=== PATIENT | male | born 1930 | race Caucasian/White ===

== ENCOUNTER 2016-04-24 23:05 | Inpatient (IN) | payer MEDICARE ==
[2016-04-24] MEDS ORDERED: cloNIDine HCL 0.1 MG TAB PO STA (23:44)
[2016-04-25 00:37] LABS: Basophils % (A) 0 %; CH 30.5; CHCM 33.2; Eosinophils # (A) 0.1 k/uL (0-0.7); Eosinophils % (A) 1 %; HCT 34.6 % (39.0-53.0); HDW 2.75; HGB 11.4 gm/dL (13.0-17.5); Luc # (Auto) 0.16; Luc % (Auto) 2; Lymphocytes # (A) 1.7 k/uL (1.0-4.8); Lymphocytes % (A) 21 %; MCH 30.5 pg (25.0-35.0); MCV 92.4 fL (80.0-100.0); Mean Platelet Volume 7.5; Monocytes # (A) 0.5 k/uL (0-1.0); Monocytes % (A) 7 %; Neutrophils # (A) 5.3 k/uL (1.3-7.7); Neutrophils % (A) 69 %; RBC 3.74 m/uL (4.30-5.90); RDW 13.4 % (11.5-15.5); WBC 7.8 k/uL (3.8-10.6); WBC (Perox) 8.08
--- NOTE | 2016-04-25 00:40 | XR ---
EXAMINATION TYPE: XR chest 2V DATE OF EXAM: 04/25/2016 12:29 AM COMPARISON: NONE HISTORY: Cough and difficulty breathing TECHNIQUE: Frontal and lateral views of the chest are obtained. FINDINGS: There is coarsening of interstitial markings. Heart size is normal. There is no heart fail ure. There are no hilar masses. There are chest leads. There are sternal wires. IMPRESSION: Mild pulmonary fibrotic changes. No heart failure. No definite acute lung disease.
[2016-04-25 00:43] LABS: Calcium 7.4 mg/dL (8.4-10.2); Total Bilirubin 0.9 mg/dL (0.2-1.3); Total Protein 5.8 g/dL (6.3-8.2)
[2016-04-25 00:47] LABS: INR 1.1 (<1.1); Partial Thromboplastin Time 22.3 sec (22.0-30.0); Prothrombin Time 10.7 sec (9.0-12.0)
[2016-04-25 00:48] LABS: Potassium 4.6 mmol/L (3.5-5.1)
[2016-04-25 01:02] LABS: Appearance,Urine Clear (Clear); Bilirubin,Urine Negative (Negative); Glucose,Urine (UA) Negative (Negative); Ketones,Urine Negative (Negative); Leukocyte Esterase,Urine Negative (Negative); Nitrite,Urine Negative (Negative); PH, Urine 6.5 (5.0-8.0); Particle Count 252; Protein,Urine 1+ (Negative); Specific Gravity,Urine 1.009 (1.001-1.035); Squamous Epithelial Cell,Urine <1 /hpf (0-4); UA Billing (MACRO vs. MICRO) MICRO; Urobilinogen,Urine <2.0 mg/dL (<2.0); WBC,Urine 1 /hpf (0-5)
[2016-04-25 01:06] LABS: Creatine Kinase MB 1.4 ng/mL (0.0-2.4)
[2016-04-25 01:08] LABS: Troponin I 0.021 ng/mL (0.000-0.034)
[2016-04-25] MEDS ORDERED: cloNIDine HCL 0.1 MG TAB PO STA ×2 (02:11→03:09)
--- NOTE | 2016-04-25 02:15 | ED ---
Psych HPI - General Source: patient, EMS Mode of arrival: EMS <Bailey Chase - Last Filed: 04/25/16 04:59> <Bhupinder Munoz - Last Filed: 04/26/16 11:14> - General Chief Complaint: Psychiatric Symptoms Stated Complaint: mental health, flu Time Seen by Provider: 04/24/16 23:19 - History of Present Illness Initial Comments: Patient is an 85-year-old male chief complaint of depression for approximately 2 days. Patient reports that he's had increased suicidal thoughts but denies any specific plan. He denies any auditory or visual hallucinations. Patient reports that he is recently discharged from the hospital diagnosed with influenza B. Patient reports that when he at [facility] he was unable to smoke. Patient reports that because he is unable to smoke that caused him to become having withdrawals and that's why he is depressed. He states that he has battled depression off and on for the past year. He also reports that he receives most of his medications from the [facility] but is a poor historian, does not know exactly what medications he takes. Patient does state that he has had a history of chronic poor kidney function, as well as CABG. Patient states that he feels slightly short of breath. He denies any specific chest pain, nausea vomiting, fever or chills. (Bailey Chase) - Related Data Allergies Allergy/AdvReac Type Severity Reaction Status Date / Time No Known Allergies Allergy Verified 04/24/16 23:59 Review of Systems ROS Other: All systems not noted in ROS Statement are negative. <Bailey Chase - Last Filed: 04/25/16 04:59> ROS Other: All systems not noted in ROS Statement are negative. <Bhupinder Munoz - Last Filed: 04/26/16 11:14> ROS Statement: Those systems with pertinent positive or pertinent negative responses have been documented in the HPI. Past Medical History Past Medical History: Coronary Artery Disease (CAD), Hypertension Additional Past Medical History / Comment(s): CABG 2008. 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 Absent: scleral icterus, conjunctival injection, periorbital swelling ENT exam: Present: normal exam, mucous membranes moist Neck exam: Present: normal inspection. Absent: tenderness, meningismus, lymphadenopathy Respiratory exam: Present: normal lung sounds bilaterally. Absent: respiratory distress, wheezes, rales, rhonchi, stridor Cardiovascular Exam: Present: regular rate, normal rhythm, normal heart sounds. Absent: systolic murmur, diastolic murmur, rubs, gallop, clicks GI/Abdominal exam: Present: soft, normal bowel sounds. Absent: distended, tenderness, guarding, rebound, rigid Extremities exam: Present: normal inspection, full ROM, normal capillary refill. Absent: tenderness, pedal edema, joint swelling, calf tenderness Back exam: Present: normal inspection Neurological exam: Present: alert, oriented X3, CN II-XII intact Psychiatric exam: Present: normal affect, depressed. Absent: normal mood Skin exam: Present: warm, dry, intact, normal color. Absent: rash <Bailey Chase - Last Filed: 04/25/16 04:59> <Bhupinder Munoz - Last Filed: 04/26/16 11:14> - General Exam Comments Initial Comments: Patient is an anxious 85 year old male. No acute distress. (Bailey Chase) Course <Bailey Chase - Last Filed: 04/25/16 04:59> <Bhupinder Munoz - Last Filed: 04/26/16 11:14> Vital Signs 04/24/16 04/25/16 04/25/16 23:21 00:55 01:24 Temperature 97.5 F L Pulse Rate 60 50 L 49 L Respiratory 16 16 14 Rate Blood Pressure 224/90 207/83 179/76 O2 Sat by Pulse 96 100 100 Oximetry 04/25/16 04/25/16 04/25/16 02:03 03:01 03:08 Temperature Pulse Rate 54 L 54 L 60 Respiratory 16 16 16 Rate Blood Pressure 201/80 230/90 204/89 O2 Sat by Pulse 97 95 Oximetry 04/25/16 04/25/16 04/25/16 04:00 04:33 05:41 Temperature Pulse Rate 50 L 49 L Respiratory 16 16 16 Rate Blood Pressure 171/89 154/70 159/68 O2 Sat by Pulse 97 98 99 Oximetry 04/25/16 04/25/16 04/25/16 06:32 07:34 08:08 Temperature Pulse Rate 50 L 40 L 45 L Respiratory 16 12 16 Rate Blood Pressure 190/72 176/74 200/77 O2 Sat by Pulse 99 97 95 Oximetry 04/25/16 04/25/16 13:11 14:35 Temperature 97.1 F L 97.0 F L Pulse Rate 54 L 61 Respiratory 20 18 Rate Blood Pressure 131/90 111/53 O2 Sat by Pulse 96 94 L Oximetry - Reevaluation(s) Reevaluation #1: 04/25/16 05:04 Cruz is restful and a sleeping at this time. (Bailey Chase) Medical Decision Making - Lab Data Result diagrams: 04/25/16 00:00 04/25/16 00:00 - Radiology Data Radiology results: report reviewed <Bailey Chase - Last Filed: 04/25/16 04:59> - Lab Data Result diagrams: 04/26/16 07:11 04/26/16 07:11 <Bhupinder Munoz - Last Filed: 04/26/16 11:14> - Medical Decision Making She is an 85-year-old male chief complaint of depression. Patient reports that yesterday he was treated at [facility] for influenza and was discharged home. Patient reports that since then he was unable to smoke and that caused him to to become and a deep depression. Patient denies any specific plan to harm himself. He states that he wants a medication to help him feel undepressed as soon as possible. Patient's lab work was reviewed and patient reports he has chronic poor kidney function. is an elevated BUN of 35 and creatinine of 1.90. Patient did complain of some shortness of breath and EKG was reviewed to be normal and no significant cardiac enzymes are elevated. Blood pressure is elevated and he does not know what blood pressure medications he does take at this time. He does not know if he took medications earlier today. Patient was given Catapres. Patient is medically clear for psych evaluation. Patient is To doing to request "pain medication" for what that is occurring in his brain causing him to have even suicidal thoughts. She reports that [facility] He states he has chronic pain. Patient continually evaluated and his blood pressure continued to be elevated. Patient is given 0.3 mg Catapres. Patient was given IV Dilaudid with pain, and later IV Ativan to help him rest and sleep. Patient will be admitted by Dr. Farrell. We'll consult psych and cardiology for his high blood pressure. (Bailey Chase) I saw this patient in conjunction with the physician certified physical therapist assistant. I performed independent history and physical exam. Agree with case management. (Bhupinder Munoz) - Lab Data Lab Results 04/25/16 04/25/16 04/25/16 Range/Units 00:00 00:00 00:00 WBC 7.8 (3.8-10.6) k/uL RBC 3.74 L (4.30-5.90) m/uL Hgb 11.4 L (13.0-17.5) gm/dL Hct 34.6 L (39.0-53.0) % MCV 92.4 (80.0-100.0) fL MCH 30.5 (25.0-35.0) pg MCHC 33.0 (31.0-37.0) g/dL RDW 13.4 (11.5-15.5) % Plt Count 162 (150-450) k/uL Neutrophils % 69 % Lymphocytes % 21 % Monocytes % 7 % Eosinophils % 1 % Basophils % 0 % Neutrophils # 5.3 (1.3-7.7) k/uL Lymphocytes # 1.7 (1.0-4.8) k/uL Monocytes # 0.5 (0-1.0) k/uL Eosinophils # 0.1 (0-0.7) k/uL Basophils # 0.0 (0-0.2) k/uL PT (9.0-12.0) sec INR (<1.1) APTT (22.0-30.0) sec Sodium 140 (137-145) mmol/L Potassium 4.6 (3.5-5.1) mmol/L Chloride 109 H (98-107) mmol/L Carbon Dioxide 23 (22-30) mmol/L Anion Gap 8 mmol/L BUN 35 H (9-20) mg/dL Creatinine 1.90 H (0.66-1.25) mg/dL Est GFR (MDRD) Af Amer 41 (>60 ml/min/1.73 sqM) Est GFR (MDRD) Non-Af 34 (>60 ml/min/1.73 sqM) Glucose 102 H (74-99) mg/dL Estimated Ave Glu mg/dL mg/dL Hemoglobin A1c (4.2-6.1) % Calcium 7.4 L (8.4-10.2) mg/dL Total Bilirubin 0.9 (0.2-1.3) mg/dL AST 30 (17-59) U/L ALT 27 (21-72) U/L Alkaline Phosphatase 59 (38-126) U/L Total Creatine Kinase 79 (55-170) U/L CK-MB (CK-2) 1.4 (0.0-2.4) ng/mL CK-MB (CK-2) Rel Index 1.8 Troponin I 0.021 (0.000-0.034) ng/mL Total Protein 5.8 L (6.3-8.2) g/dL Albumin 3.0 L (3.5-5.0) g/dL Triglycerides (<150) mg/dL Cholesterol (<200) mg/dL LDL Cholesterol, Calc (0-99) mg/dL HDL Cholesterol (40-60) mg/dL TSH (0.465-4.680) mIU/L Urine Color Urine Appearance (Clear) Urine pH (5.0-8.0) Ur Specific [place] (1.001-1.035) Urine Protein (Negative) Urine Glucose (UA) (Negative) Urine Ketones (Negative) Urine Blood (Negative) Urine Nitrate (Negative) Urine Bilirubin (Negative) Urine Urobilinogen (<2.0) mg/dL Ur Leukocyte Esterase (Negative) Urine WBC (0-5) /hpf Ur Squamous Epith Cells (0-4) /hpf Urine Opiates Screen (NotDetected) Ur Oxycodone Screen (NotDetected) Urine Methadone Screen (NotDetected) Ur Propoxyphene Screen (NotDetected) Ur Barbiturates Screen (NotDetected) U Tricyclic Antidepress (NotDetected) Ur Phencyclidine Scrn (NotDetected) Ur Amphetamines Screen (NotDetected) U Methamphetamines Scrn (NotDetected) U Benzodiazepines Scrn (NotDetected) Urine Cocaine Screen (NotDetected) U Marijuana (THC) Screen (NotDetected) Influenza Type A RNA (Not Detectd) Influenza Type B (PCR) (Not Detectd) 04/25/16 04/25/16 04/25/16 Range/Units 00:00 00:00 10:09 WBC (3.8-10.6) k/uL RBC (4.30-5.90) m/uL Hgb (13.0-17.5) gm/dL Hct (39.0-53.0) % MCV (80.0-100.0) fL MCH (25.0-35.0) pg MCHC (31.0-37.0) g/dL RDW (11.5-15.5) % Plt Count (150-450) k/uL Neutrophils % % Lymphocytes % % Monocytes % % Eosinophils % % Basophils % % Neutrophils # (1.3-7.7) k/uL Lymphocytes # (1.0-4.8) k/uL Monocytes # (0-1.0) k/uL Eosinophils # (0-0.7) k/uL Basophils # (0-0.2) k/uL PT 10.7 (9.0-12.0) sec INR 1.1 (<1.1) APTT 22.3 (22.0-30.0) sec Sodium (137-145) mmol/L Potassium (3.5-5.1) mmol/L Chloride (98-107) mmol/L Carbon Dioxide (22-30) mmol/L Anion Gap mmol/L BUN (9-20) mg/dL Creatinine (0.66-1.25) mg/dL Est GFR (MDRD) Af Amer (>60 ml/min/1.73 sqM) Est GFR (MDRD) Non-Af (>60 ml/min/1.73 sqM) Glucose (74-99) mg/dL Estimated Ave Glu mg/dL 126 mg/dL Hemoglobin A1c 6.0 (4.2-6.1) % Calcium (8.4-10.2) mg/dL Total Bilirubin (0.2-1.3) mg/dL AST (17-59) U/L ALT (21-72) U/L Alkaline Phosphatase (38-126) U/L Total Creatine Kinase (55-170) U/L CK-MB (CK-2) (0.0-2.4) ng/mL CK-MB (CK-2) Rel Index Troponin I (0.000-0.034) ng/mL Total Protein (6.3-8.2) g/dL Albumin (3.5-5.0) g/dL Triglycerides (<150) mg/dL Cholesterol (<200) mg/dL LDL Cholesterol, Calc (0-99) mg/dL HDL Cholesterol (40-60) mg/dL TSH (0.465-4.680) mIU/L Urine Color Light Yellow Urine Appearance Clear (Clear) Urine pH 6.5 (5.0-8.0) Ur Specific [place] 1.009 (1.001-1.035) Urine Protein 1+ H (Negative) Urine Glucose (UA) Negative (Negative) Urine Ketones Negative (Negative) Urine Blood Negative (Negative) Urine Nitrate Negative (Negative) Urine Bilirubin Negative (Negative) Urine Urobilinogen <2.0 (<2.0) mg/dL Ur Leukocyte Esterase Negative (Negative) Urine WBC 1 (0-5) /hpf Ur Squamous Epith Cells <1 (0-4) /hpf Urine Opiates Screen Detected H (NotDetected) Ur Oxycodone Screen Not Detected (NotDetected) Urine Methadone Screen Not Detected (NotDetected) Ur Propoxyphene Screen Not Detected (NotDetected) Ur Barbiturates Screen Not Detected (NotDetected) U Tricyclic Antidepress Not Detected (NotDetected) Ur Phencyclidine Scrn Not Detected (NotDetected) Ur Amphetamines Screen Not Detected (NotDetected) U Methamphetamines Scrn Not Detected (NotDetected) U Benzodiazepines Scrn Not Detected (NotDetected) Urine Cocaine Screen Not Detected (NotDetected) U Marijuana (THC) Screen Not Detected (NotDetected) Influenza Type A RNA (Not Detectd) Influenza Type B (PCR) (Not Detectd) 04/25/16 04/25/16 04/25/16 Range/Units 10:09 12:05 17:03 WBC (3.8-10.6) k/uL RBC (4.30-5.90) m/uL Hgb (13.0-17.5) gm/dL Hct (39.0-53.0) % MCV (80.0-100.0) fL MCH (25.0-35.0) pg MCHC (31.0-37.0) g/dL RDW (11.5-15.5) % Plt Count (150-450) k/uL Neutrophils % % Lymphocytes % % Monocytes % % Eosinophils % % Basophils % % Neutrophils # (1.3-7.7) k/uL Lymphocytes # (1.0-4.8) k/uL Monocytes # (0-1.0) k/uL Eosinophils # (0-0.7) k/uL Basophils # (0-0.2) k/uL PT (9.0-12.0) sec INR (<1.1) APTT (22.0-30.0) sec Sodium (137-145) mmol/L Potassium (3.5-5.1) mmol/L Chloride (98-107) mmol/L Carbon Dioxide (22-30) mmol/L Anion Gap mmol/L BUN (9-20) mg/dL Creatinine (0.66-1.25) mg/dL Est GFR (MDRD) Af Amer (>60 ml/min/1.73 sqM) Est GFR (MDRD) Non-Af (>60 ml/min/1.73 sqM) Glucose (74-99) mg/dL Estimated Ave Glu mg/dL mg/dL Hemoglobin A1c (4.2-6.1) % Calcium (8.4-10.2) mg/dL Total Bilirubin (0.2-1.3) mg/dL AST (17-59) U/L ALT (21-72) U/L Alkaline Phosphatase (38-126) U/L Total Creatine Kinase (55-170) U/L CK-MB (CK-2) (0.0-2.4) ng/mL CK-MB (CK-2) Rel Index Troponin I (0.000-0.034) ng/mL Total Protein (6.3-8.2) g/dL Albumin (3.5-5.0) g/dL Triglycerides 87 (<150) mg/dL Cholesterol 85 (<200) mg/dL LDL Cholesterol, Calc 34 (0-99) mg/dL HDL Cholesterol 34 L (40-60) mg/dL TSH 1.270 (0.465-4.680) mIU/L Urine Color Yellow Urine Appearance Clear (Clear) Urine pH 6.5 (5.0-8.0) Ur Specific [place] 1.009 (1.001-1.035) Urine Protein Trace H (Negative) Urine Glucose (UA) Negative (Negative) Urine Ketones Negative (Negative) Urine Blood Negative (Negative) Urine Nitrate Negative (Negative) Urine Bilirubin Negative (Negative) Urine Urobilinogen <2.0 (<2.0) mg/dL Ur Leukocyte Esterase Negative (Negative) Urine WBC (0-5) /hpf Ur Squamous Epith Cells (0-4) /hpf Urine Opiates Screen (NotDetected) Ur Oxycodone Screen (NotDetected) Urine Methadone Screen (NotDetected) Ur Propoxyphene Screen (NotDetected) Ur Barbiturates Screen (NotDetected) U Tricyclic Antidepress (NotDetected) Ur Phencyclidine Scrn (NotDetected) Ur Amphetamines Screen (NotDetected) U Methamphetamines Scrn (NotDetected) U Benzodiazepines Scrn (NotDetected) Urine Cocaine Screen (NotDetected) U Marijuana (THC) Screen (NotDetected) Influenza Type A RNA Not Detected (Not Detectd) Influenza Type B (PCR) Not Detected (Not Detectd) 04/26/16 04/26/16 Range/Units 07:11 07:11 WBC 7.6 (3.8-10.6) k/uL RBC 3.57 L (4.30-5.90) m/uL Hgb 11.0 L (13.0-17.5) gm/dL Hct 33.2 L (39.0-53.0) % MCV 92.9 (80.0-100.0) fL MCH 30.7 (25.0-35.0) pg MCHC 33.1 (31.0-37.0) g/dL RDW 13.7 (11.5-15.5) % Plt Count 196 (150-450) k/uL Neutrophils % 78 % Lymphocytes % 14 % Monocytes % 6 % Eosinophils % 1 % Basophils % 0 % Neutrophils # 5.9 (1.3-7.7) k/uL Lymphocytes # 1.1 (1.0-4.8) k/uL Monocytes # 0.4 (0-1.0) k/uL Eosinophils # 0.1 (0-0.7) k/uL Basophils # 0.0 (0-0.2) k/uL PT (9.0-12.0) sec INR (<1.1) APTT (22.0-30.0) sec Sodium 144 (137-145) mmol/L Potassium 4.1 (3.5-5.1) mmol/L Chloride 113 H (98-107) mmol/L Carbon Dioxide 20 L (22-30) mmol/L Anion Gap 11 mmol/L BUN 28 H (9-20) mg/dL Creatinine 2.11 H (0.66-1.25) mg/dL Est GFR (MDRD) Af Amer 37 (>60 ml/min/1.73 sqM) Est GFR (MDRD) Non-Af 30 (>60 ml/min/1.73 sqM) Glucose 106 H (74-99) mg/dL Estimated Ave Glu mg/dL mg/dL Hemoglobin A1c (4.2-6.1) % Calcium 7.4 L (8.4-10.2) mg/dL Total Bilirubin 0.8 (0.2-1.3) mg/dL AST 33 (17-59) U/L ALT 36 (21-72) U/L Alkaline Phosphatase 68 (38-126) U/L Total Creatine Kinase (55-170) U/L CK-MB (CK-2) (0.0-2.4) ng/mL CK-MB (CK-2) Rel Index Troponin I (0.000-0.034) ng/mL Total Protein 5.0 L (6.3-8.2) g/dL Albumin 2.5 L (3.5-5.0) g/dL Triglycerides (<150) mg/dL Cholesterol (<200) mg/dL LDL Cholesterol, Calc (0-99) mg/dL HDL Cholesterol (40-60) mg/dL TSH (0.465-4.680) mIU/L Urine Color Urine Appearance (Clear) Urine pH (5.0-8.0) Ur Specific [place] (1.001-1.035) Urine Protein (Negative) Urine Glucose (UA) (Negative) Urine Ketones (Negative) Urine Blood (Negative) Urine Nitrate (Negative) Urine Bilirubin (Negative) Urine Urobilinogen (<2.0) mg/dL Ur Leukocyte Esterase (Negative) Urine WBC (0-5) /hpf Ur Squamous Epith Cells (0-4) /hpf Urine Opiates Screen (NotDetected) Ur Oxycodone Screen (NotDetected) Urine Methadone Screen (NotDetected) Ur Propoxyphene Screen (NotDetected) Ur Barbiturates Screen (NotDetected) U Tricyclic Antidepress (NotDetected) Ur Phencyclidine Scrn (NotDetected) Ur Amphetamines Screen (NotDetected) U Methamphetamines Scrn (NotDetected) U Benzodiazepines Scrn (NotDetected) Urine Cocaine Screen (NotDetected) U Marijuana (THC) Screen (NotDetected) Influenza Type A RNA (Not Detectd) Influenza Type B (PCR) (Not Detectd) 04/25/16 03:24 Patient's EKG shows ventricular rate of 53 bpm. There is a prolonged [place] interval of approximately 0.36 ms. QRS duration is 96 ms. QT/QTc is 492/461 ms. (Bailey Chase) - Radiology Data Chest x-rays negative for any acute process. There is evidence of mild pulmonary fibrotic changes. No heart failure. No definite acute lung disease. (Bailey Chase) Disposition Time of Disposition: 03:24 <Bailey Chase - Last Filed: 04/25/16 04:59> <Bhupinder Munoz - Last Filed: 04/26/16 11:14> Clinical Impression: Depression, Acute kidney injury, Hypertension, Nicotine abuse Disposition: ADMITTED IP TO THIS HOSP Condition: Stable
[2016-04-25] MEDS ORDERED: HYDROmorphone 1 MG/ML 1 ML SYRINGE IVP STA (02:18)
[2016-04-25] MEDS ORDERED: ACETAMINOPHEN TAB 325 MG TAB PO PRN (03:18)
[2016-04-25] MEDS ORDERED: NALOXONE 0.4 MG/ML 1 ML VIAL IV PRN (03:18)
[2016-04-25] MEDS ORDERED: ONDANSETRON 4 MG/2 ML VIAL IVP PRN (03:18)
[2016-04-25] MEDS: SODIUM CHLORIDE 0.9% 1,000 ML IV SCH ×3 (03:22→23:46)
[2016-04-25] MEDS: LORazepam 2 MG/ML SYRINGE IV PRN ×2 (03:48→14:33)
--- NOTE | 2016-04-25 08:30 | CONS ---
DATE OF CONSULTATION: CHIEF COMPLAINT: Uncontrolled hypertension. Miguel is an 85-year-old gentleman with history of hypertension and multiple other medical problems, poor historian, on medications, that he does not remember, actually she came to the hospital with suicidal ideation and had been found to be both bradycardic and had severely elevated blood pressures. Cardiology had been consulted for the same. He denies chest pain, difficulty in breathing, or focal neurological deficits. Denies any leg edema. He is a current smoker. He has elevated blood pressures and received a total of 0.5 Catapres and had been left alone since. Past medical history is significant for hypertension and denies for diabetes, dyslipidemia, coronary artery disease, congestive heart failure or valvular heart disease. We do not have any of his records from [facility] at this time. Nor do we have access to his medications. ALLERGIES: Denies any. FAMILY HISTORY: Negative for premature coronary artery disease. SOCIAL HISTORY: Significant for current smoking. There is no history of ETOH abuse, or drug abuse. REVIEW OF SYSTEMS: HEENT: Unremarkable. CARDIAC: As described above. RESPIRATORY: Negative. GI: Negative. GENITOURINARY: Negative. Allergy/immunology: Negative. SKIN: Negative. MUSCULOSKELETAL: Significant for arthritis. PSYCHOSOCIAL: Shows significant for suicidal ideation. Rest of the system review is not relevant. On exam he appears comfortable at rest. Heart rate is 50 beats per minute, regular seemed to have sinus bradycardia with prolonged first-degree AV block. On his initial presentation, he seemed to be in junctional bradycardia. Labs show that the hemoglobin is 11.4. Platelet count is 160. Potassium is 4.6. BUN is 55. Creatinine is 1.9. Urine opiate screen was positive. Rest were not. EKG shows sinus bradycardia, later it was junctional bradycardia. ASSESSMENT: 1. Severe uncontrolled hypertension blood pressure at the moment is 200/90. 2. Bradyarrhythmia asymptomatic. PLAN: Admit the patient to telemetry unit. I will start the patient on Norvasc 10 mg daily and hydralazine 100 mg t.i.d. I will also put him on nitro paste 1 inch q.8 hours. I will obtain a 2-D echo to document his LV function. We will call [facility] and get hold of his records.
--- NOTE | 2016-04-25 10:31 | HP ---
DATE OF ADMISSION: CHIEF COMPLAINT: An 85-year-old white male with psychiatric symptoms, mental health and flu. He came into the hospital apparently for depression for the last 2 days, increased suicidal thoughts and visual and auditory hallucinations. He is recently diagnosed with influenza B and sent home from the hospital, at [place] recently because he was unable to smoke. He has had depression on and off for the past year. He gets most of his medication from the [facility]. He is a poor historian. The history reports renal function as well as CABG. Denies any nausea, vomiting, or chills. Allergies are negative. REVIEW OF SYSTEMS: Essentially 14-point review of systems negative. Patient is a poor historian. 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 SURGICAL HISTORY: Cholecystectomy, coronary artery bypass, CABG. He has depression, current every day smoker. PHYSICAL EXAM: He is an 85-year-old male. No acute distress. PSYCH: He has got flat affect with minimal responses. ( ) He appears to be hiding under his blankets for the most part. ENDOCRINE: His BMI is over 40. GI: Appears to have increased abdominal distention due to obesity. Normal bowel sounds. No guarding. EXTREMITIES: 2 to 3+ pedal edema. Normal dorsalis pedis, posterior tibial pulses. BACK: Shows normal inspection. NEUROLOGIC: Cranial nerves are intact. PSYCH: Flat mood and affect. SKIN: Warm, dry, and intact. OPHTHALMOLOGIC: No scleral icterus. ENDOCRINE: No adenopathy. Blood pressure on admission is 224/90, currently it is 179/76, pulse is low 49 to 50, respiratory rate 14 to 16, O2 is 100%. ASSESSMENT: 1. Hypertension acceleration. 2. History of coronary artery bypass grafting surgery, coronary artery disease. 3. History of depression. 4. Acute on chronic renal insufficiency stage III. Likely prerenal in fashion. 5. He has possible suicidal thoughts. He is seen down at the [facility]. We had Psychiatric and Cardiology consult. He has thrombocytopenia for some reason, stage III renal insufficiency prerenal. Chronic anemia, unclear etiology. Will rehydrate him. Monitor his kidney enzymes.
--- NOTE | 2016-04-25 11:06 | ECHOF ---
Referral Reason:hypertension MEASUREMENTS -------- HEIGHT: 175.3 cm WEIGHT: 77.1 kg BP: RVIDd: 4.3 cm (< 3.3) IVSd: 1.4 cm (0.6 - 1.1) LVIDd: 4.2 cm (3.9 - 5.3) LVPWd: 1.4 cm (0.6 - 1.1) IVSs: 1.9 cm LVIDs: 3.1 cm LVPWs: 1.9 cm LA Diam: 4.5 cm (2.7 - 3.8) LAESV Index (A-L): 27.51 ml/m Ao Diam: 3.0 cm (2.0 - 3.7) AV Cusp: 0.9 cm (1.5 - 2.6) LA Diam: 4.2 cm (2.7 - 3.8) MV EXCURSION: 13.601 mm (> 18.000) MV EF SLOPE: 52 mm/s (70 - 150) EPSS: 1.8 cm MV E Gonzalo: 1.15 m/s MV DecT: 321 ms MV A Gonzalo: 0.93 m/s MV E/A Ratio: 1.24 AV maxP.19 mmHg AV meanP.57 mmHg RAP: 5.00 mmHg RVSP: 39.42 mmHg FINDINGS -------- Resting bradycardia (HR<60bpm). This was a technically good study. There is moderate concentric left ventricular hypertrophy. Overall left ventricular systolic function is normal with, an EF between 55 - 60 %. The right ventricle is severely enlarged. Normal LA size by volume 22+/-6 ml/m2. The right atrium is mildly enlarged. Aortic valve is trileaflet and is moderately thickened. There is mild aortic stenosis present. Peak/mean gradient across the Aortic Valve is 26.19mmHg / 13.57mmHg. The mitral valve leaflets are mildly thickened. Mild mitral annular calcification present. Mild mitral regurgitation is present. Mild tricuspid regurgitation present. There is mild pulmonary hypertension. The right ventricular systolic pressure, as measured by Doppler, is 39.42mmHg. Pulmonic valve appears structurally normal. The aortic root size is normal. Normal inferior vena cava with normal inspiratory collapse consistent with estimated right atrial pressure of 5 mmHg. The pericardium is normal. CONCLUSIONS -------- 1. Resting bradycardia (HR<60bpm). 2. Peak/mean gradient across the Aortic Valve is 26.19mmHg / 13.57mmHg. 3. The mitral valve leaflets are mildly thickened. 4. Mild mitral annular calcification present. 5. Mild mitral regurgitation is present. 6. Mild tricuspid regurgitation present. 7. There is mild pulmonary hypertension. 8. The right ventricular systolic pressure, as measured by Doppler, is 39.42mmHg. 9. Pulmonic valve appears structurally normal. 10. The aortic root size is normal. 11. The pericardium is normal. 12. This was a technically good study. 13. There is moderate concentric left ventricular hypertrophy. 14. Overall left ventricular systolic function is normal with, an EF between 55 - 60 %. 15. The right ventricle is severely enlarged. 16. Normal LA size by volume 22+/-6 ml/m2. 17. The right atrium is mildly enlarged. 18. Aortic valve is trileaflet and is moderately thickened. 19. There is mild aortic stenosis present. FIELD CARE ADVOCATE: Neil Gates RDCS
[2016-04-25] MEDS: hydrALAZINE HCL 50 MG TAB PO SCH ×3 (12:33→23:38)
[2016-04-25] MEDS: amLODIPine 10 MG TAB PO SCH (12:33)
[2016-04-25] MEDS: NITROGLYCERIN OINT 1 INCH/GM PACKET TOPICAL SCH ×3 (12:38→23:45)
[2016-04-25] MEDS: NICOTINE 14MG/24HR PATCH TRANSDERM SCH (12:38)
--- NOTE | 2016-04-25 12:42 | US ---
EXAMINATION TYPE: US carotid duplex BILAT DATE OF EXAM: 04/25/2016 11:53 AM COMPARISON: NONE CLINICAL HISTORY: stenosis. EXAM MEASUREMENTS: RIGHT: Peak Systolic Velocity (PSV) cm/sec ----- Right CCA: 91.5 ----- Right ICA: 157.9 ----- Right ECA: 93.9 ICA/CCA ratio: 1.7 RIGHT: End Diastole cm/sec ----- Right CCA: 17.6 ----- Right ICA: 24.8 ----- Right ECA: 15.0 LEFT: Peak Systolic Velocity (PSV) cm/sec ----- Left CCA: 91.5 ----- Left ICA: 406.9 ----- Left ECA: 357.0 ICA/CCA ratio: 4.4 LEFT: End Diastole cm/sec ----- Left CCA: 13.9 ----- Left ICA: 34.5 ----- Left ECA: 34.5 VERTEBRALS (direction of flow): Right Vertebral: antegrade Left Vertebral: Antegrade TECHNOLOGIST IMPRESSION: Large amounts of soft and calcified plaque bilaterally. Largest amount is i n left bulb/ICA. High velocity flow bilaterally. Exam somewhat limited d/t patient's inability to sta y still and stop snoring. Exam is suboptimal due to patient noncooperation per technologist. There is moderate to severe shadow ing eccentric plaque at right carotid bulb. Increased peak systolic velocity of right internal caroti d artery is present. There is more severe eccentric plaque at left carotid bulb. Increased peak systo lic velocity in both left internal/external carotid arteries is present. Abnormal ICA over CCA ratio is seen. IMPRESSION: Moderate to severe atherosclerotic change bilaterally with possible hemodynamically signi ficant stenosis bilaterally, left more prominent than right, stenosis greater than 70% is suspected o n the left. Stenosis between 50-69% on the right cannot be excluded. Further investigation with CTA o r MRA of the neck is advised to better evaluated and characterized.
[2016-04-25] MEDS: PANTOPRAZOLE 40 MG/10 ML VIAL IV SCH (12:43)
[2016-04-25 12:58] LABS: Appearance,Urine Clear (Clear); Bilirubin,Urine Negative (Negative); Glucose,Urine (UA) Negative (Negative); Ketones,Urine Negative (Negative); Leukocyte Esterase,Urine Negative (Negative); Nitrite,Urine Negative (Negative); PH, Urine 6.5 (5.0-8.0); Protein,Urine Trace (Negative); Specific Gravity,Urine 1.009 (1.001-1.035); UA Billing (MACRO vs. MICRO) CHEM; Urobilinogen,Urine <2.0 mg/dL (<2.0)
[2016-04-25] MEDS: HYDROmorphone 1 MG/ML 1 ML SYRINGE IV PRN (23:38)
[2016-04-26 07:47] LABS: Basophils % (A) 0 %; CH 30.6; CHCM 33.1; Eosinophils # (A) 0.1 k/uL (0-0.7); Eosinophils % (A) 1 %; HCT 33.2 % (39.0-53.0); HDW 2.73; Luc % (Auto) 1; Lymphocytes # (A) 1.1 k/uL (1.0-4.8); Lymphocytes % (A) 14 %; MCH 30.7 pg (25.0-35.0); MCHC 33.1 g/dL (31.0-37.0); MCV 92.9 fL (80.0-100.0); Mean Platelet Volume 8.5; Monocytes # (A) 0.4 k/uL (0-1.0); Monocytes % (A) 6 %; Neutrophils # (A) 5.9 k/uL (1.3-7.7); Neutrophils % (A) 78 %; RBC 3.57 m/uL (4.30-5.90); RDW 13.7 % (11.5-15.5); WBC 7.6 k/uL (3.8-10.6); WBC (Perox) 7.49
[2016-04-26 07:52] LABS: Calcium 7.4 mg/dL (8.4-10.2); Potassium 4.1 mmol/L (3.5-5.1); Total Bilirubin 0.8 mg/dL (0.2-1.3)
[2016-04-26] MEDS: PANTOPRAZOLE 40 MG/10 ML VIAL IV SCH (08:52)
[2016-04-26] MEDS: NICOTINE 14MG/24HR PATCH TRANSDERM SCH (08:52)
[2016-04-26] MEDS: hydrALAZINE HCL 50 MG TAB PO SCH ×2 (08:52→16:03)
[2016-04-26] MEDS: amLODIPine 10 MG TAB PO SCH (08:52)
[2016-04-26] MEDS: NITROGLYCERIN OINT 1 INCH/GM PACKET TOPICAL SCH ×2 (08:54→16:03)
[2016-04-26] MEDS: LORazepam 2 MG/ML SYRINGE IV PRN (08:54)
[2016-04-26] MEDS: HYDROmorphone 1 MG/ML 1 ML SYRINGE IV PRN ×3 (10:14→20:20)
--- NOTE | 2016-04-26 10:52 | PN ---
Miguel is an 85-year-old gentleman who presented to hospital with suicidal ideation that Cardiology had been consulted because of severely elevated blood pressures. At the time of my evaluation this morning, his predominant symptom is in the form of pain all over and he is asking for morphine. He denies chest pain, difficulty in breathing, palpitations, syncope. His rhythm strip shows that he is in sinus rhythm with prolonged first degree AV block and there are intermittent episodes where he becomes profoundly bradycardic. An echocardiogram on him showed normal LV systolic function. The patient was on metoprolol 50 mg daily on his presentation, this is currently on hold. On exam today he is comfortable at rest. Blood pressure is normal at 147/62, respiratory rate is 18. There is no jugular venous distention. Chest exam reveals good air entry bilaterally. Heart exam reveals first and second heart sounds. No gallop. Exam of the extremities did not reveal edema. Peripheral pulses are felt. Labs show that the hemoglobin is 11. TSH is normal at 1.2. Creatinine is 2.1. BUN is 28. ASSESSMENT: 1. Hypertension, better controlled. 2. Asymptomatic sinus bradycardia. 3. History of suicidal ideation. 4. Coronary artery disease. PLAN: [facility]. Toprol is off. Hopefully his heart rate would improve, if it does not then he will need a permanent pacemaker. TSH is normal. Blood pressures are better controlled on the optimal therapies I started yesterday.
[2016-04-26 11:58] LABS: Glucose,Whole Blood 123 mg/dL (75-99)
[2016-04-26] MEDS: SODIUM CHLORIDE 0.9% 1,000 ML IV SCH ×2 (12:38→20:16)
--- NOTE | 2016-04-26 15:34 | P.PN ---
Subjective 5-year-old male being seen on rounds this morning. Did note that the patient is having episodes of prolonged first-degree AV block with intermittent episodes of profound bradycardic heart rate in the low 30s. It's noted the patient was on beta archana this is currently being held by cardiology's recommendations. Patients being followed by cardiology service. Patient was noted initially presented to the hospital with suicide ideation was noted to have significant elevated blood pressure with the bradycardic episodes patient does [facility] there's been no recent admissions to [facility] no prior records Echocardiogram was obtained that showed left ventricular systolic function normal with an EF between 55 and 60. Mild pulmonary hypertension. Carotid Doppler studies show moderate to severe chronic changes bilaterally significant stenosis bilaterally greater than 70% when questioning the patient about his carotid Doppler studies patient states he was told years ago he had carotid artery disease is not sure who he sees cannot give a name of the physician that he follows. Patient is denying dizziness lightheadedness Objective - Vital Signs Vital signs: Vital Signs Temp 98.0 F 04/26/16 12:00 Pulse 31 L 04/26/16 12:00 Resp 18 04/26/16 12:00 BP 126/49 04/26/16 12:00 Pulse Ox 94 L 04/26/16 12:00 Intake & Output 04/25/16 04/26/16 04/26/16 18:59 06:59 18:59 Intake Total 100 Balance 100 Intake: Oral 100 - Exam Physical exam A 85-year-old male looking older than stated age sitting up on the edge of the bed flat affect oriented to self and place and event Lungs essentially clear with adequate air on room air no shortness of breath noted Heart S1-S2 audible regular monitor showing prolonged first-degree AV block heart rate 32 Abdomen soft nontender Extremities no pedal edema - Labs CBC & Chem 7: 04/26/16 07:11 04/26/16 07:11 Labs: Abnormal Lab Results - Last 24 Hours (Table) 04/26/16 Range/Units 11:57 POC Glucose (mg/dL) 123 H (75-99) mg/dL Assessment and Plan Plan: Impression Present on admission hypertension urgency Present on admission prolonged first-degree AV block with sinus bradycardic rates in the low 30s Present on admission junctional bradycardic asymptomatic Echocardiogram left ventricular systolic function EF between 55 and 60% Abnormal carotid Doppler studies Present on admission suicide ideations verbalized Chronic pain narcotic dependency Plan Continue with recommendations by cardiology service 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 Regine Veras nurse practitioner acting as a scribe for Clara
--- NOTE | 2016-04-26 16:39 | CDI ---
Ronnie [facility] [address] [place] [address] Documentation Clarification Form Date: 04/26/2016 From: VIN Baumann, DAT Admit Date: 04/26/2016 Patient Name: Miguel Fishman Visit Number: [id number] Dr Julio Elizabeth and Regine Veras NP 'Acute on Chronic Renal Insufficiency stage III' is documented in the H&P. History/Risk Factors: Hypertension CAD Bradycardic on presentation Clinical Indicators: Labs: on presentation - BUN 35, Cr 1.90, GFR 34 Labs on 04/26: BUN 28, Cr 2.11, GFR 30 Treatment: IV fluids @100 cc/hr Monitor kidney function through labs In order to capture the severity of condition, please clarify if the condition signifies: Acute renal failure Acute on chronic renal failure Chronic kidney disease (CKD) and please stage Stage 1 GFR >90 Stage 2 GFR 60-89 Stage 3 GFR 30-59 Stage 4 GFR 15-29 Stage 5 GFR <15 ESRD Unable to determine Other, specify Please document in your progress notes and discharge summary in order to capture severity of illness and risk of mortality. Include clinical findings that support your diagnosis. FYI: Press F11 to launch patient chart. Place X here if this finding has no clinical significance, is not applicable or if you are not able to provide any additional documentation. ARTURD
--- NOTE | 2016-04-26 17:00 | P.GSCN ---
History of Present Illness Consult date: 04/26/16 Reason for Consult: carotid stenosis Requesting physician: Julio Elizabeth History of present illness: impression; 1. asymptomatic 60-70% left internal carotid stenosis by duplex velocity/ratio criteria; asymptomatic 50-60% right carotid stenosis 2. nicotine dependence 3. asymptomatic first degree heart block 4. depression 5. accelerated hypertension 6. Stage IIIB CKD plan; 1. no acute vascular surgical intervention at this time 2. continue current medical regimen; will add ECASA 81mg po q D; consider statin use 3. f/u office as outpatient for f/u carotid stenosis and right infrapopliteal artery occlusive disease 85 y/o man, admitted for accelerated hypertension, severe bradycardia, and depression. Denies a recent history of left hemispheric ischemic events including amarosis fugax, TIA, or CVA. 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 Denies a history of slurred speech. Long-standing history of nicotine dependence (>70 pack year history). Denies previous admissions for depression/anxiety/suicidal ideation. Receives medical care at [facility]. Very poor historian. CMHx; CAD, nicotine dependence, Stage IIIB renal failure, COPD, anxiety/ depression, obesity, chronic pain syndrome PSHx; CABG, cholecystectomy Habits; >70pack year history of cigarettes, currently smokes 1ppd, no EtOH or street drugs FHx; non-contributory PE; A&Ox3 HEENT; normocephalic, anicteric sclera, soft left carotid bruit, no JVD, trachea is midline, no thyromegaly or lymphadenopathy Lungs; expiratory wheezes anteriorly Heart; bradycardic with occassional extrasystole, normal S1 and S2 ABD; obese, soft, no palpable pulsatile organomegaly or bruits, reducible umbilical hernia EXTR; femoral and popliteal pulses are palpable bilaterally; left dorsalis pedis pulse is palpable and left posterior tibial is not; right pedal pulses are not palpable; both feet are viable with capillary refill of 2-3 seconds Neuro; cranial nerves 2-12 grossly intact; no focal motor or sensory deficits Carotid duplex form 04/25/2016 reviewed by me. Demonstrates 50-60% right carotid stenosis, 60-70% left carotid stenosis and antegrade flow in both vertebrals. impression/plan as noted above Would hold off on further carotid imaging at this time. Patient is clinically asymptomatic with respect to his carotid stenosis. He has Stage IIIB kidney disease. Intervention for carotid stenosis with this degree of kidney disease at present would only be justified if he was truly symptomatic with respect to carotid stenosis. He has a significant era-procedural morbidity and intervention could only be justified by a symptomatic stenosis. Would optimize medical management at present time as discussed. Will be happy to follow in office. Thanks for consultation. Past Medical History Past Medical History: Coronary Artery Disease (CAD), Hypertension Additional Past Medical History / Comment(s): Recent influenza B-was admitted to [place], CKD stage III, chronic anemia, 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 History of Any Multi-Drug Resistant Organisms: None Reported Past Surgical History: Cholecystectomy, Coronary Bypass/CABG, Heart Catheterization Additional Past Surgical History / Comment(s): 2008 CABG-pt believes was 5 vessel done down in [place], colonoscopy-normal, bilateral cataract removals. Past Anesthesia/Blood Transfusion Reactions: No Reported Reaction Past Psychological History: Depression Additional Psychological History / Comment(s): Pt states he has had increased depression the past couple days. He states now that he had been thinking about suicide, no plan and decided to come to the hospital. Pt states he no longer has any suicidal thoughts. Pt lives with his [id number]. He is independent. He drives. Smoking Status: Current every day smoker Past Alcohol Use History: Occasional Additional Past Alcohol Use History / Comment(s): Pt states he started smoking as a teen and is a ppd smoker. Past Drug Use History: None Reported - Past Family History Father Family Medical History: Unable to Obtain Additional Family Medical History / Comment(s): Pt does not recall any parent medical hx at this time. Medications and Allergies Home Medications Medication Instructions Recorded Confirmed Type Clopidogrel Bisulfate [Plavix] 75 mg PO DAILY 04/25/16 04/25/16 History Isosorbide Mononitrate ER [Imdur] 30 mg PO DAILY 04/25/16 04/25/16 History Metoprolol Succinate [Toprol XL] 50 mg PO DAILY 04/25/16 04/25/16 History Pantoprazole [Protonix] 40 mg PO DAILY 04/25/16 04/25/16 History Allergies Allergy/AdvReac Type Severity Reaction Status Date / Time No Known Allergies Allergy Verified 02/07/17 23:59 Surgical - Exam Vital Signs Temp Pulse Resp BP Pulse Ox 97.5 F L 60 16 224/90 96 04/24/16 23:21 04/24/16 23:21 04/24/16 23:21 04/24/16 23:21 04/24/16 23:21 Results - Labs 04/26/16 07:11 04/26/16 07:11 Abnormal Lab Results - Last 24 Hours (Table) 04/26/16 Range/Units 11:57 POC Glucose (mg/dL) 123 H (75-99) mg/dL
[2016-04-27] MEDS: hydrALAZINE HCL 50 MG TAB PO SCH ×4 (00:02→21:36)
[2016-04-27] MEDS: HYDROmorphone 1 MG/ML 1 ML SYRINGE IV PRN ×4 (00:20→22:51)
[2016-04-27] MEDS: LORazepam 2 MG/ML SYRINGE IV PRN ×3 (03:26→22:07)
[2016-04-27] MEDS: SODIUM CHLORIDE 0.9% 1,000 ML IV SCH ×2 (05:28→13:38)
[2016-04-27 06:37] LABS: Glucose,Whole Blood 119 mg/dL (75-99)
[2016-04-27 06:42] LABS: Calcium 7.4 mg/dL (8.4-10.2); Total Bilirubin 0.6 mg/dL (0.2-1.3)
[2016-04-27 06:54] LABS: Basophils % (A) 0 %; CH 30.4; CHCM 32.3; Eosinophils % (A) 0 %; HCT 33.9 % (39.0-53.0); HDW 2.63; Luc # (Auto) 0.15; Luc % (Auto) 2; Lymphocytes # (A) 0.8 k/uL (1.0-4.8); Lymphocytes % (A) 10 %; MCH 30.8 pg (25.0-35.0); MCHC 32.5 g/dL (31.0-37.0); MCV 94.7 fL (80.0-100.0); Mean Platelet Volume 7.9; Monocytes # (A) 0.4 k/uL (0-1.0); Monocytes % (A) 5 %; Neutrophils # (A) 6.7 k/uL (1.3-7.7); Neutrophils % (A) 83 %; RBC 3.58 m/uL (4.30-5.90); RDW 13.8 % (11.5-15.5); WBC 8.1 k/uL (3.8-10.6); WBC (Perox) 9.14
[2016-04-27] MEDS: NICOTINE 14MG/24HR PATCH TRANSDERM SCH (07:07)
[2016-04-27 07:14] LABS: Toxic Granulation Present
[2016-04-27] MEDS ORDERED: NITROGLYCERIN OINT 1 INCH/GM PACKET TOPICAL STA (08:53)
[2016-04-27] MEDS ORDERED: FUROSEMIDE 10 MG/ML 10 ML VIAL IV STA (08:53)
[2016-04-27] MEDS ORDERED: FUROSEMIDE 10 MG/ML 4 ML VIAL ONE ×2 (09:06→09:38)
--- NOTE | 2016-04-27 09:19 | XR ---
EXAMINATION TYPE: XR chest 1V portable DATE OF EXAM: 04/27/2016 9:14 AM HISTORY: Shortness of breath. REFERENCE: Previous study dated 04/25/2016. FINDINGS: There has been a midline sternotomy. The lungs are overinflated. The heart is enlarged. There is some increased opacity in the right hemit horax. This is at least, in part, due to rotation. There is blunting of the right CP angle. I could n ot exclude small, right effusion. There are mild increased interstitial markings. IMPRESSION: 1. COPD. 2. CARDIOMEGALY. 3. I CANNOT EXCLUDE A SMALL RIGHT EFFUSION. 4. INCREASE IN OPACITY IN THE RIGHT HEMITHORAX IS AT LEAST IN PART DUE TO ROTATION. I COULD NOT EXCLU DE A DEVELOPING INFILTRATE IN THE RIGHT MIDLUNG.
--- NOTE | 2016-04-27 09:29 | CONS ---
DATE OF CONSULTATION: 04/26/2016 PURPOSE OF CONSULTATION: Evaluate for depression. HISTORY: The patient presented to the emergency room with a chief complaint of depression for approximately 2 days. He reported suicidal thoughts without a plan. There was no report of auditory or visual hallucinations. He had recently been discharged from the hospital with a diagnosis of influenza B. He was having anxiety about having been in the hospital and not being able to smoke. He reported battling depression on and off for the past year. On admission, he was found to have hypertension with an admission blood pressure of 224/90. He had bradycardia with a pulse below 50. He also has a history of CABG, acute on chronic renal insufficiency, stage III with a creatinine on admission of 2.1. When I saw the patient he was in a recumbent position. He had difficulty getting himself to sit up. He was able to provide some historical information though some of what he presented was a little disjointed. He described having "dark thoughts". He was unable to clearly say what this was, but he seemed to suggest it was depression, feelings that get quite bleak and possibly including thoughts about self harm. He said when he gets into the dark thoughts, he can think about wanting to hurt himself though he did not describe any means of how he would do that. He said that he gets into these dark thoughts for a few days at a time. On the other hand, he seemed to suggest that he has had depression for a year or more. He describes some events in his life including his developing Alzheimer's disease and being placed in a nursing facility. The 2 of them had been living in [place]. They moved up to this area to be closer to his family. He also described a trip that he and his son took about 2 years ago where they traveled about [place] for a month or so. He seemed to suggest that he got into some depression after that trip as well. He notes that in the past he had significant alcohol use and seemed to suggest that he had alcohol dependence. He said he stopped drinking about 20 years ago. He said that when he and his son were traveling the 2 of them would have some drinks, though this never got into a problematic situation. He says currently he has not been using alcohol. He does not have a history of other abusive substances. He currently lives with his [id number] in a home that is across the street from his daughter's summer home. He feels reasonably supported in that situation. His is nursing facility [facility]. He has been sleeping poorly. He says typically he will sleep for a few hours and then he is awake and lies there much of the night. He was vague about what kind of daily activities he does. He does say that he thinks he needs some treatment for depression. He denied psychotic symptoms. He did not clearly identify any past trauma or posttraumatic symptoms. He does say he has anxiety and worries a lot, though denied having problems with panic He is currently not on any psychotropic medications MENTAL STATUS: Patient was in his room. He moved himself about the bed with some complaints of back pain. He gave fair eye contact at best. Psychomotor activity was slow. Speech was monotone and soft. He answered questions with direct responses. He did not elaborate much. Sometimes he was a little just disjointed in chronology. He had a flat affect. His mood was depressed. He was moderately distressed. On cognitive exam, he was oriented and alert. He was aware of current circumstances. Fund of knowledge was average. ASSESSMENT: This 85-year-old male is diagnosed with major depression. He has a past history of alcohol dependence in remission. He has had significant changes in his life over the last few years, which likely have been major factors in his developing depression. He does not seem to indicate a distant past history of mental health issues. I will start the patient on Prozac 20 mg a day. The patient was willing to be admitted to the psychiatric unit as he had good recognition of the struggles he is having with his mood. I reviewed the case with Dr. Elizabeth. Once he is medically stable, we can transfer him to the psychiatric unit. I will continue to follow.
[2016-04-27] MEDS ORDERED: FUROSEMIDE 10 MG/ML 2 ML VIAL IV ONE (09:37)
[2016-04-27] MEDS ORDERED: ALBUTEROL NEBULIZED 2.5 MG/3 ML INHALATION STA (09:37)
[2016-04-27] MEDS ORDERED: ceFAZolin 2 GM in SODIUM CHLORIDE 0.9% 100 ML IVPB ONE (10:16)
[2016-04-27] MEDS ORDERED: ceFAZolin 1,000 MG in SODIUM CHLORIDE 0.9% IRRIGATIO 250 ML IRRIGATION ONE (10:16)
[2016-04-27] MEDS ORDERED: SODIUM CHLORIDE 0.9% 1,000 ML IV ONE (11:00)
[2016-04-27] MEDS ORDERED: MIDAZOLAM 2 MG/2 ML VIAL ONE (11:01)
[2016-04-27] MEDS ORDERED: MIDAZOLAM 2 MG/2 ML VIAL IV ONE ×2 (11:10→11:44)
[2016-04-27] MEDS ORDERED: IODIXANOL 320 MG/ML 100 ML IV ONE (11:14)
[2016-04-27] MEDS ORDERED: fentaNYL (PF) 50 MCG/ML 2 ML AMP ONE (11:23)
[2016-04-27] MEDS: fentaNYL (PF) 50 MCG/ML 2 ML AMP IV ONE ×2 (11:25→12:00)
[2016-04-27] MEDS ORDERED: LIDOCAINE 1% INJ 10MG/ML (20 ML MDV) SQ ONE ×4 (11:26→12:10)
[2016-04-27] MEDS ORDERED: LIDOCAINE 2% INJ 20 MG/ML SQ ONE ×2 (11:26→11:50)
[2016-04-27] MEDS ORDERED: OLANZapine 5 MG TAB PO STA (12:30)
--- NOTE | 2016-04-27 13:09 | P.PCN ---
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 Patient had A-V dissociation. Patient was evaluated by Dr. Allen and a permanent pacemaker was recommended. Patient is also going have temporary pacemaker prior to the permanent pacemaker implantation because of high degree AV block. CONSENT: Dr. Allen has discussed the risks, benefits and alternative therapies for the above-mentioned procedure and for both sedation/analgesia as well as necessary blood product administration, if indicated, as they pertain to this patient. The patient has indicated understanding and acceptance of the risks and procedures discussed. PROCEDURE: TEMPORARY PACEMAKER IMPLANTATION: Patient was brought to the lab in a fasting state. Patient was prepped and draped in the usual fashion. Patient was given IV sedation with Versed and intermittent doses of fentanyl. The right groin is infiltrated with lidocaine. Right femoral vein was entered. A 5-Mongolian balloontipped temporary pacemaker was advanced under fluoroscopy and was left in the right ventricle apical region. Satisfactory position was obtained. Pacemaker was set at rate of 40 and output of 3. PERMANENT PACEMAKER IMPLANTATION: The skin below the left clavicle was infiltrated with lidocaine. An incision was made parallel to deltopectoral groove was deepened until the pectoral fascia was exposed. A pocket was created by blunt dissection and cautery. Axillary venography was performed to delineate the course of the axillary vein. 2 sticks were performed into extrathoracic portion of the axillary vein and 2 sheaths were advanced over the guidewires and left in subclavian vein. LEADS: ATRIAL: This is manufactured by [employer] model number is [id number] and the serial number is [id number]. VENTRICULAR: This is manufactured by [employer]. Model number is [id number] and the serial number is [id number] THE DEVICE Ty this is manufactured by [employer]. Model number is [id number] and the serial number is [id number]. The ventricular lead is maneuvered l with help of a straight and curved stylets into the left ventricle apical region. Satisfactory position was obtained and threshold measurements were made. The atrial lead was then maneuvered into the right atrial appendage. And thresholds were obtained. THRESHOLDS: ATRIUM: The minimal patient threshold was 0.5 V at pulse width of 0.5 ms. Impedance was 390 ohms. P-wave is 3.1 mV VENTRICLE Ty the minimal patient threshold was 0.5 V at pulse width of 0.5 ms. The impedance is 670 ohms. R-wave 5.8 The leads and pulse generator remained in the pocket after it was washed with antibiotics. Pocket was closed in the usual fashion. The fascia was closed with 2-0 Prolene ,the subcutaneous tissue was closed with 3-0 Prolene and the skin was closed with 4-0 Prolene. The temporary pacemaker was pulled out under the fluoroscopy. 10 V test in both chambers was negative. PROGRAMMING: MODE: DDDR RATE: 60 to 1:30 OUTPUT: Atrium :3 V ventricle: 3 V FINAL IMPRESSION: #1. Temporary pacemaker implantation #2. Axillary venography #3. Dual-chamber permanent pacemaker implantation COMPLICATIONS: Nil PLAN: Patient will be monitored on the telemetry unit. Prophylactic antibacterial be continued. Chest x-ray will obtain tomorrow
[2016-04-27] MEDS: FLUoxetine HCL 20 MG CAP PO SCH (13:49)
[2016-04-27] MEDS: amLODIPine 10 MG TAB PO SCH (13:49)
[2016-04-27] MEDS: PANTOPRAZOLE 40 MG/10 ML VIAL IV SCH (13:50)
[2016-04-27] MEDS: ASPIRIN 81 MG CHEW PO SCH (13:50)
[2016-04-27 15:12] LABS: Glucose,Whole Blood 106 mg/dL (75-99)
--- NOTE | 2016-04-27 15:18 | CONS ---
DATE OF CONSULTATION: 04/27/2016 PURPOSE FOR CONSULTATION: Evaluate for depression. INTERVAL HISTORY: The patient has continued to struggle. He has had quite a bit of anxiety. He did receive some Ativan. This morning at 9:30 he is going to have a pacemaker placed. He will ask for pain medications, which he seems to seek out more for reducing anxiety and feelings of distress as it relates to pain. He had a quiet evening last night. I did write an order to start him on Prozac, though because of his going down for a pacemaker he missed getting the initial dose. Patient mostly is quiet and somewhat withdrawn in his manner. He has a flat affect and distressed mood. His thoughts are clear. ASSESSMENT: I will continue the current diagnosis and general treatment plan. The patient will get started on Prozac 20 mg a day. I will also start Zyprexa 5 mg 3 times a day. The aim of Zyprexa is to help augment his antidepressant and reduce physiologic stress response as it relates to his severe anxiety and his feelings of what he describes as "dark thoughts." He may have some mild thought disorder as part of his depression. I advised his floor nurse through the day with any problems or concerns as it relates to mood, anxiety or behavioral issues.
--- NOTE | 2016-04-27 15:35 | P.PN ---
Subjective 85-year-old male being seen with the attending on rounds this morning. Patient is scheduled today for dual-chamber permanent pacemaker for episodes of high degree AV block with AV dissociation and bradycardia Objective - Vital Signs Vital signs: Vital Signs Temp 97.1 F L 04/27/16 08:00 Pulse 84 04/27/16 14:13 Resp 18 04/27/16 14:13 BP 173/78 04/27/16 14:13 Pulse Ox 97 04/27/16 14:13 Intake & Output 04/26/16 04/27/16 04/27/16 18:59 06:59 18:59 Intake Total 100 800 900 Output Total 625 Balance 100 800 275 Intake: IV 800 900 Sodium Chloride 0.9% 1, 800 600 000 ml @ 100 mls/hr IV . Q10H [facility] Rx#:[id number] Oral 100 Output: Urine 625 Other: Voiding Method Urinal Urinal - Exam Physical exam A 85-year-old male awake alert aware of the plan of care Lungs essentially clear with adequate air on room air no shortness of breath noted Heart S1-S2 audible regular monitor showing signs of complete heart block Abdomen soft nontender Extremities no pedal edema - Labs CBC & Chem 7: 04/27/16 06:02 04/27/16 06:02 Labs: Abnormal Lab Results - Last 24 Hours (Table) 04/27/16 04/27/16 04/27/16 Range/Units 06:02 06:02 06:30 RBC 3.58 L (4.30-5.90) m/uL Hgb 11.0 L (13.0-17.5) gm/dL Hct 33.9 L (39.0-53.0) % Lymphocytes # 0.8 L (1.0-4.8) k/uL Chloride 117 H (98-107) mmol/L Carbon Dioxide 17 L (22-30) mmol/L BUN 30 H (9-20) mg/dL Creatinine 2.20 H (0.66-1.25) mg/dL Glucose 118 H (74-99) mg/dL POC Glucose (mg/dL) 119 H (75-99) mg/dL Calcium 7.4 L (8.4-10.2) mg/dL Total Protein 5.0 L (6.3-8.2) g/dL Albumin 2.5 L (3.5-5.0) g/dL 04/27/16 Range/Units 15:10 RBC (4.30-5.90) m/uL Hgb (13.0-17.5) gm/dL Hct (39.0-53.0) % Lymphocytes # (1.0-4.8) k/uL Chloride (98-107) mmol/L Carbon Dioxide (22-30) mmol/L BUN (9-20) mg/dL Creatinine (0.66-1.25) mg/dL Glucose (74-99) mg/dL POC Glucose (mg/dL) 106 H (75-99) mg/dL Calcium (8.4-10.2) mg/dL Total Protein (6.3-8.2) g/dL Albumin (3.5-5.0) g/dL Assessment and Plan Plan: Impression Present on admission hypertension urgency Present on admission prolonged first-degree AV block with sinus bradycardic rates in the low 30s Present on admission junctional bradycardic asymptomatic Echocardiogram left ventricular systolic function EF between 55 and 60% Abnormal carotid Doppler studies Present on admission suicide ideations verbalized Chronic pain narcotic dependency Episodes of high degree AV block with AV dissociation and bradycardia Status post dual-chamber permanent pacemaker implant on April 27 Depressive disorder nonspecified Plan Continue with recommendations by cardiology service continue the quality assurance monitor body and monitor Psych referral possible admission when medically stable to the mental health unit for depression Hold beta archana as ordered Obtain records from the [place] placed chart Resume home meds as appropriate Further recommendations pending The above dictated assessment and findings were discussed with dr Elizabeth Impression and the plan of care have been dictated as directed. Regine Veras nurse practitioner acting as a scribe for Clara
[2016-04-27] MEDS: OLANZapine 5 MG TAB PO SCH ×2 (16:55→21:36)
[2016-04-27] MEDS: ceFAZolin 2 GM in SODIUM CHLORIDE 0.9% 100 ML IVPB SCH (18:12)
[2016-04-28] MEDS: ceFAZolin 2 GM in SODIUM CHLORIDE 0.9% 100 ML IVPB SCH ×3 (00:23→11:19)
[2016-04-28] MEDS: HYDROmorphone 1 MG/ML 1 ML SYRINGE IV PRN ×6 (03:09→23:58)
[2016-04-28 06:43] LABS: Calcium 7.7 mg/dL (8.4-10.2); Potassium 3.5 mmol/L (3.5-5.1)
--- NOTE | 2016-04-28 08:41 | XR ---
EXAMINATION TYPE: XR chest 2V DATE OF EXAM: 04/28/2016 6:20 AM COMPARISON: 04/27/2016 INDICATION: Lead placement check TECHNIQUE: Frontal and lateral views of the chest are obtained. FINDINGS: The heart size is normal. The pulmonary vasculature is likely prominent. Minimal subsegmental atelectasis may be present. A small pleural effusion, likely left is present. P acemaker overlies left chest. No pneumothorax is evident. Leads are in a typical orientation. IMPRESSION: 1. Correlate for mild volume overload. This may be improving. 2. Placement of a 2-lead pacemaker. No pneumothorax is evident.
[2016-04-28] MEDS: ASPIRIN 81 MG CHEW PO SCH (08:54)
[2016-04-28] MEDS: amLODIPine 10 MG TAB PO SCH (08:54)
[2016-04-28] MEDS: NICOTINE 14MG/24HR PATCH TRANSDERM SCH (08:55)
[2016-04-28] MEDS: PANTOPRAZOLE 40 MG/10 ML VIAL IV SCH (08:55)
[2016-04-28] MEDS: hydrALAZINE HCL 50 MG TAB PO SCH ×3 (08:55→21:16)
[2016-04-28] MEDS: OLANZapine 5 MG TAB PO SCH ×3 (08:55→21:16)
[2016-04-28] MEDS: FLUoxetine HCL 20 MG CAP PO SCH (08:55)
[2016-04-28] MEDS: SODIUM CHLORIDE 0.9% 1,000 ML IV SCH (08:56)
[2016-04-28] MEDS: ATENOLOL 50 MG TAB PO SCH (09:50)
[2016-04-28] MEDS ORDERED: FUROSEMIDE 10 MG/ML 2 ML VIAL IV ONE (10:26)
--- NOTE | 2016-04-28 10:26 | P.PN ---
Subjective Principal diagnosis: Complete heart block This is an 85-year-old gentleman who initially presented to the hospital with suicidal IV requested because of elevated blood pressure as well as bradycardia. He was noted yesterday morning to be in a complete heart block, for this reason underwent implantation of a permanent pacemaker yesterday. 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 At the time of my examination this morning he feels well, denies any shortness of breath, chest x-ray does not reveal any evidence of a pneumothorax, does reveal some mild fluid volume overload. Device was interrogated this morning and is functioning appropriately. Blood pressure this morning 154/67, prior to his cardiac medications, at present blood pressure 110/70. Objective - Vital Signs Vital signs: Vital Signs Temp 97.1 F L 04/28/16 09:00 Pulse 70 04/28/16 09:00 Resp 20 04/28/16 09:00 BP 154/67 04/28/16 09:00 Pulse Ox 95 04/28/16 09:00 Intake & Output 04/27/16 04/28/16 04/28/16 18:59 06:59 18:59 Intake Total 900 200 200 Output Total 625 1165 Balance 275 -965 200 Weight 85 kg Intake: IV 900 Sodium Chloride 0.9% 1, 600 000 ml @ 100 mls/hr IV . Q10H [facility] Rx#:[id number] Oral 200 200 Output: Urine 625 1165 Other: Voiding Method Urinal Urinal # Voids 1 # Bowel Movements 2 - Exam PHYSICAL EXAMINATION: HEENT: Head is atraumatic, normocephalic. Pupils equal, round. Neck is supple. There is no elevated jugular venous pressure. HEART EXAMINATION: Heart S1, S2 normal. No murmur or gallop heard. CHEST EXAMINATION: Lungs reveal crackles bilaterally with some expiratory wheezes. No chest wall tenderness is noted on palpation or with deep breathing. Site of pacemaker implantation, dressing is dry and intact. ABDOMEN: Soft, nontender. Bowel sounds are heard. No organomegaly noted. EXTREMITIES: 2+ peripheral pulses with no evidence of peripheral edema and no calf tenderness noted. NEUROLOGIC patient is awake, alert and oriented -3. . - Labs CBC & Chem 7: 04/27/16 06:02 04/28/16 06:03 Labs: Abnormal Lab Results - Last 24 Hours (Table) 04/27/16 04/28/16 Range/Units 15:10 06:03 Chloride 115 H (98-107) mmol/L Carbon Dioxide 19 L (22-30) mmol/L BUN 28 H (9-20) mg/dL Creatinine 2.21 H (0.66-1.25) mg/dL POC Glucose (mg/dL) 106 H (75-99) mg/dL Calcium 7.7 L (8.4-10.2) mg/dL Assessment and Plan (1) Suicidal ideation Status: Acute (2) Complete heart block Status: Acute (3) HTN (hypertension) Status: Acute (4) CAD (coronary artery disease) Status: Acute (5) Hx of CABG Status: Acute (6) Hyperlipemia Status: Acute (7) Renal failure, acute Status: Acute (8) S/P cardiac pacemaker procedure Status: Acute (9) Depression Status: Acute (10) Nicotine abuse Status: Acute Plan: Cardiology's perspective, we will continue the patient's current medications, we will give him a one-time dose of IV Lasix and start him on a small dose of oral Lasix as well. Lytes BUN and creatinine in the morning. DNP note has been reviewed, I agree with a documented findings and plan of care. Patient was seen and examined.
[2016-04-28] MEDS: FUROSEMIDE 20 MG TAB PO SCH (15:11)
[2016-04-28 20:45] LABS: Glucose,Whole Blood 150 mg/dL (75-99)
[2016-04-29] MEDS: HYDROmorphone 1 MG/ML 1 ML SYRINGE IV PRN ×3 (04:10→13:45)
[2016-04-29 06:22] LABS: Glucose,Whole Blood 94 mg/dL (75-99)
[2016-04-29] MEDS: SODIUM CHLORIDE 0.9% 1,000 ML IV SCH (08:03)
[2016-04-29] MEDS: ASPIRIN 81 MG CHEW PO SCH (08:10)
[2016-04-29] MEDS: hydrALAZINE HCL 50 MG TAB PO SCH ×3 (08:10→21:30)
[2016-04-29] MEDS: FUROSEMIDE 20 MG TAB PO SCH ×2 (08:10→15:52)
[2016-04-29] MEDS: ATENOLOL 50 MG TAB PO SCH (08:10)
[2016-04-29] MEDS: OLANZapine 5 MG TAB PO SCH ×3 (08:10→21:30)
[2016-04-29] MEDS: FLUoxetine HCL 20 MG CAP PO SCH (08:10)
[2016-04-29] MEDS: PANTOPRAZOLE 40 MG/10 ML VIAL IV SCH (08:10)
[2016-04-29] MEDS: amLODIPine 10 MG TAB PO SCH (08:10)
[2016-04-29] MEDS: NICOTINE 14MG/24HR PATCH TRANSDERM SCH (08:11)
--- NOTE | 2016-04-29 11:21 | PN ---
85-year-old gentleman admitted to hospital for multiple medical problems including suicidal ideation and renal insufficiency. He has had a high-grade AV block for which he underwent permanent pacemaker. He is doing well. Pacemaker seems to be functioning normally. On exam, heart rate is 60 beats per minute, blood pressure 160/70, respiratory rate 18. Chest exam reveals diminished air entry at the bases. Heart exam reveals first and second heart sounds. No gallop. Has an ejection systolic murmur in the aortic area. Abdomen soft. Exam of extremities did not reveal edema. Peripheral pulses are felt. Labs show that the Creatinine is 2.2. ASSESSMENT: 1. Complete heart block status post permanent pacemaker placement. 2. Chronic renal failure. 3. Uncontrolled hypertension. PLAN: The patient is doing better. He will continue with Tenormin, aspirin, Lasix, hydralazine, Norvasc that he is currently on. We can increase the atenolol to 50 b.i.d. if necessary if the blood pressure is high.
[2016-04-29] MEDS: HYDROcodone/APAP 5-325MG 1 EACH TAB PO PRN ×3 (11:50→22:35)
[2016-04-29 12:40] LABS: Calcium 7.8 mg/dL (8.4-10.2); Magnesium 1.5 mg/dL (1.6-2.3); Potassium 3.3 mmol/L (3.5-5.1); Total Bilirubin 0.6 mg/dL (0.2-1.3); Total Protein 5.3 g/dL (6.3-8.2)
[2016-04-29 12:42] LABS: Basophils % (A) 0 %; CHCM 33.4; Eosinophils # (A) 0.2 k/uL (0-0.7); Eosinophils % (A) 1 %; HCT 36.1 % (39.0-53.0); HDW 2.76; HGB 11.4 gm/dL (13.0-17.5); Luc # (Auto) 0.13; Luc % (Auto) 1; Lymphocytes # (A) 1.6 k/uL (1.0-4.8); Lymphocytes % (A) 14 %; MCH 29.5 pg (25.0-35.0); MCHC 31.5 g/dL (31.0-37.0); MCV 93.6 fL (80.0-100.0); Monocytes # (A) 0.6 k/uL (0-1.0); Monocytes % (A) 6 %; Neutrophils # (A) 8.6 k/uL (1.3-7.7); Neutrophils % (A) 78 %; RBC 3.86 m/uL (4.30-5.90); RDW 14.2 % (11.5-15.5); WBC 11.1 k/uL (3.8-10.6)
[2016-04-29] MEDS: MAGNESIUM SULFATE-D5W PMX 1 GM in DEXTROSE/WATER 1 100ML.BAG IVPB SCH ×2 (14:30→15:50)
[2016-04-29] MEDS: POTASSIUM CHLORIDE ER 10 MEQ TAB.ER.PRT PO SCH (15:42)
--- NOTE | 2016-04-29 18:48 | PN ---
DATE OF SERVICE: 04/28/2016 SUBJECTIVE: An 85-year-old white male with acute renal injury, secondary to dehydration and severe depression secondary to possible third degree heart block and cardiomyopathy and severe bradycardia, is feeling much better over the last day since he has his permanent pacemaker placed. He has not had any dark thoughts or suicidal ideations. He was started on atypical psychiatric medicine also which may be helping. Chest x-ray was negative. Blood pressure 150/60's, O2 95% on room air, respiratory rate 18 to 20, pulse is 60 to 70 HEENT: Normocephalic, atraumatic. HEART: S1 and S2. Lungs are clear. GI: Soft. HEMATOLOGIC: Negative Homans. NEUROLOGIC: He was alert and oriented x3. Hemoglobin is 11, white count 8.1, BUN 28, creatinine 2.21, calcium 7.7. ASSESSMENT: 1. Prior suicidal ideations, resolved. 2. Complete heart block, resolved. 3. Hypertension, improved. 4. Coronary artery disease with coronary artery bypass graft, stable. 5. Dyslipidemia. 6. Acute renal failure improved. 7. Status post cardiac pacemaker procedure. 8. Depression. 9. Nicotine addiction. Continue on Zyprexa for depression. Lasix is being given. Will monitor his renal function. Possible discharge home in the next 24 to 48 hours.
[2016-04-29] MEDS: LORazepam 2 MG/ML SYRINGE IV PRN (18:56)
[2016-04-29] MEDS: MORPHINE SULFATE ER 15 MG TABLET PO PRN (21:48)
[2016-04-30 06:49] LABS: Basophils % (A) 0 %; CH 30.5; CHCM 32.2; Eosinophils # (A) 0.3 k/uL (0-0.7); Eosinophils % (A) 3 %; HCT 36.1 % (39.0-53.0); HGB 11.6 gm/dL (13.0-17.5); Luc % (Auto) 2; Lymphocytes # (A) 1.3 k/uL (1.0-4.8); Lymphocytes % (A) 13 %; MCH 30.5 pg (25.0-35.0); MCHC 32.1 g/dL (31.0-37.0); MCV 95.1 fL (80.0-100.0); Mean Platelet Volume 7.6; Monocytes # (A) 0.5 k/uL (0-1.0); Monocytes % (A) 5 %; Neutrophils # (A) 7.7 k/uL (1.3-7.7); Neutrophils % (A) 77 %; RDW 14.1 % (11.5-15.5); WBC (Perox) 10.45
[2016-04-30 07:16] LABS: Magnesium 1.9 mg/dL (1.6-2.3); Potassium 3.4 mmol/L (3.5-5.1); Total Bilirubin 0.8 mg/dL (0.2-1.3); Total Protein 5.5 g/dL (6.3-8.2)
--- NOTE | 2016-04-30 07:44 | PN ---
DATE OF SERVICE: 04/29/2016 SUBJECTIVE: An 85-year-old white male admitted with acute renal failure. Severe suicidal ideations which is now more controlled, hypomagnesemia, hypokalemia over the past 24 to 48 hours which are being replaced. He is started on oral magnesium and potassium today. Cardiology saw him for third degree heart block, put a pacemaker in him. Patient is feeling much better. He has had no suicidal ideations today. He is waiting for discharge home in the morning. He is up ambulating with help throughout the house and requesting stronger pain medicines as Dilaudid has been stopped. He will be started on his home MS Contin that he takes at home and he will be sent home in stable condition as an outpatient tomorrow.
[2016-04-30] MEDS: MORPHINE SULFATE ER 15 MG TABLET PO PRN ×2 (09:03→15:43)
[2016-04-30] MEDS: FLUoxetine HCL 20 MG CAP PO SCH (09:04)
[2016-04-30] MEDS: ATENOLOL 50 MG TAB PO SCH (09:04)
[2016-04-30] MEDS: ASPIRIN 81 MG CHEW PO SCH (09:04)
[2016-04-30] MEDS: NICOTINE 14MG/24HR PATCH TRANSDERM SCH (09:05)
[2016-04-30] MEDS: FUROSEMIDE 20 MG TAB PO SCH ×2 (09:05→15:40)
[2016-04-30] MEDS: hydrALAZINE HCL 50 MG TAB PO SCH ×3 (09:05→22:25)
[2016-04-30] MEDS: OLANZapine 5 MG TAB PO SCH (09:06)
[2016-04-30] MEDS: POTASSIUM CHLORIDE ER 10 MEQ TAB.ER.PRT PO SCH (09:06)
[2016-04-30] MEDS: PANTOPRAZOLE 40 MG/10 ML VIAL IV SCH (09:06)
--- NOTE | 2016-04-30 11:52 | P.PN ---
Subjective Principal diagnosis: Complete heart block This is an 85-year-old gentleman who initially presented to the hospital with suicidal IV requested because of elevated blood pressure as well as bradycardia. He was noted yesterday morning to be in a complete heart block, for this reason underwent implantation of a permanent pacemaker. At the time of my examination this morning he feels well, denies any shortness of breath, patient states "I still don't feel right in my head" . From cardiology's point of view, patient would be stable from a cardiac standpoint for discharge. He may need reevaluation by psych. Objective - Vital Signs Vital signs: Vital Signs Temp 97.0 F L 04/30/16 08:50 Pulse 62 04/30/16 08:50 Resp 16 04/30/16 08:50 BP 140/70 04/30/16 08:50 Pulse Ox 94 L 04/30/16 08:50 Intake & Output 04/29/16 04/30/16 04/30/16 18:59 06:59 18:59 Intake Total 660 200 100 Output Total 225 700 300 Balance 435 -500 -200 Intake: Intake, IV Titration 200 Amount Magnesium Sulfate-D5w Pmx 200 1 gm In Dextrose/Water 1 100ml.bag @ 100 mls/hr IVPB Q1H [facility] Rx#: [id number] Oral 660 100 Output: Urine 225 700 300 Other: Voiding Method Urinal Urinal Urinal # Voids 1 # Bowel Movements 1 - Exam PHYSICAL EXAMINATION: HEENT: Head is atraumatic, normocephalic. Pupils equal, round. Neck is supple. There is no elevated jugular venous pressure. HEART EXAMINATION: Heart S1, S2 normal. No murmur or gallop heard. CHEST EXAMINATION: Lungs reveal crackles bilaterally with some expiratory wheezes. No chest wall tenderness is noted on palpation or with deep breathing. Site of pacemaker implantation, dressing is dry and intact. ABDOMEN: Soft, nontender. Bowel sounds are heard. No organomegaly noted. EXTREMITIES: 2+ peripheral pulses with no evidence of peripheral edema and no calf tenderness noted. NEUROLOGIC patient is awake, alert and oriented -3. . - Labs CBC & Chem 7: 04/30/16 05:37 04/30/16 05:37 Labs: Abnormal Lab Results - Last 24 Hours (Table) 04/29/16 04/29/16 04/30/16 Range/Units 11:56 11:56 05:37 WBC 11.1 H (3.8-10.6) k/uL RBC 3.86 L (4.30-5.90) m/uL Hgb 11.4 L (13.0-17.5) gm/dL Hct 36.1 L (39.0-53.0) % Neutrophils # 8.6 H (1.3-7.7) k/uL Potassium 3.3 L 3.4 L (3.5-5.1) mmol/L Chloride 112 H 113 H (98-107) mmol/L Carbon Dioxide 21 L 19 L (22-30) mmol/L BUN 27 H 25 H (9-20) mg/dL Creatinine 2.34 H 2.23 H (0.66-1.25) mg/dL Glucose 101 H (74-99) mg/dL Calcium 7.8 L 8.0 L (8.4-10.2) mg/dL Magnesium 1.5 L (1.6-2.3) mg/dL Total Protein 5.3 L 5.5 L (6.3-8.2) g/dL Albumin 2.6 L 2.7 L (3.5-5.0) g/dL 04/30/16 Range/Units 05:37 WBC (3.8-10.6) k/uL RBC 3.80 L (4.30-5.90) m/uL Hgb 11.6 L (13.0-17.5) gm/dL Hct 36.1 L (39.0-53.0) % Neutrophils # (1.3-7.7) k/uL Potassium (3.5-5.1) mmol/L Chloride (98-107) mmol/L Carbon Dioxide (22-30) mmol/L BUN (9-20) mg/dL Creatinine (0.66-1.25) mg/dL Glucose (74-99) mg/dL Calcium (8.4-10.2) mg/dL Magnesium (1.6-2.3) mg/dL Total Protein (6.3-8.2) g/dL Albumin (3.5-5.0) g/dL Assessment and Plan (1) Suicidal ideation Status: Acute (2) Complete heart block Status: Acute (3) HTN (hypertension) Status: Acute (4) CAD (coronary artery disease) Status: Acute (5) Hx of CABG Status: Acute (6) Hyperlipemia Status: Acute (7) Renal failure, acute Status: Acute (8) S/P cardiac pacemaker procedure Status: Acute (9) Depression Status: Acute (10) Nicotine abuse Status: Acute Plan: Cardiology's perspective, we will continue the patient's current medications, reevaluation for possible transfer to [facility], otherwise [facility] to [facility] from our perspective. DNP note has been reviewed, I agree with a documented findings and plan of care. Patient was seen and examined.
--- NOTE | 2016-04-30 12:44 | P.PN ---
Progress Note - Text Patient was seen for psychiatric follow-up : Subjective: Patient endorses :tiredness ,fatigue ,no energy or motivation ,was tearful when talking about his of 60 years "She has bad dementia ,when I visited her in [place] [facility] she could not remember my name ",he reports that he was not sleeping since went to [place] [facility] because "I had dark thoughts",patient could not elaborate more about these thoughts,he talked about being on Morphine "For many years", He stated that "New medication helping his sleep and eliminate dark thoughts but making him tired ",he denies any current suicidal or homicidal ideation but he endorses feeling lonely and "LOST WITHOUT HER",patient has firearm in the house ,main support are his children MENTAL STATUS EXAM: Patient is elderly man ,pleasant ,tearful through session,lot of grief ,somatic preoccupied,denies any suicidal or homicidal ideation ,denies any psychotic features,having difficulty accepting his illness"LATE STAGE DEMENTIA" PLAN: Continue Prozac ,decrease Zyprexa to 5 mg HS to minimize morning tiredness and sedation ,will continue to follow-up
[2016-04-30] MEDS: HYDROcodone/APAP 5-325MG 1 EACH TAB PO PRN ×2 (13:00→18:46)
[2016-04-30] MEDS: SODIUM CHLORIDE 0.9% 1,000 ML IV SCH (13:01)
[2016-04-30] MEDS: amLODIPine 10 MG TAB PO SCH (13:01)
--- NOTE | 2016-04-30 14:15 | P.PN ---
Progress Note - Text PSYCHIATRIC FOLLOW_UP: ADDENDUM TO MY PREVIOUS NOTE: As patient has normal grief reaction , he denies any suicidal or homicidal ideation ,able to tolerate Prozac ,I adjusted Zyprexa dose RECOMMENDATIONS: 1) Refer to physical rehab.facility to improve his physical health and his gait 2) Outpatient counseling for grief ,continue current psychotropic medications 3) SW has to contact his daughter to remove gun from home as safety plan
--- NOTE | 2016-04-30 17:25 | P.PN ---
Subjective 85-year-old being seen on rounds. Patient states he does not feel depressed and is has no suicide ideation. Did note the mental health service did see patient. Patient has a normal grief reaction. They're recommending that the patient could be discharged to a rehab facility. They recommended outpatient counseling for grieving continue with the current medication as ordered. air pollution inspector to pursue the discharge plan patients being evaluated for possible ECF placement subacute Objective - Vital Signs Vital signs: Vital Signs Temp 98.2 F 04/30/16 15:00 Pulse 60 04/30/16 15:00 Resp 18 04/30/16 15:00 BP 137/62 04/30/16 15:00 Pulse Ox 95 04/30/16 15:00 Intake & Output 04/29/16 04/30/16 04/30/16 18:59 06:59 18:59 Intake Total 660 200 100 Output Total 225 700 575 Balance 692 -272 -316 Intake: Intake, IV Titration 200 Amount Magnesium Sulfate-D5w Pmx 200 1 gm In Dextrose/Water 1 100ml.bag @ 100 mls/hr IVPB Q1H [facility] Rx#: [id number] Oral 660 100 Output: Urine 225 700 575 Other: Voiding Method Urinal Urinal Urinal # Voids 1 # Bowel Movements 1 - Exam Physical exam 85-year-old sitting up on the edge of the bed appears in no acute distress Lungs essentially clear adequate air movement Heart S1-S2 audible regular Abdomen soft nontender Extremities no edema - Labs CBC & Chem 7: 04/30/16 05:37 04/30/16 05:37 Labs: Abnormal Lab Results - Last 24 Hours (Table) 04/30/16 04/30/16 Range/Units 05:37 05:37 RBC 3.80 L (4.30-5.90) m/uL Hgb 11.6 L (13.0-17.5) gm/dL Hct 36.1 L (39.0-53.0) % Potassium 3.4 L (3.5-5.1) mmol/L Chloride 113 H (98-107) mmol/L Carbon Dioxide 19 L (22-30) mmol/L BUN 25 H (9-20) mg/dL Creatinine 2.23 H (0.66-1.25) mg/dL Calcium 8.0 L (8.4-10.2) mg/dL Total Protein 5.5 L (6.3-8.2) g/dL Albumin 2.7 L (3.5-5.0) g/dL Assessment and Plan Plan: Impression Present on admission hypertension urgency Present on admission prolonged first-degree AV block with sinus bradycardic rates in the low 30s Present on admission junctional bradycardic asymptomatic Echocardiogram left ventricular systolic function EF between 55 and 60% Abnormal carotid Doppler studies Present on admission suicide ideations verbalized Chronic pain narcotic dependency Episodes of high degree AV block with AV dissociation and bradycardia Status post dual-chamber permanent pacemaker implant on April 27 Depressive disorder nonspecified Hypokalemia Plan Prepped for probable discharge ECF facility Psych referral possible admission when medically stable to the mental health unit for depression Replaced the potassium The above dictated assessment and findings were discussed with dr Elizabeth Impression and the plan of care have been dictated as directed. Regine Veras nurse practitioner acting as a scribe for Clara
[2016-04-30] MEDS: POTASSIUM CHLORIDE ER 20 MEQ TAB.ER PO SCH ×2 (17:48→20:54)
[2016-04-30] MEDS ORDERED: OLANZapine 5 MG TAB PO SCH (21:00)
[2016-05-01] MEDS ORDERED: PANTOPRAZOLE 40 MG TABLET PO SCH (07:30)
[2016-05-01] MEDS: hydrALAZINE HCL 50 MG TAB PO SCH (08:07)
[2016-05-01] MEDS: FUROSEMIDE 20 MG TAB PO SCH (08:08)
[2016-05-01] MEDS: NICOTINE 14MG/24HR PATCH TRANSDERM SCH (08:08)
[2016-05-01] MEDS: ATENOLOL 50 MG TAB PO SCH (08:08)
[2016-05-01] MEDS: POTASSIUM CHLORIDE ER 10 MEQ TAB.ER.PRT PO SCH (08:08)
[2016-05-01] MEDS: FLUoxetine HCL 20 MG CAP PO SCH (08:08)
[2016-05-01] MEDS: ASPIRIN 81 MG CHEW PO SCH (08:08)
[2016-05-01] MEDS: amLODIPine 10 MG TAB PO SCH (08:08)
--- NOTE | 2016-05-01 09:13 | DS ---
DATE OF ADMISSION: 04/26/2016 DATE OF DISCHARGE: Active medications at home will be: 1. Norvasc 10 mg daily. 2. Aspirin 81 mg daily. 3. Tenormin 50 daily. 4. Prozac 20 mg daily. 5. Lasix 20 mg b.i.d. 6. Apresoline 100 mg t.i.d. 7. MS Contin 15 mg b.i.d. 8. Habitrol patch 14 mg daily. 9. Zyprexa 5 mg daily. 10. Protonix 40 mg daily. 11. K-Dur 10 mEq daily. CONDITION: Stable. PROGNOSIS: Guarded. DISCHARGE DIAGNOSES: 1. Third degree heart block, requiring pacemaker. 2. Severe depression. 3. Hypertensive urgency. 4. Diastolic congestive heart failure, chronic. 5. Chronic pain, narcotic dependency. 6. Dual chamber permanent pacemaker implant. 7. Hypokalemia. 8. Carotid stenosis. HOSPITAL COURSE OF EVENTS: A white male came in with severe depression and hypokalemia, third degree heart block, dual chamber pacemaker was placed. Psychiatry saw him for depression placed him on 2 antidepressant medications. Patient with ( ) his pacemaker. With his antidepressant medicines, he did not have any suicidal thoughts that he came in with for the last 3 or 4 days. He was treated for diastolic CHF. When stabilized, he will be sent for rehab as he has difficulty with chronic back pain and neuropathy and difficulty ambulating. He will need to go to jail for a week or [address] Julio Elizabeth's care.
[2016-05-01] MEDS: SODIUM CHLORIDE 0.9% 1,000 ML IV SCH (11:47)
--- NOTE | 2016-05-01 11:55 | P.PN ---
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
[2016-05-01 14:50] VITALS: TEMP 99.7
[2016-05-01 14:58] VITALS: BP 139/68; PULSE 60; RESP 18
== END 2016-05-01 14:57 | DRG 243 ==
LOC: EC 23:05 → 3OBS 04-25 04:03 → OBSVTOIN 04-26 08:19 → 6SEL 04-26 18:10 → 4MS4W 04-30 15:05
PROVIDERS: ADMIT Family Medicine; ATTEND Family Medicine
PROC: 02H63JZ Insertion of Pacemaker Lead into Right Atrium, Percutaneous Approach (ICD-10-PCS; principal; 2016-04-27 10:55)
PROC: 02HK3JZ Insertion of Pacemaker Lead into Right Ventricle, Percutaneous Approach (ICD-10-PCS; principal; 2016-04-27 10:55)
PROC: 0JH606Z Insertion of Pacemaker, Dual Chamber into Chest Subcutaneous Tissue and Fascia, Open Approach (ICD-10-PCS; principal; 2016-04-27 10:55)
DX: I44.2 Atrioventricular block, complete (principal); R45.851 Suicidal ideations; N17.9 Acute kidney failure, unspecified; D69.6 Thrombocytopenia, unspecified; F11.20 Opioid dependence, uncomplicated; I50.32 Chronic diastolic (congestive) heart failure; N18.3 Chronic kidney disease, stage 3 (moderate); I13.0 Hypertensive heart and chronic kidney disease with heart failure and stage 1 through stage 4 chronic kidney disease, or unspecified chronic kidney disease; I16.0 Hypertensive urgency; F10.21 Alcohol dependence, in remission; F32.9 Major depressive disorder, single episode, unspecified; E87.6 Hypokalemia; Z95.1 Presence of aortocoronary bypass graft; I65.23 Occlusion and stenosis of bilateral carotid arteries; Z79.899 Other long term (current) drug therapy; J44.9 Chronic obstructive pulmonary disease, unspecified; D64.9 Anemia, unspecified; E66.9 Obesity, unspecified; G89.4 Chronic pain syndrome; E78.5 Hyperlipidemia, unspecified; E83.42 Hypomagnesemia; E86.0 Dehydration; F17.210 Nicotine dependence, cigarettes, uncomplicated; F41.9 Anxiety disorder, unspecified; G62.9 Polyneuropathy, unspecified; I25.10 Atherosclerotic heart disease of native coronary artery without angina pectoris; Z79.82 Long term (current) use of aspirin; Z86.73 Personal history of transient ischemic attack (TIA), and cerebral infarction without residual deficits
CPT/HCPCS: 33208; 36415; 71010; 71020; 80048; 80053; 80061; 80306; 81001; 81003; 82075; 82550; 82553; 83036; 83735; 84439; 84443; 84484; 85025; 85610; 85730; 87086; 87502; 93005; 93306; 93880; 94760; 96361; 96374; 96375; 96376; 99285

== ENCOUNTER → 2017-05-21 | Outpatient (CLI) | payer MEDICARE ==
--- NOTE | 2017-05-21 13:54 | XR ---
EXAMINATION TYPE: XR chest 2V DATE OF EXAM: 05/21/2017 COMPARISON: Prior chest x-ray 04/28/2016 HISTORY: COPD, difficulty breathing TECHNIQUE: Frontal and lateral views of the chest are obtained. FINDINGS: Patient is rotated. Increased AP diameter of the chest with flattening of the hemidiaphrag ms is again noted. Patient is rotated and the patient is post median sternotomy. Pacemaker is present in the left pectoral region, leads in the right atrium and ventricle. No evident airspace disease, p neumothorax, or pleural effusion. Strand-like areas of increased attenuation are compatible with atel ectasis or scar in the left lung laterally. Heart size is stable. There is improvement in the interst itium. Minute substernal nodule noted on the lateral exam measures only approximately 3 mm. IMPRESSION: No acute abnormalities evident. Substernal nodular densities indeterminate, follow-up sauer ggested.
== END | disposition home or self-care (01) ==
LOC: RADXRMAIN 11:26
PROVIDERS: ATTEND Family Medicine
DX: J44.9 Chronic obstructive pulmonary disease, unspecified (principal)
CPT/HCPCS: 71046

== ENCOUNTER 2018-07-04 00:29 | Inpatient (IN) | payer OTHER, MEDICARE, BC ==
[2018-07-04] MEDS ORDERED: HEPARIN SODIUM,PORCINE 5,000 UNIT/ML 1 ML VIAL IV STA (00:37)
[2018-07-04] MEDS ORDERED: NITROGLYCERIN OINT 1 INCH/GM PACKET TOPICAL STA (00:37)
--- NOTE | 2018-07-04 00:40 | ED ---
Chest Pain HPI - General Chief Complaint: Chest Pain Stated Complaint: Chest Pain Time Seen by Provider: 07/04/18 00:36 Source: EMS Mode of arrival: EMS Limitations: no limitations - History of Present Illness Initial Comments: Miguel is an 87 yo gentleman who presents to the ED today via EMS for evaluation of chest pain and hypertension. Patient reports he did not take any of his home medications today, he does not know why. He reports that this evening he developed chest pain, he took 2 nitro at home with no relief so he called EMS. Upon their arrival patient was complaining of chest pain radiating to his right arm. Pain was described as pressure rated 8 out of 10 in severity with no exacerbating or relieving factors at that time. Per EMS he was noted to be profoundly hypertensive with a blood pressure 140/120 and was given 324 of aspirin and an additional sublingual nitro. Patient reports that after that additional nitro his chest pain is resolved to a 2 out of 10 he's feeling better. However on arrival to the emergency department he refused to have profound hypertension. - Related Data Home Medications Medication Instructions Recorded Confirmed Furosemide [Lasix] 40 mg PO BID 05/01/16 07/04/18 Morphine Sulfate ER [Ms Contin 15 mg PO Q12HR 05/01/16 07/04/18 15Mg] Potassium Chloride ER [K-Dur 10] 20 meq PO DAILY 05/01/16 07/04/18 RX: Aspirin 81 mg PO DAILY 05/01/16 07/04/18 amLODIPine [Norvasc] 5 mg PO DAILY 05/01/16 07/04/18 Atorvastatin [Lipitor] 80 mg PO HS 07/04/18 07/04/18 Clopidogrel Bisulfate [Plavix] 75 mg PO DAILY 07/04/18 07/04/18 Isosorbide Mononitrate ER [Imdur] 60 mg PO DAILY 07/04/18 07/04/18 Sertraline HCl [Zoloft] 100 mg PO DAILY 07/04/18 07/04/18 Allergies Allergy/AdvReac Type Severity Reaction Status Date / Time No Known Allergies Allergy Verified 07/04/18 00:39 Review of Systems ROS Statement: Those systems with pertinent positive or pertinent negative responses have been documented in the HPI. ROS Other: All systems not noted in ROS Statement are negative. EKG Findings - EKG Comments: EKG Findings:: EKG was obtained at 12:32 AM, rate is 82 rhythm is A. fib patient is noted to have leftward axis with normal intervals, QRS is 76 QTc is [address] depressions in V4 E5 and V6 with no noted ST elevations. 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 History of Any Multi-Drug Resistant Organisms: None Reported Past Surgical History: Cholecystectomy, Coronary Bypass/CABG, Heart Catheterization Additional Past Surgical History / Comment(s): 2008 CABG-pt believes was 5 vessel done down in [place], colonoscopy-normal, bilateral cataract removals. Past Anesthesia/Blood Transfusion Reactions: No Reported Reaction Past Psychological History: Depression Smoking Status: Current every day smoker Past Alcohol Use History: Occasional Past Drug Use History: None Reported - Past Family History Father Family Medical History: Unable to Obtain Additional Family Medical History / Comment(s): Pt does not recall any parent medical hx at this time. General Exam Limitations: no limitations Course Vital Signs 07/04/18 07/04/18 07/04/18 00:33 00:57 01:27 Temperature 98.9 F Pulse Rate 87 62 60 Respiratory 14 15 15 Rate Blood Pressure 260/120 230/110 200/98 O2 Sat by Pulse 100 99 100 Oximetry 07/04/18 07/04/18 07/04/18 02:04 02:38 03:34 Temperature 98.1 F Pulse Rate 60 62 74 Respiratory 13 10 L 12 Rate Blood Pressure 197/89 147/80 137/74 O2 Sat by Pulse 99 99 99 Oximetry Chest Pain MDM - [facility] Patient was seen and evaluated immediately upon arrival to the emergency department Patient called EMS due to chest pain, chest pain resolved after a third sublingual nitro however EMS reports the patient had EKG changes concerning for ischemia with significant ST depressions and T-wave inversions in the inferior lateral leads. Repeat EKG does confirm ST or pressure with inversions On arrival patient's noted to be profoundly hypertensive with a blood pressure of 260/120 1 inch of nitro paste and every 5 minute be lopressor pushes were ordered She received first dose of Lopressor and was noted to have an EKG change on the monitor therefore a 12-lead was obtained repeat EKG was obtained at 12:54 AM Rate is 65 rhythm is paced, MN is 210, QRS 176, QTC is [address] elevations or depressions no evidence of acute ischemia or infarction CXR with no mediastinal widening - Heparin ordered for high risk chest pain Labs resulted with improved kidney function from previous Troponin elevated at 0.2 - Heparin infusing, BP improving Given the profound HTN with elevated troponin - Labetalol infusion ordered BP improved without Labetalol, however not to goal therefore will proceed with Labetalol for HTN Prior to labetalol infusion being initiated placed his blood pressure crease to 147/90 at this point labetalol has not indicated this patient is below goal blood pressure patient continues to have chest pain that is only 2 out of 10 in intensity waxing and waning. Patient is sleeping comfortably. We'll plan to admit the patient for serial troponins and evaluation by cardiology. Critical Care Time Critical Care Time: Yes Total Critical Care Time: 30 Disposition Clinical Impression: Hypertension, NSTEMI (non-ST elevated myocardial infarction), Hypertensive emergency Disposition: ADMITTED IP TO THIS HOSP Condition: Serious Is patient prescribed a controlled substance at d/c from ED?: No
[2018-07-04] MEDS ORDERED: HEPARIN SOD,PORK IN 0.45% NACL 25,000 UNIT in 0.45% NACL 1 250ML.BAG IV SCH (00:45)
[2018-07-04] MEDS: METOPROLOL TARTRATE 5 MG/5 ML VIAL IVP SCH ×6 (00:50→21:25)
[2018-07-04 00:53] LABS: Basophils % (A) 0 %; Eosinophils # (A) 0.4 k/uL (0-0.7); Eosinophils % (A) 3 %; HCT 44.7 % (39.0-53.0); HGB 14.7 gm/dL (13.0-17.5); Lymphocytes # (A) 3.2 k/uL (1.0-4.8); Lymphocytes % (A) 27 %; MCHC 32.8 g/dL (31.0-37.0); MCV 91.6 fL (80.0-100.0); Mean Platelet Volume 6.9; Monocytes # (A) 0.6 k/uL (0-1.0); Monocytes % (A) 5 %; Neutrophils # (A) 7.6 k/uL (1.3-7.7); Neutrophils % (A) 62 %; Platelet Count 203 k/uL (150-450); RBC 4.88 m/uL (4.30-5.90); RDW 14.6 % (11.5-15.5); WBC 12.1 k/uL (3.8-10.6)
[2018-07-04] MEDS ORDERED: FUROSEMIDE 20 MG TAB PO SCH (01:00)
[2018-07-04] MEDS ORDERED: ATENOLOL 50 MG TAB PO SCH (01:00)
[2018-07-04] MEDS ORDERED: NON-FORMULARY DRUG (Hydralazine Hcl [Apresoline] 100 MG) PO SCH (01:00)
[2018-07-04] MEDS ORDERED: amLODIPine 10 MG TAB PO SCH (01:00)
[2018-07-04 01:01] LABS: Albumin 4.1 g/dL (3.5-5.0); Calcium 8.7 mg/dL (8.4-10.2); Magnesium 1.9 mg/dL (1.6-2.3); Potassium 4.2 mmol/L (3.5-5.1); Total Bilirubin 0.7 mg/dL (0.2-1.3); Total Protein 6.9 g/dL (6.3-8.2)
[2018-07-04 01:10] LABS: INR 0.9 (<1.2); Partial Thromboplastin Time 22.4 sec (22.0-30.0); Prothrombin Time 9.6 sec (9.0-12.0)
--- NOTE | 2018-07-04 01:30 | XR ---
EXAM: XR Chest, 1 View CLINICAL HISTORY: Chest Pain TECHNIQUE: Frontal view of the chest. COMPARISON: 05/21/17 FINDINGS: Lungs: Increased interstitial markings in the lung bases bilaterally compared to prior study this may represent early interstitial infiltrate versus pulmonary edema minimal fluid in the fissure the costophrenic angles appear sharp however Heart: Unremarkable. No cardiomegaly. Mediastinum: Unremarkable. Bones/joints: Unremarkable. IMPRESSION: Increased interstitial markings bilaterally compared to prior study
[2018-07-04] MEDS ORDERED: FUROSEMIDE 10 MG/ML 4 ML VIAL IV STA (01:34)
[2018-07-04] MEDS ORDERED: LABETALOL 100 MG in SODIUM CHLORIDE 0.9% 80 ML IV ONE (02:00)
[2018-07-04] MEDS ORDERED: NITROGLYCERIN SL TABS 0.4 MG TAB SUBLINGUAL PRN (02:10)
[2018-07-04 04:46] LABS: Glucose,Whole Blood 116 mg/dL (75-99)
[2018-07-04 05:02] VITALS: BMI 27.0
[2018-07-04] MEDS: MORPHINE SULFATE ER 15 MG TABLET PO SCH ×2 (06:11→17:38)
[2018-07-04] MEDS ORDERED: CARVEDILOL 6.25 MG TAB PO SCH (07:00)
--- NOTE | 2018-07-04 09:30 | HP ---
HISTORY AND PHYSICAL CHIEF COMPLAINT: An 87-year-old white male admitted with chest pain and hypertension. States he did not take his home medications, does not know why. Developed some chest pain. Took 2 nitro at home without any relief. He came to the hospital with a chest pain radiating to the right arm. He had elevated troponin in the emergency room. His pain level was 8 out of 10. He is profoundly hypertensive with over 200 systolic in the ER and he was admitted, given sublingual nitro and aspirin and sent to the ICU. He is feeling better today at this time. HOME MEDICATIONS: Home medications were: 1. Lasix 40 b.i.d. 2. MS Contin 15 b.i.d. 3. K-Dur 20 mEq daily. 4. Aspirin 81 mg daily. 5. Norvasc 5 mg daily. 6. Lipitor 80 mg daily. 7. Plavix 75 mg daily. 8. Imdur 60 mg daily. 9. Zoloft 100 mg daily. ALLERGIES: No known drug allergies. REVIEW OF SYSTEMS: Fourteen-point review of systems negative except for mentioned in HPI. EKG shows atrial fibrillation, heart rate in 80s, marked ST depression V4 to V6. PAST MEDICAL HISTORY: Coronary artery disease, hypertension, influenza B, chronic kidney disease stage 3, chronic anemia, carotid stenosis. SURGICAL HISTORY: Cholecystectomy, CABG, heart catheterization, 5 vessel CABG in 2008, bilateral cataract removed. SOCIAL HISTORY: Current everyday smoker. FAMILY HISTORY: Unknown. PHYSICAL EXAMINATION: Vital signs in the emergency room 260s over 120s blood pressure, down to 200/98, O2 saturation 99% to 100%, temp 98.9, pulse 60 to 87, respiratory rate 14 to 16. CONSTITUTIONAL: He is sleepy, lethargic. CARDIOVASCULAR: S1, S2. LUNGS: Show decreased breath sounds x4. HEMATOLOGY: Negative Homans. GI: Soft. NEURO: Alert and oriented x3. OPHTHALMOLOGIC: Pupils equal, round, reactive to light and accommodation. Elevated troponin 0.2. Heparin was started. Hypertension acceleration and labetalol infusions given. Await Cardiology consult. ASSESSMENT: 1. Hypertension acceleration due to noncompliance with medication. 2. Tdk-IR-drdmnqufu myocardial infarction. 3. He has got bipolar depression. 4. Obstructive sleep apnea. 5. Chronic obstructive pulmonary disease. 6. Nicotine addiction. 7. Carotid stenosis. Will monitor in the ICU for hypertension acceleration. Await Cardiology recommendation. ICU time: 60 minutes. TAMIKA / KWABENAN: [id number] /
[2018-07-04] MEDS: ISOSORBIDE MONONITRATE ER 60 MG TAB.ER.24H PO SCH (10:16)
[2018-07-04] MEDS: amLODIPine 5 MG TAB PO SCH ×2 (10:16→20:47)
[2018-07-04] MEDS: CLOPIDOGREL 75 MG TAB PO SCH (10:16)
--- NOTE | 2018-07-04 11:37 | ECHOF ---
Referral Reason:chf MEASUREMENTS -------- HEIGHT: 172.7 cm WEIGHT: 90.7 kg BP: 165/105 RVIDd: 2.6 cm (< 3.3) IVSd: 1.4 cm (0.6 - 1.1) LVIDd: 5.4 cm (3.9 - 5.3) LVPWd: 1.4 cm (0.6 - 1.1) IVSs: 1.9 cm LVIDs: 3.8 cm LVPWs: 1.9 cm LA Diam: 4.2 cm (2.7 - 3.8) LAESV Index (A-L): 24.51 ml/m Ao Diam: 2.8 cm (2.0 - 3.7) AV Cusp: 1.7 cm (1.5 - 2.6) MV EXCURSION: 9.761 mm (> 18.000) MV EF SLOPE: 36 mm/s (70 - 150) EPSS: 1.5 cm MV E Gonzalo: 0.92 m/s MV DecT: 356 ms MV A Gonzalo: 1.19 m/s MV E/A Ratio: 0.77 AV maxP.05 mmHg AV meanP.47 mmHg RAP: 5.00 mmHg RVSP: 37.74 mmHg FINDINGS -------- Paced rhythm. This was a technically difficult study with suboptimal parasternal views. The left ventricular size is normal. There is moderate concentric left ventricular hypertrophy. O verall left ventricular systolic function is moderately impaired with, an EF between 35 - 40 %. Api selin inferior LV wall motion is hypokinetic. Apical septum LV wall motion is hypokinetic. The right ventricle is normal in size. Normal LA size by volume 22+/-6 ml/m2. The right atrium is normal in size. There is mild aortic valve sclerosis. There is mild aortic stenosis present. Peak/mean gradient a cross the Aortic Valve is 25.05mmHg / 13.47mmHg. The mitral valve leaflets are mildly thickened. Mild mitral annular calcification present. Mild m itral regurgitation is present. Mild tricuspid regurgitation present. There is mild pulmonary hypertension. The right ventricular systolic pressure, as measured by Doppler, is 37.74mmHg. The pulmonic valve was not well visualized. The aortic root size is normal. IVC Not well visulized. There is no pericardial effusion. CONCLUSIONS -------- 1. Paced rhythm. 2. This was a technically difficult study with suboptimal parasternal views. 3. The left ventricular size is normal. 4. There is moderate concentric left ventricular hypertrophy. 5. Overall left ventricular systolic function is moderately impaired with, an EF between 35 - 40 %. 6. Apical septum LV wall motion is hypokinetic. 7. The right ventricle is normal in size. 8. Normal LA size by volume 22+/-6 ml/m2. 9. The right atrium is normal in size. 10. There is mild aortic valve sclerosis. 11. There is mild aortic stenosis present. 12. Peak/mean gradient across the Aortic Valve is 25.05mmHg / 13.47mmHg. 13. The mitral valve leaflets are mildly thickened. 14. Mild mitral annular calcification present. 15. Mild mitral regurgitation is present. 16. Mild tricuspid regurgitation present. 17. There is mild pulmonary hypertension. 18. The right ventricular systolic pressure, as measured by Doppler, is 37.74mmHg. 19. The pulmonic valve was not well visualized. 20. The aortic root size is normal. 21. IVC Not well visulized. 22. There is no pericardial effusion. MIXED ANIMAL VETERINARIAN: Deisy Thompson RDCS
--- NOTE | 2018-07-04 14:05 | CONS ---
SUELLEN Rivera is an 87-year-old gentleman who was admitted to the hospital with chest pain. He has known coronary artery disease, status post CABG, sick sinus syndrome status post permanent pacemaker and episodes of atrial fibrillation. He came in complaining of pericardial chest pressure mild to moderate intensity. His blood pressures were extremely elevated and he had mild troponin elevation at 0.2 and 0.5. He has underlying renal insufficiency. EKG shows ischemic changes with underlying atrial fibrillation. I talked to patient about his treatment options including undergoing cardiac catheterization to evaluate his bypass graft. Understanding the risks, benefits, he wishes to be managed with optimal medical therapy. Blood pressure is still elevated at 165/75. I am going to resume the nitrates, Norvasc. Continue the aspirin and Plavix. I will leave him on heparin for another day and put him on either Eliquis or Xarelto. Continue the Lasix that he was on and increase the dose of Coreg to 12.5 b.i.d. and if blood pressure tolerates this go up to 25 b.i.d. PAST MEDICAL HISTORY: Past medical history is significant for coronary artery disease, status post CABG, hypertension, dyslipidemia. CURRENT MEDICATIONS: Current medications include Norvasc 5 q. daily, Zoloft 100 q. daily, K-Dur 10 q. daily, MS Contin, Imdur 60 q. daily, Lasix 40 b.i.d., Plavix, Lipitor, and aspirin. ALLERGIES: There are no known drug allergies. FAMILY HISTORY: Family history is negative for premature coronary artery disease. SOCIAL HISTORY: Social history is negative for smoking, EtOH abuse, or drug abuse. REVIEW OF SYSTEMS: HEENT is unremarkable. CARDIAC: As described above. RESPIRATORY: Negative, GI: Negative. GENITOURINARY: Negative. ALLERGY/IMMUNOLOGY: Negative. SKIN: Negative. MUSCULOSKELETAL: Significant for arthritis. PSYCHOSOCIAL: Negative. ENDOCRINE: Negative. HEMATOLOGICAL: Negative. DERM: Negative. CONSTITUTIONAL: Negative. ONCOLOGICAL: Negative. BLUEPRINT DUPLICATOR: Negative. Rest of the system review is not relevant. PHYSICAL EXAMINATION: On exam, heart rate is 60 beats per minute. Blood pressure is 160/75. O2 sat is 94% on room air. There is no jugular venous distention. Chest exam reveals good air entry bilaterally. Heart exam reveals first and second heart sounds, irregular rhythm and a systolic murmur at the left lower sternal border. Abdomen is soft Examination of extremities did not reveal any edema. Peripheral pulses are felt. LABS: Labs show a hemoglobin of 14.7, platelet count is 203. BUN is 25, creatinine is 1.8. Potassium is 4.2. Troponin is elevated at 0.2 and 0.4. BNP is 6420. ASSESSMENT: 1. Non ST-segment elevation myocardial infarction. 2. Severe uncontrolled hypertension secondary noncompliance. 3. Chronic atrial fibrillation. 4. Sick sinus syndrome, status post permanent pacemaker. 5. Coronary artery disease, status post coronary artery bypass grafting. PLAN: Will treat the patient with aspirin, Lipitor, Coreg 12.5 b.i.d., Norvasc, Plavix, Lasix, Imdur, and will adjust the medications as tolerated. MMODL / IJN: [id number] /
--- NOTE | 2018-07-04 14:05 | US ---
"EXAMINATION TYPE: US carotid duplex BILAT DATE OF EXAM: 07/04/2018 COMPARISON: US 04/25/2016 CLINICAL HISTORY: stenosis. Difficult and limited exam due to heavily calcified arteries EXAM MEASUREMENTS: RIGHT: Peak Systolic Velocity (PSV) cm/sec ----- Right CCA: 59.2 ----- Right ICA: 119.4 ----- Right ECA: 104.8 ICA/CCA ratio: 2.0 RIGHT: End Diastole cm/sec ----- Right CCA: 15.3 ----- Right ICA: 14.4 ----- Right ECA: 4.7 LEFT: Peak Systolic Velocity (PSV) cm/sec ----- Left CCA: 102.0 ----- Left ICA: 0 ----- Left ECA: 244.1 ICA/CCA ratio: -- LEFT: End Diastole cm/sec ----- Left CCA: 9.1 ----- Left ICA: 0 ----- Left ECA: 15.1 VERTEBRALS (direction of flow): Right Vertebral: Antegrade Left Vertebral: Antegrade Rhythm: Arrhythmia Difficult and limited exam due to heavily calcified arteries bilaterally and patient unable to tolera te probe pressure. Appears to be fully occluded ICA, however difficult to visualize. Elevated velocit ies visualized within the left ECA. Elevated velocities within the left proximal and mid CCA. IMPRESSION: 1. Exam is limited as the patient could not tolerate probe pressure. However there is appears to be c omplete occlusion of the left internal carotid artery, new from the prior of 2016. MRA or CTA neck is recommended for further evaluation. 2. Stenosis of approximately 50-69% on the right within the internal carotid artery. 3. Incidentally noted cardiac arrhythmia. Correlate with EKG. Criteria for Assigning % of Stenosis / Diameter reduction (Estimation based on the indirect measurements of the internal carotid artery velocities (ICA PSV). 1. Normal (no stenosis)=ICA PSV < 125 cm/s: ratio < 2.0: ICA EDV<40 cm/s. 2. Less than 50% stenosis=ICA PSV < 125 cm/s: ratio < 2.0: ICA EDV<40 cm/s. 3. 50 to 69% stenosis=ICA PSV of 125 to 230 cm/s: ration 2.0 ? 4.0: ICA EDV 40-100 cm/s. 4. Greater than 70% stenosis to near occlusion= ICA PSV > 230 cm/s: ratio > 4.0: ICA EDV > 100 cm/s. 5. Near occlusion= ICA PSV velocities may be low or undetectable: variable ratio and ICA EDV. 6. Total occlusion=unable to detect flow. A [place] level critical message alert has been initiated for Julio Elizabeth MD via the [employer] 36 [id number] | Critical Results System on 07/04/2018 2:03 PM. This message alert has been sent to Julio Elizabeth MD via the preferences provided by the clinician for the receipt of Radiology Critical Findings. [facility] ID [id number]."
--- NOTE | 2018-07-04 14:12 | P.CNPUL ---
History of Present Illness Consult date: 07/04/18 Requesting physician: Julio Elizabeth Reason for consult: other (ICU management, hypertensive urgency and possible non-ST elevation myocardial infarction.) Chief complaint: Chest pain History of present illness: This is an 87-year-old white male with history of multiple medical problems including hypertension, coronary artery disease, depression, patient was admitted to the ICU with mostly symptoms of chest pain, and elevated blood pressure. Patient developed sudden onset of substernal chest pain, has been noncompliant with his medications, however at the time of the chest pain he took 2 nitroglycerin at home and no relief. Pain was associated with radiation to the right arm, patient described the pain as substernal pressure rated 8 out of 10 in severity. No relieving factors and no exacerbating factors. When EMS arrived, the patient was significantly elevated, and in the ER was even more elevated. His systolic pressure was about 200. In the ER the patient was given aspirin, additional sublingual nitroglycerin, and his pain significantly improved. Patient was admitted to the ICU and Dr. Tim was consulted, and he recommended that I, him for the time being in the intensive care unit for all his admissions and consults. During my evaluation, the patient was comfortable, asymptomatic, he had no chest pain, no shortness of breath, no cough, no wheezing, blood pressure was noted to be 160 systolic. He was already placed on multiple blood pressure medications by cardiology, and I increased his Coreg to 25 mg twice a day. Patient had EKG upon admission showed ST depression in V4 through the 6, and no evidence of ST elevation. These changes were noted to be new. However cardiology is addressing his EKG and his abnormal troponin which has been on the rise from 0.209 on admission 0.546 early this morning, and 0.787 now. His BNP level was 6420. Chest x-ray showed mild increased interstitial markings bilaterally. Review of Systems CONSTITUTIONAL: Denies any recent significant weight loss or weight gain. EYES: Denies change in vision. EARS, NOSE, MOUTH, THROAT: Denies headaches, denies sore throat. CARDIOVASCULAR:as noted in HPI, RESPIRATORY: minimal shortness of breath, no cough, no wheezing, no fever, no chills, no hemoptysis. GASTROINTESTINAL: Denies change in appetite, denies abdominal pain GENITOURINARY: Denies hematuria, denies infections. MUSKULOSKELETAL: Denies pain, denies swelling. INTEGUMENTARY: Denies rash, denies eczema. NEUROLOGICAL: Denies recent memory loss, no recent seizure activity. PSYCHIATRIC: Denies anxiety, denies depression. HEMATOLOGIC/LYMPHATIC: Denies anemia, denies enlarged lymph nodes. 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 History of Any Multi-Drug Resistant Organisms: None Reported Past Surgical History: Cholecystectomy, Coronary Bypass/CABG, Heart Catheterization Additional Past Surgical History / Comment(s): 2008 CABG-pt believes was 5 vessel done down in [place], colonoscopy-normal, bilateral cataract removals. Past Anesthesia/Blood Transfusion Reactions: No Reported Reaction Past Psychological History: Depression Additional Psychological History / Comment(s): He is independent. He drives. Smoking Status: Current every day smoker Past Alcohol Use History: Occasional Additional Past Alcohol Use History / Comment(s): Pt states he started smoking as a teen and is a 4 cigarette/day smoker. Past Drug Use History: None Reported - Past Family History Father Family Medical History: Unable to Obtain Additional Family Medical History / Comment(s): Pt does not recall any parent medical hx at this time. Medications and Allergies Home Medications Medication Instructions Recorded Confirmed Type Aspirin 81 mg PO DAILY 05/01/16 07/04/18 History Furosemide [Lasix] 40 mg PO BID 05/01/16 07/04/18 History Morphine Sulfate ER [Ms Contin 15 mg PO Q12HR 05/01/16 07/04/18 History 15Mg] Potassium Chloride ER [K-Dur 10] 20 meq PO DAILY 05/01/16 07/04/18 History amLODIPine [Norvasc] 5 mg PO DAILY 05/01/16 07/04/18 History Atorvastatin [Lipitor] 80 mg PO HS 07/04/18 07/04/18 History Clopidogrel Bisulfate [Plavix] 75 mg PO DAILY 07/04/18 07/04/18 History Isosorbide Mononitrate ER [Imdur] 60 mg PO DAILY 07/04/18 07/04/18 History Sertraline HCl [Zoloft] 100 mg PO DAILY 07/04/18 07/04/18 History Allergies Allergy/AdvReac Type Severity Reaction Status Date / Time No Known Allergies Allergy Verified 07/04/18 08:31 Physical Exam Vitals: Vital Signs Temp Pulse Resp BP BP Pulse Ox 07/04/18 13:00 60 17 143/70 93 L 07/04/18 12:00 97.6 F 72 14 138/76 95 07/04/18 11:00 60 18 180/111 92 L 07/04/18 09:00 61 15 165/105 95 07/04/18 08:00 98.0 F 60 17 165/105 93 L 07/04/18 06:00 61 12 165/75 94 L 07/04/18 05:00 63 17 179/98 98 07/04/18 04:41 97.3 F L 12 179/98 98 07/04/18 04:32 97.3 F L 97 07/04/18 03:34 98.1 F 74 12 137/74 99 07/04/18 02:38 62 10 L 147/80 99 07/04/18 02:04 60 13 197/89 99 07/04/18 01:27 60 15 200/98 100 07/04/18 00:57 62 15 230/110 99 07/04/18 00:33 98.9 F 87 14 260/120 100 Intake and Output 07/03/18 07/04/18 07/04/18 22:59 06:59 14:59 Intake Total 100 Output Total 800 200 Balance -800 -100 Intake: IV 100 0.9 carrier 100 Output: Urine 800 200 Other: Voiding Method Urinal # Voids 1 1 Weight 90.718 kg Physical Exam: Revealed 87-year-old white male in no distress. Head: Atraumatic, normocephalic, HEENT:[Neck is supple.] [No neck masses.] [No thyromegaly.] [No JVD.] Chest: [diminished breath sound bilaterally no crackles or rhonchi or wheezes, Cardiac: Normal S1 and S2, no S3 gallop. Irregular irregular rhythm. Abdomen: [Soft, nontender, no megaly, no rebound, no guarding, normal bowel sounds.] Extremities: [No clubbing, no edema, no cyanosis.] Neurological Exam: [No focal neurologic deficit.alert oriented 3. Psychiatric: Normal mood, affect and mental status examination. Lymphatics: No lymphadenopathy. Skin: No rashes. Results - Laboratory Findings CBC and BMP: 07/04/18 00:35 07/04/18 00:35 PT/INR, D-dimer PT 9.6 sec (9.0-12.0) 07/04/18 00:35 INR 0.9 (<1.2) 07/04/18 00:35 Abnormal lab findings: Abnormal Labs 07/04/18 07/04/18 07/04/18 00:35 00:35 00:35 WBC 12.1 H APTT BUN 25 H Creatinine 1.85 H Glucose 160 H POC Glucose (mg/dL) Alkaline Phosphatase 138 H Troponin I 0.209 H* 07/04/18 07/04/18 07/04/18 04:32 06:35 09:00 WBC APTT BUN Creatinine Glucose POC Glucose (mg/dL) 116 H Alkaline Phosphatase Troponin I 0.546 H* 0.787 H* 07/04/18 09:00 WBC APTT 54.8 H BUN Creatinine Glucose POC Glucose (mg/dL) Alkaline Phosphatase Troponin I - Diagnostic Findings Chest x-ray: image reviewed (As noted in HPI.) Assessment and Plan Assessment: Impression: 1 hypertensive emergency with significantly elevated blood pressure, mostly secondary to noncompliance, associated with mild interstitial edema, and strongly suspect non-ST elevation myocardial infarction. 2 acute non-ST elevation myocardial infarction 3 mild interstitial edema most likely secondary to systolic dysfunction and ischemic cardiomyopathy. 4 history of underlying COPD presently inactive 5 bipolar disorder 6 chronic nicotine addiction 7 obstructive sleep apnea syndrome 8 history of underlying coronary artery disease and previous CABG in 2008. 9 history of chronic kidney disease stage III 10 chronic anemia 11 carotid artery disease. Recommendation: Agree with the present treatment plan, patient is presently on heparin, he is on multiple cardiac meds for elevated blood pressure, blood pr essure seems to be responding well to treatment, he is not requiring any labetalol drip at this point, patient could be considered for transfer to a monitor bed/selective, unless cardiology is planning further intervention/cardiac catheterization for further workup of his non-ST elevation myocardial infarction. Prognosis is definitely poor and guarded, especially with a known fact that the patient is noncompliant with medication. We'll continue to follow while in the ICU. Time with Patient: Greater than 30
[2018-07-04] MEDS: APIXABAN 2.5 MG TABLET PO SCH (17:39)
[2018-07-04] MEDS: FUROSEMIDE 40 MG TAB PO SCH (17:39)
[2018-07-04] MEDS ORDERED: CARVEDILOL 12.5 MG TAB PO SCH (19:00)
[2018-07-04] MEDS: CARVEDILOL 12.5 MG TAB PO SCH (20:47)
[2018-07-04] MEDS: ATORVASTATIN 80 MG TAB PO SCH (20:47)
[2018-07-05] MEDS: MORPHINE SULFATE ER 15 MG TABLET PO SCH ×2 (03:21→16:01)
[2018-07-05] MEDS: NICOTINE 21MG/24HR PATCH TRANSDERM SCH (03:43)
[2018-07-05] MEDS: CARVEDILOL 12.5 MG TAB PO SCH ×2 (06:11→18:34)
[2018-07-05 07:58] LABS: Cholesterol 119 mg/dL (<200); HDL Cholesterol 32 mg/dL (40-60); LDL Cholesterol,Calculated 64 mg/dL (0-99); Triglycerides 116 mg/dL (<150)
[2018-07-05] MEDS ORDERED: ASPIRIN 325 MG TAB PO SCH (09:00)
[2018-07-05] MEDS: ISOSORBIDE MONONITRATE ER 60 MG TAB.ER.24H PO SCH (10:32)
[2018-07-05] MEDS: APIXABAN 2.5 MG TABLET PO SCH ×2 (10:33→19:30)
[2018-07-05] MEDS: CLOPIDOGREL 75 MG TAB PO SCH (10:33)
[2018-07-05] MEDS: FUROSEMIDE 40 MG TAB PO SCH ×2 (10:33→16:01)
[2018-07-05] MEDS: ASPIRIN 81 MG PO SCH (10:34)
--- NOTE | 2018-07-05 10:42 | P.PN ---
Subjective Progress Note Date: 07/05/18 This is an 87-year-old gentleman with known history of coronary artery disease and prior bypass surgery, sick sinus syndrome with prior pacemaker, who had episodes of atrial fibrillation. He presented to the hospital symptoms of precordial chest pressure, his blood pressures at the time were significantly elevated. He did have abnormality in troponin, 0.2, 0.5, 0.7, suggesting possible non-Q-wave myocardial infarction. Dr. Allen did have a discussion with the patient regarding cardiac catheterization yesterday. His BUN yesterday was 25 and creatinine 1.8. We do not have any labs today. His blood pressure today is under much better control, 130/60, heart rate in the 80s, 96% on room air. At the time of my examination this morning he denies having any chest discomfort and is breathing overall is stable. Objective - Vital Signs Vital signs: Vital Signs Temp 98.5 F 07/05/18 04:00 Pulse 80 07/05/18 04:00 Resp 18 07/05/18 04:00 BP 130/62 07/05/18 04:00 Pulse Ox 96 07/05/18 04:00 Intake & Output 07/04/18 07/05/18 07/05/18 18:59 06:59 18:59 Intake Total 329.62 0 240 Output Total 350 100 Balance -20.38 -100 240 Weight 87.5 kg Intake: IV 220 0 0.9 carrier 220 0 Intake, IV Titration 109.62 Amount Heparin Sod,Pork in 0.45% 109.62 NaCl 25,000 unit In 0.45 % NaCl 1 250ml.bag @ 10 mls/hr IV .Q24H [facility] Rx#: [id number] Oral 240 Output: Urine 350 100 Other: Voiding Method Urinal Urinal # Voids 1 1 - Exam PHYSICAL EXAMINATION: GENERAL: She 7-year-old gentleman in no acute distress at the time of my examination HEENT: Head is atraumatic, normocephalic. Pupils equal, round. Sclera anicteric. Conjunctiva are clear. Mucous membranes of the mouth are moist. Neck is supple. There is no elevated jugular venous pressure.] bruit is heard. HEART EXAMINATION: R S1 and S2 irregularly irregular a systolic murmur is heard. CHEST EXAMINATION: Lungs are clear with mild diminished air entry to the bases. No chest wall tenderness is noted on palpation or with deep breathing. ABDOMEN: Soft, nontender. Bowel sounds are heard. No organomegaly noted. EXTREMITIES: 2+ peripheral pulses with trace evidence of peripheral edema and no calf tenderness noted. NEUROLOGIC patient is awake, alert and oriented 3. . - Labs CBC & Chem 7: 07/04/18 00:35 07/04/18 00:35 Labs: Abnormal Lab Results - Last 24 Hours (Table) 07/05/18 Range/Units 06:33 HDL Cholesterol 32 L (40-60) mg/dL Assessment and Plan Plan: Assessment and plan #1 non-ST elevation DC #2 uncontrolled hypertension #3 chronic persistent atrial fibrillation on Eliquis for anticoagulation #4 sinus syndrome with prior pacemaker implantation #5 coronary artery disease with prior bypass surgery #6 hyperlipidemia #7 mildly renal insufficiency Plan We will repeat lytes BUN and creatinine today. If the creatinine is stable we'll consider the addition of an OUMOU inhibitor, we will then stop the Norvasc. Continue maximal medical therapy. DNP note has been reviewed, I agree with a documented findings and plan of care. Patient was seen and examined.
--- NOTE | 2018-07-05 11:01 | PN ---
PROGRESS NOTE This is a white male came in with hypertension acceleration of significant nature 240 systolic of his blood pressure. He was found to have elevated troponins for which Cardiology is consulted. Dr. Luevano saw him for pulmonary consultation. His diagnosis was hypertensive emergency with significant elevated blood pressure secondary to noncompliance, non STEMI, acute COPD, bipolar, nicotine, obstructive sleep apnea, chronic kidney disease stage 3, carotid artery disease, chronic anemia. His blood pressure is improving. He has been moved out of the ICU to regular bed. Cardiology is working up what they are going to do with him. He has significant carotid stenosis which appears to be improved from last study. Cardiology diagnosed chronic atrial fibrillation, non STEMI, uncontrolled hypertension, sick sinus syndrome, status post pacemaker, coronary artery disease status post grafting. They said continue with aspirin, Lipitor, Coreg, Norvasc, Plavix, Lasix, Imdur, chest medications, not sure if he is going to go on a blood thinner Eliquis or Xarelto for A. fib LUNGS: Clear. CARDIOVASCULAR: Irregular, irregular rhythm. GI: Soft. PSYCH: Flat mood and affect. PLAN: As above. See further orders. MMODL / IJN: [id number] /
[2018-07-05 11:30] LABS: Calcium 8.2 mg/dL (8.4-10.2); Potassium 4.3 mmol/L (3.5-5.1)
[2018-07-05] MEDS ORDERED: IPRATROPIUM-ALBUTEROL 3 ML NEB INHALATION PRN (12:09)
--- NOTE | 2018-07-05 12:09 | P.PN ---
Subjective Progress Note Date: 07/05/18 07/05/2018: Patient seen and examined covering for Dr. Tim. The patient states that he is feeling well. He denies chest pain, shortness of breath. He is currently on room air. He does complain of an occasional cough which is productive of phlegm. The patient's creatinine today is 1.8. O2 saturation is 94%. Objective - Vital Signs Vital signs: Vital Signs Temp 97.9 F 07/05/18 08:00 Pulse 57 L 07/05/18 08:00 Resp 18 07/05/18 08:00 BP 115/62 07/05/18 08:00 Pulse Ox 94 L 07/05/18 08:00 Intake & Output 07/04/18 07/05/18 07/05/18 18:59 06:59 18:59 Intake Total 329.62 0 240 Output Total 350 100 Balance -20.38 -100 240 Weight 87.5 kg Intake: IV 220 0 0.9 carrier 220 0 Intake, IV Titration 109.62 Amount Heparin Sod,Pork in 0.45% 109.62 NaCl 25,000 unit In 0.45 % NaCl 1 250ml.bag @ 10 mls/hr IV .Q24H [facility] Rx#: [id number] Oral 240 Output: Urine 350 100 Other: Voiding Method Urinal Urinal # Voids 1 1 - Exam Gen.: Patient is alert and oriented 3, no acute distress Cardiovascular: Regular rate and rhythm, S1/S2 Lungs: Diminished breath sounds bilaterally otherwise clear Abdomen: Soft nontender nondistended positive bowel sounds Extremities: No edema - Labs CBC & Chem 7: 07/04/18 00:35 07/05/18 06:33 Labs: Abnormal Lab Results - Last 24 Hours (Table) 07/05/18 07/05/18 Range/Units 06:33 06:33 BUN 34 H (9-20) mg/dL Creatinine 2.13 H (0.66-1.25) mg/dL Glucose 123 H (74-99) mg/dL Calcium 8.2 L (8.4-10.2) mg/dL HDL Cholesterol 32 L (40-60) mg/dL Assessment and Plan Assessment: 1 hypertensive emergency with significantly elevated blood pressure, mostly secondary to noncompliance, associated with mild interstitial edema, and strongly suspect non-ST elevation myocardial infarction. BP control per c ardiology 2 acute non-ST elevation myocardial infarction: Heparin drip has been discontinued by cardiology 3 mild interstitial edema most likely secondary to systolic dysfunction and ischemic cardiomyopathy. 4 history of underlying COPD presently inactive. Smoking cessation, nicotine TD 5 bipolar disorder 6 chronic nicotine addiction 7 obstructive sleep apnea syndrome, encourage CPAP compliance 8 history of underlying coronary artery disease and previous CABG in 2008. 9 history of chronic kidney disease stage III 10 chronic anemia 11 carotid artery disease. GI and DVT prophylaxis: Eliquis and add Protonix Add PRN Duonebs
[2018-07-05] MEDS: amLODIPine 5 MG TAB PO SCH ×2 (12:12→19:31)
[2018-07-05] MEDS: ATORVASTATIN 80 MG TAB PO SCH (19:31)
[2018-07-06] MEDS: PANTOPRAZOLE 40 MG TABLET PO SCH (05:59)
[2018-07-06] MEDS: CARVEDILOL 12.5 MG TAB PO SCH ×2 (05:59→19:53)
[2018-07-06] MEDS: MORPHINE SULFATE ER 15 MG TABLET PO SCH ×2 (05:59→19:53)
[2018-07-06 06:49] LABS: Calcium 8.4 mg/dL (8.4-10.2); Potassium 4.1 mmol/L (3.5-5.1)
[2018-07-06] MEDS: CLOPIDOGREL 75 MG TAB PO SCH (09:09)
[2018-07-06] MEDS: NICOTINE 21MG/24HR PATCH TRANSDERM SCH (09:09)
[2018-07-06] MEDS: FUROSEMIDE 40 MG TAB PO SCH ×2 (09:10→15:24)
[2018-07-06] MEDS: hydrALAZINE HCL 25 MG TAB PO SCH ×2 (09:10→19:53)
[2018-07-06] MEDS: APIXABAN 2.5 MG TABLET PO SCH ×2 (09:10→19:53)
[2018-07-06] MEDS: ASPIRIN 81 MG PO SCH (09:11)
[2018-07-06] MEDS: ISOSORBIDE MONONITRATE ER 60 MG TAB.ER.24H PO SCH (09:11)
--- NOTE | 2018-07-06 09:56 | P.GSCN ---
History of Present Illness Consult date: 07/06/18 Reason for Consult: Carotid stenosis, surgical recommendations Requesting physician: Julio Elizabeth History of present illness: This is an 87-year-old gentleman who follows with Dr. Julio Elizabeth on an outpatient basis. He has a previous medical history of known bilateral carotid stenosis, coronary artery disease status post 5 vessel CABG, hypertension, sick sinus syndrome status post pacemaker placement, chronic atrial fibrillation on Eliquis for anticoagulation, systolic heart failure, chronic kidney disease st age III, anemia, and current tobacco dependence. He presented to [facility] emergency room on July 04 with complaints of chest pain and was found to be very hypertensive with blood pressure 260/120. He did have ST depression in leads V4 through V6, his troponins were elevated at 0.209, and he was admitted for evaluation and treatment, along with blood pressure control. Transthoracic echocardiogram was completed demonstrating hypokinetic LV with EF 35-40%, mild aortic stenosis, mild mitral regurgitation, mild tricuspid regurgitation, as well as mild pulmonary hypertension. He was offered heart catheterization versus medical management, and the patient elected for medical management. Carotid Doppler studies where ordered by his primary care physician which demonstrated complete occlusion of the left internal carotid artery, and 50-69% stenosis in the right carotid artery. Upon review, his carotid Dopplers in 2017 demonstrated left carotid stenosis 70%, and the same right carotid stenosis. Due to these findings Dr. López from vascular surgery was consulted for surgical recommendations. Review of Systems Review of systems was completed and was negative except as noted - EENT Ears: bilateral: decreased hearing - Cardiovascular Reports chest pain, Reports dyspnea on exertion, Reports high blood pressure - Neurological Neurologic Comment(s): Denies any neurological symptoms, denies decreased muscle strength, denies dizziness, denies forgetfulness Past Medical History Past Medical History: Atrial Fibrillation, Coronary Artery Disease (CAD), Heart Failure, COPD, Hearing Disorder / Deafness, Hypertension, Renal Disease Additional Past Medical History / Comment(s): Recent influenza B-was admitted to [place], CKD stage III, chronic anemia, 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 History of Any Multi-Drug Resistant Organisms: None Reported Past Surgical History: Cholecystectomy, Coronary Bypass/CABG, Heart Catheterization Additional Past Surgical History / Comment(s): 2009 CABG-pt believes was 5 vessel done down in [place], colonoscopy-normal, bilateral cataract removals. Past Anesthesia/Blood Transfusion Reactions: No Reported Reaction Past Psychological History: Depression Additional Psychological History / Comment(s): He is independent. He drives. Smoking Status: Current every day smoker Past Alcohol Use History: Occasional Additional Past Alcohol Use History / Comment(s): Pt states he started smoking as a teen and is a 4 cigarette/day smoker. Past Drug Use History: None Reported - Past Family History Father Family Medical History: Unable to Obtain Additional Family Medical History / Comment(s): Pt does not recall any parent medical hx at this time. Medications and Allergies Home Medications Medication Instructions Recorded Confirmed Type Aspirin 81 mg PO DAILY 05/01/16 07/04/18 History Furosemide [Lasix] 40 mg PO BID 05/01/16 07/04/18 History Morphine Sulfate ER [Ms Contin 15 mg PO Q12HR 05/01/16 07/04/18 History 15Mg] Potassium Chloride ER [K-Dur 10] 20 meq PO DAILY 05/01/16 07/04/18 History amLODIPine [Norvasc] 5 mg PO DAILY 05/01/16 07/04/18 History Atorvastatin [Lipitor] 80 mg PO HS 07/04/18 07/04/18 History Clopidogrel Bisulfate [Plavix] 75 mg PO DAILY 07/04/18 07/04/18 History Isosorbide Mononitrate ER [Imdur] 60 mg PO DAILY 07/04/18 07/04/18 History Sertraline HCl [Zoloft] 100 mg PO DAILY 07/04/18 07/04/18 History Apixaban [Eliquis] 2.5 mg PO BID #60 tablet 07/06/18 Rx Carvedilol [Coreg*] 25 mg PO BID@0700,1900 #120 tab 07/06/18 Rx Nicotine 21Mg/24Hr Patch [Habitrol] 1 patch TRANSDERM DAILY #30 patch 07/06/18 Rx hydrALAZINE HCL [Apresoline] 25 mg PO BID #60 tab 07/06/18 Rx Allergies Allergy/AdvReac Type Severity Reaction Status Date / Time No Known Allergies Allergy Verified 07/04/18 08:31 Surgical - Exam Vital Signs Temp Pulse Resp BP Pulse Ox 98.9 F 87 14 260/120 100 07/04/18 00:33 07/04/18 00:33 07/04/18 00:33 07/04/18 00:33 07/04/18 00:33 - General well developed, well nourished, no distress, no pain - Eyes PERRL, normal ocular movement - ENT decreased hearing - Neck no masses, trachea midline carotid bruit: left - Respiratory Lungs sounds diminished with expiratory wheezes present. Respirations even, nonlabored. Currently on room air with oxygen saturation 92%. - Cardiovascular S1, S2 present, positive systolic murmur. Irregular rate and rhythm, paced on telemetry. Palpable peripheral pulses bilaterally. Trace bilateral lower extremity edema present. No calf pain or tenderness noted. - Abdomen Abdomen: soft, non tender, bowel sounds - Genitourinary Deferred - Rectum Deferred - Integumentary Bilateral lower extremities slightly reddened with dry scaly skin - Neurologic normal coordination, normal sensation - Musculoskeletal Equal strength bilaterally normal posture - Psychiatric oriented to time, oriented to person, oriented to place, speech is normal, memory intact Results - Labs 07/04/18 00:35 07/06/18 06:09 Abnormal Lab Results - Last 24 Hours (Table) 07/05/18 07/06/18 Range/Units 06:33 06:09 BUN 34 H 42 H (9-20) mg/dL Creatinine 2.13 H 2.29 H (0.66-1.25) mg/dL Glucose 123 H 124 H (74-99) mg/dL Calcium 8.2 L (8.4-10.2) mg/dL Diabetes panel 07/05/18 07/06/18 Range/Units 06:33 06:09 Sodium 139 139 (137-145) mmol/L Potassium 4.3 4.1 (3.5-5.1) mmol/L Chloride 107 104 (98-107) mmol/L Carbon Dioxide 24 25 (22-30) mmol/L BUN 34 H 42 H (9-20) mg/dL Creatinine 2.13 H 2.29 H (0.66-1.25) mg/dL Glucose 123 H 124 H (74-99) mg/dL Calcium 8.2 L 8.4 (8.4-10.2) mg/dL Calcium panel 07/05/18 07/06/18 Range/Units 06:33 06:09 Calcium 8.2 L 8.4 (8.4-10.2) mg/dL Pituitary panel 07/05/18 07/06/18 Range/Units 06:33 06:09 Sodium 139 139 (137-145) mmol/L Potassium 4.3 4.1 (3.5-5.1) mmol/L Chloride 107 104 (98-107) mmol/L Carbon Dioxide 24 25 (22-30) mmol/L BUN 34 H 42 H (9-20) mg/dL Creatinine 2.13 H 2.29 H (0.66-1.25) mg/dL Glucose 123 H 124 H (74-99) mg/dL Calcium 8.2 L 8.4 (8.4-10.2) mg/dL Adrenal panel 07/05/18 07/06/18 Range/Units 06:33 06:09 Sodium 139 139 (137-145) mmol/L Potassium 4.3 4.1 (3.5-5.1) mmol/L Chloride 107 104 (98-107) mmol/L Carbon Dioxide 24 25 (22-30) mmol/L BUN 34 H 42 H (9-20) mg/dL Creatinine 2.13 H 2.29 H (0.66-1.25) mg/dL Glucose 123 H 124 H (74-99) mg/dL Calcium 8.2 L 8.4 (8.4-10.2) mg/dL - Imaging Chest x-ray: report reviewed, image reviewed EKG: image reviewed Additional studies: Carotid Dopplers reviewed Assessment and Plan Assessment: 1. Bilateral carotid artery stenosis, left 100%, right 5069% 2. Non-STEMI 3. Hypertensive emergency upon admission, resolved 4. Coronary artery disease status post 5 vessel CABG 5. History of hypertension 6. History of sick sinus syndrome status post pacemaker placement 7. Chronic atrial fibrillation on Eliquis for anticoagulation 8. Systolic heart failure 9. Chronic kidney disease stage III 10. Anemia 11. Current tobacco dependence Plan: The patient was seen and examined at the bedside. He is currently in no acute distress. Denies pain and shortness of breath. He has no focal neurological deficits. The case was discussed in detail with Dr. López. There is no plans for surgical intervention during this admission. The patient may follow- up with Dr. López in 1-2 weeks in his office. This was discussed with the patient. We would recommend treatment of his current medical issues per primary care and cardiology. The patient was encouraged to quit smoking and monitor his blood pressure. Continue aspirin, statin, Plavix, antihypertensive. Will make follow-up appointment for Dr. López. Thank you Dr. Elizabeth for this consult. Please call us with any questions. Time with Patient: Greater than 30
--- NOTE | 2018-07-06 10:26 | P.PN ---
Subjective Progress Note Date: 07/06/18 This is an 87-year-old gentleman with known history of coronary artery disease and prior bypass surgery, sick sinus syndrome with prior pacemaker, who had episodes of atrial fibrillation. He presented to the hospital symptoms of precordial chest pressure, his blood pressures at the time were significantly elevated. He did have abnormality in troponin, 0.2, 0.5, 0.7, suggesting possible non-Q-wave myocardial infarction. Dr. Allen did have a discussion with the patient regarding cardiac catheterization yesterday. His BUN yesterday was 25 and creatinine 1.8. We do not have any labs today. His blood pressure today is under much better control, 130/60, heart rate in the 80s, 96% on room air. At the time of my examination this morning he denies having any chest discomfort and is breathing overall is stable. 07/06/2018 Patient was seen and examined this morning, he sitting up in the chair bedside. Denies any chest discomfort and breathing is overall stable. Blood pressure this morning 130/50. Patient is not currently on an OUMOU inhibitor because of abnormal renal function, he is on nitrates, and we will add a small dose of hydralazine to his medication regime. Objective - Vital Signs Vital signs: Vital Signs Temp 97.5 F L 07/06/18 09:07 Pulse 61 07/06/18 09:07 Resp 18 07/06/18 09:07 BP 138/66 07/06/18 09:07 Pulse Ox 94 L 07/06/18 09:07 Intake & Output 07/05/18 07/06/18 07/06/18 18:59 06:59 18:59 Intake Total 702 222 Output Total 400 550 Balance 302 -550 222 Weight 86.9 kg Intake: Oral 702 222 Output: Urine 400 550 Other: Voiding Method Urinal # Voids 2 - Exam PHYSICAL EXAMINATION: GENERAL: She 7-year-old gentleman in no acute distress at the time of my examination HEENT: Head is atraumatic, normocephalic. Pupils equal, round. Sclera anicteric. Conjunctiva are clear. Mucous membranes of the mouth are moist. Neck is supple. There is no elevated jugular venous pressure.] bruit is heard. HEART EXAMINATION: R S1 and S2 irregularly irregular a systolic murmur is heard. CHEST EXAMINATION: Lungs are clear with mild diminished air entry to the bases. No chest wall tenderness is noted on palpation or with deep breathing. ABDOMEN: Soft, nontender. Bowel sounds are heard. No organomegaly noted. EXTREMITIES: 2+ peripheral pulses with trace evidence of peripheral edema and no calf tenderness noted. NEUROLOGIC patient is awake, alert and oriented 3. . - Labs CBC & Chem 7: 07/04/18 00:35 07/06/18 06:09 Labs: Abnormal Lab Results - Last 24 Hours (Table) 07/05/18 07/06/18 Range/Units 06:33 06:09 BUN 34 H 42 H (9-20) mg/dL Creatinine 2.13 H 2.29 H (0.66-1.25) mg/dL Glucose 123 H 124 H (74-99) mg/dL Calcium 8.2 L (8.4-10.2) mg/dL Assessment and Plan Plan: Assessment and plan #1 non-ST elevation NM #2 uncontrolled hypertension #3 chronic persistent atrial fibrillation on Eliquis for anticoagulation #4 sinus syndrome with prior pacemaker implantation #5 coronary artery disease with prior bypass surgery #6 hyperlipidemia #7 mildly renal insufficiency Plan Creatinine is 2.2 today. We will add some hydralazine to the patient's medication regime. Continue the rest of his medications. DNP note has been reviewed, I agree with a documented findings and plan of care. Patient was seen and examined.
[2018-07-06] MEDS: amLODIPine 5 MG TAB PO SCH ×2 (11:25→19:53)
--- NOTE | 2018-07-06 12:11 | PN ---
PROGRESS NOTE SUBJECTIVE: 87-year-old white male with multiple medical conditions who came in with cardiac disease. He is sitting up in a chair at bedside. He is talked to by cardiac nurse about his carotid stenosis. His breathing was better. Blood pressure 130s over 50s. He is on nitrates. OUMOU inhibitor stopped due to hyperkalemia. Temp 97.5, pulse 60-65, respiratory 16-20, blood pressure 138/66, O2 94 on room air. Head normocephalic, atraumatic. Pupils equal, round, reactive to light and accommodation. Lungs are clear. Abdomen is soft. Hematology is 2+ edema. Neurologic, alert orient x3. White count 12.1, hemoglobin 14.7, BUN is 42, creatinine 2.29. ASSESSMENT: 1. Non-ST elevation myocardial infarction. 2. Uncontrolled hypertension. 3. Chronic persistent atrial fibrillation on Eliquis. 4. Sick sinus syndrome. 5. Coronary artery disease. 6. Hypertension. 7. Renal insufficiency. Continue cardiac stabilization medications. Possible discharge home next 24-48 hours. MMODL / IJN: [id number] /
--- NOTE | 2018-07-06 18:44 | PN ---
PROGRESS NOTE DATE OF SERVICE: July 06, 2018 He does not have any specific complaints. He has no chest pain or shortness of breath today. Blood pressure is 140/61, respiratory rate of 18, pulse rate of 60, temperature 97.8, O2 saturation on room air is 94%. HEENT is unremarkable. Chest is clear. Cardiovascular system is S1, S2. Abdomen is soft. There is trace edema. Sodium is 139, potassium 4.1, chloride 104, bicarb 25, BUN 42, creatinine of 2.29. Troponin 0.787. IMPRESSION: At this time is: 1. Hypertensive emergency. 2. Non ST myocardial infarction. 3. Chronic obstructive pulmonary disease. 4. Bipolar disorder. 5. Obstructive sleep apnea. Continue current medications. Anticoagulation. Increase her activity level. Prognosis is guarded. MMODL / IJN: [id number] /
[2018-07-06] MEDS: ATORVASTATIN 80 MG TAB PO SCH (19:53)
[2018-07-07] MEDS: CARVEDILOL 12.5 MG TAB PO SCH (06:05)
[2018-07-07] MEDS: PANTOPRAZOLE 40 MG TABLET PO SCH (06:05)
[2018-07-07 06:47] LABS: Calcium 8.2 mg/dL (8.4-10.2); Potassium 4.1 mmol/L (3.5-5.1)
[2018-07-07] MEDS: CLOPIDOGREL 75 MG TAB PO SCH (07:47)
[2018-07-07] MEDS: hydrALAZINE HCL 25 MG TAB PO SCH (07:48)
[2018-07-07] MEDS: ISOSORBIDE MONONITRATE ER 60 MG TAB.ER.24H PO SCH (07:48)
[2018-07-07] MEDS: MORPHINE SULFATE ER 15 MG TABLET PO SCH (07:48)
[2018-07-07] MEDS: ASPIRIN 81 MG PO SCH (07:48)
[2018-07-07] MEDS: FUROSEMIDE 40 MG TAB PO SCH (07:48)
[2018-07-07] MEDS: APIXABAN 2.5 MG TABLET PO SCH (07:48)
[2018-07-07] MEDS: NICOTINE 21MG/24HR PATCH TRANSDERM SCH (07:49)
[2018-07-07 07:59] VITALS: RESP 18; TEMP 97.5
--- NOTE | 2018-07-07 09:23 | P.PN ---
Subjective Progress Note Date: 07/07/18 Principal diagnosis: Hypertensive emergency, acute non-ST segment elevated CA, pulmonary edema shortness of breath related to hypertensive heart failure COPD, bipolar disorder, chronic nicotine use, obstructive sleep apnea, coronary artery disease prior CABG in 2008, history of chronic renal failure stage III, chronic anemia, carotid artery disease 07/07/2018, Patient seen and evaluated examined today respiratory standpoint doing much better blood pressure is better under control, the last one checked was 110/60, at room air oxygen saturation is 93%, Review of review of the record revealed that This is an 87-year-old white male with history of multiple medical problems including hypertension, coronary artery disease, depression, patient was admitted to the ICU with mostly symptoms of chest pain, and elevated blood pressure. Patient developed sudden onset of substernal chest pain, has been noncompliant with his medications, however at the time of the chest pain he took 2 nitroglycerin at home and no relief. Pain was associated with radiation to the right arm, patient described the pain as substernal pressure rated 8 out of 10 in severity. No relieving factors and no exacerbating factors. When EMS arrived, the patient was significantly elevated, and in the ER was even more elevated. His systolic pressure was about 200. In the ER the patient was given aspirin, additional sublingual nitroglycerin, and his pain significantly improved. Patient was admitted to the ICU and Dr. Tim was consulted, and he recommended that I, him for the time being in the i ntensive care unit for all his admissions and consults. During my evaluation, the patient was comfortable, asymptomatic, he had no chest pain, no shortness of breath, no cough, no wheezing, blood pressure was noted to be 160 systolic. He was already placed on multiple blood pressure medications by cardiology, and I increased his Coreg to 25 mg twice a day. Patient had EKG upon admission showed ST depression in V4 through the 6, and no evidence of ST elevation. These changes were noted to be new. However cardiology is addressing his EKG and his abnormal troponin which has been on the rise from 0.209 on admission 0.546 early this morning, and 0.787 now. His BNP level was 6420. Chest x-ray showed mild increased interstitial markings bilaterally. Review of Systems Objective - Vital Signs Vital signs: Vital Signs Temp 97.5 F L 07/07/18 07:51 Pulse 63 07/07/18 07:51 Resp 18 07/07/18 07:51 BP 114/58 07/07/18 07:51 Pulse Ox 93 L 07/07/18 07:51 Intake & Output 07/06/18 07/07/18 07/07/18 18:59 06:59 18:59 Intake Total 1110 240 Output Total 620 1400 Balance 490 -1400 240 Weight 84 kg Intake: Oral 1110 240 Output: Urine 620 1400 Other: Voiding Method Urinal # Voids 1 - Exam Physical Exam: Revealed 87-year-old white male in no distress. Head: Atraumatic, normocephalic, HEENT:[Neck is supple.] [No neck masses.] [No thyromegaly.] [No JVD.] Chest: [diminished breath sound bilaterally no crackles or rhonchi or wheezes, Cardiac: Normal S1 and S2, no S3 gallop. Irregular irregular rhythm. Abdomen: [Soft, nontender, no megaly, no rebound, no guarding, normal bowel sounds.] Extremities: [No clubbing, no edema, no cyanosis.] Neurological Exam: [No focal neurologic deficit.alert oriented 3. Psychiatric: Normal mood, affect and mental status examination. Lymphatics: No lymphadenopathy. Skin: No rashes. - Labs CBC & Chem 7: 07/04/18 00:35 07/07/18 06:01 Labs: Abnormal Lab Results - Last 24 Hours (Table) 07/07/18 Range/Units 06:01 BUN 46 H (9-20) mg/dL Creatinine 2.31 H (0.66-1.25) mg/dL Glucose 121 H (74-99) mg/dL Calcium 8.2 L (8.4-10.2) mg/dL Assessment and Plan Assessment: Hypertensive heart failure and pulmonary edema related to that Acute non-ST segment elevated CA Severe COPD Obstructive sleep apnea COPD emphysema Hypertensive emergency Chronic nicotine use and smoking Stage III renal failure Plan: Increase activity as tolerated Continue current medications DVT and peptic ulcer disease prophylaxis Patient can be discharged home however will need a follow-up sleep study on ou tpatient basis Time with Patient: Greater than 30
--- NOTE | 2018-07-07 10:24 | P.PN ---
Subjective Progress Note Date: 07/07/18 This is an 87-year-old gentleman with known history of coronary artery disease and prior bypass surgery, sick sinus syndrome with prior pacemaker, who had episodes of atrial fibrillation. He presented to the hospital symptoms of precordial chest pressure, his blood pressures at the time were significantly elevated. He did have abnormality in troponin, 0.2, 0.5, 0.7, suggesting possible non-Q-wave myocardial infarction. Dr. Allen did have a discussion with the patient regarding cardiac catheterization yesterday. His BUN yesterday was 25 and creatinine 1.8. We do not have any labs today. His blood pressure today is under much better control, 130/60, heart rate in the 80s, 96% on room air. At the time of my examination this morning he denies having any chest discomfort and is breathing overall is stable. 07/06/2018 Patient was seen and examined this morning, he sitting up in the chair bedside. Denies any chest discomfort and breathing is overall stable. Blood pressure this morning 130/50. Patient is not currently on an OUMOU inhibitor because of abnormal renal function, he is on nitrates, and we will add a small dose of hydralazine to his medication regime. 2018 Patient was seen and examined this morning, overall breathing much better. Blood pressure under excellent control. Objective - Vital Signs Vital signs: Vital Signs Temp 97.5 F L 07/07/18 07:51 Pulse 63 07/07/18 07:51 Resp 18 07/07/18 07:51 BP 114/58 07/07/18 07:51 Pulse Ox 93 L 07/07/18 07:51 Intake & Output 07/06/18 07/07/18 07/07/18 18:59 06:59 18:59 Intake Total 1110 240 Output Total 620 1400 Balance 490 -1400 240 Weight 84 kg Intake: Oral 1110 240 Output: Urine 620 1400 Other: Voiding Method Urinal # Voids 1 - Exam PHYSICAL EXAMINATION: GENERAL: She 7-year-old gentleman in no acute distress at the time of my examination HEENT: Head is atraumatic, normocephalic. Pupils equal, round. Sclera anicteric. Conjunctiva are clear. Mucous membranes of the mouth are moist. Neck is supple. There is no elevated jugular venous pressure.] bruit is heard. HEART EXAMINATION: R S1 and S2 irregularly irregular a systolic murmur is heard. CHEST EXAMINATION: Lungs are clear with mild diminished air entry to the bases. No chest wall tenderness is noted on palpation or with deep breathing. ABDOMEN: Soft, nontender. Bowel sounds are heard. No organomegaly noted. EXTREMITIES: 2+ peripheral pulses with trace evidence of peripheral edema and no calf tenderness noted. NEUROLOGIC patient is awake, alert and oriented 3. . - Labs CBC & Chem 7: 07/04/18 00:35 07/07/18 06:01 Labs: Abnormal Lab Results - Last 24 Hours (Table) 07/07/18 Range/Units 06:01 BUN 46 H (9-20) mg/dL Creatinine 2.31 H (0.66-1.25) mg/dL Glucose 121 H (74-99) mg/dL Calcium 8.2 L (8.4-10.2) mg/dL Assessment and Plan Plan: Assessment and plan #1 non-ST elevation [place] #2 uncontrolled hypertension #3 chronic persistent atrial fibrillation on Eliquis for anticoagulation #4 sinus syndrome with prior pacemaker implantation #5 coronary artery disease with prior bypass surgery #6 hyperlipidemia #7 mildly renal insufficiency Plan From cardiology's perspective, we would recommend to continue this patient on his current medications. Discharged once cleared by primary. DNP note has been reviewed, I agree with a documented findings and plan of care. Patient was seen and examined.
[2018-07-07 12:16] VITALS: BP 117/69; PULSE 60
--- NOTE | 2018-07-07 13:10 | P.DS ---
Providers Date of admission: 07/04/18 02:10 Expected date of discharge: 07/07/18 Attending physician: Julio Elizabeth Consults: 07/04/18 02:10 Consult Physician Urgent Consulting Provider: [facility] Consult Reason/Comments: NSTEMI - HTN emergency Do you want consulting provider notified?: Yes, Notify in am 07/04/18 08:46 Consult Physician Routine Consulting Provider: Malik Tim Consult Reason/Comments: copd Do you want consulting provider notified?: Yes 07/05/18 10:29 Consult Physician Routine Consulting Provider: Álvaro López Consult Reason/Comments: carotid stenosis Do you want consulting provider notified?: Yes [facility] Course: Final Diagnoses: -NSTEMI -Uncontrolled hypertension -Chronic persistent atrial fibrillation on Eliquis -Sick sinus syndrome, history of pacemaker -CAD, history of CABG -Acute on chronic renal failure, Stage IV, baseline 1.85 -Bipolar disorder, depression Hospital course: This is an 87-year-old gentleman admitted with non-STEMI, uncontrolled hypertension, acute on chronic renal failure and multiple other medical issues. Evaluated by both cardiology and pulmonary. OUMOU inhibitor discontinued related to renal function. Hydralazine added to med regime. Significant clinical improvement. Cleared by all consults for discharge. Patient is being discharged to [facility] in a stable condition with guarded prognosis. EXAM: GENERAL: Alert and oriented 3, no acute distress, hard of hearing CARDIOVASCULAR: S1, S2 and irregular, systolic murmur RESPIRATION: Lungs are clear, Breath sounds diminished in the bases. No rhonchi or crackles. ABDOMEN: Soft, nontender . No guarding. no masses palpable.Bowel sounds heard. NERVOUS SYSTEM: No focal deficits. The impression and plan of care has been dictated as directed. : I performed a history and examination of this patient, discussed the same with the dictator. I agree with the dictator's note ,documented as a scribe. Any additional findings or plans will be noted. Time taken: 35 minutes Patient Condition at Discharge: Stable Plan - Discharge Summary Discharge Rx Participant: Yes New Discharge Prescriptions: New hydrALAZINE HCL [Apresoline] 25 mg PO BID #60 tab Carvedilol [Coreg*] 25 mg PO BID@0700,1900 #120 tab Apixaban [Eliquis] 2.5 mg PO BID #60 tablet Nicotine 21Mg/24Hr Patch [Habitrol] 1 patch TRANSDERM DAILY #30 patch Ipratropium-Albuterol Nebulize [Duoneb 0.5 mg-3 mg/3 ml Soln] 3 ml INHALATION RT-TID PRN ampul.neb PRN Reason: Shortness Of Breath Or Wheezing Nitroglycerin Sl Tabs [Nitrostat] 0.4 mg SUBLINGUAL Q5M PRN #100 tab PRN Reason: Chest Pain Pantoprazole [Protonix] 40 mg PO AC-BRKFST tablet.dr Continue Furosemide [Lasix] 40 mg PO BID Aspirin 81 mg PO DAILY Sertraline HCl [Zoloft] 100 mg PO DAILY Isosorbide Mononitrate ER [Imdur] 60 mg PO DAILY Atorvastatin [Lipitor] 80 mg PO HS Clopidogrel Bisulfate [Plavix] 75 mg PO DAILY Morphine Sulfate ER [Ms Contin] 15 mg PO Q12HR #6 tablet Discontinued amLODIPine [Norvasc] 5 mg PO DAILY Discharge Medication List Aspirin 81 mg PO DAILY 05/01/16 [History] Furosemide [Lasix] 40 mg PO BID 05/01/16 [History] Atorvastatin [Lipitor] 80 mg PO HS 07/04/18 [History] Clopidogrel Bisulfate [Plavix] 75 mg PO DAILY 07/04/18 [History] Isosorbide Mononitrate ER [Imdur] 60 mg PO DAILY 07/04/18 [History] Sertraline HCl [Zoloft] 100 mg PO DAILY 07/04/18 [History] Apixaban [Eliquis] 2.5 mg PO BID #60 tablet 07/06/18 [Rx] Carvedilol [Coreg*] 25 mg PO BID@0700,1900 #120 tab 07/06/18 [Rx] Nicotine 21Mg/24Hr Patch [Habitrol] 1 patch TRANSDERM DAILY #30 patch 07/06/18 [Rx] hydrALAZINE HCL [Apresoline] 25 mg PO BID #60 tab 07/06/18 [Rx] Ipratropium-Albuterol Nebulize [Duoneb 0.5 mg-3 mg/3 ml Soln] 3 ml INHALATION RT-TID PRN ampul.neb 07/07/18 [Rx] Morphine Sulfate ER [Ms Contin] 15 mg PO Q12HR #6 tablet 07/07/18 [Rx] Nitroglycerin Sl Tabs [Nitrostat] 0.4 mg SUBLINGUAL Q5M PRN #100 tab 07/07/18 [Rx] Pantoprazole [Protonix] 40 mg PO AC-BRKFST tablet. 07/07/18 [Rx] Follow up Appointment(s)/Referral(s): Julio Elizabeth MD [Primary Care Provider] - 07/14/18 2:30 pm Malik Tim MD [STAFF PHYSICIAN] - 1 Week Henry Allen MD [STAFF PHYSICIAN] - 07/17/18 4:30 pm Álvaro López DO [Doctor of Osteopathic Medicine] - 07/24/18 9:45 am [facility]inic [REFERRING] - 1 Week Ambulatory/Diagnostic Orders: Complete Blood Count w/diff [LAB.AMB] Time Frame: 3 Days, Location: None Selected Patient Instructions/Handouts: Carotid Artery Disease (DC), Hypertensive Crisis (DC), Safe Use of Anticoagulants (DC) Activity/Diet/Wound Care/Special Instructions: [facility]. If pt goes home will need indigent funds at discharge for a 10 day supply of medications and scripts faxed to the [facility] to be filled. CBC, BMP in 3 days Outpatient sleep study with Dr. Tim
--- NOTE | 2018-07-09 11:58 | CDI ---
acute on chronic Documentation Clarification Form Date: 07/09/18 From: Meg Quigley Phone: If questions call Edna [place] @ [phone], Hours-8:30 am & 5 pm M- F Admit Date: 07/04/2018 2:10:00 AM Patient Name: Miguel Fishman Visit Number: [id number] Discharge Date: 07/07/2018 4:05:00 PM ATTENTION: The Clinical Documentation Specialists (CDI) and [facility] Coding Staff appreciate your assistance in clarifying documentation. Please respond to the clarification below the line at the bottom and electronically sign. The CDI & [facility] Coding staff will review the response and follow-up if needed. Please note: Queries are made part of the Legal Health Record. If you have any questions, please contact the author of this message via ITS. Dr. Leigh Vasquez Mild interstitial edema most likely secondary to systolic dysfunction and ischemic cardiomyopathy is documented in the H&P. History/Risk Factors: NSTEMI, HTN w Stage 4 CKD VS/Pulse OX: P-87, R-14/15, BP- 260/120 BNP: 6420 Echocardiogram Results: left ventricular systolic function is moderately impaired w EF between 35-40% Chest X Ray: increased interstitial markings bilaterally compared to prior study. Treatment: on 07/04 IV Lasix 40 mg once STA, then Lasix po 40 mg bid In your professional opinion, can you please clarify the acuity of systolic CHF if known? Acute Chronic Acute on Chronic Unable to Determine Other, please specify MTDD
--- NOTE | 2018-07-11 12:52 | CDI ---
Documentation Clarification Form Date: 07/11/2018 From: Meg Quigley Phone: If questions call Edna Birmingham @ [phone], Hours-8:30 am & 5 pm M- F Admit Date: 07/04/2018 2:10:00 AM Patient Name: Miguel Fishman Visit Number: [id number] Discharge Date: 07/07/2018 4:05:00 PM ATTENTION: The Clinical Documentation Specialists (CDI) and [facility] Coding Staff appreciate your assistance in clarifying documentation. Please respond to the clarification below the line at the bottom and electronically sign. The CDI & [facility] Coding staff will review the response and follow-up if needed. Please note: Queries are made part of the Legal Health Record. If you have any questions, please contact the author of this message via ITS. Dr. Julio Elizabeth Mild interstitial edema most likely secondary to systolic dysfunction and ischemic cardiomyopathy is documented in the H&P. History/Risk Factors: NSTEMI, HTN w Stage 4 CKD VS/Pulse OX: P-87, R-14/15, BP- 260/120 BNP: 6420 Echocardiogram Results: left ventricular systolic function is moderately impaired w EF between 35-40% Chest X Ray: increased interstitial markings bilaterally compared to prior study. Treatment: on 07/04 IV Lasix 40 mg once STA, then Lasix po 40 mg bid In your professional opinion, can you please clarify the acuity of systolic CHF if known? Acute Chronic Acute on Chronic Unable to Determine Other, please specify MTDD
--- NOTE | 2018-07-12 11:34 | DS ---
DISCHARGE SUMMARY ADDENDUM: Acute on chronic systolic heart failure. MMODL / IJN: [id number] /
== END 2018-07-07 16:05 | disposition home health service (06) | DRG 280 ==
LOC: EC 00:29 → 2SICU 02:10 → 3SCARD 21:25
PROVIDERS: ADMIT Family Medicine; ATTEND Family Medicine
DX: I21.4 Non-ST elevation (NSTEMI) myocardial infarction (principal); I50.23 Acute on chronic systolic (congestive) heart failure; I16.1 Hypertensive emergency; I13.0 Hypertensive heart and chronic kidney disease with heart failure and stage 1 through stage 4 chronic kidney disease, or unspecified chronic kidney disease; I48.1 Persistent atrial fibrillation; N17.9 Acute kidney failure, unspecified; F31.30 Bipolar disorder, current episode depressed, mild or moderate severity, unspecified; N18.4 Chronic kidney disease, stage 4 (severe); I25.5 Ischemic cardiomyopathy; I27.20 Pulmonary hypertension, unspecified; I08.3 Combined rheumatic disorders of mitral, aortic and tricuspid valves; I49.5 Sick sinus syndrome; I65.23 Occlusion and stenosis of bilateral carotid arteries; J43.9 Emphysema, unspecified; D64.9 Anemia, unspecified; E78.5 Hyperlipidemia, unspecified; I25.10 Atherosclerotic heart disease of native coronary artery without angina pectoris; G47.33 Obstructive sleep apnea (adult) (pediatric); H91.90 Unspecified hearing loss, unspecified ear; F17.210 Nicotine dependence, cigarettes, uncomplicated; Z71.6 Tobacco abuse counseling; Z79.82 Long term (current) use of aspirin; Z79.02 Long term (current) use of antithrombotics/antiplatelets; Z79.891 Long term (current) use of opiate analgesic; Z79.899 Other long term (current) drug therapy; Z91.14 Patient's other noncompliance with medication regimen; Z90.49 Acquired absence of other specified parts of digestive tract; Z95.1 Presence of aortocoronary bypass graft; Z98.42 Cataract extraction status, left eye; Z98.41 Cataract extraction status, right eye; Z95.0 Presence of cardiac pacemaker; Z82.49 Family history of ischemic heart disease and other diseases of the circulatory system
CPT/HCPCS: 36415; 71045; 80048; 80053; 80061; 83735; 83880; 84484; 85025; 85610; 85730; 93005; 93306; 93880; 94760; 96365; 96366; 96374; 96375; 96376; 99291

== ENCOUNTER 2018-11-25 07:50 | Inpatient (IN) | payer MEDICARE, BC ==
[2018-11-25] MEDS ORDERED: IPRATROPIUM-ALBUTEROL 3 ML NEB INHALATION STA (07:56)
--- NOTE | 2018-11-25 08:02 | ED ---
General Adult HPI - General Chief complaint: Chest Pain Stated complaint: Chest pain Time Seen by Provider: 11/25/18 07:52 Source: patient, RN notes reviewed Mode of arrival: EMS Limitations: no limitations - History of Present Illness Initial comments: Patient is a pleasant 87-year-old male presenting to the emergency department with difficulty in breathing. Onset of symptoms was this morning. Patient is a poor historian. Patient states his chest also sore. Patient did receive nebulizer treatment in route and believes it may have helped a little bit. Patient is unclear if he has a history of COPD however patient's history does reveal this. Patient denies any leg pain or leg swelling. - Related Data Home Medications Medication Instructions Recorded Confirmed Furosemide [Lasix] 20 mg PO BID@0900,1800 05/01/16 11/25/18 Atorvastatin [Lipitor] 80 mg PO DAILY@1800 07/04/18 11/25/18 Clopidogrel Bisulfate [Plavix] 75 mg PO DAILY@1200 07/04/18 11/25/18 Isosorbide Mononitrate ER [Imdur] 60 mg PO DAILY@1200 07/04/18 11/25/18 Sertraline HCl [Zoloft] 100 mg PO DAILY@1800 07/04/18 11/25/18 Apixaban [Eliquis] 2.5 mg PO BID@1200,2100 11/25/18 11/25/18 Aspirin EC [Ecotrin Low Dose] 81 mg PO DAILY@1200 11/25/18 11/25/18 Budesonide-Formot 160-4.5 Mcg 1 puff INHALATION RT-BID 11/25/18 11/25/18 [Symbicort 160-4.5 Mcg Inhaler] Carvedilol [Coreg*] 25 mg PO BID 11/25/18 11/25/18 Ipratropium-Albuterol Nebulize 3 ml INHALATION RT-TID PRN 11/25/18 11/25/18 [Duoneb 0.5 mg-3 mg/3 ml Soln] Ipratropium/Albuterol Sulfate 1 puff INHALATION RT-TID PRN 11/25/18 11/25/18 [Combivent Respimat Inhaler] Morphine Sulfate ER [Ms Contin] 15 mg PO BID 11/25/18 11/25/18 Potassium Chloride [Klor-Con 20] 20 meq PO BID 11/25/18 11/25/18 Ranitidine HCl [Zantac] 150 mg PO BID 11/25/18 11/25/18 Previous Rx's Medication Instructions Recorded hydrALAZINE HCL [Apresoline] 25 mg PO BID #60 tab 07/06/18 Nitroglycerin Sl Tabs [Nitrostat] 0.4 mg SUBLINGUAL Q5M PRN #100 tab 07/07/18 Allergies Allergy/AdvReac Type Severity Reaction Status Date / Time No Known Allergies Allergy Verified 11/25/18 08:32 Review of Systems ROS Statement: Those systems with pertinent positive or pertinent negative responses have been documented in the HPI. ROS Other: All systems not noted in ROS Statement are negative. Constitutional: Denies: fever Eyes: Denies: eye pain ENT: Denies: ear pain Respiratory: Reports: dyspnea Cardiovascular: Reports: chest pain Endocrine: Denies: fatigue Gastrointestinal: Denies: abdominal pain Genitourinary: Denies: urgency Musculoskeletal: Denies: back pain Skin: Denies: rash Neurological: Denies: weakness Past Medical History Past Medical History: Atrial Fibrillation, Coronary Artery Disease (CAD), Heart Failure, COPD, Hearing Disorder / Deafness, Hypertension, Renal Disease Additional Past Medical History / Comment(s): Recent influenza B-was admitted to [facility], CKD stage III, chronic anemia, 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 History of Any Multi-Drug Resistant Organisms: None Reported Past Surgical History: Cholecystectomy, Coronary Bypass/CABG, Heart Catheterization Additional Past Surgical History / Comment(s): 2008 CABG-pt believes was 5 vessel done down in [place], colonoscopy-normal, bilateral cataract removals. Past Anesthesia/Blood Transfusion Reactions: No Reported Reaction Past Psychological History: Depression Smoking Status: Current every day smoker Past Alcohol Use History: Occasional Past Drug Use History: None Reported - Past Family History Father Family Medical History: Unable to Obtain Additional Family Medical History / Comment(s): Pt does not recall any parent medical hx at this time. General Exam Limitations: no limitations General appearance: alert, in no apparent distress Head exam: Present: atraumatic Eye exam: Present: normal appearance, PERRL ENT exam: Present: normal oropharynx Neck exam: Present: normal inspection Respiratory exam: Present: wheezes. Absent: chest wall tenderness Cardiovascular Exam: Present: regular rate, normal rhythm GI/Abdominal exam: Present: soft. Absent: tenderness Extremities exam: Present: pedal edema (+ 1 bilateral). Absent: calf tenderness Neurological exam: Present: alert Psychiatric exam: Present: normal affect, normal mood Skin exam: Present: normal color Course Vital Signs 11/25/18 11/25/18 11/25/18 07:52 08:08 08:22 Temperature 98.7 F Pulse Rate 78 70 Respiratory 18 17 18 Rate Blood Pressure 162/72 177/81 O2 Sat by Pulse 96 98 Oximetry 11/25/18 11/25/18 11/25/18 08:30 08:34 08:51 Temperature Pulse Rate 70 70 73 Respiratory 22 Rate Blood Pressure 177/81 O2 Sat by Pulse 98 Oximetry 11/25/18 11/25/18 11/25/18 09:00 09:30 09:39 Temperature Pulse Rate 70 70 Respiratory Rate Blood Pressure 149/65 153/68 153/68 O2 Sat by Pulse 94 L 94 L Oximetry - Reevaluation(s) Reevaluation #1: 11/25/18 10:08 There is concern for sepsis diagnosed at 10 AM. Blood culture and lactic acid have been ordered. IV antibiotics will also be ordered. EKG Findings - EKG Comments: EKG Findings:: Paced rhythm at 70. QRS 172. QT 466. QTc 503. Superior axis. Wide-complex QRS. Nonspecific ST-T. Medical Decision Making - Medical Decision Making Patient reevaluated and resting comfortably in bed. Patient updated on results and plan. Dr. Elizabeth has been paged for admission of his patient. - Lab Data Result diagrams: 11/25/18 08:05 11/25/18 08:05 Lab Results 11/25/18 11/25/18 11/25/18 Range/Units 08:05 08:05 08:05 WBC 13.4 H (3.8-10.6) k/uL RBC 4.46 (4.30-5.90) m/uL Hgb 12.7 L (13.0-17.5) gm/dL Hct 39.4 (39.0-53.0) % MCV 88.5 (80.0-100.0) fL MCH 28.4 (25.0-35.0) pg MCHC 32.1 (31.0-37.0) g/dL RDW 16.4 H (11.5-15.5) % Plt Count 221 (150-450) k/uL Neutrophils % 77 % Lymphocytes % 13 % Monocytes % 5 % Eosinophils % 3 % Basophils % 0 % Neutrophils # 10.3 H (1.3-7.7) k/uL Lymphocytes # 1.8 (1.0-4.8) k/uL Monocytes # 0.7 (0-1.0) k/uL Eosinophils # 0.4 (0-0.7) k/uL Basophils # 0.1 (0-0.2) k/uL Anisocytosis Slight PT 9.8 (9.0-12.0) sec INR 0.9 (<1.2) APTT 23.3 (22.0-30.0) sec Sodium 142 (137-145) mmol/L Potassium 3.8 (3.5-5.1) mmol/L Chloride 106 (98-107) mmol/L Carbon Dioxide 28 (22-30) mmol/L Anion Gap 8 mmol/L BUN 34 H (9-20) mg/dL Creatinine 1.90 H (0.66-1.25) mg/dL Est GFR (CKD-EPI)AfAm 36 (>60 ml/min/1.73 sqM) Est GFR (CKD-EPI)NonAf 31 (>60 ml/min/1.73 sqM) Glucose 142 H (74-99) mg/dL Calcium 8.2 L (8.4-10.2) mg/dL Total Bilirubin 0.7 (0.2-1.3) mg/dL AST 22 (17-59) U/L ALT 20 L (21-72) U/L Alkaline Phosphatase 101 (38-126) U/L Troponin I (0.000-0.034) ng/mL NT-Pro-B Natriuret Pep pg/mL Total Protein 6.3 (6.3-8.2) g/dL Albumin 3.5 (3.5-5.0) g/dL 11/25/18 11/25/18 Range/Units 08:05 08:05 WBC (3.8-10.6) k/uL RBC (4.30-5.90) m/uL Hgb (13.0-17.5) gm/dL Hct (39.0-53.0) % MCV (80.0-100.0) fL MCH (25.0-35.0) pg MCHC (31.0-37.0) g/dL RDW (11.5-15.5) % Plt Count (150-450) k/uL Neutrophils % % Lymphocytes % % Monocytes % % Eosinophils % % Basophils % % Neutrophils # (1.3-7.7) k/uL Lymphocytes # (1.0-4.8) k/uL Monocytes # (0-1.0) k/uL Eosinophils # (0-0.7) k/uL Basophils # (0-0.2) k/uL Anisocytosis PT (9.0-12.0) sec INR (<1.2) APTT (22.0-30.0) sec Sodium (137-145) mmol/L Potassium (3.5-5.1) mmol/L Chloride (98-107) mmol/L Carbon Dioxide (22-30) mmol/L Anion Gap mmol/L BUN (9-20) mg/dL Creatinine (0.66-1.25) mg/dL Est GFR (CKD-EPI)AfAm (>60 ml/min/1.73 sqM) Est GFR (CKD-EPI)NonAf (>60 ml/min/1.73 sqM) Glucose (74-99) mg/dL Calcium (8.4-10.2) mg/dL Total Bilirubin (0.2-1.3) mg/dL AST (17-59) U/L ALT (21-72) U/L Alkaline Phosphatase (38-126) U/L Troponin I 0.019 (0.000-0.034) ng/mL NT-Pro-B Natriuret Pep 2150 pg/mL Total Protein (6.3-8.2) g/dL Albumin (3.5-5.0) g/dL - Radiology Data Radiology results: image reviewed (Chest x-ray shows chronic frequent changes with new left lateral infiltrate) Critical Care Time Critical Care Time: Yes Total Critical Care Time: 31 Disposition Clinical Impression: Chest pain, Pneumonia, Sepsis Disposition: ADMITTED IP TO THIS HOSP Is patient prescribed a controlled substance at d/c from ED?: No Referrals: Julio Elizabeth MD [Primary Care Provider] - 1-2 days Decision Time: 10:09
[2018-11-25 08:21] LABS: Anisocytosis Slight; Basophils # (A) 0.1 k/uL (0-0.2); Basophils % (A) 0 %; Eosinophils # (A) 0.4 k/uL (0-0.7); Eosinophils % (A) 3 %; HCT 39.4 % (39.0-53.0); HGB 12.7 gm/dL (13.0-17.5); Lymphocytes # (A) 1.8 k/uL (1.0-4.8); Lymphocytes % (A) 13 %; MCH 28.4 pg (25.0-35.0); MCHC 32.1 g/dL (31.0-37.0); MCV 88.5 fL (80.0-100.0); Mean Platelet Volume 7.1; Monocytes # (A) 0.7 k/uL (0-1.0); Monocytes % (A) 5 %; Neutrophils # (A) 10.3 k/uL (1.3-7.7); Neutrophils % (A) 77 %; Platelet Count 221 k/uL (150-450); RBC 4.46 m/uL (4.30-5.90); RDW 16.4 % (11.5-15.5); WBC 13.4 k/uL (3.8-10.6)
[2018-11-25 08:27] LABS: Albumin 3.5 g/dL (3.5-5.0); Calcium 8.2 mg/dL (8.4-10.2); Potassium 3.8 mmol/L (3.5-5.1); Total Bilirubin 0.7 mg/dL (0.2-1.3); Total Protein 6.3 g/dL (6.3-8.2)
[2018-11-25 08:30] LABS: INR 0.9 (<1.2); Partial Thromboplastin Time 23.3 sec (22.0-30.0); Prothrombin Time 9.8 sec (9.0-12.0)
--- NOTE | 2018-11-25 09:17 | XR ---
EXAMINATION TYPE: XR chest 2V DATE OF EXAM: 11/25/2018 COMPARISON: Chest x-ray July 04, 2018 and older x-rays. HISTORY: Difficulty breathing today TECHNIQUE: Frontal and lateral views of the chest are obtained. FINDINGS: Overlying sternal wires are present. Overlying EKG leads are again seen. There is cardiome jose antonio with single lead pacemaker and atherosclerotic thoracic aorta. There is chronic parenchymal nayak ges with patchy left basilar opacity. Right lung remains clear. Osseous structures are somewhat demin eralized. IMPRESSION: Chronic parenchymal changes and cardiomegaly with persistent left basilar scarring but ar ea of new acute infiltrate and/or atelectasis identified lateral left midlung level on current study versus last 2 prior exams.
[2018-11-25] MEDS ORDERED: ASPIRIN 81 MG PO STA (10:09)
[2018-11-25] MEDS ORDERED: IPRATROPIUM-ALBUTEROL 3 ML NEB INHALATION PRN ×2 (10:09→21:03)
[2018-11-25] MEDS ORDERED: NITROGLYCERIN SL TABS 0.4 MG TAB SUBLINGUAL PRN ×2 (10:09→21:03)
[2018-11-25] MEDS ORDERED: PNEUMONIA PROTOCOL UTILIZED 1 EACH MISC PO PRN (10:09)
[2018-11-25] MEDS ORDERED: AZITHROMYCIN 500 MG in SODIUM CHLORIDE 0.9% 250 ML IVPB STA (10:09)
[2018-11-25] MEDS: NITROGLYCERIN OINT 1 INCH/GM PACKET TOPICAL SCH ×3 (11:16→23:30)
[2018-11-25] MEDS: IPRATROPIUM-ALBUTEROL 3 ML NEB INHALATION SCH ×3 (13:19→20:40)
[2018-11-25] MEDS ORDERED: NON FORMULARY DRUG (Ipratropium/Albuterol Sulfate [Combivent Respimat Inhaler] 1 PUFF) INHALATION PRN (21:03)
[2018-11-25] MEDS ORDERED: ACETAMINOPHEN TAB 325 MG TAB PO PRN (21:05)
[2018-11-25] MEDS: CARVEDILOL 12.5 MG TAB PO SCH (21:22)
[2018-11-25] MEDS: hydrALAZINE HCL 25 MG TAB PO SCH (21:22)
[2018-11-25] MEDS: MORPHINE SULFATE ER 15 MG TABLET PO SCH (21:22)
[2018-11-25] MEDS: FAMOTIDINE 20 MG TAB PO SCH (21:22)
[2018-11-26 03:35] LABS: Cholesterol 139 mg/dL (<200); HDL Cholesterol 29 mg/dL (40-60); LDL Cholesterol,Calculated 69 mg/dL (0-99); Triglycerides 203 mg/dL (<150)
[2018-11-26] MEDS: NITROGLYCERIN OINT 1 INCH/GM PACKET TOPICAL SCH (05:39)
[2018-11-26] MEDS: CARVEDILOL 12.5 MG TAB PO SCH ×2 (06:38→17:14)
[2018-11-26] MEDS: IPRATROPIUM-ALBUTEROL 3 ML NEB INHALATION SCH ×4 (07:21→19:45)
[2018-11-26] MEDS: SYMBICORT 160-4.5 MCG INHALER INHALATION SCH ×2 (07:30→19:45)
--- NOTE | 2018-11-26 08:21 | XR ---
EXAMINATION TYPE: XR chest 2V DATE OF EXAM: 11/26/2018 COMPARISON: 11/25/2018 HISTORY: 7-year-old male difficulty breathing, shortness of breath TECHNIQUE: AP and lateral views FINDINGS: Median sternotomy wires. Postoperative clips in the mediastinum. Heart mildly enlarged. Increased foc al activity left basilar opacity now a trace left effusion. Mild interstitial prominence persists. IMPRESSION: Mild cardiomegaly with trace left effusion now and increasing patchy left basilar opacity. Persistent interstitial prominence. Correlate for possible worsening mild CHF.
[2018-11-26] MEDS ORDERED: ASPIRIN 325 MG TAB PO SCH (09:00)
[2018-11-26] MEDS ORDERED: FUROSEMIDE 20 MG TAB PO SCH (09:00)
[2018-11-26] MEDS: POTASSIUM CHLORIDE ER 20 MEQ TAB.ER PO SCH ×2 (09:02→21:32)
[2018-11-26] MEDS: hydrALAZINE HCL 25 MG TAB PO SCH ×2 (09:02→21:32)
[2018-11-26] MEDS: AZITHROMYCIN 500 MG TAB PO SCH (09:03)
[2018-11-26] MEDS: MORPHINE SULFATE ER 15 MG TABLET PO SCH ×2 (09:03→21:31)
[2018-11-26] MEDS: FAMOTIDINE 20 MG TAB PO SCH (09:04)
--- NOTE | 2018-11-26 10:43 | CONS ---
CONSULTATION Mr. Fishman is an 87-year-old gentleman who is seen for cardiac evaluation. This patient's medical records reviewed. Patient is a rather poor historian. He came to the emergency room with a complaint of difficulty in breathing, some vague chest pain. According to him, the pain was on the right side. Patient got some nebulizer treatment on the route and he felt better. He is not exactly sure why the patient has a history of COPD. Patient denies any cough with expectoration, fever or chills. This patient has a known history of ischemic cardiomyopathy with status post coronary artery bypass surgery and a permanent pacemaker and a history of atrial fibrillation and hypertension. The patient's physical activities are significantly limited. He can walk only a short distance. HOME MEDICATIONS: Include Lipitor, Lasix, Plavix 75 mg daily, Imdur, Eliquis once a day, aspirin 81 mg daily, Coreg 25 mg b.i.d., morphine sulfate 15 mg b.i.d., Zantac once a day, hydralazine 25 mg b.i.d. and nitroglycerin. PAST MEDICAL HISTORY: Includes history of atrial fibrillation: History of permanent pacemaker, cardiomyopathy, hypertension, chronic renal disease. Patient was recently admitted to the hospital for influenza B at [facility]. 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 PHYSICAL EXAMINATION: At present reveals an 87-year-old gentleman who is alert and awake. In the emergency room, patient's blood pressure was 162/72 mmHg. HEENT examination is negative. Neck is supple. There is no significant increase in jugular venous pressure. Both the carotid pulses are felt. Chest is symmetrical. Heart, the PMI is not felt. First and second heart sounds are normal. No significant murmurs are noted. Lungs reveal bilateral rales in the lower 1/3 of the lung lennon. Abdomen is soft. Extremities, peripheral pulsations are 1+. There is no evidence of any significant leg edema. Patient's chest x-ray is suggestive of bibasilar infiltrates with heart failure and pneumonia cannot be entirely excluded. Patient's lactic acid level was 1.8. Creatinine is 1.9. Three troponins are almost identical without any significant rise and fall and it is not suggestive of acute coronary syndrome. FINAL IMPRESSION: 1. This patient is admitted with atypical chest pain. EKG shows pacemaker rhythm. The 3 troponins are identical without any significant rise and fall and this is not suggestive of acute coronary syndrome. 2. Patient is status post coronary artery bypass surgery and ischemic cardiomyopathy, most likely patient has underlying mild heart failure. His BNP level is 2150. Clinically, there are no signs of any significant pneumonia. We will check the procalcitonin level. I will treat the patient with Lasix 40 mg IV b.i.d. and continue the rest of the medications. Echo and Doppler study will be done. TAMIKA / KWABENAN: [id number] /
[2018-11-26 11:58] LABS: Glucose,Whole Blood 133 mg/dL (75-99)
[2018-11-26] MEDS ORDERED: NON FORMULARY DRUG (Aspirin Ec 81 MG) PO SCH (12:00)
[2018-11-26] MEDS ORDERED: ISOSORBIDE MONONITRATE ER 60 MG TAB.ER.24H PO SCH (12:00)
[2018-11-26] MEDS: FUROSEMIDE 10 MG/ML 4 ML VIAL IV SCH ×2 (13:49→21:32)
[2018-11-26] MEDS: ISOSORBIDE MONONITRATE ER 60 MG TAB.ER.24H PO SCH (13:50)
[2018-11-26] MEDS: APIXABAN 2.5 MG TABLET PO SCH ×2 (13:50→21:32)
[2018-11-26] MEDS: CLOPIDOGREL 75 MG TAB PO SCH (13:50)
[2018-11-26 17:14] LABS: Glucose,Whole Blood 171 mg/dL (75-99)
[2018-11-26] MEDS: ATORVASTATIN 80 MG TAB PO SCH (17:14)
[2018-11-26] MEDS: SERTRALINE 100 MG TAB PO SCH (17:15)
--- NOTE | 2018-11-26 17:43 | ECHOF ---
Referral Reason:chest pain MEASUREMENTS -------- HEIGHT: 172.7 cm WEIGHT: 88.0 kg BP: 120/57 RVIDd: 3.3 cm (< 3.3) IVSd: 1.6 cm (0.6 - 1.1) LVIDd: 4.6 cm (3.9 - 5.3) LVPWd: 1.6 cm (0.6 - 1.1) IVSs: 2.0 cm LVIDs: 4.1 cm LVPWs: 1.6 cm LA Diam: 4.1 cm (2.7 - 3.8) LAESV Index (A-L): 45.84 ml/m Ao Diam: 3.0 cm (2.0 - 3.7) AV Cusp: 1.2 cm (1.5 - 2.6) EPSS: 0.9 cm MV E Gonzalo: 1.40 m/s MV DecT: 174 ms MV A Gonzalo: 0.69 m/s MV E/A Ratio: 2.04 AV maxP.85 mmHg AV meanP.26 mmHg RAP: 5.00 mmHg RVSP: 36.16 mmHg MV EF SLOPE: 75.38 mm/s (70 - 150) MV EXCURSION: 1.69 cm (> 18.000) FINDINGS -------- Paced rhythm. The left ventricular size is normal. There is moderate concentric left ventricular hypertrophy. O verall left ventricular systolic function is normal with, an EF between 60 - 65 %. Apical septum LV wall motion is hypokinetic. History of CABG The right ventricle is normal in size. Left atrium is severely dilated by volume. The right atrium is normal in size and function. Interatrial and interventricular septum intact. There is moderate aortic valve sclerosis without stenosis. There is moderate aortic stenosis presen t. Peak/mean gradient across the valve is 36.85mmHg / 22.26mmHg. The mitral valve leaflets are mildly thickened. Mild mitral annular calcification present. Mild tricuspid regurgitation present. There is mild pulmonary hypertension. The right ventricular systolic pressure, as measured by Doppler, is 36.16mmHg. The pulmonic valve was not well visualized. The aortic root size is normal. The inferior vena cava was not well visualized. The inferior vena cava is mildly dilated. The pericardium is normal. CONCLUSIONS -------- 1. Paced rhythm. 2. The left ventricular size is normal. 3. There is moderate concentric left ventricular hypertrophy. 4. Overall left ventricular systolic function is normal with, an EF between 60 - 65 %. 5. Apical septum LV wall motion is hypokinetic. 6. History of CABG 7. The right ventricle is normal in size. 8. Left atrium is severely dilated by volume. 9. The right atrium is normal in size and function. 10. Interatrial and interventricular septum intact. 11. There is moderate aortic stenosis present. 12. Peak/mean gradient across the valve is 36.85mmHg / 22.26mmHg. 13. The mitral valve leaflets are mildly thickened. 14. Mild mitral annular calcification present. 15. Mild tricuspid regurgitation present. 16. There is mild pulmonary hypertension. 17. The right ventricular systolic pressure, as measured by Doppler, is 36.16mmHg. 18. The pulmonic valve was not well visualized. 19. The aortic root size is normal. 20. The inferior vena cava was not well visualized. 21. The inferior vena cava is mildly dilated. 22. The pericardium is normal. 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
[2018-11-26 21:01] LABS: Glucose,Whole Blood 141 mg/dL (75-99)
--- NOTE | 2018-11-26 21:38 | CT ---
EXAMINATION TYPE: CT chest wo con DATE OF EXAM: 11/26/2018 COMPARISON: None HISTORY: pneumonia CT DLP: 475.7 mGycm. Automated Exposure Control for Dose Reduction was Utilized. TECHNIQUE: CT scan of the thorax is performed without IV contrast. FINDINGS: There is coarse linear density in both lungs consistent with scarring and atelectasis. Heart is moder ately enlarged. There is small hiatal hernia. There is patchy pleural thickening in the posterior kellie g lennon. There is no pericardial effusion. Thoracic aorta is atheromatous. There is no aneurysm. The re is no mediastinal adenopathy. There are no hilar masses. There is hypertrophic spurring in the tho racic spine. There is no compression fracture. There are sternal wires. IMPRESSION: Patchy linear density in the lungs with pleural thickening consistent with scarring and a telectasis. No suspicious pulmonary mass. Atherosclerotic vascular disease. Moderate cardiomegaly.
--- NOTE | 2018-11-26 22:52 | HP ---
HISTORY AND PHYSICAL DATE OF SERVICE: 11/25/2018 This patient is an 87-year-old white male admitted with difficulty breathing. He was found on chest x-ray to have pneumonia, at which time he was admitted to the hospital. He has a history of COPD and systolic CHF. Denies any worsening weight gain but is found to have pneumonia. HOME MEDICINES: Home medicines include: 1. Lasix. 2. Lipitor. 3. Plavix. 4. Imdur. 5. Zoloft. 6. Eliquis. 7. Aspirin. 8. Symbicort. 9. Coreg. 10.DuoNeb. 11.MS Contin. 12.Zantac. 13.Klor-Con. ALLERGIES: NEGATIVE. REVIEW OF SYSTEMS: Fourteen-point review of systems negative except for mentioned in HPI. PAST MEDICAL HISTORY: 1. Atrial fibrillation. 2. Coronary artery disease. 3. Heart failure. 4. COPD. 5. Hearing disorder. 6. Renal disease. 7. Chronic kidney disease, stage III. 8. Carotid stenosis, right 75%, left 100%. 9. Chronic anemia. 10.CABG surgery. 11.Heart catheterization. 12.Cataract removal. 13.Colonoscopy. 14.He is a current everyday smoker. 15.History of depression. FAMILY HISTORY: Negative. PHYSICAL EXAMINATION: VITAL SIGNS: Stable. Afebrile. CARDIOVASCULAR: S1, S2. LUNGS: Transmitted upper airway sounds. Mild rales at the base. HEMATOLOGY: Negative Homans. PSYCH: Fair mood and affect. OPHTHALMOLOGIC: Pupils equal, round, reactive to light and accommodation. GI: Soft, nontender. NEUROLOGIC: Cranial nerves are intact. Pulse 70 to 78, blood pressure 160s to 170s over 70s to 80s. Oxygen is mid 90s on 2 L. LABS: White count 13.4, hemoglobin 12.7, BUN 34, creatinine 1.9. BNP 2150. Troponin negative. ASSESSMENT: 1. Community-acquired pneumonia. 2. Systolic congestive heart failure. 3. Chronic obstructive pulmonary disease exacerbation. 4. Acute on chronic hypoxemic respiratory failure. Continue current treatments. 5. Sepsis due to pneumonia. Follow up in next 24 to 48 hours. Pulmonary consult, Infectious disease consult. Cardiology consult. MMODL / IJN: [id number] /
[2018-11-27 06:20] LABS: Glucose,Whole Blood 115 mg/dL (75-99)
[2018-11-27] MEDS: CARVEDILOL 12.5 MG TAB PO SCH ×2 (06:49→17:40)
[2018-11-27 08:35] LABS: Anisocytosis Slight; Basophils # (A) 0.1 k/uL (0-0.2); Basophils % (A) 1 %; Eosinophils # (A) 0.4 k/uL (0-0.7); Eosinophils % (A) 4 %; HCT 34.7 % (39.0-53.0); HGB 11.1 gm/dL (13.0-17.5); Lymphocytes # (A) 2.6 k/uL (1.0-4.8); Lymphocytes % (A) 26 %; MCH 28.8 pg (25.0-35.0); MCHC 32.1 g/dL (31.0-37.0); MCV 89.9 fL (80.0-100.0); Mean Platelet Volume 8.1; Monocytes # (A) 0.6 k/uL (0-1.0); Monocytes % (A) 6 %; Neutrophils # (A) 6.2 k/uL (1.3-7.7); Neutrophils % (A) 62 %; Platelet Count 187 k/uL (150-450); RBC 3.86 m/uL (4.30-5.90); RDW 17.4 % (11.5-15.5)
[2018-11-27 08:38] LABS: Albumin 3.1 g/dL (3.5-5.0); Calcium 8.1 mg/dL (8.4-10.2); Potassium 3.7 mmol/L (3.5-5.1); Total Bilirubin 0.6 mg/dL (0.2-1.3); Total Protein 5.8 g/dL (6.3-8.2)
[2018-11-27] MEDS: IPRATROPIUM-ALBUTEROL 3 ML NEB INHALATION SCH ×4 (08:46→20:55)
[2018-11-27] MEDS: SYMBICORT 160-4.5 MCG INHALER INHALATION SCH ×2 (08:46→20:55)
[2018-11-27] MEDS: AZITHROMYCIN 500 MG TAB PO SCH (09:20)
[2018-11-27] MEDS: MORPHINE SULFATE ER 15 MG TABLET PO SCH ×2 (09:20→20:34)
[2018-11-27] MEDS: FAMOTIDINE 20 MG TAB PO SCH (09:20)
[2018-11-27] MEDS: hydrALAZINE HCL 25 MG TAB PO SCH ×2 (09:20→20:35)
[2018-11-27] MEDS: POTASSIUM CHLORIDE ER 20 MEQ TAB.ER PO SCH ×2 (09:28→20:35)
[2018-11-27] MEDS: FUROSEMIDE 10 MG/ML 4 ML VIAL IV SCH (09:28)
--- NOTE | 2018-11-27 11:08 | CDI ---
Documentation Clarification Form Date: 11/27/2018 10:50:51 AM From: Caron Hilario RN CCDS Admit Date: 11/25/2018 10:09:00 AM Patient Name: Miguel Fishman Visit Number: [id number] Discharge Date: ATTENTION: The Clinical Documentation Specialists (CDI) and [facility] Coding Staff appreciate your assistance in clarifying documentation. Please respond to the clarification below the line at the bottom and electronically sign. The CDI & [facility] Coding staff will review the response and follow-up if needed. Please note: Queries are made part of the Legal Health Record. If you have any questions, please contact the author of this message via ITS. Dr. Julio Elizabeth Systolic Congestive Heart Failure is documented in the H & P History/Risk Factors: 87 year old female presents to the ED with Clinical Indicators: VS/Pulse OX: 162/72 78 98.7 18 96% ra BNP: 2150 Echocardiogram Results: Overall left ventricular systolic function is normal with, an EF between 60 65% Chest X Ray 11/25/2018 chronic parencymal changes and cardiomegaly with persistent left basilar scarring but area of new acute infiltrate and / or atelectasis Chest X Ray: 11/26/2018 mild cardiomegaly with trace left effusion now increasing patchy left basilar opacity. persistent interstitial prominence. Correlate for possible worsening mild CHF. Treatment: Coreg, Lasix 40 mg IVP q 12 hrs. Apresoline, Imdur In your professional opinion, can you please clarify the acuity of CHF if known? * Acute Systolic Heart Failure * Chronic Systolic Heart Failure * Acute on Chronic Systolic Heart Failure * Unable to Determine * Other, please specify (Last Revision: June 2017) MTDD
[2018-11-27 11:57] LABS: Glucose,Whole Blood 131 mg/dL (75-99)
[2018-11-27] MEDS: CLOPIDOGREL 75 MG TAB PO SCH (12:17)
[2018-11-27] MEDS: APIXABAN 2.5 MG TABLET PO SCH ×2 (12:17→20:35)
[2018-11-27] MEDS: ISOSORBIDE MONONITRATE ER 60 MG TAB.ER.24H PO SCH (12:17)
--- NOTE | 2018-11-27 15:52 | P.PN ---
Subjective Progress Note Date: 11/27/18 77-year-old gentleman admitted with shortness of breath, multifactorial, acute hypoxic respiratory failure, acute COPD exacerbation, systolic CHF, pneumonia and multiple other medical issues. CT reporting patchy linear density in the lungs with pleural thickening consistent with scarring and atelectasis, no suspicious pulmonary mass, moderate cardiomegaly. Chest x-ray of yesterday reporting increasing patchy left basilar opacity with persistent interstitial prominence, possible worsening mild CHF. Procalcitoin level elevated.Maintained on nebulized bronchodilators, Zithromax, Rocephin. Echo reporting moderate concentric left ventricular hypertrophy, normal, EF 60-65%, hypokinetic apical septum LV wall, left atrium severely dilated, moderate aortic stenosis, mild pulmonary hypertension. Good diet intake, consuming 100% with no nausea vomiting or diarrhea. Diuresed well on Lasix IV push with 24-hour I&O reflecting a negative fluid balance. Renal function worsening, and 2.17. Lasix discontinued today as per cardiology. Maintaining O2 sats in the 90s on 2 L nasal cannula. Occasional nonproductive cough. Telemetry is V paced. Mild elevation of troponins. Evaluated by cardiology, acute coronary syndrome ruled out. Denies chest pain, palpitations or increasing shortness of breath. Afebrile, normal WBC. Blood /sputum cultures pending. Objective - Vital Signs Vital signs: Vital Signs Temp 98.1 F 11/27/18 08:02 Pulse 72 11/27/18 12:05 Resp 16 11/27/18 08:02 BP 134/62 11/27/18 08:02 Pulse Ox 96 11/27/18 08:02 Intake & Output 11/26/18 11/27/18 11/27/18 18:59 06:59 18:59 Intake Total 100 325 240 Output Total 700 925 200 Balance -600 -600 40 Weight 86 kg Intake: Intake, IV Titration 100 Amount cefTRIAXone 1 gm In 100 Sodium Chloride 0.9% 50 ml @ 100 mls/hr IVPB Q24HR [facility] Rx#:[id number] Oral 325 240 Output: Urine 700 925 200 Other: Voiding Method Urinal Urinal Urinal # Voids 2 1 - Exam PHYSICAL EXAM: VITAL SIGNS: As above GENERAL: Lying in bed, no acute distress, HEENT: Conjunctivae normal. eyes normal. Oral mucosa moist NECK: No JVD. No thyroid enlargement. No LNs CARDIOVASCULAR: S1, S2, irregular. Systolic murmur, RESPIRATION: Breath sounds diminished in the bases. No rhonchi, Fine bibasilar crackles, no expiratory wheezing ABDOMEN: Soft, nontender . No guarding. no masses palpable. Bowel sounds heard. LEGS: No edema. no swelling. No cyanosis, no clubbing PSYCHIATRY: Alert and oriented X3, mood and affect normal. NERVOUS SYSTEM: Cranial N 2-12 grossly normal. Moves all 4 limbs. Diffuse weakness No focal deficits. Strength and sensation grossly intact. Skin: no rash - Labs CBC & Chem 7: 11/27/18 06:05 11/27/18 06:05 Labs: Abnormal Lab Results - Last 24 Hours (Table) 11/26/18 11/26/18 11/26/18 Range/Units 10:54 16:51 21:00 RBC (4.30-5.90) m/uL Hgb (13.0-17.5) gm/dL Hct (39.0-53.0) % RDW (11.5-15.5) % BUN (9-20) mg/dL Creatinine (0.66-1.25) mg/dL Glucose (74-99) mg/dL POC Glucose (mg/dL) 171 H 141 H (75-99) mg/dL Calcium (8.4-10.2) mg/dL ALT (21-72) U/L Total Protein (6.3-8.2) g/dL Albumin (3.5-5.0) g/dL Procalcitonin 0.17 H (0.02-0.09) ng/mL 11/27/18 11/27/18 11/27/18 Range/Units 06:05 06:05 06:19 RBC 3.86 L (4.30-5.90) m/uL Hgb 11.1 L (13.0-17.5) gm/dL Hct 34.7 L (39.0-53.0) % RDW 17.4 H (11.5-15.5) % BUN 46 H (9-20) mg/dL Creatinine 2.17 H (0.66-1.25) mg/dL Glucose 104 H (74-99) mg/dL POC Glucose (mg/dL) 115 H (75-99) mg/dL Calcium 8.1 L (8.4-10.2) mg/dL ALT 19 L (21-72) U/L Total Protein 5.8 L (6.3-8.2) g/dL Albumin 3.1 L (3.5-5.0) g/dL Procalcitonin (0.02-0.09) ng/mL 11/27/18 Range/Units 11:49 RBC (4.30-5.90) m/uL Hgb (13.0-17.5) gm/dL Hct (39.0-53.0) % RDW (11.5-15.5) % BUN (9-20) mg/dL Creatinine (0.66-1.25) mg/dL Glucose (74-99) mg/dL POC Glucose (mg/dL) 131 H (75-99) mg/dL Calcium (8.4-10.2) mg/dL ALT (21-72) U/L Total Protein (6.3-8.2) g/dL Albumin (3.5-5.0) g/dL Procalcitonin (0.02-0.09) ng/mL Microbiology - Last 24 Hours (Table) 11/25/18 12:17 Blood Culture - Preliminary Blood No Growth after 24 hours Assessment and Plan Assessment: -Shortness of breath, multifactorial, acute COPD exacerbation, community- acquired pneumonia, Diastolic CHF exacerbation, EF 60-65% -Acute hypoxic respiratory failure secondary to the above -Sepsis secondary to pneumonia -Recent NSTEMI, 07/04 -Moderate aortic stenosis -Pulmonary hypertension -hypertension -Obstructive sleep apnea -Chronic persistent atrial fibrillation on Eliquis -Sick sinus syndrome, history of pacemaker -CAD, history of CABG -Acute on chronic renal failure, Stage IV, baseline 1.85 -Bipolar disorder, depression -Ongoing nicotine dependence -Chronic renal failure stage III Plan: Continue current medication regime ,monitoring and symptomatic treatment. Sputum cultures not yet collected /BLood cultures pending. Maintain nebulized bronchodilators, antibiotics. Pulmonary consulted. Increase ambulation as tolerated. Close monitoring of renal function with repeat labs ordered for a.m. prognosis guarded given multiple complex medical issues. Further recommendations to follow. The impression and plan of care has been dictated as directed. : I performed a history and examination of this patient, discussed the same with the dictator. I agree with the dictator's note ,documented as a scribe. Any additional findings or plans will be noted.
--- NOTE | 2018-11-27 15:57 | P.PN ---
Subjective Progress Note Date: 11/27/18 This is an 87-year-old gentleman who presented to the emergency room initially with symptoms of difficulty in breathing with some vague chest discomfort. Patient has a known history of ischemic cardiomyopathy, prior bypass surgery, prior permanent pacemaker, history of paroxysmal atrial fibrilla tion and hypertension. Patient's troponins were identical without any significant rise and fall pattern, not suggestive of acute coronary syndrome. He was found to be in some mild congestive heart failure and was initiated on IV Lasix, he diuresed well through the night last night, ejection fraction 60-65%, weight down 2 kg creatinine 2.1 today. We will discontinue the IV Lasix today and from tomorrow start the patient on oral diuretics. Overall the patient's breathing has improved significantly. Objective - Vital Signs Vital signs: Vital Signs Temp 97.9 F 11/27/18 11:10 Pulse 70 11/27/18 15:30 Resp 16 11/27/18 11:10 BP 153/68 11/27/18 11:10 Pulse Ox 97 11/27/18 11:10 Intake & Output 11/26/18 11/27/18 11/27/18 18:59 06:59 18:59 Intake Total 100 325 480 Output Total 700 925 725 Balance -600 -600 -245 Weight 86 kg Intake: Intake, IV Titration 100 Amount cefTRIAXone 1 gm In 100 Sodium Chloride 0.9% 50 ml @ 100 mls/hr IVPB Q24HR [facility] Rx#:[id number] Oral 325 480 Output: Urine 700 925 725 Other: Voiding Method Urinal Urinal Urinal # Voids 2 1 - Exam PHYSICAL EXAMINATION: GENERAL: 87-year-old gentleman in no acute distress at the time of my examination HEENT: Head is atraumatic, normocephalic. Pupils equal, round. Sclera anicteric. Conjunctiva are clear. Mucous membranes of the mouth are moist. Neck is supple. There is no elevated jugular venous pressure. No carotid bruit is heard. HEART EXAMINATION: Heart S1, S2 normal. No murmur or gallop heard. CHEST EXAMINATION: His reveal crackles to bilateral bases, ABDOMEN: Soft, nontender. Bowel sounds are heard. No organomegaly noted. EXTREMITIES: 1+ peripheral pulses with no evidence of peripheral edema and no calf tenderness noted. NEUROLOGIC patient is awake, alert and oriented X2. . - Labs CBC & Chem 7: 11/27/18 06:05 11/27/18 06:05 Labs: Abnormal Lab Results - Last 24 Hours (Table) 11/26/18 11/26/18 11/26/18 Range/Units 10:54 16:51 21:00 RBC (4.30-5.90) m/uL Hgb (13.0-17.5) gm/dL Hct (39.0-53.0) % RDW (11.5-15.5) % BUN (9-20) mg/dL Creatinine (0.66-1.25) mg/dL Glucose (74-99) mg/dL POC Glucose (mg/dL) 171 H 141 H (75-99) mg/dL Calcium (8.4-10.2) mg/dL ALT (21-72) U/L Total Protein (6.3-8.2) g/dL Albumin (3.5-5.0) g/dL Procalcitonin 0.17 H (0.02-0.09) ng/mL 11/27/18 11/27/18 11/27/18 Range/Units 06:05 06:05 06:19 RBC 3.86 L (4.30-5.90) m/uL Hgb 11.1 L (13.0-17.5) gm/dL Hct 34.7 L (39.0-53.0) % RDW 17.4 H (11.5-15.5) % BUN 46 H (9-20) mg/dL Creatinine 2.17 H (0.66-1.25) mg/dL Glucose 104 H (74-99) mg/dL POC Glucose (mg/dL) 115 H (75-99) mg/dL Calcium 8.1 L (8.4-10.2) mg/dL ALT 19 L (21-72) U/L Total Protein 5.8 L (6.3-8.2) g/dL Albumin 3.1 L (3.5-5.0) g/dL Procalcitonin (0.02-0.09) ng/mL 11/27/18 Range/Units 11:49 RBC (4.30-5.90) m/uL Hgb (13.0-17.5) gm/dL Hct (39.0-53.0) % RDW (11.5-15.5) % BUN (9-20) mg/dL Creatinine (0.66-1.25) mg/dL Glucose (74-99) mg/dL POC Glucose (mg/dL) 131 H (75-99) mg/dL Calcium (8.4-10.2) mg/dL ALT (21-72) U/L Total Protein (6.3-8.2) g/dL Albumin (3.5-5.0) g/dL Procalcitonin (0.02-0.09) ng/mL Microbiology - Last 24 Hours (Table) 11/25/18 12:17 Blood Culture - Preliminary Blood No Growth after 48 hours Assessment and Plan Plan: Assessment and plan #1 atypical chest discomfort, troponins identical without any significant rise and fall. Pattern, not suggestive of acute coronary syndrome #2 coronary artery disease with prior bypass surgery #3 ischemic cardio myopathy #4 systolic congestive heart failure acute on chronic Plan We will discontinue the IV Lasix today and from tomorrow start the patient on oral diuretics. DNP note has been reviewed, I agree with a documented findings and plan of care. Patient was seen and examined.
[2018-11-27 17:09] LABS: Glucose,Whole Blood 163 mg/dL (75-99)
[2018-11-27] MEDS: ATORVASTATIN 80 MG TAB PO SCH (17:40)
[2018-11-27] MEDS: SERTRALINE 100 MG TAB PO SCH (17:40)
[2018-11-27 21:22] LABS: Glucose,Whole Blood 157 mg/dL (75-99)
[2018-11-28 06:25] LABS: Glucose,Whole Blood 133 mg/dL (75-99)
[2018-11-28] MEDS: CARVEDILOL 12.5 MG TAB PO SCH ×2 (06:39→17:27)
[2018-11-28 06:48] LABS: Anisocytosis Slight; Basophils % (A) 0 %; Eosinophils # (A) 0.6 k/uL (0-0.7); Eosinophils % (A) 7 %; HCT 34.4 % (39.0-53.0); HGB 10.9 gm/dL (13.0-17.5); Lymphocytes # (A) 2.1 k/uL (1.0-4.8); Lymphocytes % (A) 25 %; MCH 28.3 pg (25.0-35.0); MCHC 31.6 g/dL (31.0-37.0); MCV 89.7 fL (80.0-100.0); Mean Platelet Volume 7.3; Monocytes # (A) 0.5 k/uL (0-1.0); Monocytes % (A) 6 %; Neutrophils # (A) 5.2 k/uL (1.3-7.7); Neutrophils % (A) 61 %; Platelet Count 199 k/uL (150-450); RBC 3.84 m/uL (4.30-5.90); RDW 17.5 % (11.5-15.5); WBC 8.6 k/uL (3.8-10.6)
[2018-11-28 07:02] LABS: Potassium 3.9 mmol/L (3.5-5.1)
[2018-11-28] MEDS: IPRATROPIUM-ALBUTEROL 3 ML NEB INHALATION SCH ×3 (09:11→16:58)
[2018-11-28] MEDS: SYMBICORT 160-4.5 MCG INHALER INHALATION SCH (09:11)
[2018-11-28] MEDS: hydrALAZINE HCL 25 MG TAB PO SCH (09:16)
[2018-11-28] MEDS: AZITHROMYCIN 500 MG TAB PO SCH (09:16)
[2018-11-28] MEDS: MORPHINE SULFATE ER 15 MG TABLET PO SCH (09:17)
[2018-11-28] MEDS: POTASSIUM CHLORIDE ER 20 MEQ TAB.ER PO SCH (09:17)
[2018-11-28] MEDS: FAMOTIDINE 20 MG TAB PO SCH (09:17)
[2018-11-28 10:45] VITALS: BP 156/72; TEMP 98.1
[2018-11-28] MEDS: CLOPIDOGREL 75 MG TAB PO SCH (11:22)
[2018-11-28] MEDS: ISOSORBIDE MONONITRATE ER 60 MG TAB.ER.24H PO SCH (11:22)
[2018-11-28] MEDS: APIXABAN 2.5 MG TABLET PO SCH (11:22)
[2018-11-28 11:30] VITALS: RESP 20
[2018-11-28 12:03] LABS: Glucose,Whole Blood 117 mg/dL (75-99)
--- NOTE | 2018-11-28 14:48 | P.PN ---
Subjective Progress Note Date: 11/28/18 This is an 87-year-old gentleman who presented to the emergency room initially with symptoms of difficulty in breathing with some vague chest discomfort. Patient has a known history of ischemic cardiomyopathy, prior bypass surgery, prior permanent pacemaker, history of paroxysmal atrial fibrilla tion and hypertension. Patient's troponins were identical without any significant rise and fall pattern, not suggestive of acute coronary syndrome. He was found to be in some mild congestive heart failure and was initiated on IV Lasix, he diuresed well through the night last night, ejection fraction 60-65%, weight down 2 kg creatinine 2.1 today. We will discontinue the IV Lasix today and from tomorrow start the patient on oral diuretics. Overall the patient's breathing has improved significantly. 11/28/2018 Patient seen and examined this morning, blood pressure 156/70 with a heart rate in the 70s, 99% on room air. White blood cell count 8.6, hemoglobin 10.9, platelet count 199. Sodium 139, potassium 3.9, BUN 25 and creatinine 2.1. Objective - Vital Signs Vital signs: Vital Signs Temp 98.1 F 11/28/18 11:23 Pulse 72 11/28/18 12:12 Resp 20 11/28/18 11:23 BP 156/72 11/28/18 11:23 Pulse Ox 99 11/28/18 11:23 Intake & Output 11/27/18 11/28/18 11/28/18 18:59 06:59 18:59 Intake Total 960 360 Output Total 1150 325 450 Balance -190 -325 -90 Weight 85.5 kg Intake: Oral 960 360 Output: Urine 1150 325 450 Other: Voiding Method Urinal Urinal # Voids 1 1 # Bowel Movements 1 - Exam PHYSICAL EXAMINATION: GENERAL: 87-year-old gentleman in no acute distress at the time of my examination HEENT: Head is atraumatic, normocephalic. Pupils equal, round. Sclera anicteric. Conjunctiva are clear. Mucous membranes of the mouth are moist. Neck is supple. There is no elevated jugular venous pressure. No carotid bruit is heard. HEART EXAMINATION: Heart S1, S2 normal. No murmur or gallop heard. CHEST EXAMINATION: His reveal crackles to bilateral bases, ABDOMEN: Soft, nontender. Bowel sounds are heard. No organomegaly noted. EXTREMITIES: 1+ peripheral pulses with no evidence of peripheral edema and no calf tenderness noted. NEUROLOGIC patient is awake, alert and oriented X2. . - Labs CBC & Chem 7: 11/28/18 06:13 11/28/18 06:13 Labs: Abnormal Lab Results - Last 24 Hours (Table) 11/27/18 11/27/18 11/28/18 Range/Units 16:56 21:04 06:13 RBC 3.84 L (4.30-5.90) m/uL Hgb 10.9 L (13.0-17.5) gm/dL Hct 34.4 L (39.0-53.0) % RDW 17.5 H (11.5-15.5) % BUN (9-20) mg/dL Creatinine (0.66-1.25) mg/dL Glucose (74-99) mg/dL POC Glucose (mg/dL) 163 H 157 H (75-99) mg/dL Calcium (8.4-10.2) mg/dL 11/28/18 11/28/18 11/28/18 Range/Units 06:13 06:20 11:52 RBC (4.30-5.90) m/uL Hgb (13.0-17.5) gm/dL Hct (39.0-53.0) % RDW (11.5-15.5) % BUN 45 H (9-20) mg/dL Creatinine 2.18 H (0.66-1.25) mg/dL Glucose 121 H (74-99) mg/dL POC Glucose (mg/dL) 133 H 117 H (75-99) mg/dL Calcium 8.0 L (8.4-10.2) mg/dL Microbiology - Last 24 Hours (Table) 11/25/18 12:17 Blood Culture - Preliminary Blood No Growth after 48 hours Assessment and Plan Plan: Assessment and plan #1 atypical chest discomfort, troponins identical without any significant rise and fall. Pattern, not suggestive of acute coronary syndrome #2 coronary artery disease with prior bypass surgery #3 ischemic cardio myopathy #4 systolic congestive heart failure acute on chronic Plan We will start the patient on oral diuretics today. From our perspective he may be able to be discharged once cleared by primary, we'll follow him along now on an as-needed basis only, please don't hesitate to call with any questions. DNP note has been reviewed, I agree with a documented findings and plan of care. Patient was seen and examined.
--- NOTE | 2018-11-28 15:36 | P.CNPUL ---
History of Present Illness Consult date: 11/28/18 Reason for consult: dyspnea, COPD Chief complaint: Shortness of breath History of present illness: This is a 87-year-old male who originally presented on November 25 to [facility] department with problems associated with shortness of breath started on the day prior to admission he has a long-standing history of COPD emphysema the proper dietary therapy that he had did not relieve the symptoms, patient has long standing history of multiple complex medical problems and issues during congestive heart failure dyslipidemia coronary artery disease atrial fibrillation COPD, hard of hearing, his white cell count on arrival was elevated to 13,500 BUN/creatinine is 34 1.9, the chest x-ray admitted revealed left lower lobe pneumonia patient was started on IV Rocephin and Zithromax, patient underwent further evaluation with a computed tomography scan of the chest and echocardiogram which revealed left atrial extremely dilated, ejection fraction 60%, no evidence of pulmonary hypertension, computed tomography scan of the est revealed coarse scarring on bilateral bases with cardiomegaly and some pleural thickening and scarring was noted as well, patient white cell count improved though with antibiotics however BUN/creatinine slightly went up patient is being diuresed with furosemide given that component of diastolic heart failure is present also associated with A. 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 Last Myocardial Infarction Date:: 06/2018 History of Any Multi-Drug Resistant Organisms: None Reported Past Surgical History: Cholecystectomy, Coronary Bypass/CABG, Heart Catheterization, Pacemaker Additional Past Surgical History / Comment(s): Pacemaker in June 2018, 2008 CABG-pt believes was 5 vessel done down in [place], colonoscopy-normal, bilateral cataract removals. Past Anesthesia/Blood Transfusion Reactions: No Reported Reaction, Motion Sickness Type of Cardiac Device: Permanent Pacemaker Device Placement Date:: 06/2018 Past Psychological History: Depression Additional Psychological History / Comment(s): Pt resides alone. He uses a walker to ambulate. He has a nebulizer and a CPap machine. He drives some. He manages his own medications. He cooks some. Smoking Status: Current every day smoker Past Alcohol Use History: Occasional Additional Past Alcohol Use History / Comment(s): Pt states he started smoking as a teen and is a 4 cigarette/day smoker. Past Drug Use History: None Reported - Past Family History Father Family Medical History: Dementia Additional Family Medical History / Comment(s): Pt does not recall any parent medical hx at this time. Mother Family Medical History: No Reported History Additional Family Medical History / Comment(s): Mother was healthy. Medications and Allergies Home Medications Medication Instructions Recorded Confirmed Type Furosemide [Lasix] 20 mg PO BID@0900,1800 05/01/16 11/25/18 History Atorvastatin [Lipitor] 80 mg PO DAILY@1800 07/04/18 11/25/18 History Clopidogrel Bisulfate [Plavix] 75 mg PO DAILY@1200 07/04/18 11/25/18 History Isosorbide Mononitrate ER [Imdur] 60 mg PO DAILY@1200 07/04/18 11/25/18 History Sertraline HCl [Zoloft] 100 mg PO DAILY@1800 07/04/18 11/25/18 History hydrALAZINE HCL [Apresoline] 25 mg PO BID #60 tab 07/06/18 11/25/18 Rx Nitroglycerin Sl Tabs [Nitrostat] 0.4 mg SUBLINGUAL Q5M PRN #100 tab 07/07/18 11/25/18 Rx Apixaban [Eliquis] 2.5 mg PO BID@1200,2100 11/25/18 11/25/18 History Aspirin EC [Ecotrin Low Dose] 81 mg PO DAILY@1200 11/25/18 11/25/18 History Budesonide-Formot 160-4.5 Mcg 1 puff INHALATION RT-BID 11/25/18 11/25/18 History [Symbicort 160-4.5 Mcg Inhaler] Carvedilol [Coreg*] 25 mg PO BID 11/25/18 11/25/18 History Ipratropium-Albuterol Nebulize 3 ml INHALATION RT-TID PRN 11/25/18 11/25/18 History [Duoneb 0.5 mg-3 mg/3 ml Soln] Ipratropium/Albuterol Sulfate 1 puff INHALATION RT-TID PRN 11/25/18 11/25/18 History [Combivent Respimat Inhaler] Morphine Sulfate ER [Ms Contin] 15 mg PO BID 11/25/18 11/25/18 History Potassium Chloride [Klor-Con 20] 20 meq PO BID 11/25/18 11/25/18 History Ranitidine HCl [Zantac] 150 mg PO BID 11/25/18 11/25/18 History Allergies Allergy/AdvReac Type Severity Reaction Status Date / Time No Known Allergies Allergy Verified 11/25/18 08:32 Physical Exam Vitals: Vital Signs Temp Pulse Pulse Resp BP Pulse Ox 11/28/18 12:12 72 11/28/18 12:01 72 11/28/18 11:23 98.1 F 73 20 156/72 99 11/28/18 10:44 98.1 F 73 156/72 99 11/28/18 09:23 68 11/28/18 09:11 64 11/28/18 07:43 97.9 F 70 16 132/63 11/28/18 04:49 98.2 F 68 15 130/60 95 11/28/18 00:51 98.0 F 68 15 118/58 95 11/27/18 21:07 73 11/27/18 20:55 70 11/27/18 20:00 98.2 F 70 16 120/65 96 11/27/18 15:30 70 11/27/18 15:25 98 F 58 L 18 125/82 96 Intake and Output 11/28/18 11/28/18 11/28/18 06:59 14:59 22:59 Intake Total 360 Output Total 325 450 Balance -325 -90 Intake: Oral 360 Output: Urine 325 450 Other: Voiding Method Urinal # Voids 1 # Bowel Movements 1 Weight 85.5 kg GENERAL: 87-year-old gentleman in no acute distress at the time of my examination HEENT: Head is atraumatic, normocephalic. Pupils equal, round. Sclera anicteric. Conjunctiva are clear. Mucous membranes of the mouth are moist. Neck is supple. There is no elevated jugular venous pressure. No carotid bruit is heard. HEART EXAMINATION: Heart S1, S2 normal. No murmur or gallop heard. CHEST EXAMINATION: His reveal crackles to bilateral bases, ABDOMEN: Soft, nontender. Bowel sounds are heard. No organomegaly noted. EXTREMITIES: 1+ peripheral pulses with no evidence of peripheral edema and no calf tenderness noted. NEUROLOGIC patient is awake, alert and oriented X2. . Results - Laboratory Findings CBC and BMP: 11/28/18 06:13 11/28/18 06:13 PT/INR, D-dimer PT 9.8 sec (9.0-12.0) 11/25/18 08:05 INR 0.9 (<1.2) 11/25/18 08:05 Abnormal lab findings: Abnormal Labs 11/25/18 11/25/18 11/25/18 08:05 08:05 08:05 WBC 13.4 H RBC Hgb 12.7 L Hct RDW 16.4 H Neutrophils # 10.3 H BUN 34 H Creatinine 1.90 H Glucose 142 H POC Glucose (mg/dL) Calcium 8.2 L ALT 20 L Total Protein Albumin Triglycerides 203 H HDL Cholesterol 29 L Procalcitonin 11/26/18 11/26/18 11/26/18 10:54 11:20 16:51 WBC RBC Hgb Hct RDW Neutrophils # BUN Creatinine Glucose POC Glucose (mg/dL) 133 H 171 H Calcium ALT Total Protein Albumin Triglycerides HDL Cholesterol Procalcitonin 0.17 H 11/26/18 11/27/18 11/27/18 21:00 06:05 06:05 WBC RBC 3.86 L Hgb 11.1 L Hct 34.7 L RDW 17.4 H Neutrophils # BUN 46 H Creatinine 2.17 H Glucose 104 H POC Glucose (mg/dL) 141 H Calcium 8.1 L ALT 19 L Total Protein 5.8 L Albumin 3.1 L Triglycerides HDL Cholesterol Procalcitonin 11/27/18 11/27/18 11/27/18 06:19 11:49 16:56 WBC RBC Hgb Hct RDW Neutrophils # BUN Creatinine Glucose POC Glucose (mg/dL) 115 H 131 H 163 H Calcium ALT Total Protein Albumin Triglycerides HDL Cholesterol Procalcitonin 11/27/18 11/28/18 11/28/18 21:04 06:13 06:13 WBC RBC 3.84 L Hgb 10.9 L Hct 34.4 L RDW 17.5 H Neutrophils # BUN 45 H Creatinine 2.18 H Glucose 121 H POC Glucose (mg/dL) 157 H Calcium 8.0 L ALT Total Protein Albumin Triglycerides HDL Cholesterol Procalcitonin 11/28/18 11/28/18 06:20 11:52 WBC RBC Hgb Hct RDW Neutrophils # BUN Creatinine Glucose POC Glucose (mg/dL) 133 H 117 H Calcium ALT Total Protein Albumin Triglycerides HDL Cholesterol Procalcitonin - Diagnostic Findings Chest x-ray: report reviewed, image reviewed CT scan - chest: report reviewed, image reviewed (Finding as noted above) Assessment and Plan Assessment: Acute exacerbation of COPD Left lower lobe pneumonia Acute on chronic diastolic and systolic heart failure Chronic renal failure stage III Recent non-ST segment elevated [place] Coronary artery disease Sleep disorder breathing and sleep apnea Cancer history of smoking and nicotine abuse Plan: Continue breathing treatment T new anticoagulation broad-spectrum antibiotics Continue gentle diuresis monitor renal functions closely further recommendations pending plan of care as per clinical response of patient Sleep study as outpatient Time with Patient: Greater than 30
[2018-11-28] MEDS ORDERED: FUROSEMIDE 40 MG TAB PO SCH (16:00)
--- NOTE | 2018-11-28 16:25 | P.DS ---
Providers Date of admission: 11/25/18 10:09 Expected date of discharge: 11/28/18 Attending physician: Julio Elizabeth Consults: 11/25/18 10:09 Consult Physician Urgent Consulting Provider: Kang Murcia Consult Reason/Comments: cp Do you want consulting provider notified?: Yes 11/27/18 15:46 Consult Physician Routine Consulting Provider: Malik Tim Consult Reason/Comments: pulmonary consult; COPD/pneumonia/CHF Do you want consulting provider notified?: Yes Primary care physician: [facility] Course: Final Diagnoses: -Shortness of breath, multifactorial, acute COPD exacerbation, community- acquired left lower lobe pneumonia, acute Diastolic CHF exacerbation, EF 60-65% -Acute hypoxic respiratory failure secondary to the above -Sepsis secondary to pneumonia -Recent NSTEMI, 07/04 -Moderate aortic stenosis -Pulmonary hypertension -hypertension -Obstructive sleep apnea -Chronic persistent atrial fibrillation on Eliquis -Sick sinus syndrome, history of pacemaker -CAD, history of CABG -Acute on chronic renal failure, Stage IV, baseline 1.85 -Bipolar disorder, depression -Ongoing nicotine dependence -Chronic renal failure stage III Hospital course:77-year-old gentleman admitted with shortness of breath, multifactorial, acute hypoxic respiratory failure, acute COPD exacerbation, systolic CHF, pneumonia and multiple other medical issues. CT reporting patchy linear density in the lungs with pleural thickening consistent with scarring and atelectasis, no suspicious pulmonary mass, moderate cardiomegaly. Chest x-ray of yesterday reporting increasing patchy left basilar opacity with persistent interstitial prominence, possible worsening mild CHF. Procalcitoin level elevated.Maintained on nebulized bronchodilators, Zithromax, Rocephin. Echo rep orting moderate concentric left ventricular hypertrophy, normal, EF 60-65%, hypokinetic apical septum LV wall, left atrium severely dilated, moderate aortic stenosis, mild pulmonary hypertension. Good diet intake, consuming 100% with no nausea vomiting or diarrhea. Diuresed well on Lasix IV push with 24-hour I&O reflecting a negative fluid balance. Renal function worsening, and 2.17. Lasix discontinued today as per cardiology. Maintaining O2 sats in the 90s on 2 L nasal cannula. Occasional nonproductive cough. Telemetry is V paced. Mild elevation of troponins. Evaluated by cardiology, acute coronary syndrome ruled out. Denies chest pain, palpitations or increasing shortness of breath. Afebrile, normal WBC. Blood /sputum cultures pending. Evaluated by cardiology and pulmonary. Maintained on IV antibiotics, diuresed well on Lasix. Significant clinical improvement. Cleared by all consults for DC. Patient will require oxygen as well as a walker at CT. Patient being discharged home in a stable condition with guarded prognosis. EXAM: GENERAL: Alert and oriented 3, no acute distress. CARDIOVASCULAR: S1, S2, irregular. Systolic murmur, RESPIRATION: Breath sounds diminished in the bases. No rhonchi, Fine bibasilar crackles, no expiratory wheezing ABDOMEN: Soft, nontender . No guarding. no masses palpable. Bowel sounds heard. NERVOUS SYSTEM: No focal deficits. The impression and plan of care has been dictated as directed. : I performed a history and examination of this patient, discussed the same with the dictator. I agree with the dictator's note ,documented as a scribe. Any additional findings or plans will be noted. Time taken: 35 minutes Patient Condition at Discharge: Stable Plan - Discharge Summary Discharge Rx Participant: No New Discharge Prescriptions: New Cefuroxime Axetil [Ceftin] 500 mg PO BID #14 tab Furosemide [Lasix] 40 mg PO DAILY@0900 #90 tab Continue Sertraline HCl [Zoloft] 100 mg PO DAILY@1800 Isosorbide Mononitrate ER [Imdur] 60 mg PO DAILY@1200 Atorvastatin [Lipitor] 80 mg PO DAILY@1800 Clopidogrel Bisulfate [Plavix] 75 mg PO DAILY@1200 hydrALAZINE HCL [Apresoline] 25 mg PO BID #60 tab Nitroglycerin Sl Tabs [Nitrostat] 0.4 mg SUBLINGUAL Q5M PRN #100 tab PRN Reason: Chest Pain Ranitidine HCl [Zantac] 150 mg PO BID Potassium Chloride [Klor-Con 20] 20 meq PO BID Morphine Sulfate ER [Ms Contin] 15 mg PO BID Ipratropium/Albuterol Sulfate [Combivent Respimat Inhaler] 1 puff INHALATION RT-TID PRN PRN Reason: Shortness Of Breath Budesonide-Formot 160-4.5 Mcg [Symbicort 160-4.5 Mcg Inhaler] 1 puff INHALATION RT-BID Aspirin EC [Ecotrin Low Dose] 81 mg PO DAILY@1200 Apixaban [Eliquis] 2.5 mg PO BID@1200,2100 Carvedilol [Coreg*] 25 mg PO BID Furosemide [Lasix] 20 mg PO DAILY@1400 #1 tab Changed Ipratropium-Albuterol Nebulize [Duoneb 0.5 mg-3 mg/3 ml Soln] 3 ml INHALATION RT-TID #0 Discontinued Furosemide [Lasix] 20 mg PO BID@0900,1800 Discharge Medication List Atorvastatin [Lipitor] 80 mg PO DAILY@1800 07/04/18 [History] Clopidogrel Bisulfate [Plavix] 75 mg PO DAILY@1200 07/04/18 [History] Isosorbide Mononitrate ER [Imdur] 60 mg PO DAILY@1200 07/04/18 [History] Sertraline HCl [Zoloft] 100 mg PO DAILY@1800 07/04/18 [History] hydrALAZINE HCL [Apresoline] 25 mg PO BID #60 tab 07/06/18 [Rx] Nitroglycerin Sl Tabs [Nitrostat] 0.4 mg SUBLINGUAL Q5M PRN #100 tab 07/07/18 [Rx] Apixaban [Eliquis] 2.5 mg PO BID@1200,2100 11/25/18 [History] Aspirin EC [Ecotrin Low Dose] 81 mg PO DAILY@1200 11/25/18 [History] Budesonide-Formot 160-4.5 Mcg [Symbicort 160-4.5 Mcg Inhaler] 1 puff INHALATION RT-BID 11/25/18 [History] Carvedilol [Coreg*] 25 mg PO BID 11/25/18 [History] Ipratropium/Albuterol Sulfate [Combivent Respimat Inhaler] 1 puff INHALATION RT- TID PRN 11/25/18 [History] Morphine Sulfate ER [Ms Contin] 15 mg PO BID 11/25/18 [History] Potassium Chloride [Klor-Con 20] 20 meq PO BID 11/25/18 [History] Ranitidine HCl [Zantac] 150 mg PO BID 11/25/18 [History] Cefuroxime Axetil [Ceftin] 500 mg PO BID #14 tab 11/28/18 [Rx] Furosemide [Lasix] 20 mg PO DAILY@1400 #1 tab 11/28/18 [Rx] Furosemide [Lasix] 40 mg PO DAILY@0900 #90 tab 11/28/18 [Rx] Ipratropium-Albuterol Nebulize [Duoneb 0.5 mg-3 mg/3 ml Soln] 3 ml INHALATION RT-TID #0 11/28/18 [Rx] Follow up Appointment(s)/Referral(s): [facility] [Provider Group] - 1 Week Julio Elizabeth MD [Primary Care Provider] - 12/02/18 2:45 pm Malik Tim MD [STAFF PHYSICIAN] - 1 Week Ambulatory/Diagnostic Orders: Complete Blood Count w/diff [LAB.AMB] Time Frame: 3 Days, Location: None Selected Patient Instructions/Handouts: Pneumonia (DC)
[2018-11-28 17:02] VITALS: PULSE 70
[2018-11-28 17:04] LABS: Glucose,Whole Blood 138 mg/dL (75-99)
[2018-11-28] MEDS: ATORVASTATIN 80 MG TAB PO SCH (17:27)
[2018-11-28] MEDS: SERTRALINE 100 MG TAB PO SCH (17:27)
== END 2018-11-28 18:50 | disposition home or self-care (01) | DRG 871 ==
LOC: EC 07:50 → 3SCARD 10:09
PROVIDERS: ADMIT Family Medicine; ATTEND Family Medicine
DX: A41.9 Sepsis, unspecified organism (principal); I50.43 Acute on chronic combined systolic (congestive) and diastolic (congestive) heart failure; J18.1 Lobar pneumonia, unspecified organism; J96.21 Acute and chronic respiratory failure with hypoxia; I13.0 Hypertensive heart and chronic kidney disease with heart failure and stage 1 through stage 4 chronic kidney disease, or unspecified chronic kidney disease; I48.1 Persistent atrial fibrillation; J98.11 Atelectasis; N17.9 Acute kidney failure, unspecified; N18.4 Chronic kidney disease, stage 4 (severe); E78.5 Hyperlipidemia, unspecified; F17.200 Nicotine dependence, unspecified, uncomplicated; F31.9 Bipolar disorder, unspecified; G47.33 Obstructive sleep apnea (adult) (pediatric); H91.90 Unspecified hearing loss, unspecified ear; I25.10 Atherosclerotic heart disease of native coronary artery without angina pectoris; I25.2 Old myocardial infarction; I25.5 Ischemic cardiomyopathy; I27.20 Pulmonary hypertension, unspecified; I35.0 Nonrheumatic aortic (valve) stenosis; I48.0 Paroxysmal atrial fibrillation; J43.9 Emphysema, unspecified; Z79.01 Long term (current) use of anticoagulants; Z79.02 Long term (current) use of antithrombotics/antiplatelets; Z79.51 Long term (current) use of inhaled steroids; Z79.82 Long term (current) use of aspirin; Z79.899 Other long term (current) drug therapy; Z95.0 Presence of cardiac pacemaker; Z95.1 Presence of aortocoronary bypass graft
CPT/HCPCS: 36415; 71046; 71250; 80048; 80053; 80061; 83605; 83880; 84145; 84484; 85025; 85610; 85730; 87040; 93005; 93306; 94640; 94760; 96365; 99291

== ENCOUNTER 2019-01-30 15:11 | Inpatient (IN) | payer MEDICARE, BC ==
[2019-01-30 15:43] LABS: Basophils # (A) 0.2 k/uL (0-0.2); Basophils % (A) 2 %; Eosinophils # (A) 0.4 k/uL (0-0.7); Eosinophils % (A) 5 %; HGB 12.6 gm/dL (13.0-17.5); Lymphocytes # (A) 2.3 k/uL (1.0-4.8); Lymphocytes % (A) 27 %; MCH 28.4 pg (25.0-35.0); MCHC 31.4 g/dL (31.0-37.0); MCV 90.4 fL (80.0-100.0); Mean Platelet Volume 6.6; Monocytes # (A) 0.6 k/uL (0-1.0); Monocytes % (A) 7 %; Neutrophils % (A) 58 %; Platelet Count 200 k/uL (150-450); RBC 4.43 m/uL (4.30-5.90); RDW 15.1 % (11.5-15.5); WBC 8.6 k/uL (3.8-10.6)
[2019-01-30 15:51] LABS: Albumin 3.7 g/dL (3.5-5.0); Calcium 8.5 mg/dL (8.4-10.2); Potassium 4.4 mmol/L (3.5-5.1); Total Bilirubin 0.5 mg/dL (0.2-1.3); Total Protein 6.5 g/dL (6.3-8.2)
[2019-01-30 15:58] LABS: INR 0.9 (<1.2); Partial Thromboplastin Time 23.2 sec (22.0-30.0); Prothrombin Time 9.9 sec (9.0-12.0)
--- NOTE | 2019-01-30 15:59 | XR ---
EXAMINATION TYPE: XR KUB DATE OF EXAM: 01/30/2019 COMPARISON: NONE HISTORY: Pain TECHNIQUE: Single supine KUB image of the abdomen is obtained FINDINGS: Small bowel demonstrates no evidence for dilatation or air fluid levels. Gas and fecal material is seen in non-distended colon. No convincing evidence for pneumoperitoneum. No unusual calcifications. The lung bases are clear. The osseous structures are intact. IMPRESSION: 1. Overall nonobstructive bowel gas pattern.
--- NOTE | 2019-01-30 15:59 | XR ---
EXAMINATION TYPE: XR chest 2V DATE OF EXAM: 01/30/2019 COMPARISON: 11/26/2018 HISTORY: Shortness of breath TECHNIQUE: Frontal and lateral views of the chest are obtained. FINDINGS: Scattered senescent parenchymal changes noted. Hyperinflation compatible with COPD. Pleural parenchymal density left lower lobe. No evidence for infiltrate. No evidence for atelectasis. Heart size is stable. Mediastinal structures are stable and grossly unremarkable. No evidence for hilar prominence. Degenerative changes dorsal spine. IMPRESSION: 1. No evidence for acute pulmonary disease.
[2019-01-30 16:01] LABS: D-Dimer 1.9 mg/L FEU (<0.60)
[2019-01-30] MEDS ORDERED: hydrALAZINE HCL 25 MG TAB PO STA (16:19)
[2019-01-30] MEDS ORDERED: CARVEDILOL 12.5 MG TAB PO STA (16:19)
--- NOTE | 2019-01-30 16:20 | ED ---
Abdominal Pain HPI - General Chief Complaint: Abdominal Pain Stated Complaint: flank pain Time Seen by Provider: 01/30/19 15:27 Source: patient, family Mode of arrival: EMS Limitations: no limitations - History of Present Illness Initial Comments: Patient is an 88-year-old male presenting to emergency by with a chief complaint of abdominal pain and shortness of breath. Patient reports he developed pain in the upper left flank region since yesterday. Patient reports the pain is exacerbated with full inspiration. Patient does report shortness of breath and dyspnea on exertion. Patient reports the pain is not exacerbated within the left and right rotation. Patient denies any chest or back pain, nausea, vomiting, episodes of diaphoresis or any radiation of the pain. Patient denies any hemoptysis. Patient is a lifelong smoker but has never been diagnosed with COPD. Patient reports he wheezes at his baseline. - Related Data Home Medications Medication Instructions Recorded Confirmed Atorvastatin [Lipitor] 80 mg PO DAILY@1800 07/04/18 11/25/18 Clopidogrel Bisulfate [Plavix] 75 mg PO DAILY@1200 07/04/18 11/25/18 Isosorbide Mononitrate ER [Imdur] 60 mg PO DAILY@1200 07/04/18 11/25/18 Sertraline HCl [Zoloft] 100 mg PO DAILY@1800 07/04/18 11/25/18 Apixaban [Eliquis] 2.5 mg PO BID@1200,2100 11/25/18 11/25/18 Aspirin EC [Ecotrin Low Dose] 81 mg PO DAILY@1200 11/25/18 11/25/18 Budesonide-Formot 160-4.5 Mcg 1 puff INHALATION RT-BID 11/25/18 11/25/18 [Symbicort 160-4.5 Mcg Inhaler] Carvedilol [Coreg*] 25 mg PO BID 11/25/18 11/25/18 Ipratropium/Albuterol Sulfate 1 puff INHALATION RT-TID PRN 11/25/18 11/25/18 [Combivent Respimat Inhaler] Morphine Sulfate ER [Ms Contin] 15 mg PO BID 11/25/18 11/25/18 Potassium Chloride [Klor-Con 20] 20 meq PO BID 11/25/18 11/25/18 Ranitidine HCl [Zantac] 150 mg PO BID 11/25/18 11/25/18 Previous Rx's Medication Instructions Recorded hydrALAZINE HCL [Apresoline] 25 mg PO BID #60 tab 07/06/18 Nitroglycerin Sl Tabs [Nitrostat] 0.4 mg SUBLINGUAL Q5M PRN #100 tab 07/07/18 Cefuroxime Axetil [Ceftin] 500 mg PO BID #14 tab 11/28/18 Furosemide [Lasix] 20 mg PO DAILY@1400 #1 tab 11/28/18 Furosemide [Lasix] 40 mg PO DAILY@0900 #90 tab 11/28/18 Ipratropium-Albuterol Nebulize 3 ml INHALATION RT-TID #0 11/28/18 [Duoneb 0.5 mg-3 mg/3 ml Soln] Allergies Allergy/AdvReac Type Severity Reaction Status Date / Time No Known Allergies Allergy Verified 01/30/19 15:18 Review of Systems ROS Statement: Those systems with pertinent positive or pertinent negative responses have been documented in the HPI. ROS Other: All systems not noted in ROS Statement are negative. 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 Last Myocardial Infarction Date:: 06/2018 History of Any Multi-Drug Resistant Organisms: None Reported Past Surgical History: Cholecystectomy, Coronary Bypass/CABG, Heart Catheteriz ation, Pacemaker Additional Past Surgical History / Comment(s): Pacemaker in June 20182008 CABG-pt believes was 5 vessel done down in [place], colonoscopy-normal, bilateral cataract removals. Past Anesthesia/Blood Transfusion Reactions: No Reported Reaction, Motion Sickness Type of Cardiac Device: Permanent Pacemaker Device Placement Date:: 06/2018 Past Psychological History: Depression Smoking Status: Current every day smoker Past Alcohol Use History: None Reported, Occasional Past Drug Use History: None Reported - Past Family History Father Family Medical History: Dementia Additional Family Medical History / Comment(s): Pt does not recall any parent medical hx at this time. Mother Family Medical History: No Reported History Additional Family Medical History / Comment(s): Mother was healthy. General Exam Limitations: no limitations General appearance: alert, in no apparent distress, obese Head exam: Present: atraumatic, normocephalic, normal inspection Eye exam: Present: normal appearance Pupils: Present: normal accommodation ENT exam: Present: normal exam, normal oropharynx, mucous membranes moist, TM's normal bilaterally, normal external ear exam Neck exam: Present: normal inspection, full ROM. Absent: tenderness Respiratory exam: Present: wheezes (Bilateral wheezing), other (Scarring on the chest from previous cardiac procedures) Cardiovascular Exam: Present: regular rate, normal rhythm, normal heart sounds GI/Abdominal exam: Present: soft, other (Upper left flank region pain.). Absent: tenderness, guarding, rebound Extremities exam: Present: normal inspection, full ROM Back exam: Present: normal inspection, full ROM Neurological exam: Present: alert, oriented X3 Psychiatric exam: Present: normal affect, normal mood Skin exam: Present: warm, dry, intact, normal color Course Vital Signs 01/30/19 01/30/19 01/30/19 15:19 17:18 19:08 Temperature 98.5 F 98.0 F Pulse Rate 70 66 70 Respiratory 18 18 18 Rate Blood Pressure 200/95 161/80 199/94 O2 Sat by Pulse 96 98 94 L Oximetry Medical Decision Making - Medical Decision Making Patient is an 88-year-old male presenting to the emergency department with a chief complaint of shortness of breath and abdominal pain. Physical examination is indicative of pain in the upper left flank region without any radiation. CBC and CMP indicated report renal function. D-dimer elevated. VQ scan obtained showing that a PE could not be completely ruled out. Initial troponin is negative. EKG showing a ventricular paced rhythm. Patient will be started on high intensity heparin and admitted to the hospital for further medical management. Patient given fluids in the ED. Patient is not complaining of any chest pain at this time. All of this information was communicated with his daughter over the phone. Case discussed with Dr. Lane. Admitting physician is . Pulmonology and cardiology consulted. - Lab Data Result diagrams: 01/30/19 15:28 01/30/19 15:28 Lab Results 01/30/19 01/30/19 01/30/19 Range/Units 15:28 15:28 15:28 WBC 8.6 (3.8-10.6) k/uL RBC 4.43 (4.30-5.90) m/uL Hgb 12.6 L (13.0-17.5) gm/dL Hct 40.0 (39.0-53.0) % MCV 90.4 (80.0-100.0) fL MCH 28.4 (25.0-35.0) pg MCHC 31.4 (31.0-37.0) g/dL RDW 15.1 (11.5-15.5) % Plt Count 200 (150-450) k/uL Neutrophils % 58 % Lymphocytes % 27 % Monocytes % 7 % Eosinophils % 5 % Basophils % 2 % Neutrophils # 5.0 (1.3-7.7) k/uL Lymphocytes # 2.3 (1.0-4.8) k/uL Monocytes # 0.6 (0-1.0) k/uL Eosinophils # 0.4 (0-0.7) k/uL Basophils # 0.2 (0-0.2) k/uL PT 9.9 (9.0-12.0) sec INR 0.9 (<1.2) APTT 23.2 (22.0-30.0) sec D-Dimer 1.90 H (<0.60) mg/L FEU Sodium 139 (137-145) mmol/L Potassium 4.4 (3.5-5.1) mmol/L Chloride 105 (98-107) mmol/L Carbon Dioxide 26 (22-30) mmol/L Anion Gap 8 mmol/L BUN 32 H (9-20) mg/dL Creatinine 1.99 H (0.66-1.25) mg/dL Est GFR (CKD-EPI)AfAm 34 (>60 ml/min/1.73 sqM) Est GFR (CKD-EPI)NonAf 30 (>60 ml/min/1.73 sqM) Glucose 132 H (74-99) mg/dL Calcium 8.5 (8.4-10.2) mg/dL Magnesium 2.0 (1.6-2.3) mg/dL Total Bilirubin 0.5 (0.2-1.3) mg/dL AST 22 (17-59) U/L ALT 13 L (21-72) U/L Alkaline Phosphatase 126 (38-126) U/L Troponin I (0.000-0.034) ng/mL NT-Pro-B Natriuret Pep pg/mL Total Protein 6.5 (6.3-8.2) g/dL Albumin 3.7 (3.5-5.0) g/dL Amylase 70 (30-110) U/L Lipase 207 (23-300) U/L 01/30/19 01/30/19 Range/Units 15:28 15:28 WBC (3.8-10.6) k/uL RBC (4.30-5.90) m/uL Hgb (13.0-17.5) gm/dL Hct (39.0-53.0) % MCV (80.0-100.0) fL MCH (25.0-35.0) pg MCHC (31.0-37.0) g/dL RDW (11.5-15.5) % Plt Count (150-450) k/uL Neutrophils % % Lymphocytes % % Monocytes % % Eosinophils % % Basophils % % Neutrophils # (1.3-7.7) k/uL Lymphocytes # (1.0-4.8) k/uL Monocytes # (0-1.0) k/uL Eosinophils # (0-0.7) k/uL Basophils # (0-0.2) k/uL PT (9.0-12.0) sec INR (<1.2) APTT (22.0-30.0) sec D-Dimer (<0.60) mg/L FEU Sodium (137-145) mmol/L Potassium (3.5-5.1) mmol/L Chloride (98-107) mmol/L Carbon Dioxide (22-30) mmol/L Anion Gap mmol/L BUN (9-20) mg/dL Creatinine (0.66-1.25) mg/dL Est GFR (CKD-EPI)AfAm (>60 ml/min/1.73 sqM) Est GFR (CKD-EPI)NonAf (>60 ml/min/1.73 sqM) Glucose (74-99) mg/dL Calcium (8.4-10.2) mg/dL Magnesium (1.6-2.3) mg/dL Total Bilirubin (0.2-1.3) mg/dL AST (17-59) U/L ALT (21-72) U/L Alkaline Phosphatase (38-126) U/L Troponin I 0.017 (0.000-0.034) ng/mL NT-Pro-B Natriuret Pep 2500 pg/mL Total Protein (6.3-8.2) g/dL Albumin (3.5-5.0) g/dL Amylase (30-110) U/L Lipase (23-300) U/L - EKG Data EKG Comments: Atrial sensed ventricular paced rhythm Ventricular rate 70, NV interval 320, QRS duration 176, QT/QTc for a 486/522 Disposition Clinical Impression: Shortness of breath, Dyspnea on exertion Disposition: ADMITTED IP TO THIS HOSP Condition: Stable Instructions (If sedation given, give patient instructions): Pulmonary Embolism (DC) Additional Instructions: Patient will be admitted Is patient prescribed a controlled substance at d/c from ED?: No Referrals: Julio Elizabeth MD [Primary Care Provider] - 1-2 days Time of Disposition: 19:55
--- NOTE | 2019-01-30 19:01 | NM ---
EXAMINATION TYPE: NM pul vent and perfuse DATE OF EXAM: 01/30/2019 COMPARISON: NONE HISTORY: TECHNIQUE: Utilizing inhalation of 71.2 mCi Tc 99m DTPA aerosol and intravenous injection of 5.06 mC i of Tc 99m MAA, ventilation and perfusion images are acquired post injection in multiple projections . FINDINGS: There are large matching segmental sized defects in both lungs. This is much worse on the left side c ompared to the right. I see no mismatch. I do not see any significant peripheral perfusion defect.. IMPRESSION: Bilateral numerous large matching defects consistent with very severe airway disease. There is a low to intermediate probability of pulmonary embolism.
[2019-01-30] MEDS ORDERED: HEPARIN SODIUM,PORCINE 10,000 UNIT/ML 1 ML VIAL IV ONE (19:42)
[2019-01-30] MEDS ORDERED: HEPARIN SODIUM,PORCINE 5,000 UNIT/ML 1 ML VIAL IV PRN (19:42)
[2019-01-30] MEDS ORDERED: NALOXONE 0.4 MG/ML 1 ML VIAL IV PRN (19:43)
[2019-01-30] MEDS ORDERED: ONDANSETRON 4 MG/2 ML VIAL IVP PRN (19:43)
[2019-01-30] MEDS ORDERED: HEPARIN SOD,PORK IN 0.45% NACL 25,000 UNIT in 0.45% NACL 1 250ML.BAG IV SCH (19:45)
[2019-01-31] MEDS: oxyCODONE-APAP 5-325MG 1 EACH TAB PO PRN ×2 (01:11→17:42)
[2019-01-31] MEDS: ALPRAZolam 0.25 MG TAB PO PRN (02:30)
[2019-01-31 03:54] LABS: Basophils % (A) 0 %; Eosinophils # (A) 0.4 k/uL (0-0.7); Eosinophils % (A) 5 %; HCT 36.8 % (39.0-53.0); HGB 11.9 gm/dL (13.0-17.5); Lymphocytes # (A) 2.5 k/uL (1.0-4.8); Lymphocytes % (A) 26 %; MCH 29.4 pg (25.0-35.0); MCHC 32.2 g/dL (31.0-37.0); MCV 91.3 fL (80.0-100.0); Monocytes # (A) 0.7 k/uL (0-1.0); Monocytes % (A) 7 %; Neutrophils # (A) 5.8 k/uL (1.3-7.7); Neutrophils % (A) 61 %; Platelet Count 186 k/uL (150-450); RBC 4.03 m/uL (4.30-5.90); RDW 15.1 % (11.5-15.5); WBC 9.5 k/uL (3.8-10.6)
[2019-01-31] MEDS ORDERED: NITROGLYCERIN SL TABS 0.4 MG TAB SUBLINGUAL PRN (09:22)
--- NOTE | 2019-01-31 09:50 | P.CRDCN ---
History of Present Illness Consult date: 01/31/19 Reason for Consult (text): Shortness of breath, dyspnea on exertion History of present illness: This is an 88-year-old male patient of Dr. Allen with past medical history of ischemic cardiomyopathy status post prior bypass surgery and permanent pacemaker, paroxysmal atrial fibrillation on anticoagulation with eliquis, hypertension, chronic kidney disease. Patient states he came into [facility] emergency center due to left flank pain. He denies any nausea or vomiting. He does not recall when he had his last bowel movement. He does state he has history of kidney stones. He denies any diarrhea. Patient states he does have a chronic cough and shortness of breath with exertion which is at his baseline. He denies any worsening of his shortness of breath. He denies any chest pain. Patient's d-dimer was elevated and he underwent a VQ scan that was low to intermediate probability for pulmonary embolism. There was severe airway disease noted. Patient was started on a heparin drip. A chest x-ray shows no acute findings. Patient has upset at the time of evaluation as he is concerned that his morphine which he has been on long-term has not been resumed and the ER physician started him on Percocet as replacement. EKG reveals atrial paced rhythm. Laboratory studies: Troponins are 0.017, 0.025, 0.026. ProBNP 2500, d-dimer 1.90. BUN 32, creatinine 1.99, WBC 8.6, hemoglobin 12.6, platelet count 200. Echocardiogram in November 2017 revealed EF of 60-65%, moderate aortic stenosis, mild tricuspid regurgitation and mild pulmonary hypertension. Review Of Systems: Constitutional: No fever, no chills, no night sweats. No weight change. No weakness, fatigue or lethargy. No daytime sleepiness. EENT: No headache. No blurred vision or double vision, no loss of vision. No loss of Hearing, no ringing in the ears, no dizziness. No nasal drainage or congestion. No epistaxis. No sore throat. Lungs: Reports chronic shortness of breath, reports cough, no sputum production. No wheezing. Cardiovascular: No chest pain, denies lower extremity edema. No palpitations. No paroxysmal nocturnal dyspnea. No orthopnea. No lightheadedness or dizziness. No syncopal episodes. Abdominal: No abdominal pain. No nausea, vomiting. No diarrhea. No constipation. No bloody or tarry stools.. No loss of appetite. Genitourinary: No dysuria, increased frequency, urgency. No urinary retention. Reports left flank pain Musculoskeletal: No myalgias. No muscle weakness, no gait dysfunction, no geno quent falls. No back pain. No neck pain. Integumentary: No wounds, no lesions. No rash or pruritus. No unusual bruising. No change in hair or nails. Neurologic: No aphasia. No facial droop. No change in mentation. No head injury. No headache. No paralysis. No paresthesia. Psychiatric: No depression. No anxiety. No mood swings. Endocrine: No abnormal blood sugars. No weight change. No excessive sweating or thirst. No cold intolerance. No weight change. Gen: This is an 88-year-old male. He is resting in bed and is comfortable. He appears to be in no acute distress. HEENT: Head is atraumatic, normocephalic. Pupils equal, round. Sclerae is anicteric. NECK: Supple. No JVD. No lymphadenopathy. No thyromegaly. LUNGS: Scattered expiratory wheeze. No intercostal retractions. HEART: Regular rate and rhythm. No murmur. ABDOMEN: Soft. Bowel sounds are present. No masses. No tenderness. No CVA tenderness bilaterally. EXTREMITIES: Trace bilateral pedal edema. No calf tenderness. NEUROLOGICAL: Patient is awake, alert and oriented x3. Cranial nerves 2 through 12 are grossly intact. Assessment: Exertional shortness of breath Troponins are not indicative of acute coronary syndrome History of coronary artery disease with prior bypass surgery History of ischemic cardiomyopathy, most recently with normal EF Paroxysmal atrial fibrillation Moderate aortic stenosis Possible mild exacerbation of COPD Chronic kidney disease Plan: The patient will be resumed on his home medications including aspirin 81 mg daily, atorvastatin 80 mg daily, Coreg 12.5 mg twice daily, Plavix 75 mg daily, Lasix 40 mg in the a.m. and 20 mg in the afternoon, hydralazine 12.5 mg twice daily, Imdur 60 mg daily and nitroglycerin sublingual. Heparin drip may be discontinued. Further recommendations to follow based upon clinical course. Thank you kindly for this consultation. Nurse practitioner note has been reviewed, I agree with documented findings and plan of care. Patient was seen and examined. 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 Last Myocardial Infarction Date:: 06/2018 History of Any Multi-Drug Resistant Organisms: None Reported Past Surgical History: Cholecystectomy, Coronary Bypass/CABG, Heart Catheterization, Pacemaker Additional Past Surgical History / Comment(s): Pacemaker in June 2018, 2008 CABG-pt believes was 5 vessel done down in [place], colonoscopy-normal, bilateral cataract removals. Past Anesthesia/Blood Transfusion Reactions: No Reported Reaction, Motion Sickness Type of Cardiac Device: Permanent Pacemaker Device Placement Date:: 06/2018 Past Psychological History: Depression Additional Psychological History / Comment(s): Pt resides alone. He uses a walker to ambulate. He has a nebulizer and a CPap machine. He drives some. He manages his own medications. He cooks some. Smoking Status: Current every day smoker Past Alcohol Use History: None Reported, Occasional Additional Past Alcohol Use History / Comment(s): Pt states he started smoking as a teen and is a 4 cigarette/day smoker. Past Drug Use History: None Reported - Past Family History Father Family Medical History: Dementia Additional Family Medical History / Comment(s): Pt does not recall any parent medical hx at this time. Mother Family Medical History: No Reported History Additional Family Medical History / Comment(s): Mother was healthy. Medications and Allergies Home Medications Medication Instructions Recorded Confirmed Type Atorvastatin [Lipitor] 80 mg PO HS 07/04/18 01/30/19 History Clopidogrel Bisulfate [Plavix] 75 mg PO DAILY 07/04/18 01/30/19 History Isosorbide Mononitrate ER [Imdur] 60 mg PO DAILY 07/04/18 01/30/19 History Sertraline HCl [Zoloft] 100 mg PO DAILY 07/04/18 01/30/19 History Nitroglycerin Sl Tabs [Nitrostat] 0.4 mg SUBLINGUAL Q5M PRN #100 tab 07/07/18 01/30/19 Rx Apixaban [Eliquis] 2.5 mg PO BID@1200,2100 11/25/18 01/30/19 History Aspirin EC [Ecotrin Low Dose] 81 mg PO DAILY@1200 11/25/18 01/30/19 History Carvedilol [Coreg*] 12.5 mg PO BID 11/25/18 01/30/19 History Ipratropium/Albuterol Sulfate 1 puff INHALATION RT-TID PRN 11/25/18 01/30/19 History [Combivent Respimat Inhaler] Morphine Sulfate ER [Ms Contin] 15 mg PO BID 11/25/18 01/30/19 History Potassium Chloride [Klor-Con 20] 20 meq PO BID 11/25/18 01/30/19 History Ranitidine HCl [Zantac] 150 mg PO BID 11/25/18 01/30/19 History Furosemide [Lasix] 20 mg PO DAILY@1400 #1 tab 11/28/18 01/30/19 Rx Furosemide [Lasix] 40 mg PO DAILY@0900 #90 tab 11/28/18 01/30/19 Rx hydrALAZINE HCL [Apresoline] 12.5 mg PO BID 01/30/19 01/30/19 History Allergies Allergy/AdvReac Type Severity Reaction Status Date / Time No Known Allergies Allergy Verified 01/30/19 20:20 Physical Exam Vitals: Vital Signs Temp Pulse Pulse Resp BP BP Pulse Ox 01/31/19 04:16 20 01/31/19 04:00 98.1 F 71 16 134/72 93 L 01/31/19 00:45 98.4 F 69 20 160/73 93 L 01/30/19 19:54 70 20 174/72 94 L 01/30/19 19:08 98.0 F 70 18 199/94 94 L 01/30/19 17:18 66 18 161/80 98 01/30/19 15:19 98.5 F 70 18 200/95 96 Intake and Output 01/30/19 01/31/19 01/31/19 22:59 06:59 14:59 Intake Total 128.164 Output Total 200 Balance -71.836 Intake: Intake, IV Titration 128.164 Amount Heparin Sod,Pork in 0.45% 128.164 NaCl 25,000 unit In 0.45 % NaCl 1 250ml.bag @ 18 UNITS/KG/HR 15.921 mls/hr IV .[id number] [facility] Rx#: [id number] Output: Urine 200 Other: Voiding Method Toilet # Voids 1 Weight 88.451 kg 88.7 kg Results 01/31/19 03:03 01/30/19 15:28 Cardiac Enzymes 01/30/19 01/30/19 01/30/19 Range/Units 15:28 15: 22:02 AST 22 (17-59) U/L Troponin I 0.017 0.025 (0.000-0.034) ng/mL 01/31/19 Range/Units 03:03 AST (17-59) U/L Troponin I 0.026 (0.000-0.034) ng/mL Coagulation 01/30/19 01/31/19 Range/Units 15:28 03:03 PT 9.9 (9.0-12.0) sec APTT 23.2 >200.0 H* (22.0-30.0) sec CBC 01/30/19 01/31/19 Range/Units 15:28 03:03 WBC 8.6 9.5 (3.8-10.6) k/uL RBC 4.43 4.03 L (4.30-5.90) m/uL Hgb 12.6 L 11.9 L (13.0-17.5) gm/dL Hct 40.0 36.8 L (39.0-53.0) % Plt Count 200 186 (150-450) k/uL Comprehensive Metabolic Panel 01/30/19 Range/Units 15:28 Sodium 139 (137-145) mmol/L Potassium 4.4 (3.5-5.1) mmol/L Chloride 105 (98-107) mmol/L Carbon Dioxide 26 (22-30) mmol/L BUN 32 H (9-20) mg/dL Creatinine 1.99 H (0.66-1.25) mg/dL Glucose 132 H (74-99) mg/dL Calcium 8.5 (8.4-10.2) mg/dL AST 22 (17-59) U/L ALT 13 L (21-72) U/L Alkaline Phosphatase 126 (38-126) U/L Total Protein 6.5 (6.3-8.2) g/dL Albumin 3.7 (3.5-5.0) g/dL Current Medications Generic Name Dose Route Start Last Admin Trade Name Freq PRN Reason Stop Dose Admin Alprazolam 0.25 mg 01/30/19 19:43 01/31/19 02:30 Xanax PO 0.25 mg Q6HR PRN Administration Anxiety Heparin Sodium (Porcine) 0 unit 01/30/19 19:42 Heparin IV PER PROTOCOL PRN Low PTT Protocol Heparin Sodium/Sodium Chloride 250 mls @ 15.921 mls/hr 01/30/19 19:45 9 05:22 25,000 unit/ Sodium Chloride IV 18 units/kg/hr .[id number] ALEXYS 15.921 mls/hr Titration Protocol 18 UNITS/KG/HR Naloxone HCl 0.2 mg 01/30/19 19:43 Narcan IV Q2M PRN Opioid Reversal Ondansetron HCl 4 mg 01/30/19 19:43 Zofran IVP Q8HR PRN Nausea And Vomiting Oxycodone/Acetaminophen 1 each 01/30/19 19:43 01/31/19 01:11 Percocet 5-325 PO 1 each Q4HR PRN Administration Severe Pain Intake and Output 01/30/19 01/31/19 01/31/19 22:59 06:59 14:59 Intake Total 128.164 Output Total 200 Balance -71.836 Intake: Intake, IV Titration 128.164 Amount Heparin Sod,Pork in 0.45% 128.164 NaCl 25,000 unit In 0.45 % NaCl 1 250ml.bag @ 18 UNITS/KG/HR 15.921 mls/hr IV .[id number] [facility] Rx#: [id number] Output: Urine 200 Other: Voiding Method Toilet # Voids 1 Weight 88.451 kg 88.7 kg 01/31/19 03:03 01/30/19 15:28
[2019-01-31] MEDS: APIXABAN 2.5 MG TABLET PO SCH ×2 (10:36→20:48)
[2019-01-31] MEDS: CLOPIDOGREL 75 MG TAB PO SCH (10:36)
[2019-01-31] MEDS: POTASSIUM CHLORIDE ER 20 MEQ TAB.ER PO SCH ×2 (10:36→20:50)
[2019-01-31] MEDS: hydrALAZINE HCL 25 MG TAB PO SCH ×2 (10:36→20:49)
[2019-01-31] MEDS: CARVEDILOL 12.5 MG TAB PO SCH ×2 (10:37→20:48)
[2019-01-31] MEDS: ASPIRIN 81 MG PO SCH (10:37)
[2019-01-31] MEDS: MORPHINE SULFATE ER 15 MG TABLET PO SCH ×2 (10:37→20:48)
[2019-01-31] MEDS: ISOSORBIDE MONONITRATE ER 60 MG TAB.ER.24H PO SCH (10:37)
[2019-01-31 13:16] LABS: Appearance,Urine Clear (Clear); Bilirubin,Urine Negative (Negative); Blood,Urine Negative (Negative); Color,Urine Yellow; Glucose,Urine (UA) Negative (Negative); Ketones,Urine Negative (Negative); Leukocyte Esterase,Urine Negative (Negative); Nitrite,Urine Negative (Negative); Protein,Urine 1+ (Negative); RBC,Urine 1 /hpf (0-5); Specific Gravity,Urine 1.017 (1.001-1.035); Squamous Epithelial Cell,Urine <1 /hpf (0-4); Urobilinogen,Urine <2.0 mg/dL (<2.0)
[2019-01-31] MEDS: FUROSEMIDE 20 MG TAB PO SCH (13:49)
[2019-01-31] MEDS: ATORVASTATIN 80 MG TAB PO SCH (20:50)
--- NOTE | 2019-01-31 22:37 | CT ---
EXAMINATION TYPE: CT abdomen pelvis wo con DATE OF EXAM: 01/31/2019 COMPARISON: None HISTORY: left flank pain CT DLP: 880.8 mGycm Automated exposure control for dose reduction was used. TECHNIQUE: Helical acquisition of images was performed from the lung bases through the pelvis. FINDINGS: There is some mild scarring and subsegmental atelectasis at the lung bases. There is no pleural effus ion. There is hiatal hernia. There is no pericardial effusion. There are calcified splenic granulomata. There are small calcified hepatic granulomata. Bile ducts ar e not dilated. There is no pancreatic mass. There are clips from cholecystectomy. There is no adrenal mass. Kidneys have normal size and contour. There is mild symmetric atrophy. Ther e is 2.2 cm cortical cyst lower pole left kidney. There is 2 cm cortical cyst medial lower pole left kidney. Ureters are not dilated. There is no hydronephrosis. There is no retroperitoneal adenopathy. Abdominal aorta is atheromatous. There is retained fecal material in the rectum. Rectum measures 7 cm . Bladder distends smoothly. There is no inguinal hernia. There is no free fluid in the pelvis. There are numerous sigmoid diverticula. There are scattered diverticula in the remainder of the colon. Ter josh ileum appears normal. Appendix appears normal. 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 There is no mesenteric edema. There is no ascites or free air. There is no evidence of small bowel ob struction. There is spurring in the lumbar spine. I see no bony destructive process. Bony pelvis is intact. IMPRESSION: SIGMOID DIVERTICULOSIS WITHOUT DIVERTICULITIS. NO EVIDENCE OF RENAL STONE OR OBSTRUCTION. MILD RENAL ATROPHY. ATHEROSCLEROTIC VASCULAR CALCIFICATION. 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 NORMAL APPENDIX. RECTAL FECAL IMPACTION. FIBROTIC CHANGES AND ATELECTASIS AT THE LUNG BASES.
--- NOTE | 2019-02-01 01:34 | P.CNPUL ---
History of Present Illness Consult date: 01/31/19 Reason for consult: dyspnea, COPD, hypoxemia Chief complaint: Chronic cough and shortness of breath History of present illness: This is a 88-year-old very hard of hearing with prior medical history of significant for cough shortness of breath secondary to due to moderate to severe COPD came into the hospital due to left flank pain patient has significant cardiovascular history he is associated with ischemic cardiomyopathy status post bypass surgery with history of paroxysmal atrial fibrillation on anticoagulation she'll also have hypertension hypertensive cardiovascular disease and chronic kidney disease his chest x-ray is unremarkable his V/Q scan is indeterminate match defect were seen likely related to COPD, patient has echocardiogram performed in November 2017 with ejection fraction 60-65% and moderate aortic stenosis with mild pulmonary hypertension likely related to COPD, history of sleep disorder breathing and sleep apnea cannot be excluded as patient does snore Review of Systems All systems: negative Past Medical History Past Medical History: Atrial Fibrillation, Coronary Artery Disease (CAD), Heart Failure, COPD, Hearing Disorder / Deafness, Hypertension, Myocardial Infarction (SC), Renal Disease, Vascular Disorder Additional Past Medical History / Comment(s): SSS with pacemaker, CKD stage III, chronic anemia, 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 Last Myocardial Infarction Date:: 06/2018 History of Any Multi-Drug Resistant Organisms: None Reported Past Surgical History: Cholecystectomy, Coronary Bypass/CABG, Heart Catheterization, Pacemaker Additional Past Surgical History / Comment(s): Pacemaker in June 20182008 CABG-pt believes was 5 vessel done down in [place], colonoscopy-normal, bilateral cataract removals. Past Anesthesia/Blood Transfusion Reactions: No Reported Reaction, Motion Sickness Type of Cardiac Device: Permanent Pacemaker Device Placement Date:: 06/2018 Past Psychological History: Depression Additional Psychological History / Comment(s): Pt resides alone. He uses a walker to ambulate. He has a nebulizer and a CPap machine. He drives some. He manages his own medications. He cooks some. Smoking Status: Current every day smoker Past Alcohol Use History: None Reported, Occasional Additional Past Alcohol Use History / Comment(s): Pt states he started smoking as a teen and is a 4 cigarette/day smoker. Past Drug Use History: None Reported - Past Family History Father Family Medical History: Dementia Additional Family Medical History / Comment(s): Pt does not recall any parent medical hx at this time. Mother Family Medical History: No Reported History Additional Family Medical History / Comment(s): Mother was healthy. Medications and Allergies Home Medications Medication Instructions Recorded Confirmed Type Atorvastatin [Lipitor] 80 mg PO HS 07/04/18 01/30/19 History Clopidogrel Bisulfate [Plavix] 75 mg PO DAILY 07/04/18 01/30/19 History Isosorbide Mononitrate ER [Imdur] 60 mg PO DAILY 07/04/18 01/30/19 History Sertraline HCl [Zoloft] 100 mg PO DAILY 07/04/18 01/30/19 History Nitroglycerin Sl Tabs [Nitrostat] 0.4 mg SUBLINGUAL Q5M PRN #100 tab 07/07/18 01/30/19 Rx Apixaban [Eliquis] 2.5 mg PO BID@1200,2100 11/25/18 01/30/19 History Aspirin EC [Ecotrin Low Dose] 81 mg PO DAILY@1200 11/25/18 01/30/19 History Carvedilol [Coreg*] 12.5 mg PO BID 11/25/18 01/30/19 History Ipratropium/Albuterol Sulfate 1 puff INHALATION RT-TID PRN 11/25/18 01/30/19 History [Combivent Respimat Inhaler] Morphine Sulfate ER [Ms Contin] 15 mg PO BID 11/25/18 01/30/19 History Potassium Chloride [Klor-Con 20] 20 meq PO BID 11/25/18 01/30/19 History Ranitidine HCl [Zantac] 150 mg PO BID 11/25/18 01/30/19 History Furosemide [Lasix] 20 mg PO DAILY@1400 #1 tab 11/28/18 01/30/19 Rx Furosemide [Lasix] 40 mg PO DAILY@0900 #90 tab 11/28/18 01/30/19 Rx hydrALAZINE HCL [Apresoline] 12.5 mg PO BID 01/30/19 01/30/19 History Allergies Allergy/AdvReac Type Severity Reaction Status Date / Time No Known Allergies Allergy Verified 01/30/19 20:20 Physical Exam Vitals: Vital Signs Temp Pulse Pulse Resp BP BP Pulse Ox 01/31/19 13:00 69 119/56 01/31/19 12:00 98.3 F 68 18 204/88 94 L 01/31/19 08:00 98.6 F 70 18 159/66 93 L 01/31/19 04:16 20 01/31/19 04:00 98.1 F 71 16 134/72 93 L 01/31/19 00:45 98.4 F 69 20 160/73 93 L 01/30/19 19:54 70 20 174/72 94 L 01/30/19 19:08 98.0 F 70 18 199/94 94 L Intake and Output 01/31/19 01/31/19 01/31/19 06:59 14:59 22:59 Intake Total 128.164 240 Output Total 200 Balance -71.836 240 Intake: Intake, IV Titration 128.164 Amount Heparin Sod,Pork in 0.45% 128.164 NaCl 25,000 unit In 0.45 % NaCl 1 250ml.bag @ 18 UNITS/KG/HR 15.921 mls/hr IV .[id number] [facility] Rx#: [id number] Oral 240 Output: Urine 200 Other: Voiding Method Toilet Toilet # Voids 1 1 # Bowel Movements 0 Weight 88.7 kg - Constitutional General appearance: average body habitus, cooperative, disheveled - EENT Eyes: EOMI, PERRLA, poor dentition Ears: bilateral: normal - Neck Carotids: bilateral: upstroke normal Thyroid: negative: normal size - Respiratory Respiratory: bilateral: diminished, negative: dullness, rales, rhonchi, wheezing, prolonged expiration - Cardiovascular Rhythm: regular Heart sounds: normal: S1, S2 - Gastrointestinal General gastrointestinal: normal bowel sounds, soft - Integumentary Integumentary: normal - Neurologic Neurologic: CNII-XII intact - Musculoskeletal Musculoskeletal: gait normal, generalized weakness, strength equal bilaterally - Psychiatric Psychiatric: A&O x's 3, appropriate affect, intact judgment & insight Results - Laboratory Findings CBC and BMP: 01/31/19 03:03 01/30/19 15:28 PT/INR, D-dimer PT 9.9 sec (9.0-12.0) 01/30/19 15:28 INR 0.9 (<1.2) 01/30/19 15:28 D-Dimer 1.90 mg/L FEU (<0.60) H 01/30/19 15:28 Abnormal lab findings: Abnormal Labs 01/30/19 01/30/19 01/30/19 15:28 15:28 15:28 RBC Hgb 12.6 L Hct APTT D-Dimer 1.90 H BUN 32 H Creatinine 1.99 H Glucose 132 H ALT 13 L Urine Protein 01/31/19 01/31/19 01/31/19 03:03 03:03 13:00 RBC 4.03 L Hgb 11.9 L Hct 36.8 L APTT >200.0 H* D-Dimer BUN Creatinine Glucose ALT Urine Protein 1+ H - Diagnostic Findings Chest x-ray: report reviewed, image reviewed Assessment and Plan Assessment: Stable COPD Obstructive sleep apnea Paroxysmal atrial fibrillation Exertional shortness of breath due to above with significant history of ischemic cardiomyopathy Aortic stenosis Chronic kidney disease Plan: Bronchodilator as needed Optimize therapy for ischemic heart failure Continue anticoagulation with Eliquis, Deep breathing exercise incentive spirometry Sleep study as outpatient Back pain and flank pain appears to be related to diverticulosis computed tomography scan of the abdominal and pelvis reviewed Can DC heparin UA and C&S Time with Patient: Greater than 30
--- NOTE | 2019-02-01 07:24 | HP ---
HISTORY AND PHYSICAL 88-year-old male with ischemic cardiomyopathy, permanent pacemaker, CAD, bypass surgery, paroxysmal atrial fibrillation treated with Eliquis, chronic kidney disease, hypertension, came in with left flank pain. Denies any nausea, vomiting. Not sure when he had last bowel movement. He has a history of renal stones. Denies any diarrhea. He has history of COPD with chronic cough, supposed to be wearing oxygen at home. He does not wear like he is supposed to. Does not take his breathing treatments as he is directed. His D-dimer was elevated. V/Q scan shows low to intermediate PE, severe airway disease. Started on heparin drip. Cardiology was consulted for atypical chest pain. BNP 2500, D-dimer 1.9, creatinine 1.99, platelet count 200, hemoglobin 12.6. Moderate aortic stenosis, mild pulmonary hypertension. REVIEW OF SYSTEMS: Fourteen-point review of systems negative except for mentioned in HPI. PHYSICAL EXAMINATION: He is resting comfortably in bed, in no acute distress. HEAD: Normocephalic, atraumatic. Pupils equal, round, reactive. LUNGS: Clear. Mild expiratory wheeze. HEART: Regular rate and rhythm. Abdomen is mild tenderness to palpation of left flank area. Otherwise normal bowel sounds. No mass. Extremities: Trace edema. Neurologic: Cranial nerves are intact. He is alert and oriented x3. ASSESSMENT: 1. Atypical abdominal pain. 2. Elevated troponins/. 3. Exertional shortness of breath. 4. Chronic obstructive pulmonary disease. 5. Ischemic cardiomyopathy. 6. Paroxysmal atrial fibrillation. 7. Moderate aortic stenosis. 8. Chronic obstructive pulmonary disease exacerbation. 9. Chronic renal disease. 10.Left flank pain. We will do a CT scan of his abdomen. Continue his home medications. Wait for Cardiology consult. Possible discharge home if nothing serious is found. 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 Sleep apnea. He is supposed to be using sleep apnea machine, which he does not. He has history of depression also. Home medications will be restarted. Please see further orders. MMODL / IJN: [id number] /
[2019-02-01] MEDS ORDERED: NA PHOS,M-B/NA PHOS,DI-BA 133 ML ENEMA RECTAL STA (09:55)
--- NOTE | 2019-02-01 09:55 | P.GSCN ---
History of Present Illness Consult date: 02/01/19 Reason for Consult: Left-sided abdominal pain History of present illness: This is a 88-year-old male who was admitted to Dr. Julio Gonzalez service for complaints of dyspnea and shortness of breath. Patient complains of left-sided abdominal pain. He is found have evidence of diverticulosis and fecal impaction. 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 Last Myocardial Infarction Date:: 06/2018 History of Any Multi-Drug Resistant Organisms: None Reported Past Surgical History: Cholecystectomy, Coronary Bypass/CABG, Heart Catheterization, Pacemaker Additional Past Surgical History / Comment(s): Pacemaker in June 2018, 2008 CABG-pt believes was 5 vessel done down in [place], colonoscopy-normal, bilateral cataract removals. Past Anesthesia/Blood Transfusion Reactions: No Reported Reaction, Motion Sickness Type of Cardiac Device: Permanent Pacemaker Device Placement Date:: 06/2018 Past Psychological History: Depression Additional Psychological History / Comment(s): Pt resides alone. He uses a walker to ambulate. He has a nebulizer and a CPap machine. He drives some. He manages his own medications. He cooks some. Smoking Status: Current every day smoker Past Alcohol Use History: None Reported, Occasional Additional Past Alcohol Use History / Comment(s): Pt states he started smoking as a teen and is a 4 cigarette/day smoker. Past Drug Use History: None Reported - Past Family History Father Family Medical History: Dementia Additional Family Medical History / Comment(s): Pt does not recall any parent medical hx at this time. Mother Family Medical History: No Reported History Additional Family Medical History / Comment(s): Mother was healthy. Medications and Allergies Home Medications Medication Instructions Recorded Confirmed Type Atorvastatin [Lipitor] 80 mg PO HS 07/04/18 01/30/19 History Clopidogrel Bisulfate [Plavix] 75 mg PO DAILY 07/04/18 01/30/19 History Isosorbide Mononitrate ER [Imdur] 60 mg PO DAILY 07/04/18 01/30/19 History Sertraline HCl [Zoloft] 100 mg PO DAILY 07/04/18 01/30/19 History Nitroglycerin Sl Tabs [Nitrostat] 0.4 mg SUBLINGUAL Q5M PRN #100 tab 07/07/18 01/30/19 Rx Apixaban [Eliquis] 2.5 mg PO BID@1200,2100 11/25/18 01/30/19 History Aspirin EC [Ecotrin Low Dose] 81 mg PO DAILY@1200 11/25/18 01/30/19 History Carvedilol [Coreg*] 12.5 mg PO BID 11/25/18 01/30/19 History Ipratropium/Albuterol Sulfate 1 puff INHALATION RT-TID PRN 11/25/18 01/30/19 History [Combivent Respimat Inhaler] Morphine Sulfate ER [Ms Contin] 15 mg PO BID 11/25/18 01/30/19 History Potassium Chloride [Klor-Con 20] 20 meq PO BID 11/25/18 01/30/19 History Ranitidine HCl [Zantac] 150 mg PO BID 11/25/18 01/30/19 History Furosemide [Lasix] 20 mg PO DAILY@1400 #1 tab 11/28/18 01/30/19 Rx Furosemide [Lasix] 40 mg PO DAILY@0900 #90 tab 11/28/18 01/30/19 Rx hydrALAZINE HCL [Apresoline] 12.5 mg PO BID 01/30/19 01/30/19 History Allergies Allergy/AdvReac Type Severity Reaction Status Date / Time No Known Allergies Allergy Verified 01/30/19 20:20 Surgical - Exam Vital Signs Temp Pulse Resp BP Pulse Ox 98.5 F 70 18 200/95 96 01/30/19 15:19 01/30/19 15:19 01/30/19 15:19 01/30/19 15:19 01/30/19 15:19 - General well developed, well nourished, no distress - Eyes PERRL - ENT normal pinna - Neck no masses - Respiratory normal expansion - Cardiovascular Rhythm: regular - Abdomen Abdomen: soft, non tender Results - Labs 01/31/19 03:03 01/30/19 15:28 Abnormal Lab Results - Last 24 Hours (Table) 01/31/19 Range/Units 13:00 Urine Protein 1+ H (Negative) Assessment and Plan Assessment: Diverticulosis, fecal impaction. Patient will receive a Fleet enema today.
[2019-02-01] MEDS: ISOSORBIDE MONONITRATE ER 60 MG TAB.ER.24H PO SCH (10:06)
[2019-02-01] MEDS: FUROSEMIDE 20 MG TAB PO SCH ×2 (10:07→16:44)
[2019-02-01] MEDS: hydrALAZINE HCL 25 MG TAB PO SCH ×2 (10:07→20:48)
[2019-02-01] MEDS: APIXABAN 2.5 MG TABLET PO SCH ×2 (10:07→20:48)
[2019-02-01] MEDS: CLOPIDOGREL 75 MG TAB PO SCH (10:07)
[2019-02-01] MEDS: MORPHINE SULFATE ER 15 MG TABLET PO SCH ×2 (10:07→20:48)
[2019-02-01] MEDS: ASPIRIN 81 MG PO SCH (10:08)
[2019-02-01] MEDS: POTASSIUM CHLORIDE ER 20 MEQ TAB.ER PO SCH ×2 (10:08→20:48)
[2019-02-01] MEDS: CARVEDILOL 12.5 MG TAB PO SCH ×2 (10:08→20:48)
[2019-02-01] MEDS ORDERED: MAGNESIUM HYDROXIDE 2,400 MG/10 ML CUP PO PRN (10:36)
--- NOTE | 2019-02-01 12:01 | P.PN ---
Subjective Progress Note Date: 02/01/19 This is an 88-year-old male patient of Dr. Allen with past medical history of ischemic cardiomyopathy status post prior bypass surgery and permanent pacemaker, paroxysmal atrial fibrillation on anticoagulation with eliquis, hypertension, chronic kidney disease. Patient states he came into [facility] emergency center due to left flank pain. He denies any nausea or vomiting. He does not recall when he had his last bowel movement. He does state he has history of kidney stones. He denies any diarrhea. Patient states he does have a chronic cough and shortness of breath with exertion which is at his baseline. He denies any worsening of his shortness of breath. He denies any chest pain. Patient's d-dimer was elevated and he underwent a VQ scan that was low to intermediate probability for pulmonary embolism. There was severe airway disease noted. Patient had been seen in consultation yesterday by Dr. Vigil. It was felt that the patient's troponin abnormality was not indicative of acute coronary syndrome and patient was cleared for discharge home. The patient was seen and examined today overall feeling well, denies any chest discomfort. He had been seen in consultation by the surgeon who felt that his main issue was constipation. Objective - Vital Signs Vital signs: Vital Signs Temp 98.0 F 02/01/19 08:00 Pulse 74 02/01/19 08:00 Resp 18 02/01/19 08:00 BP 172/73 02/01/19 08:00 Pulse Ox 96 02/01/19 04:33 Intake & Output 01/31/19 02/01/19 02/01/19 18:59 06:59 18:59 Intake Total 480 120 Output Total 300 Balance 480 -300 120 Weight 89 kg Intake: Oral 480 120 Output: Urine 300 Other: Voiding Method Toilet Toilet Toilet # Voids 1 # Bowel Movements 0 1 - Exam HEENT: Head is atraumatic, normocephalic. Pupils equal, round. Sclerae is anicteric. NECK: Supple. No JVD. No lymphadenopathy. No thyromegaly. LUNGS: Scattered expiratory wheeze. No intercostal retractions. HEART: Regular rate and rhythm. No murmur. ABDOMEN: Soft. Bowel sounds are present. No masses. No tenderness. No CVA tenderness bilaterally. EXTREMITIES: Trace bilateral pedal edema. No calf tenderness. NEUROLOGICAL: Patient is awake, alert and oriented x3. Cranial nerves 2 through 12 are grossly intact. - Labs CBC & Chem 7: 01/31/19 03:03 01/30/19 15:28 Labs: Abnormal Lab Results - Last 24 Hours (Table) 01/31/19 Range/Units 13:00 Urine Protein 1+ H (Negative) Assessment and Plan Plan: Assessment and plan: #1 Exertional shortness of breath #2 Troponins are not indicative of acute coronary syndrome #3 History of coronary artery disease with prior bypass surgery #4 History of ischemic cardiomyopathy, most recently with normal EF #5 Paroxysmal atrial fibrillation #6 Moderate aortic stenosis #7 Possible mild exacerbation of COPD #8 Chronic kidney disease #9 possible constipation Plan from cardiology's perspective, patient may be able to be discharged home. We'll follow this patient with you now on an as-needed basis only, please don't hesitate to call with any questions DNP note has been reviewed, I agree with a documented findings and plan of care. Patient was seen and examined.
--- NOTE | 2019-02-01 20:09 | PN ---
PROGRESS NOTE SUBJECTIVE: White male admitted with atypical chest pain, left lower quadrant, left lateral flank abdominal pain following CT scan of the abdomen to be anorectal impaction which will be fixed by Surgery today. Otherwise, continue with current treatments. Cardiology will possibly clear him. He is on Xarelto b.i.d. anyway for possible pulmonary embolism and for atrial fibrillation. Continue with current treatment for COPD. ASSESSMENT: 1. Left lower quadrant abdominal pain. 2. Atypical chest pain. 3. Hypertension. 4. Chronic obstructive pulmonary disease. 5. Rectal impaction. 6. Diverticulosis. Please see further orders. Fix rectal impaction. Possible discharge home tomorrow. Cardiology will clear for discharge. MMODL / IJN: [id number] /
[2019-02-01] MEDS: ATORVASTATIN 80 MG TAB PO SCH (20:47)
[2019-02-01 20:49] VITALS: PULSE 70
[2019-02-01] MEDS: ALPRAZolam 0.25 MG TAB PO PRN (22:40)
[2019-02-02] MEDS: CARVEDILOL 12.5 MG TAB PO SCH (09:56)
[2019-02-02] MEDS: FUROSEMIDE 20 MG TAB PO SCH ×2 (09:56→15:55)
[2019-02-02] MEDS: CLOPIDOGREL 75 MG TAB PO SCH (09:56)
[2019-02-02] MEDS: hydrALAZINE HCL 25 MG TAB PO SCH (09:57)
[2019-02-02] MEDS: MORPHINE SULFATE ER 15 MG TABLET PO SCH (09:58)
[2019-02-02] MEDS: POTASSIUM CHLORIDE ER 20 MEQ TAB.ER PO SCH (09:58)
[2019-02-02] MEDS: APIXABAN 2.5 MG TABLET PO SCH (12:06)
[2019-02-02] MEDS: ASPIRIN 81 MG PO SCH (12:06)
[2019-02-02] MEDS: ISOSORBIDE MONONITRATE ER 60 MG TAB.ER.24H PO SCH (12:06)
--- NOTE | 2019-02-02 12:24 | P.PN ---
Subjective Progress Note Date: 02/02/19 CHIEF COMPLAINT: Left-sided abdominal pain HISTORY OF PRESENT ILLNESS: Patient seen and examined this morning at the bedside. Patient reports he had a large bowel movement yesterday. He is tolerating regular diet. Denies nausea or vomiting. Patient reports. Minimal left lower quadrant abdominal pain. PHYSICAL EXAM: VITAL SIGNS: Reviewed. GENERAL: Well-developed in no acute distress. HEENT: No sclera icterus. Extraocular movements grossly intact. Moist buccal mucosa. Head is atraumatic, normocephalic. ABDOMEN: Soft. Nondistended. Minimal tenderness to left lower quadrant. No peritoneal signs. NEUROLOGIC: Alert and oriented. Cranial nerves II through XII grossly intact. ASSESSMENT: 1. Fecal impaction 2. Diverticulosis PLAN: 1. Continue diet as tolerated 2. Obtain 2 view abdominal x-ray 3. No surgical intervention recommended. If XR shows continued fecal impaction, will repeat enema today Nurse practitioner note has been reviewed by physician. Signing provider agrees with the documented findings, assessment, and plan of care. Objective - Vital Signs Vital signs: Vital Signs Temp 98.1 F 02/02/19 12:00 Pulse 70 02/02/19 12:00 Resp 16 02/02/19 12:00 BP 180/84 02/02/19 12:00 Pulse Ox 95 02/02/19 12:00 Intake & Output 02/01/19 02/02/19 02/02/19 18:59 06:59 18:59 Intake Total 480 Output Total 725 700 400 Balance -245 -700 -400 Weight 85.7 kg Intake: Oral 480 Output: Urine 725 700 400 Other: Voiding Method Toilet Toilet # Bowel Movements 1 - Labs CBC & Chem 7: 01/31/19 03:03 01/30/19 15:28
--- NOTE | 2019-02-02 13:27 | CDI ---
Documentation Clarification Form Date: 02/02/2019 1:03:30 PM From: Brianna Almonte RN, CCDS Admit Date: 01/30/2019 7:58:00 PM Patient Name: Miguel Fishman Visit Number: [id number] ATTENTION: The Clinical Documentation Specialists (CDI) and [facility] Coding Staff appreciate your assistance in clarifying documentation. Please respond to the clarification below the line at the bottom and electronically sign. The CDI & [facility] Coding staff will review the response and follow-up if needed. Please note: Queries are made part of the Legal Health Record. If you have any questions, please contact the author of this message via ITS. Dr. Julio Elizabeth CHF is documented in the H&P, and Consults and requires further specificity. History/Risk Factors: ischemic cardiomyopathy, CABG, PPM, PAF, HTN, CKD Clinical Indicators: 01/31 Pulmonary Consult : "Optimize therapy for ischemic heart failure." 01/31 Cardiology Consult: "History of ischemic cardiomyopathy, most recently with normal EF" VS/Pulse OX: Temp 98.5, hr 70, RR 18, B/P 200/95, spo2 96% ra BNP: 2500 Echocardiogram Results: per Cardiology consult "normal" 01/30 Chest X Ray: No evidence for acute pulmonary disease Treatment: Coreg 12.5 mg PO BID Lasix 20 mg PO QD, Lasix 40 mg PO QD Apresoline 12.5 mg Po BID Imdur 60mg PO QD In your professional opinion, can you please clarify the acuity and type of CHF if known? Systolic Heart Failure: Acute Chronic Acute on Chronic Diastolic Heart Failure: Acute Chronic Acute on Chronic Systolic & Diastolic Heart Failure: Acute Chronic Acute on Chronic Heart Failure Unable to Determine Other, please specify (Last Revision: June 2017) MTDD
--- NOTE | 2019-02-02 14:10 | XR ---
EXAMINATION TYPE: XR abdomen 2V DATE OF EXAM: 02/02/2019 2:00 PM CLINICAL HISTORY: Abdominal pain. Fecal impaction. TECHNIQUE: Upright and supine images of the abdomen were obtained. COMPARISON: 01/30/2019. FINDINGS: Lung bases are well aerated other than very trace pleural effusion. Post CABG changes the c hest are partially visualized. Mild degree colonic fecal stasis. No dilated large or small bowel. No pneumoperitoneum seen. Advanced degenerative changes of the lumbar spine. IMPRESSION: Mild degree colonic fecal stasis. Nonobstructive bowel gas pattern.
[2019-02-02 15:13] VITALS: BP 151/70; RESP 20; TEMP 97.5
--- NOTE | 2019-02-04 13:47 | CDI ---
Documentation Clarification Form 2nd Request Date: 02/02/2019 1:03:00 PM From: Brianna Almonte RN, CCDS Admit Date: 01/30/2019 7:58:00 PM Patient Name: Miguel Fishman Visit Number: [id number] Discharge Date: 02/02/2019 5:55:00 PM ATTENTION: The Clinical Documentation Specialists (CDI) and [facility] Coding Staff appreciate your assistance in clarifying documentation. Please respond to the clarification below the line at the bottom and electronically sign. The CDI & [facility] Coding staff will review the response and follow-up if needed. Please note: Queries are made part of the Legal Health Record. If you have any questions, please contact the author of this message via ITS. Dr. Julio Elizabeth CHF is documented in the H&P, and Consults and requires further specificity. History/Risk Factors: ischemic cardiomyopathy, CABG, PPM, PAF, HTN, CKD Clinical Indicators: 01/31 Pulmonary Consult : "Optimize therapy for ischemic heart failure." 01/31 Cardiology Consult: "History of ischemic cardiomyopathy, most recently with normal EF" VS/Pulse OX: Temp 98.5, hr 70, RR 18, B/P 200/95, spo2 96% ra BNP: 2500 Echocardiogram Results: per Cardiology consult "normal" 01/30 Chest X Ray: No evidence for acute pulmonary disease Treatment: Coreg 12.5 mg PO BID Lasix 20 mg PO QD, Lasix 40 mg PO QD Apresoline 12.5 mg Po BID Imdur 60mg PO QD In your professional opinion, can you please clarify the acuity and type of CHF if known? Systolic Heart Failure: Acute Chronic Acute on Chronic Diastolic Heart Failure: Acute Chronic Acute on Chronic Systolic & Diastolic Heart Failure: Acute Chronic Acute on Chronic Heart Failure Unable to Determine Other, please specify (Last Revision: June 2017) MTDD
--- NOTE | 2019-02-10 09:35 | CDI ---
Documentation Clarification Form 3rd request Date: 02/02/2019 1:03:00 PM From: Brianna Almonte RN, CCDS Admit Date: 01/30/2019 7:58:00 PM Patient Name: Miguel Fishman Visit Number: [id number] Discharge Date: 02/02/2019 5:55:00 PM ATTENTION: The Clinical Documentation Specialists (CDI) and [facility] Coding Staff appreciate your assistance in clarifying documentation. Please respond to the clarification below the line at the bottom and electronically sign. The CDI & [facility] Coding staff will review the response and follow-up if needed. Please note: Queries are made part of the Legal Health Record. If you have any questions, please contact the author of this message via ITS. Dr. Julio Elizabeth CHF is documented in the H&P, and Consults and requires further specificity. History/Risk Factors: ischemic cardiomyopathy, CABG, PPM, PAF, HTN, CKD Clinical Indicators: 01/31 Pulmonary Consult : "Optimize therapy for ischemic heart failure." 01/31 Cardiology Consult: "History of ischemic cardiomyopathy, most recently with normal EF" VS/Pulse OX: Temp 98.5, hr 70, RR 18, B/P 200/95, spo2 96% ra BNP: 2500 Echocardiogram Results: per Cardiology consult "normal" 01/30 Chest X Ray: No evidence for acute pulmonary disease Treatment: Coreg 12.5 mg PO BID Lasix 20 mg PO QD, Lasix 40 mg PO QD Apresoline 12.5 mg Po BID Imdur 60mg PO QD In your professional opinion, can you please clarify the acuity and type of CHF if known? Systolic Heart Failure: Acute Chronic Acute on Chronic Diastolic Heart Failure: Acute Chronic Acute on Chronic Systolic & Diastolic Heart Failure: Acute Chronic Acute on Chronic Heart Failure Unable to Determine Other, please specify (Last Revision: June 2017) MTDD
--- NOTE | 2019-02-16 07:05 | CDI ---
Documentation Clarification Form 4th request Date: 02/02/2019 1:03:00 PM From: Brianna Almonte RN, CCDS Admit Date: 01/30/2019 7:58:00 PM Patient Name: Miguel Fishman Visit Number: [id number] Discharge Date: 02/02/2019 5:55:00 PM ATTENTION: The Clinical Documentation Specialists (CDI) and [facility] Coding Staff appreciate your assistance in clarifying documentation. Please respond to the clarification below the line at the bottom and electronically sign. The CDI & [facility] Coding staff will review the response and follow-up if needed. Please note: Queries are made part of the Legal Health Record. If you have any questions, please contact the author of this message via ITS. Dr. Julio Elizabeth CHF is documented in the H&P, and Consults and requires further specificity. History/Risk Factors: ischemic cardiomyopathy, CABG, PPM, PAF, HTN, CKD Clinical Indicators: 01/31 Pulmonary Consult : "Optimize therapy for ischemic heart failure." 01/31 Cardiology Consult: "History of ischemic cardiomyopathy, most recently with normal EF" VS/Pulse OX: Temp 98.5, hr 70, RR 18, B/P 200/95, spo2 96% ra BNP: 2500 Echocardiogram Results: per Cardiology consult "normal" 01/30 Chest X Ray: No evidence for acute pulmonary disease Treatment: Coreg 12.5 mg PO BID Lasix 20 mg PO QD, Lasix 40 mg PO QD Apresoline 12.5 mg Po BID Imdur 60mg PO QD In your professional opinion, can you please clarify the acuity and type of CHF if known? Systolic Heart Failure: Acute Chronic Acute on Chronic Diastolic Heart Failure: Acute Chronic Acute on Chronic Systolic & Diastolic Heart Failure: Acute Chronic Acute on Chronic Heart Failure Unable to Determine Other, please specify (Last Revision: June 2017) MTDD
--- NOTE | 2019-02-20 10:18 | DS ---
DISCHARGE SUMMARY DATE OF ADMISSION: 01/30/2019 DATE OF DISCHARGE: 02/02/2019 DISCHARGE MEDICATIONS: 1. Zoloft 100 mg daily. 2. Imdur 60 mg daily. 3. Lipitor 80 mg daily. 4. Plavix 75 mg daily. 5. Nitroglycerin sublingual p.r.n. 6. Zantac 150 b.i.d. 7. Klor-Con 20 mEq b.i.d. 8. Combivent Respimat 1 puff t.i.d. 9. Ecotrin 81 mg daily. 10.MS Contin 15 b.i.d. 11.Eliquis 2.5 b.i.d. 12.Coreg 12.5 b.i.d. 13.Lasix 40 mg daily. 14.Hydralazine 12.5 b.i.d. CONDITION: Stable. PROGNOSIS: Guarded. Ambulate as tolerated. HOSPITAL COURSE OF EVENTS: White male came in to the hospital with atypical chest pain and left-sided abdominal pain. Cardiology cleared him from cardiac status. He was found to have severe rectal impaction which needed to be treated, which was by Surgery with enemas and disimpaction. The COPD exacerbations treated with antibiotics. His V/Q scan which was related to COPD. Echo was good with moderate aortic stenosis. Continue with current treatment. Follow up as an outpatient. CONDITION: Stable. PROGNOSIS: Guarded. TAMIKA / CANDICE: [id number] /
--- NOTE | 2019-02-20 11:51 | DS ---
DISCHARGE SUMMARY Patient has acute on chronic diastolic heart failure. MMODL / IJN: [id number] /
== END 2019-02-02 17:55 | disposition home or self-care (01) | DRG 388 ==
LOC: EC 15:11 → 3SCARD 19:58
PROVIDERS: ADMIT Family Medicine; ATTEND Family Medicine
DX: K56.41 Fecal impaction (principal); I50.33 Acute on chronic diastolic (congestive) heart failure; I13.0 Hypertensive heart and chronic kidney disease with heart failure and stage 1 through stage 4 chronic kidney disease, or unspecified chronic kidney disease; J44.1 Chronic obstructive pulmonary disease with (acute) exacerbation; F17.200 Nicotine dependence, unspecified, uncomplicated; G47.33 Obstructive sleep apnea (adult) (pediatric); H91.90 Unspecified hearing loss, unspecified ear; I25.10 Atherosclerotic heart disease of native coronary artery without angina pectoris; I25.2 Old myocardial infarction; I25.5 Ischemic cardiomyopathy; I27.20 Pulmonary hypertension, unspecified; I35.0 Nonrheumatic aortic (valve) stenosis; I48.0 Paroxysmal atrial fibrillation; I50.9 Heart failure, unspecified; K57.90 Diverticulosis of intestine, part unspecified, without perforation or abscess without bleeding; N18.3 Chronic kidney disease, stage 3 (moderate); Z79.01 Long term (current) use of anticoagulants; Z79.02 Long term (current) use of antithrombotics/antiplatelets; Z79.51 Long term (current) use of inhaled steroids; Z79.82 Long term (current) use of aspirin; Z79.899 Other long term (current) drug therapy; Z87.442 Personal history of urinary calculi; Z95.1 Presence of aortocoronary bypass graft; Z99.81 Dependence on supplemental oxygen; Z90.49 Acquired absence of other specified parts of digestive tract
CPT/HCPCS: 36415; 71046; 74018; 74019; 74176; 78582; 80053; 81001; 82150; 83690; 83735; 83880; 84484; 85025; 85379; 85610; 85730; 93005; 96365; 96376; 99285

== ENCOUNTER 2019-09-29 14:21 | Inpatient (IN) | payer MEDICARE, BC ==
[2019-09-29 17:12] LABS: Basophils % (A) 0 %; Eosinophils # (A) 0.2 k/uL (0-0.7); Eosinophils % (A) 2 %; HCT 41.4 % (39.0-53.0); HGB 13.7 gm/dL (13.0-17.5); Lymphocytes # (A) 1.7 k/uL (1.0-4.8); Lymphocytes % (A) 19 %; MCH 30.7 pg (25.0-35.0); MCV 93.1 fL (80.0-100.0); Mean Platelet Volume 7.8; Monocytes # (A) 0.5 k/uL (0-1.0); Monocytes % (A) 6 %; Neutrophils # (A) 6.6 k/uL (1.3-7.7); Neutrophils % (A) 72 %; Platelet Count 168 k/uL (150-450); RBC 4.45 m/uL (4.30-5.90); RDW 14.3 % (11.5-15.5); WBC 9.2 k/uL (3.8-10.6)
[2019-09-29 17:22] LABS: Albumin 2.9 g/dL (3.5-5.0); Calcium 7.9 mg/dL (8.4-10.2); Potassium 4.8 mmol/L (3.5-5.1); Total Bilirubin 0.6 mg/dL (0.2-1.3); Total Protein 5.5 g/dL (6.3-8.2)
--- NOTE | 2019-09-29 17:40 | XR ---
EXAMINATION TYPE: XR chest 2V DATE OF EXAM: 09/29/2019 COMPARISON: 01/30/2019 INDICATION: Exacerbation of COPD TECHNIQUE: Frontal and lateral views of the chest are obtained. FINDINGS: The heart size is normal. Pacemaker overlies left chest The pulmonary vasculature is normal. The lungs are clear. There is hyperinflation flattening the diaphragms compatible COPD. IMPRESSION: 1. No acute pulmonary process. 2 COPD
[2019-09-29] MEDS: INSULIN ASPART (NovoLOG) 100 UNIT/ML VIAL SQ SCH ×2 (17:41→20:48)
[2019-09-29] MEDS: methylPREDNISolone SOD SUCCI 125 MG/2 ML VIAL IV SCH ×2 (17:48→23:28)
[2019-09-29] MEDS ORDERED: NITROGLYCERIN SL TABS 0.4 MG TAB SUBLINGUAL PRN (17:50)
[2019-09-29] MEDS: SODIUM CHLORIDE 0.9% 1,000 ML IV SCH (17:50)
[2019-09-29] MEDS: IPRATROPIUM-ALBUTEROL 3 ML NEB INHALATION SCH (20:33)
[2019-09-29] MEDS: BUDESONIDE 0.5 MG/2 ML NEBU INHALATION SCH (20:33)
[2019-09-29 20:37] LABS: Glucose,Whole Blood 169 mg/dL (75-99)
--- NOTE | 2019-09-29 20:39 | NM ---
EXAMINATION TYPE: NM pul vent and perfuse DATE OF EXAM: 09/29/2019 COMPARISON: 01/30/2019 relation perfusion study, 6 chest x-ray 09/29/2019 HISTORY: Elevated d-dimer TECHNIQUE: Utilizing inhalation of 33 mCi Tc 99m DTPA aerosol and intravenous injection of 4.8 mCi o f Tc 99m MAA, ventilation and perfusion images are acquired post injection in multiple projections. FINDINGS: Multiple patchy distribution of radiotracer is evident. There are large perfusion defects which appea r to be matched with ventilation. Mismatch ventilation perfusion defects are not apparent. There is s ome central deposition of radiotracer on ventilation. Triple matched defect is not evident. IMPRESSION: 1. Indeterminant for pulmonary embolism based on the current examination. Findings are compatible wit h COPD. 2. Exam however is stable from a previous ventilation/perfusion exam.
[2019-09-29] MEDS: ATORVASTATIN 80 MG TAB PO SCH (20:49)
[2019-09-29] MEDS: MORPHINE SULFATE ER 15 MG TABLET PO SCH (20:49)
[2019-09-29] MEDS: hydrALAZINE HCL 25 MG TAB PO SCH (20:51)
[2019-09-29 23:51] LABS: Appearance,Urine Clear (Clear); Bilirubin,Urine Negative (Negative); Blood,Urine Negative (Negative); Color,Urine Yellow; Glucose,Urine (UA) Negative (Negative); Ketones,Urine Negative (Negative); Leukocyte Esterase,Urine Negative (Negative); Nitrite,Urine Negative (Negative); Protein,Urine Trace (Negative); Specific Gravity,Urine 1.008 (1.001-1.035); Urobilinogen,Urine <2.0 mg/dL (<2.0)
[2019-09-30] MEDS: CALCIUM CARBONATE 500 MG CHEWABLE PO PRN ×3 (00:31→21:28)
--- NOTE | 2019-09-30 00:34 | US ---
EXAMINATION TYPE: US venous doppler duplex LE DATE OF EXAM: 09/30/2019 12:10 AM COMPARISON: NONE CLINICAL HISTORY: Elevated D Dimer . Elevated D-Dimer. No hx of DVT. Patient claims he takes a blood thinner. SIDE PERFORMED: Bilateral TECHNIQUE: The lower extremity deep venous system is examined utilizing real time linear array sonog analisa with graded compression, doppler sonography and color-flow sonography. VESSELS IMAGED: External Iliac Vein (EIV) Common Femoral Vein Deep Femoral Vein Greater Saphenous Vein * Femoral Vein Popliteal Vein Small Saphenous Vein * Proximal Calf Veins (* superficial vessels) Right Leg: No evidence of DVT in veins imaged at this time from prox calf veins to EIV. Calf edema s een. Left Leg: No evidence of DVT in veins imaged at this time from prox calf veins to EIV. Anechoic area seen left popliteal fossa: 4.4 x 2.1 x 1.2 cm. IMPRESSION: No sign of deep vein thrombosis in both legs. Left side popliteal cyst is noted.
[2019-09-30 07:01] LABS: Glucose,Whole Blood 205 mg/dL (75-99)
[2019-09-30] MEDS: INSULIN ASPART (NovoLOG) 100 UNIT/ML VIAL SQ SCH ×4 (07:34→20:28)
[2019-09-30] MEDS: methylPREDNISolone SOD SUCCI 125 MG/2 ML VIAL IV SCH ×3 (07:34→23:54)
[2019-09-30] MEDS: MORPHINE SULFATE ER 15 MG TABLET PO SCH ×2 (07:35→20:32)
[2019-09-30] MEDS: SERTRALINE 100 MG TAB PO SCH (07:35)
[2019-09-30] MEDS: hydrALAZINE HCL 25 MG TAB PO SCH ×2 (07:35→20:28)
[2019-09-30] MEDS: ISOSORBIDE MONONITRATE ER 60 MG TAB.ER.24H PO SCH (07:36)
[2019-09-30] MEDS: ASPIRIN 81 MG PO SCH (07:36)
[2019-09-30] MEDS: IPRATROPIUM-ALBUTEROL 3 ML NEB INHALATION SCH ×3 (08:31→20:10)
[2019-09-30] MEDS: BUDESONIDE 0.5 MG/2 ML NEBU INHALATION SCH ×2 (08:31→20:10)
[2019-09-30] MEDS ORDERED: NON FORMULARY DRUG (Fish Oil/Dha/Epa [Fish Oil 1,200 Mg Fish Oil] 1 CAP) PO SCH (09:00)
[2019-09-30] MEDS ORDERED: CLOPIDOGREL 75 MG TAB PO SCH (09:00)
--- NOTE | 2019-09-30 11:00 | P.CNPUL ---
History of Present Illness Consult date: 09/30/19 Reason for consult: dyspnea, cough, COPD Chief complaint: Shortness of breath and cough History of present illness: This is a 88-year-old male with the history of extensive smoking the past and baseline COPD, patient is extremely hard of hearing, data predominantly obtained from the chart as well as the patient, patient has a baseline medical problems of mood disorder depression along with agitated dementia, hypertension hypertensive cardiovascular disease and coronary artery disease dyslipidemia and chronic pain syndrome came into the hospital with increasing shortness of breath, his chest x-ray is negative for any acute pulmonary process however hyperinflated with flattened diaphragm consistent with COPD patient also has a pacemaker, his VQ scan was performed due to elevated d-dimer consistent with COPD-like changes with mashed affect present bilaterally and multiple it was considered to be indeterminate for Pulmonary embolism, duplex ultrasound the lower extremity has been performed which is negative for DVT and is comfortable off of oxygen denies any chest pain or shortness of breath, his labs are s ignificant for elevated d-dimer, with the renal function suggestive of chronic kidney disease the BUN/creatinine 17 and 1.63 GFR of 43, BNP is 11,700, urine analysis fairly unremarkable, his covid 19 panel is pending Review of Systems All systems: negative Past Medical History Past Medical History: Atrial Fibrillation, Coronary Artery Disease (CAD), Heart Failure, COPD, Hearing Disorder / Deafness, Hypertension, Myocardial Infarction ([place]), Renal Disease, Vascular Disorder Additional Past Medical History / Comment(s): SSS with pacemaker, CKD stage III, chronic anemia, 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 Last Myocardial Infarction Date:: 06/2018 History of Any Multi-Drug Resistant Organisms: None Reported Past Surgical History: Cholecystectomy, Coronary Bypass/CABG, Heart Catheterization, Pacemaker Additional Past Surgical History / Comment(s): Pacemaker in June 20182008 CABG-pt believes was 5 vessel done down in [place], colonoscopy-normal, bilateral cataract removals. Past Anesthesia/Blood Transfusion Reactions: No Reported Reaction, Motion Sickness Type of Cardiac Device: Permanent Pacemaker Device Placement Date:: 06/2018 Past Psychological History: Depression Additional Psychological History / Comment(s): Pt resides alone. He uses a walker to ambulate. He has a nebulizer and a CPap machine. He drives some. He manages his own medications. He cooks some. Smoking Status: Current every day smoker Past Alcohol Use History: None Reported, Occasional Additional Past Alcohol Use History / Comment(s): Pt states he started smoking as a teen and is a 4 cigarette/day smoker. Past Drug Use History: None Reported - Past Family History Father Family Medical History: Dementia Additional Family Medical History / Comment(s): Pt does not recall any parent medical hx at this time. Mother Family Medical History: No Reported History Additional Family Medical History / Comment(s): Mother was healthy. Medications and Allergies Home Medications Medication Instructions Recorded Confirmed Type Atorvastatin [Lipitor] 80 mg PO HS 07/04/18 09/29/19 History Clopidogrel Bisulfate [Plavix] 75 mg PO DAILY 07/04/18 09/29/19 History Isosorbide Mononitrate ER [Imdur] 60 mg PO DAILY 07/04/18 09/29/19 History Sertraline HCl [Zoloft] 100 mg PO DAILY 07/04/18 09/29/19 History Nitroglycerin Sl Tabs [Nitrostat] 0.4 mg SUBLINGUAL Q5M PRN #100 tab 07/07/18 09/29/19 Rx Aspirin EC [Ecotrin Low Dose] 81 mg PO DAILY 11/25/18 09/29/19 History Ipratropium/Albuterol Sulfate 1 puff INHALATION RT-TID PRN 11/25/18 09/29/19 History [Combivent Respimat Inhaler] Morphine Sulfate ER [Ms Contin] 15 mg PO BID 11/25/18 09/29/19 History hydrALAZINE HCL [Apresoline] 25 mg PO BID 01/30/19 09/29/19 History Fish Oil/Dha/Epa [Fish Oil 1,200 1 cap PO DAILY 09/29/19 09/29/19 History mg Fish Oil] Memantine [Namenda] 5 mg PO DAILY 09/30/19 09/30/19 History Allergies Allergy/AdvReac Type Severity Reaction Status Date / Time amoxicillin AdvReac Cough Verified 09/29/19 17:02 chlorpromazine AdvReac Unknown Verified 09/29/19 17:04 [From Thorazine] gemfibrozil AdvReac Unknown Verified 09/29/19 17:04 lisinopril AdvReac Cough Verified 09/29/19 17:04 metformin AdvReac Diarrhea Verified 09/29/19 17:04 methadone AdvReac Unknown Verified 09/29/19 17:04 Physical Exam Vitals: Vital Signs Temp Pulse Pulse Pulse Resp BP BP 09/30/19 08:51 80 09/30/19 08:31 76 09/30/19 07:45 18 09/30/19 07:00 97.7 F 69 18 150/65 09/30/19 03:52 18 09/30/19 01:45 160/90 09/30/19 00:12 97.6 F 89 16 173/71 09/29/19 23:27 18 09/29/19 20:51 84 160/88 09/29/19 20:34 84 09/29/19 18:53 98.6 F 81 16 164/63 09/29/19 15:00 97.7 F 85 18 169/87 Pulse Ox 09/30/19 08:51 09/30/19 08:31 09/30/19 07:45 09/30/19 07:00 95 09/30/19 03:52 09/30/19 01:45 09/30/19 00:12 96 09/29/19 23:27 09/29/19 20:51 09/29/19 20:34 09/29/19 18:53 94 L 09/29/19 15:00 96 Intake and Output 09/29/19 09/30/19 09/30/19 22:59 06:59 14:59 Intake Total 400 400 Output Total 250 Balance 150 400 Intake: Intake, IV Titration 400 400 Amount Sodium Chloride 0.9% 1, 400 400 000 ml @ 50 mls/hr IV . Q20H [facility] Rx#:[id number] Output: Urine 250 Other: # Voids 1 2 Weight 85.729 kg - Constitutional General appearance: average body habitus, cooperative, disheveled - EENT Eyes: EOMI, PERRLA Ears: bilateral: normal - Neck Neck: normal ROM Carotids: bilateral: upstroke normal - Respiratory Respiratory: bilateral: diminished - Cardiovascular Rhythm: regular Heart sounds: normal: S1, S2 - Gastrointestinal General gastrointestinal: distended, normal bowel sounds - Integumentary Integumentary: normal turgor - Neurologic Neurologic: CNII-XII intact - Musculoskeletal Musculoskeletal: gait normal, generalized weakness - Psychiatric Psychiatric: A&O x's 3, appropriate affect, intact judgment & insight Results - Laboratory Findings CBC and BMP: 09/29/19 16:51 09/29/19 16:51 PT/INR, D-dimer D-Dimer 5.77 mg/L FEU (<0.60) H 09/29/19 16:51 Abnormal lab findings: Abnormal Labs 09/29/19 09/29/19 09/29/19 16:51 16:51 20:28 D-Dimer 5.77 H Sodium 136 L Creatinine 1.63 H Glucose 120 H POC Glucose (mg/dL) 169 H Calcium 7.9 L Total Protein 5.5 L Albumin 2.9 L Urine Protein 09/29/19 09/30/19 23:31 07:00 D-Dimer Sodium Creatinine Glucose POC Glucose (mg/dL) 205 H Calcium Total Protein Albumin Urine Protein Trace H - Diagnostic Findings Chest x-ray: report reviewed, image reviewed (As noted above) Assessment and Plan Assessment: Acute COPD exacerbation Tracheobronchitis History of coronary artery disease Chronic kidney disease Elevated d-dimer likely due to chronic inflammatory process Covid19 testing is pending Plan: Continue breathing treatments IV steroids We'll put on oral doxycycline Monitor renal function and electrolytes closely Further workup like CAT scan in light of renal failure will likely put patient on further damage to the kidneys will monitor off of it Elevated d-dimer is likely due to chronic inflammatory processes history is not consistent with pulmonary embolism and risk is low, we'll initiate patient on DVT prophylaxis with Lovenox 40 mg subcu daily Time with Patient: Greater than 30
[2019-09-30] MEDS ORDERED: ENOXAPARIN 40 MG/0.4 ML SYRINGE SQ SCH (11:15)
[2019-09-30] MEDS: DOXYCYCLINE 100 MG CAP PO SCH ×2 (11:51→20:28)
[2019-09-30 11:59] LABS: Glucose,Whole Blood 235 mg/dL (75-99)
[2019-09-30 13:23] LABS: Calcium 8.2 mg/dL (8.4-10.2)
[2019-09-30 13:26] LABS: Potassium 4.9 mmol/L (3.5-5.1)
[2019-09-30 13:27] LABS: Magnesium 1.9 mg/dL (1.6-2.3)
[2019-09-30] MEDS: SODIUM CHLORIDE 0.9% 1,000 ML IV SCH (13:30)
[2019-09-30] MEDS: FUROSEMIDE 40 MG TAB PO SCH (13:34)
--- NOTE | 2019-09-30 14:09 | P.CRDCN ---
History of Present Illness History of present illness: HISTORY OF PRESENTING ILLNESS This is a pleasant 88-year-old male past medical history significant for paroxysmal atrial fibrillation, sick sinus syndrome status post permanent pacemaker implantation, coronary artery disease status post bypass grafting, ischemic cardiomyopathy, chronic kidney disease, peripheral vascular disease and chronic nicotine dependence. He follows in the office with Dr. Allen. We have been asked to see in consultation for chest pain. He states since eating breakfast this morning he is feeling a burning aching sensation in the midsternal region that starts in the epigastric area and radiates up into the base of his neck. It is not exacerbated by deep inspiration or palpation. It is not worsened by movement of his torso. He has no radiation through to the back, down the arms, into the neck or the jaw. He has no associated worsening shortness of breath. He was sent to the hospital by his PCP for shortness of breath. He underwent a VQ scan was indeterminate for pulmonary embolism. He has been seen by pulmonary service and they do not believe he has a PE. He is currently being treated for exacerbation of COPD. His medication profile does not match the records from our office. He does know that he is supposed to be on Eliquis however he states he has been out of it. Review of the records indicate he had a troponin elevation in June 2018 but opted for maximal medical therapy in place of cardiac catheterization. He was initiated on Plavix at that time. DIAGNOSTICS EKG reveals ventricular paced rhythm. Repeat EKG reveals sinus mechanism with T- wave inversions inferior/laterally. When compared to previous EKG this is simil ar to June 2018. Chest xray underlying COPD with no acute cardiopulmonary process. Laboratory reviewed, CBC unremarkable, d-dimer 5.77, sodium 136, potassium 4.8, creatinine 1.63 with a GFR 38, NT proBNP 11,700. Office records reviewed. He was last seen in the office in March of this year. At that time his medications included aspirin 81 mg daily, atorvastatin 80 mg daily, carvedilol 25 mg twice a day, Plavix 75 mg daily, Eliquis 2.5 mg twice a day, hydralazine 25 mg twice a day, Imdur 60 mg daily and Lasix 40 mg in the morning and 20 mg in the afternoon. REVIEW OF SYSTEMS At the time of my exam: CONSTITUTIONAL: Denies fever or chills. CARDIOVASCULAR: Complains of chest pain and shortness of breath. Denies orthopnea, PND or palpitations. RESPIRATORY: Denies cough. GASTROINTESTINAL: Denies abdominal pain, diarrhea, constipation, nausea or vomiting. MUSCULOSKELETAL: Denies myalgias. NEUROLOGIC: Denies numbness, tingling or weakness. ENDOCRINE: Denies fatigue, weight change, polydipsia or polyurina. GENITOURINARY: Denies burning, hematuria or urgency with micturation. HEMATOLOGIC: Denies history of anemia or bleeding. PHYSICAL EXAMINATION Blood pressure 150/65 heart rate 69 afebrile and maintaining oxygen saturation on room air. CONSTITUTIONAL: No apparent distress. HEENT: Head is normocephalic. Pupils are equal, round. Sclerae anicteric. Mucous membranes of the mouth are moist. No JVD. No carotid bruit. CHEST EXAMINATION: Lungs are clear to auscultation. No chest wall tenderness is noted on palpation or with deep breathing. Diminished bilaterally. HEART EXAMINATION: Regular rate and rhythm. S1, S2 heard. Systolic ejection murmur at the base and left sternal border, no gallops or rub. ABDOMEN: Soft, nontender. Positive bowel sounds. EXTREMITIES: 2+ peripheral pulses, left lower extremity 1+ pitting edema, no edema on the right and no calf tenderness. NEUROLOGIC EXAMINATION: Patient is awake, alert and oriented x3. ASSESSMENT Chest pain, atypical for angina. Acute exacerbation of COPD Paroxysmal atrial fibrillation, currently maintaining sinus Sick sinus syndrome s/p permanent pacemaker implantation [facility] 2017 Chronic kidney disease Ischemic cardiomyopathy Hypertension Dyslipidemia Peripheral vascular disease Chronic nicotine dependence PLAN Obtain 2D echocardiogram and doppler study to assess cardiac structure and function. Resume Coreg, Eliquis and Lasix. Also initiate on Protonix. Troponins have been ordered and are pending. Further recommendations to follow based upon clinical course. Thank you kindly for this consultation. Nurse Practitioner note has been reviewed, I agree with a documented findings and plan of care. Patient was seen and examined. 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 Last Myocardial Infarction Date:: 06/2018 History of Any Multi-Drug Resistant Organisms: None Reported Past Surgical History: Cholecystectomy, Coronary Bypass/CABG, Heart Catheterization, Pacemaker Additional Past Surgical History / Comment(s): Pacemaker in June 20182008 CABG-pt believes was 5 vessel done down in [place], colonoscopy-normal, bilateral cataract removals. Past Anesthesia/Blood Transfusion Reactions: No Reported Reaction, Motion Sickness Type of Cardiac Device: Permanent Pacemaker Device Placement Date:: 06/2018 Past Psychological History: Depression Additional Psychological History / Comment(s): Pt resides alone. He uses a walker to ambulate. He has a nebulizer and a CPap machine. He drives some. He manages his own medications. He cooks some. Smoking Status: Current every day smoker Past Alcohol Use History: None Reported, Occasional Additional Past Alcohol Use History / Comment(s): Pt states he started smoking as a teen and is a 4 cigarette/day smoker. Past Drug Use History: None Reported - Past Family History Father Family Medical History: Dementia Additional Family Medical History / Comment(s): Pt does not recall any parent medical hx at this time. Mother Family Medical History: No Reported History Additional Family Medical History / Comment(s): Mother was healthy. Medications and Allergies Home Medications Medication Instructions Recorded Confirmed Type Atorvastatin [Lipitor] 80 mg PO HS 07/04/18 09/29/19 History Clopidogrel Bisulfate [Plavix] 75 mg PO DAILY 07/04/18 09/29/19 History Isosorbide Mononitrate ER [Imdur] 60 mg PO DAILY 07/04/18 09/29/19 History Sertraline HCl [Zoloft] 100 mg PO DAILY 07/04/18 09/29/19 History Nitroglycerin Sl Tabs [Nitrostat] 0.4 mg SUBLINGUAL Q5M PRN #100 tab 07/07/18 09/29/19 Rx Aspirin EC [Ecotrin Low Dose] 81 mg PO DAILY 11/25/18 09/29/19 History Ipratropium/Albuterol Sulfate 1 puff INHALATION RT-TID PRN 11/25/18 09/29/19 History [Combivent Respimat Inhaler] Morphine Sulfate ER [Ms Contin] 15 mg PO BID 11/25/18 09/29/19 History hydrALAZINE HCL [Apresoline] 25 mg PO BID 01/30/19 09/29/19 History Fish Oil/Dha/Epa [Fish Oil 1,200 1 cap PO DAILY 09/29/19 09/29/19 History mg Fish Oil] Memantine [Namenda] 5 mg PO DAILY 09/30/19 09/30/19 History Allergies Allergy/AdvReac Type Severity Reaction Status Date / Time amoxicillin AdvReac Cough Verified 09/29/19 17:02 chlorpromazine AdvReac Unknown Verified 09/29/19 17:04 [From Thorazine] gemfibrozil AdvReac Unknown Verified 09/29/19 17:04 lisinopril AdvReac Cough Verified 09/29/19 17:04 metformin AdvReac Diarrhea Verified 09/29/19 17:04 methadone AdvReac Unknown Verified 09/29/19 17:04 Physical Exam Vitals: Vital Signs Temp Pulse Pulse Pulse Resp BP BP 09/30/19 12:32 84 09/30/19 08:51 80 09/30/19 08:31 76 09/30/19 07:45 18 09/30/19 07:00 97.7 F 69 18 150/65 09/30/19 03:52 18 09/30/19 01:45 160/90 09/30/19 00:12 97.6 F 89 16 173/71 09/29/19 23:27 18 09/29/19 20:51 84 160/88 09/29/19 20:34 84 09/29/19 18:53 98.6 F 81 16 164/63 09/29/19 15:00 97.7 F 85 18 169/87 Pulse Ox 09/30/19 12:32 09/30/19 08:51 09/30/19 08:31 09/30/19 07:45 09/30/19 07:00 95 09/30/19 03:52 09/30/19 01:45 09/30/19 00:12 96 09/29/19 23:27 09/29/19 20:51 09/29/19 20:34 09/29/19 18:53 94 L 09/29/19 15:00 96 Intake and Output 09/29/19 09/30/19 09/30/19 22:59 06:59 14:59 Intake Total 400 400 Output Total 250 Balance 150 400 Intake: Intake, IV Titration 400 400 Amount Sodium Chloride 0.9% 1, 400 400 000 ml @ 50 mls/hr IV . Q20H [facility] Rx#:[id number] Output: Urine 250 Other: # Voids 1 2 Weight 85.729 kg Results 09/29/19 16:51 09/30/19 12:41 Cardiac Enzymes 09/29/19 Range/Units 16:51 AST 20 (17-59) U/L CBC 09/29/19 Range/Units 16:51 WBC 9.2 (3.8-10.6) k/uL RBC 4.45 (4.30-5.90) m/uL Hgb 13.7 (13.0-17.5) gm/dL Hct 41.4 (39.0-53.0) % Plt Count 168 (150-450) k/uL Comprehensive Metabolic Panel 09/29/19 Range/Units 16:51 Sodium 136 L (137-145) mmol/L Potassium 4.8 (3.5-5.1) mmol/L Chloride 106 (98-107) mmol/L Carbon Dioxide 24 (22-30) mmol/L BUN 17 (9-20) mg/dL Creatinine 1.63 H (0.66-1.25) mg/dL Glucose 120 H (74-99) mg/dL Calcium 7.9 L (8.4-10.2) mg/dL AST 20 (17-59) U/L ALT 9 (4-49) U/L Alkaline Phosphatase 97 (38-126) U/L Total Protein 5.5 L (6.3-8.2) g/dL Albumin 2.9 L (3.5-5.0) g/dL Current Medications Generic Name Dose Route Start Last Admin Trade Name Freq PRN Reason Stop Dose Admin Albuterol/Ipratropium 3 ml 09/29/19 20:00 09/30/19 12:32 Duoneb 0.5 Mg-3 Mg/3 Ml Soln INHALATION 3 ml RT-TID [facility] Administration Aspirin 81 mg 09/30/19 09:00 09/30/19 07:36 Aspirin PO 81 mg DAILY [facility]LEX[facility] Administration Atorvastatin Calcium 80 mg 09/29/19 21:00 09/29/19 20:49 Lipitor PO 80 mg HS ALEX[facility] Administration Budesonide 0.5 mg 09/29/19 20:00 09/30/19 08:31 Pulmicort INHALATION 0.5 mg RT-BID ALEX[facility] Administration Calcium Carbonate/Glycine 500 mg 09/30/19 00:19 09/30/19 11:42 Tums PO 500 mg QID PRN Administration Heartburn Clopidogrel Bisulfate 75 mg 09/30/19 09:00 09/30/19 07:35 Plavix PO 75 mg DAILY [facility] Administration Doxycycline Monohydrate 100 mg 09/30/19 11:15 09/30/19 11:51 Vibramycin PO 100 mg BID [facility] Administration Enoxaparin Sodium 40 mg 09/30/19 11:15 09/30/19 11:52 Lovenox SQ 40 mg DAILY [facility] Administration Hydralazine HCl 25 mg 09/29/19 21:00 09/30/19 07:35 Apresoline PO 25 mg BID [facility] Administration Sodium Chloride 1,000 mls @ 50 mls/hr 09/29/19 16:45 09/29/19 17:50 Saline 0.9% IV 50 mls/hr .Q20H [facility] Administration Insulin Aspart 0 unit 09/29/19 17:30 09/30/19 12:29 Novolog SQ 8 unit ACHS [facility] Administration Protocol Isosorbide Mononitrate 60 mg 09/30/19 09:00 09/30/19 07:36 Imdur PO 60 mg DAILY [facility] Administration Methylprednisolone Sodium Succinate 60 mg 09/29/19 16:45 09/30/19 07:34 Solu-Medrol IV 60 mg Q8HR [facility] Administration Morphine Sulfate 15 mg 09/29/19 21:00 09/30/19 07:35 Ms Contin PO 15 mg BID [facility] Administration Nitroglycerin 0.4 mg 09/29/19 17:50 Nitrostat SUBLINGUAL Q5M PRN Chest Pain Sertraline HCl 100 mg 09/30/19 09:00 09/30/19 07:35 Zoloft PO 100 mg DAILY [facility] Administration Intake and Output 09/29/19 09/30/19 09/30/19 22:59 06:59 14:59 Intake Total 400 400 Output Total 250 Balance 150 400 Intake: Intake, IV Titration 400 400 Amount Sodium Chloride 0.9% 1, 400 400 000 ml @ 50 mls/hr IV . Q20H [facility] Rx#:[id number] Output: Urine 250 Other: # Voids 1 2 Weight 85.729 kg 09/29/19 16:51 07/14/20 16:51
[2019-09-30 17:19] LABS: Glucose,Whole Blood 254 mg/dL (75-99)
[2019-09-30] MEDS: PANTOPRAZOLE 40 MG TABLET PO SCH (17:31)
[2019-09-30] MEDS: CARVEDILOL 12.5 MG TAB PO SCH (17:31)
--- NOTE | 2019-09-30 17:44 | ECHOF ---
Referral Reason:cp, sob MEASUREMENTS -------- HEIGHT: 170.2 cm WEIGHT: 85.7 kg BP: RVIDd: 4.1 cm (< 3.3) IVSd: 1.2 cm (0.6 - 1.1) LVIDd: 5.1 cm (3.9 - 5.3) LVPWd: 1.2 cm (0.6 - 1.1) IVSs: 1.3 cm LVIDs: 4.4 cm LVPWs: 1.7 cm LA Diam: 5.0 cm (2.7 - 3.8) LAESV Index (A-L): 45.19 ml/m Ao Diam: 3.0 cm (2.0 - 3.7) MV E Gonzalo: 0.51 m/s MV DecT: 272 ms MV A Gonzalo: 1.06 m/s MV E/A Ratio: 0.48 AV maxP.19 mmHg AV meanP.33 mmHg FINDINGS -------- Pacerwire seen in RV and RA. This was a technically adequate study. The left ventricular size is normal. There is mild concentric left ventricular hypertrophy. Overa ll left ventricular systolic function is normal with, an EF between 55 - 60 %. The right ventricle is normal in size. LA is severely dilated >40 ml/m2 The right atrial size is normal. There is moderate aortic stenosis present. Peak/mean gradient across the Aortic Valve is 42.19mmHg / 25.33mmHg. Mild mitral annular calcification present. Mild mitral regurgitation is present. Mild tricuspid regurgitation present. Right ventricular systolic pressure is normal at < 35 mmHg. The pulmonic valve was not well visualized. There is no pulmonic regurgitation present. The aortic root size is normal. There is no pericardial effusion. CONCLUSIONS -------- 1. Pacerwire seen in RV and RA. 2. There is mild concentric left ventricular hypertrophy. 3. Overall left ventricular systolic function is normal with, an EF between 55 - 60 %. 4. LA is severely dilated >40 ml/m2 5. There is moderate aortic stenosis present. 6. Peak/mean gradient across the Aortic Valve is 42.19mmHg / 25.33mmHg. 7. Mild mitral annular calcification present. 8. Mild mitral regurgitation is present. 9. Mild tricuspid regurgitation present. 10. There is no pericardial effusion. ENT PHYSICIAN: Gerda Dill RDCS
[2019-09-30 20:23] LABS: Glucose,Whole Blood 196 mg/dL (75-99)
[2019-09-30] MEDS: ATORVASTATIN 80 MG TAB PO SCH (20:28)
[2019-09-30] MEDS: FUROSEMIDE 20 MG TAB PO SCH (20:28)
[2019-09-30] MEDS: APIXABAN 2.5 MG TABLET PO SCH (20:28)
[2019-10-01 06:41] LABS: Glucose,Whole Blood 156 mg/dL (75-99)
[2019-10-01] MEDS: IPRATROPIUM-ALBUTEROL 3 ML NEB INHALATION SCH ×3 (07:10→19:26)
[2019-10-01] MEDS: BUDESONIDE 0.5 MG/2 ML NEBU INHALATION SCH ×2 (07:10→19:26)
[2019-10-01] MEDS: INSULIN ASPART (NovoLOG) 100 UNIT/ML VIAL SQ SCH ×4 (07:16→20:32)
[2019-10-01] MEDS: ISOSORBIDE MONONITRATE ER 60 MG TAB.ER.24H PO SCH (07:32)
[2019-10-01] MEDS: ASPIRIN 81 MG PO SCH (07:32)
[2019-10-01] MEDS: hydrALAZINE HCL 25 MG TAB PO SCH ×2 (07:33→20:31)
[2019-10-01] MEDS: PANTOPRAZOLE 40 MG TABLET PO SCH ×2 (07:33→17:05)
[2019-10-01] MEDS: FUROSEMIDE 40 MG TAB PO SCH (07:33)
[2019-10-01] MEDS: MORPHINE SULFATE ER 15 MG TABLET PO SCH ×2 (07:33→20:32)
[2019-10-01] MEDS: CARVEDILOL 12.5 MG TAB PO SCH ×2 (07:34→17:04)
[2019-10-01] MEDS: APIXABAN 2.5 MG TABLET PO SCH ×2 (07:34→20:32)
[2019-10-01] MEDS: methylPREDNISolone SOD SUCCI 125 MG/2 ML VIAL IV SCH ×3 (07:34→23:35)
[2019-10-01] MEDS: SODIUM CHLORIDE 0.9% 1,000 ML IV SCH (07:35)
[2019-10-01] MEDS: DOXYCYCLINE 100 MG CAP PO SCH ×2 (07:36→20:32)
[2019-10-01] MEDS: SERTRALINE 100 MG TAB PO SCH (07:37)
[2019-10-01 09:27] LABS: Calcium 8.2 mg/dL (8.4-10.2); Potassium 4.9 mmol/L (3.5-5.1)
--- NOTE | 2019-10-01 09:58 | P.PN ---
Subjective Progress Note Date: 10/01/19 Principal diagnosis: Acute COPD exacerbation Tracheobronchitis History of coronary artery disease Chronic kidney disease Elevated d-dimer likely due to chronic inflammatory process Covid19 testing is pending 10/01/2019, patient seen eval examined during the rounds shortness of breath stable on 2 L oxygen saturations stable some cough congestion is present but severity is stable hemodynamic status stable, patient has been evaluated by cardiovascular services my labs from today reviewed stable renal functions, medications reviewed as well him a echocardiogram revealed ejection fraction of 60% with dilated left atria patient has been started on anticoagulants for parox ysmal atrial fibrillation This is a 88-year-old male with the history of extensive smoking the past and baseline COPD, patient is extremely hard of hearing, data predominantly obtained from the chart as well as the patient, patient has a baseline medical problems of mood disorder depression along with agitated dementia, hypertension hypertensive cardiovascular disease and coronary artery disease dyslipidemia and chronic pain syndrome came into the hospital with increasing shortness of breath, his chest x-ray is negative for any acute pulmonary process however hyperinflated with flattened diaphragm consistent with COPD patient also has a pacemaker, his VQ scan was performed due to elevated d-dimer consistent with COPD-like changes with mashed affect present bilaterally and multiple it was considered to be indeterminate for Pulmonary embolism, duplex ultrasound the lower extremity has been performed which is negative for DVT and is comfortable off of oxygen denies any chest pain or shortness of breath, his labs are significant for elevated d-dimer, with the renal function suggestive of chronic kidney disease the BUN/creatinine 17 and 1.63 GFR of 43, BNP is 11,700, urine analysis fairly unremarkable, his covid 19 panel is pending Objective - Vital Signs Vital signs: Vital Signs Temp 98.1 F 10/01/19 06:53 Pulse 64 10/01/19 07:23 Resp 16 10/01/19 09:02 BP 156/68 10/01/19 06:53 Pulse Ox 95 10/01/19 06:53 Intake & Output 09/30/19 10/01/19 10/01/19 18:59 06:59 18:59 Intake Total 400 550 Output Total 250 Balance 150 550 Intake: Intake, IV Titration 400 550 Amount Sodium Chloride 0.9% 1, 400 550 000 ml @ 50 mls/hr IV . Q20H [facility] Rx#:[id number] Output: Urine 250 Other: Voiding Method Urinal Urinal - Exam General appearance: average body habitus, cooperative, disheveled - EENT Eyes: EOMI, PERRLA Ears: bilateral: normal - Neck Neck: normal ROM Carotids: bilateral: upstroke normal - Respiratory Respiratory: bilateral: diminished - Cardiovascular Rhythm: regular Heart sounds: normal: S1, S2 - Gastrointestinal General gastrointestinal: distended, normal bowel sounds - Integumentary Integumentary: normal turgor - Neurologic Neurologic: CNII-XII intact - Musculoskeletal Musculoskeletal: gait normal, generalized weakness - Psychiatric Psychiatric: A&O x's 3, appropriate affect, intact judgment & insight - Labs CBC & Chem 7: 09/29/19 16:51 10/01/19 08:45 Labs: Abnormal Lab Results - Last 24 Hours (Table) 09/30/19 09/30/19 09/30/19 Range/Units 11:58 12:41 17:15 Sodium 135 L (137-145) mmol/L Chloride (98-107) mmol/L Carbon Dioxide 20 L (22-30) mmol/L BUN 24 H (9-20) mg/dL Creatinine 1.79 H (0.66-1.25) mg/dL Glucose 250 H (74-99) mg/dL POC Glucose (mg/dL) 235 H 254 H (75-99) mg/dL Calcium 8.2 L (8.4-10.2) mg/dL 09/30/19 10/01/19 10/01/19 Range/Units 20:21 06:39 08:45 Sodium (137-145) mmol/L Chloride 109 H (98-107) mmol/L Carbon Dioxide (22-30) mmol/L BUN 32 H (9-20) mg/dL Creatinine 1.76 H (0.66-1.25) mg/dL Glucose 181 H (74-99) mg/dL POC Glucose (mg/dL) 196 H 156 H (75-99) mg/dL Calcium 8.2 L (8.4-10.2) mg/dL Assessment and Plan Assessment: Paroxysmal atrial fibrillation Acute COPD exacerbation Tracheobronchitis History of coronary artery disease Chronic kidney disease Elevated d-dimer likely due to chronic inflammatory process Covid19 testing is negative Plan: Continue breathing treatments IV steroids can be switched to oral 4-48 hours Continue oral doxycycline Monitor renal function and electrolytes closely Further workup like CAT scan in light of renal failure will likely put patient on further damage to the kidneys will monitor off of it Elevated d-dimer is likely due to chronic inflammatory processes, patient is back on anticoagulation for atrial fibrillation no need for Lovenox anymore Time with Patient: Greater than 30
[2019-10-01 11:33] LABS: Glucose,Whole Blood 185 mg/dL (75-99)
--- NOTE | 2019-10-01 13:41 | P.PN ---
Subjective HISTORY OF PRESENTING ILLNESS This is a pleasant 88-year-old male past medical history significant for paroxysmal atrial fibrillation, sick sinus syndrome status post permanent pacemaker implantation, coronary artery disease status post bypass grafting, ischemic cardiomyopathy, chronic kidney disease, peripheral vascular disease and chronic nicotine dependence. He follows in the office with Dr. Allen. Blood pressure today 156/68 heart rate 60 afebrile and maintaining oxygen saturation on nasal cannula. He states his chest pain has improved since yesterday. No worsening shortness of breath. No dizziness, palpitations, nausea or vomiting. PHYSICAL EXAMINATION CONSTITUTIONAL: No apparent distress. HEENT: Head is normocephalic. Pupils are equal, round. Sclerae anicteric. Mucous membranes of the mouth are moist. No JVD. No carotid bruit. CHEST EXAMINATION: Lungs are clear to auscultation. No chest wall tenderness is noted on palpation or with deep breathing. Diminished bilaterally. HEART EXAMINATION: Regular rate and rhythm. S1, S2 heard. Systolic ejection murmur at the base and left sternal border, no gallops or rub. EXTREMITIES: 2+ peripheral pulses, left lower extremity 1+ pitting edema, no edema on the right and no calf tenderness. ASSESSMENT Chest pain, atypical for angina. Acute exacerbation of COPD Paroxysmal atrial fibrillation, currently maintaining sinus Sick sinus syndrome s/p permanent pacemaker implantation [facility] 2017 Chronic kidney disease Ischemic cardiomyopathy Hypertension Dyslipidemia Peripheral vascular disease Chronic nicotine dependence PLAN Continue current medical regimen. No further chest pain, continue protonix along with cardiac medications. Follow up with Dr. Allen in the office. Nurse Practitioner note has been reviewed, I agree with a documented findings and plan of care. Patient was seen and examined. Objective - Vital Signs Vital signs: Vital Signs Temp 98.1 F 10/01/19 06:53 Pulse 60 10/01/19 11:29 Resp 16 10/01/19 09:02 BP 156/68 10/01/19 06:53 Pulse Ox 95 10/01/19 06:53 Intake & Output 09/30/19 10/01/19 10/01/19 18:59 06:59 18:59 Intake Total 400 550 Output Total 250 Balance 150 550 Intake: Intake, IV Titration 400 550 Amount Sodium Chloride 0.9% 1, 400 550 000 ml @ 50 mls/hr IV . Q20H [facility] Rx#:[id number] Output: Urine 250 Other: Voiding Method Urinal Urinal - Labs CBC & Chem 7: 09/29/19 16:51 10/01/19 08:45 Labs: Abnormal Lab Results - Last 24 Hours (Table) 09/30/19 09/30/19 09/30/19 Range/Units 12:41 17:15 20:21 Sodium 135 L (137-145) mmol/L Chloride (98-107) mmol/L Carbon Dioxide 20 L (22-30) mmol/L BUN 24 H (9-20) mg/dL Creatinine 1.79 H (0.66-1.25) mg/dL Glucose 250 H (74-99) mg/dL POC Glucose (mg/dL) 254 H 196 H (75-99) mg/dL Calcium 8.2 L (8.4-10.2) mg/dL 10/01/19 10/01/19 10/01/19 Range/Units 06:39 08:45 11:31 Sodium (137-145) mmol/L Chloride 109 H (98-107) mmol/L Carbon Dioxide (22-30) mmol/L BUN 32 H (9-20) mg/dL Creatinine 1.76 H (0.66-1.25) mg/dL Glucose 181 H (74-99) mg/dL POC Glucose (mg/dL) 156 H 185 H (75-99) mg/dL Calcium 8.2 L (8.4-10.2) mg/dL
--- NOTE | 2019-10-01 15:15 | PN ---
PROGRESS NOTE DATE OF SERVICE: 09/30/2019 She was admitted with COPD exacerbation, tracheobronchitis, history atrial fibrillation, coronary artery disease. Has been noncompliant with his updraft machines at home. Lungs are decreased breath sounds x4. Cardiovascular S1-S2. Hematology negative Homans. Psych flat mood and affect. D-dimer is high at 5.77. V/Q scan indeterminate blood clot. ASSESSMENT: 1. Chronic obstructive pulmonary disease exacerbation. 2. Tracheobronchitis. 3. History of coronary disease. 4. Chronic atrial fibrillation. 5. Chronic renal disease. 6. Elevated D-dimer due to chronic inflammatory process. COVID-19 pending. Continue breathing treatments, IV steroids, . Monitor electrolytes. Pulmonary saw the patient and did not think he had a pulmonary embolism. He is on Lovenox 40 mg subcu daily for DVT prophylaxis. MMODL / IJN: [id number] /
[2019-10-01 16:36] LABS: Glucose,Whole Blood 168 mg/dL (75-99)
[2019-10-01] MEDS: CALCIUM CARBONATE 500 MG CHEWABLE PO PRN (17:04)
[2019-10-01 20:08] VITALS: RESP 18
[2019-10-01 20:18] LABS: Glucose,Whole Blood 204 mg/dL (75-99)
[2019-10-01] MEDS: ATORVASTATIN 80 MG TAB PO SCH (20:31)
[2019-10-01] MEDS: FUROSEMIDE 20 MG TAB PO SCH (20:32)
--- NOTE | 2019-10-02 01:10 | PN ---
PROGRESS NOTE This is a white male who still remains, he says he is about 20% better. Seen by Cardiology and Pulmonary. ASSESSMENT: 1. Acute chronic obstructive pulmonary disease exacerbation. 2. Tracheobronchitis. 3. Coronary artery disease. 4. Chronic kidney disease. 5. Elevated D-dimer due to inflammation, slow improvement. LUNGS: Show scattered wheeze and rhonchi x4. CARDIOVASCULAR: S1, S2. HEMATOLOGY: Negative Homans. PSYCH: Fair mood and affect. PLAN: Continue with current IV antibiotics IV steroids, updraft treatments. Possible discharge home. Await for Cardiology consultation. MMODL / IJN: [id number] /
[2019-10-02] MEDS: SODIUM CHLORIDE 0.9% 1,000 ML IV SCH (05:45)
[2019-10-02 06:46] LABS: Glucose,Whole Blood 156 mg/dL (75-99)
[2019-10-02] MEDS: hydrALAZINE HCL 25 MG TAB PO SCH (07:30)
[2019-10-02] MEDS: MORPHINE SULFATE ER 15 MG TABLET PO SCH (07:30)
[2019-10-02] MEDS: PANTOPRAZOLE 40 MG TABLET PO SCH (07:30)
[2019-10-02] MEDS: SERTRALINE 100 MG TAB PO SCH (07:30)
[2019-10-02] MEDS: ISOSORBIDE MONONITRATE ER 60 MG TAB.ER.24H PO SCH (07:30)
[2019-10-02] MEDS: CARVEDILOL 12.5 MG TAB PO SCH (07:30)
[2019-10-02] MEDS: DOXYCYCLINE 100 MG CAP PO SCH (07:31)
[2019-10-02] MEDS: methylPREDNISolone SOD SUCCI 125 MG/2 ML VIAL IV SCH ×2 (07:31→15:06)
[2019-10-02] MEDS: FUROSEMIDE 40 MG TAB PO SCH (07:31)
[2019-10-02] MEDS: ASPIRIN 81 MG PO SCH (07:31)
[2019-10-02] MEDS: APIXABAN 2.5 MG TABLET PO SCH (07:31)
[2019-10-02] MEDS: INSULIN ASPART (NovoLOG) 100 UNIT/ML VIAL SQ SCH ×2 (07:31→12:33)
[2019-10-02] MEDS: IPRATROPIUM-ALBUTEROL 3 ML NEB INHALATION SCH ×2 (08:13→11:53)
[2019-10-02] MEDS: BUDESONIDE 0.5 MG/2 ML NEBU INHALATION SCH (08:13)
[2019-10-02 08:17] VITALS: PULSE 60
[2019-10-02 08:27] LABS: Calcium 7.8 mg/dL (8.4-10.2); Potassium 4.1 mmol/L (3.5-5.1)
--- NOTE | 2019-10-02 09:57 | P.PN ---
Subjective HISTORY OF PRESENTING ILLNESS This is a pleasant 88-year-old male past medical history significant for paroxysmal atrial fibrillation, sick sinus syndrome status post permanent pacemaker implantation, coronary artery disease status post bypass grafting, ischemic cardiomyopathy, chronic kidney disease, peripheral vascular disease and chronic nicotine dependence. He follows in the office with Dr. Allen. Blood pressure today 153/65 heart rate 60 afebrile and maintaining oxygen saturation on nasal cannula. He denies any further symptoms of chest pain. Breathing is stable. No dizziness or palpitations. PHYSICAL EXAMINATION CONSTITUTIONAL: No apparent distress. HEENT: Head is normocephalic. Pupils are equal, round. Sclerae anicteric. Mucous membranes of the mouth are moist. No JVD. No carotid bruit. CHEST EXAMINATION: Diffuse wheezes. No chest wall tenderness is noted on palpation or with deep breathing. Diminished bilaterally. HEART EXAMINATION: Regular rate and rhythm. S1, S2 heard. Systolic ejection murmur at the base and left sternal border, no gallops or rub. EXTREMITIES: 2+ peripheral pulses, no lower extremity edema and no calf tenderness. ASSESSMENT Chest pain, atypical for angina. Acute exacerbation of COPD Paroxysmal atrial fibrillation, currently maintaining sinus Sick sinus syndrome s/p permanent pacemaker implantation [facility] [facility] 2017 Chronic kidney disease Ischemic cardiomyopathy Hypertension Dyslipidemia Peripheral vascular disease Chronic nicotine dependence PLAN Continue current medical regimen. No further chest pain, continue protonix along with cardiac medications. Follow up with Dr. Allen in the office. We will follow along as needed, stable for discharge from a cardiac perspective. Nurse Practitioner note has been reviewed, I agree with a documented findings and plan of care. Patient was seen and examined. Objective - Vital Signs Vital signs: Vital Signs Temp 97.5 F L 10/02/19 07:00 Pulse 60 10/02/19 08:28 Resp 18 10/02/19 07:00 BP 153/65 10/02/19 07:00 Pulse Ox 92 L 10/02/19 07:00 Intake & Output 10/01/19 10/02/19 10/02/19 18:59 06:59 18:59 Intake Total 296 Output Total 300 700 400 Balance -300 -700 -104 Intake: Oral 296 Output: Urine 300 700 400 Other: Voiding Method Urinal # Voids 2 - Labs CBC & Chem 7: 09/29/19 16:51 10/02/19 07:27 Labs: Abnormal Lab Results - Last 24 Hours (Table) 10/01/19 10/01/19 10/01/19 Range/Units 11:31 16:35 20:16 BUN (9-20) mg/dL Creatinine (0.66-1.25) mg/dL Glucose (74-99) mg/dL POC Glucose (mg/dL) 185 H 168 H 204 H (75-99) mg/dL Calcium (8.4-10.2) mg/dL 10/02/19 10/02/19 Range/Units 06:44 07:27 BUN 47 H (9-20) mg/dL Creatinine 1.86 H (0.66-1.25) mg/dL Glucose 155 H (74-99) mg/dL POC Glucose (mg/dL) 156 H (75-99) mg/dL Calcium 7.8 L (8.4-10.2) mg/dL
--- NOTE | 2019-10-02 10:11 | P.PN ---
Subjective Progress Note Date: 10/02/19 Principal diagnosis: Acute COPD exacerbation Tracheobronchitis History of coronary artery disease Chronic kidney disease Elevated d-dimer likely due to chronic inflammatory process Covid19 testing is pending 10/02/2019, patient seen eval examined during the rounds labs reviewed medications reviewed overall respiratory status remains stable, patient has been on oral anticoagulant to tolerate tolerating very well, denies any chest pain hemodynamically stable 10/01/2019, patient seen eval examined during the rounds shortness of breath stable on 2 L oxygen saturations stable some cough congestion is present but severity is stable hemodynamic status stable, patient has been evaluated by cardiovascular services my labs from today reviewed stable renal functions, medications reviewed as well him a echocardiogram revealed ejection fraction of 60% with dilated left atria patient has been started on anticoagulants for paroxysmal atrial fibrillation This is a 88-year-old male with the history of extensive smoking the past and baseline COPD, patient is extremely hard of hearing, data predominantly obtained from the chart as well as the patient, patient has a baseline medical problems of mood disorder depression along with agitated dementia, hypertension hypertensive cardiovascular disease and coronary artery disease dyslipidemia and chronic pain syndrome came into the hospital with increasing shortness of breath, his chest x-ray is negative for any acute pulmonary process however hyperinflated with flattened diaphragm consistent with COPD patient also has a pacemaker, his VQ scan was performed due to elevated d-dimer consistent with COPD-like changes with mashed affect present bilaterally and multiple it was considered to be indeterminate for Pulmonary embolism, duplex ultrasound the lower extremity has been performed which is negative for DVT and is comfortable off of oxygen denies any chest pain or shortness of breath, his labs are significant for elevated d-dimer, with the renal function suggestive of chronic kidney disease the BUN/creatinine 17 and 1.63 GFR of 43, BNP is 11,700, urine analysis fairly unremarkable, his covid 19 panel is pending Objective - Vital Signs Vital signs: Vital Signs Temp 97.5 F L 10/02/19 07:00 Pulse 60 10/02/19 08:28 Resp 18 10/02/19 07:00 BP 153/65 10/02/19 07:00 Pulse Ox 92 L 10/02/19 07:00 Intake & Output 10/01/19 10/02/19 10/02/19 18:59 06:59 18:59 Intake Total 296 Output Total 300 700 400 Balance -300 -700 -104 Intake: Oral 296 Output: Urine 300 700 400 Other: Voiding Method Urinal # Voids 2 - Exam General appearance: average body habitus, cooperative, disheveled - EENT Eyes: EOMI, PERRLA Ears: bilateral: normal - Neck Neck: normal ROM Carotids: bilateral: upstroke normal - Respiratory Respiratory: bilateral: diminished - Cardiovascular Rhythm: regular Heart sounds: normal: S1, S2 - Gastrointestinal General gastrointestinal: distended, normal bowel sounds - Integumentary Integumentary: normal turgor - Neurologic Neurologic: CNII-XII intact - Musculoskeletal Musculoskeletal: gait normal, generalized weakness - Psychiatric Psychiatric: A&O x's 3, appropriate affect, intact judgment & insight - Labs CBC & Chem 7: 09/29/19 16:51 10/02/19 07:27 Labs: Abnormal Lab Results - Last 24 Hours (Table) 10/01/19 10/01/19 10/01/19 Range/Units 11:31 16:35 20:16 BUN (9-20) mg/dL Creatinine (0.66-1.25) mg/dL Glucose (74-99) mg/dL POC Glucose (mg/dL) 185 H 168 H 204 H (75-99) mg/dL Calcium (8.4-10.2) mg/dL 10/02/19 10/02/19 Range/Units 06:44 07:27 BUN 47 H (9-20) mg/dL Creatinine 1.86 H (0.66-1.25) mg/dL Glucose 155 H (74-99) mg/dL POC Glucose (mg/dL) 156 H (75-99) mg/dL Calcium 7.8 L (8.4-10.2) mg/dL Assessment and Plan Assessment: Paroxysmal atrial fibrillation Acute COPD exacerbation Tracheobronchitis History of coronary artery disease Chronic kidney disease Elevated d-dimer likely due to chronic inflammatory process Covid19 testing is negative Plan: Continue breathing treatments IV steroids can be switched to oral 4-48 hours Continue oral doxycycline Monitor renal function and electrolytes closely Further workup like CAT scan in light of renal failure will likely put patient on further damage to the kidneys will monitor off of it Elevated d-dimer is likely due to chronic inflammatory processes, patient is back on anticoagulation for atrial fibrillation no need for Lovenox anymore Time with Patient: Greater than 30
[2019-10-02 12:21] LABS: Glucose,Whole Blood 187 mg/dL (75-99)
[2019-10-02 13:45] VITALS: BP 157/73; TEMP 97.7
--- NOTE | 2019-10-02 14:44 | CDI ---
Documentation Clarification Form Date: 10/02/2019 CDS: Char Ramirez, CCS, CCDS Admit Date: 09/29/2019 Patient Name: Miguel Fishman Discharge Date: ATTENTION: The Clinical Documentation Specialists (CDI) and [facility] Coding Staff appreciate your assistance in clarifying documentation. Please respond to the clarification below the line at the bottom and electronically sign. The CDI & [facility] Coding staff will review the response and follow-up if needed. Please note: Queries are made part of the Legal Health Record. If you have any questions, please contact the author of this message via ITS. Dear Dr. Kaleb Pike: Heart Failure is documented under the patient's history in the 09/29 Pulmonary Consult & also the 09/29 Cardiology Consult without further specificity. History/Risk Factors: A fib, CAD, Heart Failure, Hypertension, CKD, [place]. Smoker. Clinical Indicators: Patient was a direct admit on 09/28 with dyspnea, cough, SOB & known COPD. VS: T 97.7, P 85, R 18, BP 160/90, PO 96 RA - 94 2Lnc BNP 09/28: 11,700 09/29 ECHO: Mild LVH, Systolic normal w/EF 55-60%, Mod Aortic Stenosis, Mild MR, Mild TR, no pericardial effusion. 09/28 CXR: Pacemaker, Lungs are clear, Hyperinflation compatible with COPD, no acute pulmonary process. Treatment: po Lasix 40 mg daily (home dose). Being treated for Acute Exacerbation of COPD with IV Solumedrol, INH Albuterol, INH Pulmicort & O2 2Lnc. In your professional opinion, can you please clarify the acuity and type of CHF if known? Heart Failure is ruled out Systolic Heart Failure: o Chronic Diastolic Heart Failure: o Chronic XX Systolic & Diastolic Heart Failure: o Chronic Unable to Determine Other, please specify (Last Revision: June 2017) MTDD
--- NOTE | 2019-10-02 15:01 | P.DS ---
Providers Date of admission: 09/29/19 14:48 Expected date of discharge: 10/02/19 Attending physician: Julio Elizabeth Consults: 09/29/19 21:38 Consult Physician Routine Consulting Provider: Malik Tim Consult Reason/Comments: Elevated D. Dimer Do you want consulting provider notified?: Yes 09/30/19 12:27 Consult Physician Routine Consulting Provider: Kaleb Pike Consult Reason/Comments: chest pain Do you want consulting provider notified?: Yes [facility] care [facility] Course: Final Diagnoses: Acute COPD exacerbation with tracheobronchitis Chest pain, atypical for angina as per cardiology Paroxysmal atrial fibrillation, currently in sinus rhythm CAD, status post CABG ischemic cardiomyopathy Sick sinus syndrome status post permanent pacemaker Hypertension Dyslipidemia Chronic kidney disease, stage Elevated d-dimer secondary to inflammation Peripheral vascular disease Chronic nicotine dependence Hospital course: This is an 88-year-old gentleman admitted with multiple medical issues including acute COPD exacerbation, tracheobronchitis, chest pain. Evaluated and treated by pulmonary and cardiology. Significant clinical imp rovement. Patient is being discharged home in stable condition with guarded prognosis. The impression and plan of care has been dictated as directed. : I performed a history and examination of this patient, discussed the same with the dictator. I agree with the dictator's note ,documented as a scribe. Any additional findings or plans will be noted. Patient Condition at Discharge: Stable Plan - Discharge Summary Discharge Rx Participant: Yes New Discharge Prescriptions: New Carvedilol [Coreg*] 25 mg PO BID-W/MEALS #180 tab Apixaban [Eliquis] 2.5 mg PO BID #180 tablet Furosemide [Lasix] 40 mg PO DAILY #180 tab predniSONE 10 mg PO DIRECTED #30 tab Pantoprazole [Protonix] 40 mg PO DAILY #30 tablet. Doxycycline [Vibramycin] 100 mg PO BID #10 cap Continue Aspirin EC [Ecotrin Low Dose] 81 mg PO DAILY Discontinued Clopidogrel Bisulfate [Plavix] 75 mg PO DAILY No Action Sertraline HCl [Zoloft] 100 mg PO DAILY Isosorbide Mononitrate ER [Imdur] 60 mg PO DAILY Atorvastatin [Lipitor] 80 mg PO HS Nitroglycerin Sl Tabs [Nitrostat] 0.4 mg SUBLINGUAL Q5M PRN #100 tab PRN Reason: Chest Pain Morphine Sulfate ER [Ms Contin] 15 mg PO BID Ipratropium/Albuterol Sulfate [Combivent Respimat Inhaler] 1 puff INHALATION RT-TID PRN PRN Reason: Shortness Of Breath hydrALAZINE HCL [Apresoline] 25 mg PO BID Fish Oil/Dha/Epa [Fish Oil 1,200 mg Fish Oil] 1 cap PO DAILY Memantine [Namenda] 5 mg PO DAILY Discharge Medication List Atorvastatin [Lipitor] 80 mg PO HS 07/04/18 [History] Isosorbide Mononitrate ER [Imdur] 60 mg PO DAILY 07/04/18 [History] Sertraline HCl [Zoloft] 100 mg PO DAILY 07/04/18 [History] Nitroglycerin Sl Tabs [Nitrostat] 0.4 mg SUBLINGUAL Q5M PRN #100 tab 07/07/18 [Rx] Aspirin EC [Ecotrin Low Dose] 81 mg PO DAILY 11/25/18 [History] Ipratropium/Albuterol Sulfate [Combivent Respimat Inhaler] 1 puff INHALATION RT- TID PRN 11/25/18 [History] Morphine Sulfate ER [Ms Contin] 15 mg PO BID 11/25/18 [History] hydrALAZINE HCL [Apresoline] 25 mg PO BID 01/30/19 [History] Fish Oil/Dha/Epa [Fish Oil 1,200 mg Fish Oil] 1 cap PO DAILY 09/29/19 [History] Memantine [Namenda] 5 mg PO DAILY 09/30/19 [History] Apixaban [Eliquis] 2.5 mg PO BID #180 tablet 10/02/19 [Rx] Carvedilol [Coreg*] 25 mg PO BID-W/MEALS #180 tab 10/02/19 [Rx] Doxycycline [Vibramycin] 100 mg PO BID #10 cap 10/02/19 [Rx] Furosemide [Lasix] 40 mg PO DAILY #180 tab 10/02/19 [Rx] Pantoprazole [Protonix] 40 mg PO DAILY #30 tablet. 10/02/19 [Rx] predniSONE 10 mg PO DIRECTED #30 tab 10/02/19 [Rx] Follow up Appointment(s)/Referral(s): [facility], [NON-STAFF] - As Needed Malik Tim MD [STAFF PHYSICIAN] - 1 Week Henry Allen MD [STAFF PHYSICIAN] - 2 Weeks
== END 2019-10-02 15:40 | disposition home health service (06) | DRG 191 ==
LOC: 4SSUR 14:48
PROVIDERS: ADMIT Family Medicine; ATTEND Family Medicine
DX: J44.1 Chronic obstructive pulmonary disease with (acute) exacerbation (principal); I13.0 Hypertensive heart and chronic kidney disease with heart failure and stage 1 through stage 4 chronic kidney disease, or unspecified chronic kidney disease; I50.32 Chronic diastolic (congestive) heart failure; I49.5 Sick sinus syndrome; N18.3 Chronic kidney disease, stage 3 (moderate); F03.90 Unspecified dementia, unspecified severity, without behavioral disturbance, psychotic disturbance, mood disturbance, and anxiety; I48.0 Paroxysmal atrial fibrillation; I73.9 Peripheral vascular disease, unspecified; F39 Unspecified mood [affective] disorder; E78.5 Hyperlipidemia, unspecified; F17.200 Nicotine dependence, unspecified, uncomplicated; G89.4 Chronic pain syndrome; H91.90 Unspecified hearing loss, unspecified ear; I25.10 Atherosclerotic heart disease of native coronary artery without angina pectoris; I25.2 Old myocardial infarction; I25.5 Ischemic cardiomyopathy; F32.9 Major depressive disorder, single episode, unspecified; G47.33 Obstructive sleep apnea (adult) (pediatric); Z20.828 Contact with and (suspected) exposure to other viral communicable diseases; I65.23 Occlusion and stenosis of bilateral carotid arteries; R07.89 Other chest pain; Z79.01 Long term (current) use of anticoagulants; Z79.02 Long term (current) use of antithrombotics/antiplatelets; Z79.82 Long term (current) use of aspirin; Z79.899 Other long term (current) drug therapy; Z79.891 Long term (current) use of opiate analgesic; Z88.0 Allergy status to penicillin; Z88.8 Allergy status to other drugs, medicaments and biological substances; Z95.0 Presence of cardiac pacemaker; Z95.1 Presence of aortocoronary bypass graft; Z90.49 Acquired absence of other specified parts of digestive tract; Z98.42 Cataract extraction status, left eye; Z98.41 Cataract extraction status, right eye; Z91.19 Patient's noncompliance with other medical treatment and regimen; Z82.0 Family history of epilepsy and other diseases of the nervous system
CPT/HCPCS: 71046; 78582; 80048; 80053; 81003; 83735; 83880; 84484; 85025; 85379; 93005; 93306; 93970; 94640

== ENCOUNTER 2020-03-07 10:38 | Emergency (ER) | payer MEDICARE, BC ==
[2020-03-07 10:47] LABS: Glucose,Whole Blood 141 mg/dL (75-99)
[2020-03-07 10:49] VITALS: TEMP 98.6
--- NOTE | 2020-03-07 11:27 | ED ---
General Adult HPI - General Chief complaint: Abdominal Pain Stated complaint: Abd Pain Time Seen by Provider: 03/07/20 11:02 Source: patient, EMS Mode of arrival: EMS Limitations: no limitations - History of Present Illness Initial comments: Dictation was produced using [employer] dictation software. please excuse any grammatical, word or spelling errors. This patient was cared for during a federal and state declared state of emergency secondary to Covid 19 Chief Complaint: 89-year-old male past medical history of A. fib, coronary viki ry disease, heart failure and COPD presents with abdominal pain. History of Present Illness: His 89-year-old male. Patient is a poor historian and is hard of hearing. Patient states he does not know why he is here. According to nurse receive report from EMS patient was brought to the emergency department for abdominal pain. Nursing reports that EMS initially evaluated patient noted that he was pale and diaphoretic. He has no complaints at this time. He feels well and is resting comfortably at bedside. The ROS documented in this emergency department record has been reviewed and confirmed by me. Those systems with pertinent positive or negative responses have been documented in the HPI. All other systems are other negative and/or noncontributory. PHYSICAL EXAM: General Impression: Alert and oriented x3, not in acute distress HEENT: Normocephalic atraumatic, extra-ocular movements intact, pupils equal and reactive to light bilaterally, mucous membranes moist. Cardiovascular: Heart regular rate and rhythm Chest: Able to complete full sentences, no retractions, no tachypnea Abdomen: abdomen soft, non-tender, non-distended, no organomegaly Musculoskeletal: Pulses present and equal in all extremities, no peripheral edema Motor: no focal deficits noted Neurological: CN II-XII grossly intact, no focal motor or sensory deficits noted Skin: Intact with no visualized rashes Psych: Normal affect and mood ED course: 89-year-old male presents with abdominal pain. Patient is a symptomatic at this time. Signs upon arrival are within acceptable limits. Laboratory evaluation obtained. CBC is negative. Metabolic panel shows potassium of 5.8. Cranium 2.19 which is around his baseline. Slight elevation of liver markers. Urinalysis is unremarkable. Patient feels well and is tolerating oral intake at 1:20 PM. Seen with her at baseline. States that he feels baseline. He does not complain of any pain. EKG interpretation: Ventricular rate 60, paced, wide QRS. No CA prolongation, no QTC prolongation, no ST or T-wave changes noted. EKG compared to 09/29/2019 showing no changes. Overall, this EKG is unremarkable Repeat potassium is 5.2. With slight hemolysis. Initial potassium most likely an error. - Related Data Home Medications Medication Instructions Recorded Confirmed Atorvastatin [Lipitor] 80 mg PO HS 07/04/18 03/07/20 Isosorbide Mononitrate ER [Imdur] 60 mg PO DAILY 07/04/18 03/07/20 Aspirin EC [Ecotrin Low Dose] 81 mg PO DAILY 11/25/18 03/07/20 Morphine Sulfate ER [Ms Contin] 15 mg PO BID 11/25/18 03/07/20 hydrALAZINE HCL [Apresoline] 25 mg PO BID 01/30/19 03/07/20 Allopurinol [Zyloprim] 100 mg PO DAILY 03/07/20 03/07/20 Carvedilol [Coreg] 25 mg PO BID 03/07/20 03/07/20 Cholecalciferol [Vitamin D3 (25 5,000 unit PO DAILY 03/07/20 03/07/20 Mcg = 1000 Iu)] Fenofibrate 160 mg PO DAILY 03/07/20 03/07/20 Furosemide [Lasix] 20 mg PO HS 03/07/20 03/07/20 Levothyroxine Sodium [Synthroid] 25 mcg PO DAILY 03/07/20 03/07/20 Previous Rx's Medication Instructions Recorded Nitroglycerin Sl Tabs [Nitrostat] 0.4 mg SUBLINGUAL Q5M PRN #100 tab 07/07/18 Furosemide [Lasix] 40 mg PO DAILY #180 tab 10/02/19 Pantoprazole [Protonix] 40 mg PO DAILY #30 tablet. 10/02/19 Allergies Allergy/AdvReac Type Severity Reaction Status Date / Time amoxicillin AdvReac Cough Verified 03/07/20 12:53 chlorpromazine AdvReac Unknown Verified 03/07/20 12:53 [From Thorazine] gemfibrozil AdvReac Unknown Verified 03/07/20 12:53 lisinopril AdvReac Cough Verified 03/07/20 12:53 metformin AdvReac Diarrhea Verified 03/07/20 12:53 methadone AdvReac Unknown Verified 03/07/20 12:53 Review of Systems ROS Statement: Those systems with pertinent positive or pertinent negative responses have been documented in the HPI. ROS Other: All systems not noted in ROS Statement are negative. 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 Last Myocardial Infarction Date:: 06/2018 History of Any Multi-Drug Resistant Organisms: None Reported Past Surgical History: Cholecystectomy, Coronary Bypass/CABG, Heart Catheterization, Pacemaker Additional Past Surgical History / Comment(s): Pacemaker in June 2018, 2008 CABG-pt believes was 5 vessel done down in [place], colonoscopy-normal, bilateral cataract removals. Past Anesthesia/Blood Transfusion Reactions: No Reported Reaction, Motion Sickness Type of Cardiac Device: Permanent Pacemaker Device Placement Date:: 06/2018 Past Psychological History: Depression Smoking Status: Current every day smoker Past Alcohol Use History: None Reported Past Drug Use History: None Reported - Past Family History Father Family Medical History: Dementia Additional Family Medical History / Comment(s): Pt does not recall any parent medical hx at this time. Mother Family Medical History: No Reported History Additional Family Medical History / Comment(s): Mother was healthy. General Exam Limitations: no limitations Course Vital Signs 03/07/20 03/07/20 10:42 12:43 Temperature 98.6 F Pulse Rate 65 61 Respiratory 18 18 Rate Blood Pressure 130/63 123/64 O2 Sat by Pulse 95 96 Oximetry Medical Decision Making - Lab Data Result diagrams: 03/07/20 11:42 03/07/20 13:24 Lab Results 03/07/20 03/07/20 03/07/20 Range/Units 10:45 11:42 11:42 WBC 7.7 (3.8-10.6) k/uL RBC 4.70 (4.30-5.90) m/uL Hgb 14.4 (13.0-17.5) gm/dL Hct 43.6 (39.0-53.0) % MCV 92.8 (80.0-100.0) fL MCH 30.7 (25.0-35.0) pg MCHC 33.1 (31.0-37.0) g/dL RDW 13.9 (11.5-15.5) % Plt Count 158 (150-450) k/uL MPV 8.4 Neutrophils % 69 % Lymphocytes % 20 % Monocytes % 5 % Eosinophils % 4 % Basophils % 1 % Neutrophils # 5.3 (1.3-7.7) k/uL Lymphocytes # 1.6 (1.0-4.8) k/uL Monocytes # 0.4 (0-1.0) k/uL Eosinophils # 0.3 (0-0.7) k/uL Basophils # 0.0 (0-0.2) k/uL Sodium 136 L (137-145) mmol/L Potassium 5.8 H (3.5-5.1) mmol/L Chloride 111 H (98-107) mmol/L Carbon Dioxide 23 (22-30) mmol/L Anion Gap 2 mmol/L BUN 31 H (9-20) mg/dL Creatinine 2.19 H (0.66-1.25) mg/dL Est GFR (CKD-EPI)AfAm 30 (>60 ml/min/1.73 sqM) Est GFR (CKD-EPI)NonAf 26 (>60 ml/min/1.73 sqM) Glucose 164 H (74-99) mg/dL POC Glucose (mg/dL) 141 H (75-99) mg/dL POC Glu Chassis Engineer ID Julio Wisdom Calcium 8.1 L (8.4-10.2) mg/dL Total Bilirubin 0.7 (0.2-1.3) mg/dL AST 79 H (17-59) U/L ALT 50 H (4-49) U/L Alkaline Phosphatase 94 (38-126) U/L Total Protein 5.8 L (6.3-8.2) g/dL Albumin 3.1 L (3.5-5.0) g/dL Lipase 152 (23-300) U/L Urine Color Urine Appearance (Clear) Urine pH (5.0-8.0) Ur Specific [place] (1.001-1.035) Urine Protein (Negative) Urine Glucose (UA) (Negative) Urine Ketones (Negative) Urine Blood (Negative) Urine Nitrite (Negative) Urine Bilirubin (Negative) Urine Urobilinogen (<2.0) mg/dL Ur Leukocyte Esterase (Negative) 03/07/20 03/07/20 Range/Units 12:45 13:24 WBC (3.8-10.6) k/uL RBC (4.30-5.90) m/uL Hgb (13.0-17.5) gm/dL Hct (39.0-53.0) % MCV (80.0-100.0) fL MCH (25.0-35.0) pg MCHC (31.0-37.0) g/dL RDW (11.5-15.5) % Plt Count (150-450) k/uL MPV Neutrophils % % Lymphocytes % % Monocytes % % Eosinophils % % Basophils % % Neutrophils # (1.3-7.7) k/uL Lymphocytes # (1.0-4.8) k/uL Monocytes # (0-1.0) k/uL Eosinophils # (0-0.7) k/uL Basophils # (0-0.2) k/uL Sodium (137-145) mmol/L Potassium 5.2 H (3.5-5.1) mmol/L Chloride (98-107) mmol/L Carbon Dioxide (22-30) mmol/L Anion Gap mmol/L BUN (9-20) mg/dL Creatinine (0.66-1.25) mg/dL Est GFR (CKD-EPI)AfAm (>60 ml/min/1.73 sqM) Est GFR (CKD-EPI)NonAf (>60 ml/min/1.73 sqM) Glucose (74-99) mg/dL POC Glucose (mg/dL) (75-99) mg/dL POC Glu Chassis Engineer ID Calcium (8.4-10.2) mg/dL Total Bilirubin (0.2-1.3) mg/dL AST (17-59) U/L ALT (4-49) U/L Alkaline Phosphatase (38-126) U/L Total Protein (6.3-8.2) g/dL Albumin (3.5-5.0) g/dL Lipase (23-300) U/L Urine Color Light Yellow Urine Appearance Clear (Clear) Urine pH 6.0 (5.0-8.0) Ur Specific [place] 1.009 (1.001-1.035) Urine Protein Negative (Negative) Urine Glucose (UA) Negative (Negative) Urine Ketones Negative (Negative) Urine Blood Negative (Negative) Urine Nitrite Negative (Negative) Urine Bilirubin Negative (Negative) Urine Urobilinogen <2.0 (<2.0) mg/dL Ur Leukocyte Esterase Negative (Negative) Disposition Clinical Impression: Abdominal pain Disposition: HOME SELF-CARE Condition: Good Instructions (If sedation given, give patient instructions): Abdominal Pain (ED) Is patient prescribed a controlled substance at d/c from ED?: No Referrals: Julio Elizabeth MD [Primary Care Provider] - 1-2 days Time of Disposition: 14:12
[2020-03-07 12:21] LABS: Albumin 3.1 g/dL (3.5-5.0); Calcium 8.1 mg/dL (8.4-10.2); Potassium 5.8 mmol/L (3.5-5.1); Total Bilirubin 0.7 mg/dL (0.2-1.3); Total Protein 5.8 g/dL (6.3-8.2)
[2020-03-07 12:35] LABS: Basophils % (A) 1 %; Eosinophils # (A) 0.3 k/uL (0-0.7); Eosinophils % (A) 4 %; HCT 43.6 % (39.0-53.0); HGB 14.4 gm/dL (13.0-17.5); Lymphocytes # (A) 1.6 k/uL (1.0-4.8); Lymphocytes % (A) 20 %; MCH 30.7 pg (25.0-35.0); MCHC 33.1 g/dL (31.0-37.0); MCV 92.8 fL (80.0-100.0); Mean Platelet Volume 8.4; Monocytes # (A) 0.4 k/uL (0-1.0); Monocytes % (A) 5 %; Neutrophils # (A) 5.3 k/uL (1.3-7.7); Neutrophils % (A) 69 %; Platelet Count 158 k/uL (150-450); RDW 13.9 % (11.5-15.5); WBC 7.7 k/uL (3.8-10.6)
[2020-03-07 12:59] LABS: Appearance,Urine Clear (Clear); Bilirubin,Urine Negative (Negative); Blood,Urine Negative (Negative); Color,Urine Light Yellow; Glucose,Urine (UA) Negative (Negative); Ketones,Urine Negative (Negative); Leukocyte Esterase,Urine Negative (Negative); Nitrite,Urine Negative (Negative); Protein,Urine Negative (Negative); Specific Gravity,Urine 1.009 (1.001-1.035); Urobilinogen,Urine <2.0 mg/dL (<2.0)
[2020-03-07 16:20] VITALS: BP 115/85; PULSE 60; RESP 16
== END 2020-03-07 16:20 | disposition home or self-care (01) ==
LOC: EC 10:38
DX: R10.9 Unspecified abdominal pain (principal); R79.89 Other specified abnormal findings of blood chemistry; I13.0 Hypertensive heart and chronic kidney disease with heart failure and stage 1 through stage 4 chronic kidney disease, or unspecified chronic kidney disease; N18.30 Chronic kidney disease, stage 3 unspecified; I50.9 Heart failure, unspecified; I48.91 Unspecified atrial fibrillation; G47.33 Obstructive sleep apnea (adult) (pediatric); H91.90 Unspecified hearing loss, unspecified ear; I25.2 Old myocardial infarction; F17.200 Nicotine dependence, unspecified, uncomplicated; Z79.899 Other long term (current) drug therapy; Z79.82 Long term (current) use of aspirin; Z79.890 Hormone replacement therapy; Z88.0 Allergy status to penicillin; Z88.8 Allergy status to other drugs, medicaments and biological substances; Z88.5 Allergy status to narcotic agent; Z99.89 Dependence on other enabling machines and devices; Z90.49 Acquired absence of other specified parts of digestive tract
CPT/HCPCS: 36415; 80053; 81003; 83690; 84132; 85025; 93005; 99284

== ENCOUNTER 2020-05-03 03:42 | Inpatient (IN) | payer MEDICARE, BC ==
[2020-05-03] MEDS ORDERED: SODIUM CHLORIDE 0.9% 1,000 ML IV STA ×2 (03:56)
[2020-05-03] MEDS ORDERED: MORPHINE SULFATE 4 MG/ML SYRINGE IV STA (03:56)
--- NOTE | 2020-05-03 03:59 | ED ---
Chest Pain HPI - General Chief Complaint: Chest Pain Stated Complaint: Chest Pain Time Seen by Provider: 05/03/20 03:56 Source: patient, EMS, RN notes reviewed, old records reviewed Mode of arrival: EMS Limitations: no limitations - History of Present Illness Initial Comments: This is a 89-year-old male DF for evaluation patient has a long, acute medical history including COPD and heart disease. Patient coming in with chest pain today. Patient does suffer from chest pain history of heart disease. Patient states symptoms are prior to arrival although improved here in the ER he presents by EMS. Patient states that after EMS arrived and the was given aspirin and nitro he does feel improved currently. No significant shortness of breath currently. MD Complaint: chest pain -: hour(s) Onset: during rest Pain Location: substernal, left chest Pain Radiation: none Severity: moderate Severity scale (1-10): 4 Quality: tightness, heaviness Consistency: constant Improves With: nothing Worsens With: nothing Anginal Symptoms: nausea, diaphoresis Other Symptoms: cough Treatments Prior to Arrival: none - Related Data Home Medications Medication Instructions Recorded Confirmed Atorvastatin [Lipitor] 80 mg PO HS 07/04/18 03/07/20 Isosorbide Mononitrate ER [Imdur] 60 mg PO DAILY 07/04/18 03/07/20 Aspirin EC [Ecotrin Low Dose] 81 mg PO DAILY 11/25/18 03/07/20 Morphine Sulfate ER [Ms Contin] 15 mg PO BID 11/25/18 03/07/20 hydrALAZINE HCL [Apresoline] 25 mg PO BID 01/30/19 03/07/20 Allopurinol [Zyloprim] 100 mg PO DAILY 03/07/20 03/07/20 Carvedilol [Coreg] 25 mg PO BID 03/07/20 03/07/20 Cholecalciferol [Vitamin D3 (25 5,000 unit PO DAILY 03/07/20 03/07/20 Mcg = 1000 Iu)] Fenofibrate 160 mg PO DAILY 03/07/20 03/07/20 Furosemide [Lasix] 20 mg PO HS 03/07/20 03/07/20 Levothyroxine Sodium [Synthroid] 25 mcg PO DAILY 03/07/20 03/07/20 Previous Rx's Medication Instructions Recorded Nitroglycerin Sl Tabs [Nitrostat] 0.4 mg SUBLINGUAL Q5M PRN #100 tab 07/07/18 Furosemide [Lasix] 40 mg PO DAILY #180 tab 10/02/19 Pantoprazole [Protonix] 40 mg PO DAILY #30 tablet. 10/02/19 Allergies Allergy/AdvReac Type Severity Reaction Status Date / Time amoxicillin AdvReac Cough Verified 05/03/20 03:51 chlorpromazine AdvReac Unknown Verified 05/03/20 03:51 [From Thorazine] gemfibrozil AdvReac Unknown Verified 05/03/20 03:51 lisinopril AdvReac Cough Verified 05/03/20 03:51 metformin AdvReac Diarrhea Verified 05/03/20 03:51 methadone AdvReac Unknown Verified 05/03/20 03:51 Review of Systems ROS Statement: Those systems with pertinent positive or pertinent negative responses have been documented in the HPI. ROS Other: All systems not noted in ROS Statement are negative. 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 Last Myocardial Infarction Date:: 06/2018 History of Any Multi-Drug Resistant Organisms: None Reported Past Surgical History: Cholecystectomy, Coronary Bypass/CABG, Heart Catheterization, Pacemaker Additional Past Surgical History / Comment(s): Pacemaker in June 20182008 CABG-pt believes was 5 vessel done down in [place], colonoscopy-normal, bilateral cataract removals. Past Anesthesia/Blood Transfusion Reactions: No Reported Reaction, Motion Sickness Type of Cardiac Device: Permanent Pacemaker Device Placement Date:: 06/2018 Past Psychological History: Depression Smoking Status: Current every day smoker Past Alcohol Use History: None Reported Past Drug Use History: None Reported - Past Family History Father Family Medical History: Dementia Additional Family Medical History / Comment(s): Pt does not recall any parent medical hx at this time. Mother Family Medical History: No Reported History Additional Family Medical History / Comment(s): Mother was healthy. General Exam Limitations: no limitations General appearance: alert, in no apparent distress, anxious Head exam: Present: atraumatic, normocephalic, normal inspection Eye exam: Present: normal appearance, PERRL, EOMI. Absent: scleral icterus, conjunctival injection, periorbital swelling ENT exam: Present: normal exam, mucous membranes moist Neck exam: Present: normal inspection. Absent: tenderness, meningismus, lymphadenopathy Respiratory exam: Present: wheezes, accessory muscle use, decreased breath sounds, prolonged expiratory. Absent: respiratory distress, rales, rhonchi, stridor Cardiovascular Exam: Present: regular rate, normal rhythm, normal heart sounds. Absent: systolic murmur, diastolic murmur, rubs, gallop, clicks GI/Abdominal exam: Present: soft, normal bowel sounds. Absent: distended, tenderness, guarding, rebound, rigid Extremities exam: Present: normal inspection, full ROM, normal capillary refill. Absent: tenderness, pedal edema, joint swelling, calf tenderness Back exam: Present: normal inspection Neurological exam: Present: alert, oriented X3, CN II-XII intact Psychiatric exam: Present: normal affect, normal mood Skin exam: Present: warm, dry, intact, normal color. Absent: rash Course Vital Signs 05/03/20 03:43 Temperature 98.0 F Pulse Rate 77 Respiratory 18 Rate Blood Pressure 181/101 O2 Sat by Pulse 94 L Oximetry - Reevaluation(s) Reevaluation #1: 05/03/20 04:34 Medical record is reviewed Reevaluation #2: 05/03/20 04:34 Patient's chest pain remains resolved Reevaluation #3: 05/03/20 04:34 Patient is informed of results questions have been answered Chest Pain MDM - MDM 89 male the ER will be admitted for chest pain observation patient is also w COPD and SOB, patient also currently has no shortness of breath and no chest Critical Care Time Critical Care Time: Yes Total Critical Care Time: 31 Disposition Clinical Impression: Shortness of breath, COPD (chronic obstructive pulmonary disease), Chest pain Disposition: ADMITTED IP TO THIS HOSP Condition: Fair Is patient prescribed a controlled substance at d/c from ED?: No Referrals: Melecio Mueller MD [Primary Care Provider] - 1-2 days
[2020-05-03 04:18] LABS: Basophils % (A) 0 %; Eosinophils # (A) 0.4 k/uL (0-0.7); Eosinophils % (A) 4 %; HCT 44.3 % (39.0-53.0); HGB 14.5 gm/dL (13.0-17.5); Lymphocytes # (A) 3.3 k/uL (1.0-4.8); Lymphocytes % (A) 33 %; MCH 30.4 pg (25.0-35.0); MCHC 32.7 g/dL (31.0-37.0); Mean Platelet Volume 7.6; Monocytes # (A) 0.6 k/uL (0-1.0); Monocytes % (A) 6 %; Neutrophils # (A) 5.6 k/uL (1.3-7.7); Neutrophils % (A) 56 %; Platelet Count 157 k/uL (150-450); RBC 4.76 m/uL (4.30-5.90); RDW 14.1 % (11.5-15.5)
[2020-05-03 04:31] LABS: INR 0.9 (<1.2); Partial Thromboplastin Time 22.2 sec (22.0-30.0); Prothrombin Time 9.9 sec (9.0-12.0)
--- NOTE | 2020-05-03 04:34 | XR ---
EXAM: XR Chest, 2 Views CLINICAL HISTORY: ITS.REASON XR Reason: Chest Pain TECHNIQUE: Frontal and lateral views of the chest. COMPARISON: 09/29/2019 FINDINGS: Lungs: No consolidation or mass. Pleural space: Mild left effusion. Heart: Unchanged cardiomegaly. Pacer device is seen. Bones/joints: No acute findings. IMPRESSION: Mild left pleural effusion.
[2020-05-03] MEDS ORDERED: NITROGLYCERIN SL TABS 0.4 MG TAB SUBLINGUAL PRN (04:35)
[2020-05-03] MEDS ORDERED: ASPIRIN 81 MG PO STA (04:35)
[2020-05-03] MEDS ORDERED: methylPREDNISolone SOD SUCCI 125 MG/2 ML VIAL IV STA (04:35)
[2020-05-03] MEDS ORDERED: IPRATROPIUM-ALBUTEROL 3 ML NEB INHALATION PRN (04:35)
[2020-05-03 04:41] LABS: Albumin 3.5 g/dL (3.5-5.0); Calcium 8.6 mg/dL (8.4-10.2); Magnesium 1.9 mg/dL (1.6-2.3); Potassium 4.5 mmol/L (3.5-5.1); Total Bilirubin 0.8 mg/dL (0.2-1.3); Total Protein 6.4 g/dL (6.3-8.2)
[2020-05-03] MEDS ORDERED: hydrALAZINE HCL 20 MG/ML 1 ML VIAL IVP STA (05:10)
--- NOTE | 2020-05-03 05:46 | P.HPIM ---
History of Present Illness H&P Date: 05/03/20 The patient is an 89-year-old male with a PMH of coronary artery disease status post CABG, pacemaker, paroxysmal A. fib on Eliquis, hypertension, chronic kidney disease, hyperlipidemia, hypothyroidism who presented to the emergency room with complaints of chest pain. The patient notes that he was in his usual state of health and was at home watching television when he suddenly developed left-sided chest pain. The patient reports the pain was radiating to his left arm, 8 out of 10, constant, without any associated features. There were no clear alleviating or exacerbating features and the pain was nonpleuritic. At time of interview, he reports that the pain has improved to a 4 out of 10. He reports the pain is similar in nature to his prior MIs. He also reports that he has not been taking his Lasix for the past several weeks and has noted a right lower extremity swelling without pain. Denied fever, chills, cough, abdominal pain, or diarrhea. Denies pain radiating to the back. In the emergency room, an EKG revealed a V paced rhythm at 79 bpm. Chest x-ray revealed a mild left pleural effusion. Laboratory evaluation was remarkable for BUN 46, creatinine 2.03, troponin 0.036. The patient notes that he lives by himself at home and that he is able to manage most of his ADLs independently. Review of Systems Pertinent positives and negatives as discussed in HPI, a complete review of systems was performed and all other systems are negative. 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 Last Myocardial Infarction Date:: 06/2018 History of Any Multi-Drug Resistant Organisms: None Reported Past Surgical History: Cholecystectomy, Coronary Bypass/CABG, Heart Catheterization, Pacemaker Additional Past Surgical History / Comment(s): Pacemaker in June 20182008 CABG-pt believes was 5 vessel done down in [place], colonoscopy-normal, bilateral cataract removals. Past Anesthesia/Blood Transfusion Reactions: No Reported Reaction, Motion Sickness Type of Cardiac Device: Permanent Pacemaker Device Placement Date:: 06/2018 Past Psychological History: Depression Smoking Status: Current every day smoker Past Alcohol Use History: None Reported Past Drug Use History: None Reported - Past Family History Father Family Medical History: Dementia Additional Family Medical History / Comment(s): Pt does not recall any parent medical hx at this time. Mother Family Medical History: No Reported History Additional Family Medical History / Comment(s): Mother was healthy. Medications and Allergies Home Medications Medication Instructions Recorded Confirmed Type Atorvastatin [Lipitor] 80 mg PO HS 07/04/18 03/07/20 History Isosorbide Mononitrate ER [Imdur] 60 mg PO DAILY 07/04/18 03/07/20 History Nitroglycerin Sl Tabs [Nitrostat] 0.4 mg SUBLINGUAL Q5M PRN #100 tab 07/07/18 03/07/20 Rx Aspirin EC [Ecotrin Low Dose] 81 mg PO DAILY 11/25/18 03/07/20 History Morphine Sulfate ER [Ms Contin] 15 mg PO BID 11/25/18 03/07/20 History hydrALAZINE HCL [Apresoline] 25 mg PO BID 01/30/19 03/07/20 History Furosemide [Lasix] 40 mg PO DAILY #180 tab 10/02/19 03/07/20 Rx Pantoprazole [Protonix] 40 mg PO DAILY #30 tablet. 10/02/19 03/07/20 Rx Allopurinol [Zyloprim] 100 mg PO DAILY 03/07/20 03/07/20 History Carvedilol [Coreg] 25 mg PO BID 03/07/20 03/07/20 History Cholecalciferol [Vitamin D3 (25 5,000 unit PO DAILY 03/07/20 03/07/20 History Mcg = 1000 Iu)] Fenofibrate 160 mg PO DAILY 03/07/20 03/07/20 History Furosemide [Lasix] 20 mg PO HS 03/07/20 03/07/20 History Levothyroxine Sodium [Synthroid] 25 mcg PO DAILY 03/07/20 03/07/20 History Allergies Allergy/AdvReac Type Severity Reaction Status Date / Time amoxicillin AdvReac Cough Verified 05/03/20 03:51 chlorpromazine AdvReac Unknown Verified 05/03/20 03:51 [From Thorazine] gemfibrozil AdvReac Unknown Verified 05/03/20 03:51 lisinopril AdvReac Cough Verified 05/03/20 03:51 metformin AdvReac Diarrhea Verified 05/03/20 03:51 methadone AdvReac Unknown Verified 05/03/20 03:51 Physical Exam Vitals: Vital Signs Temp Pulse Resp BP Pulse Ox 05/03/20 03:43 98.0 F 77 18 181/101 94 L Intake and Output 05/02/20 05/02/20 05/03/20 14:59 22:59 06:59 Other: Weight 90.718 kg General: non toxic, no distress, appears at stated age, overweight Derm: Right leg chronic venous stasis changes, no unusual ecchymoses, warm, dry Head: atraumatic, normocephalic, symmetric Eyes: EOMI, no lid lag, anicteric sclera, pupils equal round reactive to light ENT: Nose and ears atraumatic, no thrush, no pharyngeal erythema Neck: No thyromegaly, no cervical lymphadenopathy, trachea midline, supple Mouth: no lip lesion, mucus membranes moist Cardiovascular: Grade 3 systolic murmur appreciated, positive posterior tibial pulse bilateral, right lower extremity 2+ pitting edema, capillary refill less than 2 seconds Lungs: Bibasilar rales, no rhonchi, no accessory muscle use Abdominal: soft, nontender to palpation, no guarding, no appreciable organomegaly, normal bowel sounds Ext: no gross muscle atrophy, muscle strength 5 out of 5 in all 4 extremities grossly, no contractures, Neuro: CN II-XI grossly intact, light touch intact all 4 extremities, finger to nose within normal limits, Psych: Alert, oriented, appropriate affect Results CBC & Chem 7: 05/03/20 04:10 05/03/20 04:10 Labs: Abnormal Lab Results - Last 24 Hours (Table) 05/03/20 05/03/20 Range/Units 04:10 04:10 Chloride 108 H (98-107) mmol/L Carbon Dioxide 21 L (22-30) mmol/L BUN 46 H (9-20) mg/dL Creatinine 2.03 H (0.66-1.25) mg/dL Glucose 118 H (74-99) mg/dL Creatine Kinase 38 L (55-170) U/L Troponin I 0.036 H* (0.000-0.034) ng/mL Assessment and Plan Plan: NSTEMI -Heparin infusion at next scheduled dose of Eliquis (9 am) -Trend troponin -Cardiac monitoring -Cardiology consult -Continue with aspirin -Echocardiogram Right lower extremity swelling -Obtain right lower extremity duplex Chronic kidney disease, at baseline Chronic conditions: Hypertension, hyperlipidemia, hypothyroidism -Continue with home medications DVT prophylaxis -Eliquis/Heparin The patient is admitted with an anticipated less than 2 midnight stay for evaluation of NSTEMI CODE STATUS: Full Code Discussed with: Patient Anticipated discharge date: in am Anticipated discharge place: Home A total of 40 minutes was spent on the care of this complex patient more than 50% of the time was spent in counseling and care coordination.
[2020-05-03] MEDS ORDERED: methylPREDNISolone SOD SUCCI 125 MG/2 ML VIAL IV SCH (06:00)
--- NOTE | 2020-05-03 08:28 | US ---
EXAMINATION TYPE: US venous doppler duplex LE DATE OF EXAM: 05/03/2020 7:52 AM COMPARISON: US 2019 CLINICAL HISTORY: r/o dvt. SIDE PERFORMED: Bilateral TECHNIQUE: The lower extremity deep venous system is examined utilizing real time linear array sonog analisa with graded compression, doppler sonography and color-flow sonography. VESSELS IMAGED: Common Femoral Vein Deep Femoral Vein Greater Saphenous Vein * Femoral Vein Popliteal Vein Small Saphenous Vein * Proximal Calf Veins (* superficial vessels) Right Leg: Appear negative for DVT Left Leg: Appears negative for DVT IMPRESSION: 1. Bilateral lower extremity ultrasound negative for deep venous thrombosis.
[2020-05-03] MEDS ORDERED: ENOXAPARIN 40 MG/0.4 ML SYRINGE SQ SCH (09:00)
[2020-05-03] MEDS: IPRATROPIUM-ALBUTEROL 3 ML NEB INHALATION SCH ×4 (09:15→19:45)
--- NOTE | 2020-05-03 11:42 | P.PN ---
Progress Note - Text Progress Note Date: 05/03/20 Pt seen and evaluated today. Agree with documented plan by my colleague earlier this morning. Pending cardiology evaluation, patient likely warrants ischemic evaluation. Will await recs. Echo pending.
--- NOTE | 2020-05-03 12:18 | P.CRDCN ---
History of Present Illness History of present illness: HISTORY OF PRESENTING ILLNESS This is a pleasant 89-year-old male past medical history significant for maximal atrial fibrillation, or any artery disease status post bypass grafting 2008 while living in [place], aortic stenosis, hypertension, dyslipidemia, COPD, sick sinus syndrome s/p permanent pacemaker implantation ([facility]) 2017 and peripheral vascular disease. He follows in the office with Dr. Allen. We have been asked to see in consultation for chest pain. He is seen and examined resting comfortably lying on the stretcher in the emergency department. He denies symptoms of chest pain, shortness of breath, dizziness or palpitations. According to the emergency room note the patient presented to the hospital with symptoms of chest pain. Apparently he felt an episode of discomfort in the left precordial region while he was sitting down watching television. He did notice some radiation down the left arm that felt mildly heavy. The symptoms were brief and didn't improve shortly thereafter. He denies any further episodes of chest discomfort since arriving at the hospital. Recent echocardiogram obtained September 2019 revealed preserved LV systolic function with ejection fraction 55-60%, moderate aortic stenosis with a mean gradient of 25 mmHg, mild MR and mild TR. DIAGNOSTICS EKG reveals ventricular paced. Telemetry tracings indicate ventricular paced. Chest xray trace left pleural effusion. Laboratory reviewed, CBC unremarkable, sodium 138, potassium 4.5, creatinine 2.03, magnesium 1.9, troponin 0.036, 0.035 and 0.032. Current cardiac medications include aspirin 81 mg daily, atorvastatin 80 mg daily, Coreg 25 mg twice a day, Plavix 75 mg daily, Lasix 40 mg in the morning and 20 mg in the afternoon, Imdur 60 mg daily and hydralazine 25 mg twice a day. REVIEW OF SYSTEMS At the time of my exam: CONSTITUTIONAL: Denies fever or chills. CARDIOVASCULAR: Denies chest pain, shortness of breath, orthopnea, PND or palpitations. RESPIRATORY: Denies cough. GASTROINTESTINAL: Denies abdominal pain, diarrhea, constipation, nausea or vomiting. MUSCULOSKELETAL: Denies myalgias. NEUROLOGIC: Denies numbness, tingling, headacbe or weakness. ENDOCRINE: Denies fatigue, weight change, polydipsia or polyurina. GENITOURINARY: Denies burning, hematuria or urgency with micturation. HEMATOLOGIC: Denies history of anemia or bleeding. PHYSICAL EXAMINATION Blood pressure 135/82 heart rate 89 afebrile and maintaining oxygen saturation on nasal cannula. CONSTITUTIONAL: No apparent distress. HEENT: Head is normocephalic. Pupils are equal, round. Sclerae anicteric. Mucous membranes of the mouth are moist. No JVD. No carotid bruit. CHEST EXAMINATION: Lungs are clear to auscultation. No chest wall tenderness is noted on palpation or with deep breathing. HEART EXAMINATION: Regular rate and rhythm. S1, S2 heard. Systolic ejection murmur at the base, no gallops or rub. ABDOMEN: Soft, nontender. Positive bowel sounds. EXTREMITIES: 2+ peripheral pulses, no lower extremity edema and no calf tenderness. NEUROLOGIC EXAMINATION: Patient is awake, alert and oriented x3. ASSESSMENT Chest pain Acute on chronic kidney disease Elevated troponin secondary to impaired renal function, no significant rise and fall pattern. Not suggestive of myocardial injury. History of coronary artery disease status post bypass grafting in 2008, exact details unavailable Aortic stenosis, moderate Sick sinus syndrome status post permanent pacemaker implantation Paroxysmal atrial fibrillation, maintained on Eliquis however the patient states his prescription recently ran out and he did not contact anybody to get it filled PLAN Troponin elevation not indicative of an primary myocardial injury. Likely related to renal function. Resume eliquis 2.5 mg BID and discontinue plavix. Resume coreg, hydralazine, Imdur, atorvastatin and oral Lasix as previously ordered. Blood pressure was elevated on admission, we will continue to monitor the blood pressure closely and make adjustments as needed. Echocardiogram has been obtained and will be reviewed. Clinically the patient is euvolemic and not in acute heart failure. Thank you kindly for this consultation. Nurse Practitioner note has been reviewed, I agree with a documented findings and plan of care. Patient was seen and examined. Past Medical History Past Medical History: Atrial Fibrillation, Coronary Artery Disease (CAD), Chest Pain / Angina, Heart Failure, COPD, GERD/Reflux, Hearing Disorder / Deafness, Hyperlipidemia, Hypertension, Myocardial Infarction (ID), Renal Disease, Sleep Apnea/CPAP/BIPAP, Thyroid Disorder, Vascular Disorder Additional Past Medical History / Comment(s): Paroxysmal afib, SSS with pacemaker, cardiomyopathy, tracheobronchitis, CKD stage III, chronic anemia, chronic pain, L caratid 100% blockage/R caratid 75% blockage, hypothyroid, [place] bilaterally, constipation Last Myocardial Infarction Date:: 06/2018 History of Any Multi-Drug Resistant Organisms: None Reported Past Surgical History: Cholecystectomy, Coronary Bypass/CABG, Heart Cat heterization, Pacemaker Additional Past Surgical History / Comment(s): Pacemaker in June 20182008 CABG-pt believes was 5 vessel done down in [place], colonoscopy-normal, b ilateral cataract removals. Past Anesthesia/Blood Transfusion Reactions: No Reported Reaction, Motion Sickness Type of Cardiac Device: Permanent Pacemaker Device Placement Date:: 06/2018 Smoking Status: Current every day smoker - Past Family History Father Family Medical History: Dementia Additional Family Medical History / Comment(s): Pt does not recall any parent medical hx at this time. Mother Family Medical History: No Reported History Additional Family Medical History / Comment(s): Mother was healthy. Medications and Allergies Home Medications Medication Instructions Recorded Confirmed Type Atorvastatin [Lipitor] 80 mg PO HS 07/04/18 05/03/20 History Isosorbide Mononitrate ER [Imdur] 60 mg PO DAILY 07/04/18 05/03/20 History Nitroglycerin Sl Tabs [Nitrostat] 0.4 mg SUBLINGUAL Q5M PRN #100 tab 07/07/18 05/03/20 Rx Aspirin EC [Ecotrin Low Dose] 81 mg PO DAILY 11/25/18 05/03/20 History Morphine Sulfate ER [Ms Contin] 15 mg PO BID 11/25/18 05/03/20 History hydrALAZINE HCL [Apresoline] 25 mg PO BID 01/30/19 05/03/20 History Furosemide [Lasix] 40 mg PO DAILY #180 tab 10/02/19 05/03/20 Rx Carvedilol [Coreg] 25 mg PO BID 03/07/20 05/03/20 History Clopidogrel [Plavix] 75 mg PO DAILY 05/03/20 05/03/20 History Docusate [Colace] 100 mg PO DAILY PRN 05/03/20 05/03/20 History Furosemide [Lasix] 20 mg PO DAILY@1600 05/03/20 05/03/20 History Ipratropium-Albuterol Nebulize 3 ml INHALATION RT-TID PRN 05/03/20 05/03/20 History [Duoneb 0.5 mg-3 mg/3 ml Soln] [place]-3 Fatty Acids/Fish Oil [Fish 1 cap PO DAILY 05/03/20 05/03/20 History Oil 1,000 mg Softgel] Sertraline [Zoloft] 50 mg PO DAILY 05/03/20 05/03/20 History Allergies Allergy/AdvReac Type Severity Reaction Status Date / Time amoxicillin AdvReac Cough Verified 05/03/20 10:06 chlorpromazine AdvReac Unknown Verified 05/03/20 10:06 [From Thorazine] gemfibrozil AdvReac Unknown Verified 05/03/20 10:06 lisinopril AdvReac Cough Verified 05/03/20 10:06 metformin AdvReac Diarrhea Verified 05/03/20 10:06 methadone AdvReac Unknown Verified 05/03/20 10:06 Physical Exam Vitals: Vital Signs Temp Pulse Resp BP Pulse Ox 05/03/20 11:00 98.0 F 89 18 135/82 97 05/03/20 09:23 89 05/03/20 09:15 90 05/03/20 08:00 87 18 148/83 98 05/03/20 06:00 78 16 148/68 98 05/03/20 04:51 76 18 174/74 98 05/03/20 03:43 98.0 F 77 18 181/101 94 L Intake and Output 05/02/20 05/03/20 05/03/20 22:59 06:59 14:59 Other: Weight 90.718 kg 90.718 kg Results 05/03/20 04:10 05/03/20 04:10 Cardiac Enzymes 05/03/20 05/03/20 05/03/20 Range/Units 04:10 04:10 06:57 AST 25 (17-59) U/L Troponin I 0.036 H* 0.035 H* (0.000-0.034) ng/mL 05/03/20 Range/Units 09:34 AST (17-59) U/L Troponin I 0.032 (0.000-0.034) ng/mL Coagulation 05/03/20 Range/Units 04:10 PT 9.9 (9.0-12.0) sec APTT 22.2 (22.0-30.0) sec CBC 05/03/20 Range/Units 04:10 WBC 10.0 (3.8-10.6) k/uL RBC 4.76 (4.30-5.90) m/uL Hgb 14.5 (13.0-17.5) gm/dL Hct 44.3 (39.0-53.0) % Plt Count 157 (150-450) k/uL Comprehensive Metabolic Panel 05/03/20 Range/Units 04:10 Sodium 138 (137-145) mmol/L Potassium 4.5 (3.5-5.1) mmol/L Chloride 108 H (98-107) mmol/L Carbon Dioxide 21 L (22-30) mmol/L BUN 46 H (9-20) mg/dL Creatinine 2.03 H (0.66-1.25) mg/dL Glucose 118 H (74-99) mg/dL Calcium 8.6 (8.4-10.2) mg/dL AST 25 (17-59) U/L ALT 12 (4-49) U/L Alkaline Phosphatase 107 (38-126) U/L Total Protein 6.4 (6.3-8.2) g/dL Albumin 3.5 (3.5-5.0) g/dL Current Medications Generic Name Dose Route Start Last Admin Trade Name Freq PRN Reason Stop Dose Admin Albuterol/Ipratropium 3 ml 05/03/20 08:00 05/03/20 09:15 Ipratropium-Albuterol 3 Ml Neb INHALATION 3 ml RT-QID ALEXYS Administration Albuterol/Ipratropium 6 ml 05/03/20 04:35 Ipratropium-Albuterol 3 Ml Neb INHALATION RT-Q4H PRN Shortness Of Breath Or Wheezing Aspirin 81 mg 05/04/20 09:00 Aspirin 81 Mg PO DAILY ALEXYS Atorvastatin Calcium 80 mg 05/03/20 21:00 Atorvastatin 80 Mg Tab PO HS ALEXYS Carvedilol 25 mg 05/03/20 11:00 Carvedilol 12.5 Mg Tab PO BID-W/MEALS ALEXYS Furosemide 20 mg 05/03/20 16:00 Furosemide 20 Mg Tab PO DAILY@1600 ALEXYS Furosemide 40 mg 05/04/20 09:00 Furosemide 40 Mg Tab PO DAILY ALEXYS Hydralazine HCl 25 mg 05/03/20 21:00 Hydralazine Hcl 25 Mg Tab PO BID ALEXYS Sodium Chloride 1,000 mls @ 100 mls/hr 05/03/20 03:56 05/03/20 04:08 Saline 0.9% IV 05/03/20 13:55 100 mls/hr .Q10H STA Administration Isosorbide Mononitrate 60 mg 05/03/20 11:00 Isosorbide Mononitrate Er 60 Mg Tab.Er.24h PO DAILY ALEXYS Morphine Sulfate 4 mg 05/03/20 04:35 Morphine Sulfate 4 Mg/Ml Syringe IV Q4HR PRN Chest Pain Nitroglycerin 0.4 mg 05/03/20 04:35 Nitroglycerin Sl Tabs 0.4 Mg Tab SUBLINGUAL Q5M PRN Chest Pain Intake and Output 05/02/20 05/03/20 05/03/20 22:59 06:59 14:59 Other: Weight 90.718 kg 90.718 kg Patient Weight 05/04/20 06:59 Weight 90.718 kg 05/03/20 04:10 05/03/20 04:10
[2020-05-03] MEDS: ISOSORBIDE MONONITRATE ER 60 MG TAB.ER.24H PO SCH (13:07)
[2020-05-03] MEDS: carvediloL 12.5 MG TAB PO SCH ×2 (13:07→17:41)
[2020-05-03] MEDS: APIXABAN 2.5 MG TABLET PO SCH ×2 (13:08→20:09)
--- NOTE | 2020-05-03 13:49 | P.CNPUL ---
History of Present Illness Consult date: 05/03/20 Requesting physician: Jossue Hooks Reason for consult: dyspnea Chief complaint: Shortness of breath History of present illness: This is a 89-year-old male patient of Dr. Mueller with past medical history of COPD, chronic atrial fibrillation, chronic CHF, coronary artery disease, hypertension, previous history of myocardial infarction, chronic kidney disease stage III, chronic anemia, carotid stenosis, obstructive sleep apnea on CPAP therapy, previous bypass surgery and pacemaker insertion and chronic and ongoing history of smoking. Patient came into the emergency department on the 2015 2020 at 4:00 in the morning for evaluation of chest pain in the left substernal chest, that the patient described as tightness and heaviness, that was constant in nature, 4 out of 10 in severity, associated with nausea, and diaphoresis. Patient was given aspirin and nitroglycerin with improvement of his chest pain. No significant shortness of breath, he did have a mild cough. EKG in the emerge ncy department showed paced rhythm. Chest x-ray showed mild left pleural effusion, no consolidation or mass. Troponins were 0.036, 0.035, and 0.032. CBC was within normal limits, no leukocytosis, INR was 0.9, sodium is 1:30, potassium is 4.5, chloride is 108, CO2 is 21, BUN is 46, creatinine 2.03, glucose was 118, his LFTs were within normal limits, CK was 38, lipase was 175, COVID 19 PCR was negative. At the time of our evaluation patient is resting comfortably in bed, he is currently on 3 L of oxygen a pulse ox of 97%, no complaints of shortness of breath or wheezing. His lower extremity Dopplers were negative for DVT. No cough, no hemoptysis, no chest pain at the moment. Patient is being evaluated by cardiology. He is on Eliquis for his history of atrial fibrillation, he is on oral Lasix, Coreg, hydralazine, Lipitor and aspirin. He is receiving breathing treatments. He is breathing comfortably. Review of Systems All systems: negative Constitutional: Denies chills, Denies fever Eyes: denies blurred vision, denies pain Ears, nose, mouth and throat: Denies headache, Denies sore throat Cardiovascular: Reports chest pain, Denies shortness of breath Respiratory: Denies cough Gastrointestinal: Denies abdominal pain, Denies diarrhea, Denies nausea, Denies vomiting Musculoskeletal: Denies myalgias Integumentary: Denies pruritus, Denies rash Neurological: Denies numbness, Denies weakness Psychiatric: Denies anxiety, Denies depression Endocrine: Denies fatigue, Denies weight change Past Medical History Past Medical History: Atrial Fibrillation, Coronary Artery Disease (CAD), Chest Pain / Angina, Heart Failure, COPD, GERD/Reflux, Hearing Disorder / Deafness, Hyperlipidemia, Hypertension, Myocardial Infarction ([place]), Renal Disease, Sleep Apnea/CPAP/BIPAP, Thyroid Disorder, Vascular Disorder Additional Past Medical History / Comment(s): Paroxysmal afib, SSS with pacemaker, cardiomyopathy, tracheobronchitis, CKD stage III, chronic anemia, chronic pain, L caratid 100% blockage/R caratid 75% blockage, hypothyroid, [place] bilaterally, constipation Last Myocardial Infarction Date:: 06/2018 History of Any Multi-Drug Resistant Organisms: None Reported Past Surgical History: Cholecystectomy, Coronary Bypass/CABG, Heart Catheterization, Pacemaker Additional Past Surgical History / Comment(s): Pacemaker in June 20182008 CABG-pt believes was 5 vessel done down in [place], colonoscopy-normal, bilateral cataract removals. Past Anesthesia/Blood Transfusion Reactions: No Reported Reaction, Motion Sickness Type of Cardiac Device: Permanent Pacemaker Device Placement Date:: 06/2018 Smoking Status: Current every day smoker - Past Family History Father Family Medical History: Dementia Additional Family Medical History / Comment(s): Pt does not recall any parent medical hx at this time. Mother Family Medical History: No Reported History Additional Family Medical History / Comment(s): Mother was healthy. Medications and Allergies Home Medications Medication Instructions Recorded Confirmed Type Atorvastatin [Lipitor] 80 mg PO HS 07/04/18 05/03/20 History Isosorbide Mononitrate ER [Imdur] 60 mg PO DAILY 07/04/18 05/03/20 History Nitroglycerin Sl Tabs [Nitrostat] 0.4 mg SUBLINGUAL Q5M PRN #100 tab 07/07/18 05/03/20 Rx Aspirin EC [Ecotrin Low Dose] 81 mg PO DAILY 11/25/18 05/03/20 History Morphine Sulfate ER [Ms Contin] 15 mg PO BID 11/25/18 05/03/20 History hydrALAZINE HCL [Apresoline] 25 mg PO BID 01/30/19 05/03/20 History Furosemide [Lasix] 40 mg PO DAILY #180 tab 10/02/19 05/03/20 Rx Carvedilol [Coreg] 25 mg PO BID 03/07/20 05/03/20 History Apixaban [Eliquis] 2.5 mg PO BID #180 tab 05/03/20 Rx Docusate [Colace] 100 mg PO DAILY PRN 05/03/20 05/03/20 History Furosemide [Lasix] 20 mg PO DAILY@1600 05/03/20 05/03/20 History Ipratropium-Albuterol Nebulize 3 ml INHALATION RT-TID PRN 05/03/20 05/03/20 History [Duoneb 0.5 mg-3 mg/3 ml Soln] [place]-3 Fatty Acids/Fish Oil [Fish 1 cap PO DAILY 05/03/20 05/03/20 History Oil 1,000 mg Softgel] Sertraline [Zoloft] 50 mg PO DAILY 05/03/20 05/03/20 History Allergies Allergy/AdvReac Type Severity Reaction Status Date / Time amoxicillin AdvReac Cough Verified 05/03/20 10:06 chlorpromazine AdvReac Unknown Verified 05/03/20 10:06 [From Thorazine] gemfibrozil AdvReac Unknown Verified 05/03/20 10:06 lisinopril AdvReac Cough Verified 05/03/20 10:06 metformin AdvReac Diarrhea Verified 05/03/20 10:06 methadone AdvReac Unknown Verified 05/03/20 10:06 Physical Exam Vitals: Vital Signs Temp Pulse Resp BP Pulse Ox 05/03/20 11:00 98.0 F 89 18 135/82 97 05/03/20 09:23 89 05/03/20 09:15 90 05/03/20 08:00 87 18 148/83 98 05/03/20 06:00 78 16 148/68 98 05/03/20 04:51 76 18 174/74 98 05/03/20 03:43 98.0 F 77 18 181/101 94 L Intake and Output 05/02/20 05/03/20 05/03/20 22:59 06:59 14:59 Other: Weight 90.718 kg 90.718 kg GENERAL EXAM: Alert, very pleasant, but very hard of hearing, 89-year-old white male, resting comfortably in bed, 3 L of oxygen with a pulse ox of 97, comfortable in no apparent distress. HEAD: Normocephalic/atraumatic. EYES: Normal reaction of pupils, equal size. Conjunctiva pink, sclera white. NOSE: Clear with pink turbinates. THROAT: No erythema or exudates. NECK: No masses, no JVD, no thyroid enlargement, no adenopathy. CHEST: No chest wall deformity. Symmetrical expansion. LUNGS: Equal air entry with no crackles, wheeze, rhonchi or dullness. CVS: Regular rate and rhythm, normal S1 and S2, no gallops, no murmurs, no rubs ABDOMEN: Soft, nontender. No hepatosplenomegaly, normal bowel sounds, no guarding or rigidity. EXTREMITIES: No clubbing, no edema, no cyanosis, 2+ pulses and upper and lower extremities. MUSCULOSKELETAL: Muscle strength and tone normal. SPINE: No scoliosis or deformity SKIN: No rashes CENTRAL NERVOUS SYSTEM: Alert and oriented -3. No focal deficits, tone is normal in all 4 extremities. PSYCHIATRIC: Alert and oriented -3. Appropriate affect. Intact judgment and insight. Results - Laboratory Findings CBC and BMP: 05/03/20 04:10 05/03/20 04:10 PT/INR, D-dimer PT 9.9 sec (9.0-12.0) 05/03/20 04:10 INR 0.9 (<1.2) 05/03/20 04:10 Abnormal lab findings: Abnormal Labs 05/03/20 05/03/20 05/03/20 04:10 04:10 06:57 Chloride 108 H Carbon Dioxide 21 L BUN 46 H Creatinine 2.03 H Glucose 118 H Creatine Kinase 38 L Troponin I 0.036 H* 0.035 H* - Diagnostic Findings Chest x-ray: report reviewed, image reviewed Additional studies: Dopplers of bilateral lower extremities reviewed, EKG reviewed chest x-ray reviewed Assessment and Plan Plan: Assessment: #1. Chest pain, mild troponin leak, rule out ACS, cardiology is following #2. COPD, stable #3. Acute kidney injury #4. Chronic kidney disease stage III #5. History of CAD with history of bypass grafting in 2008 #6. History of sick sinus syndrome status post permanent pacemaker implantation #7. History of paroxysmal A. fib on Eliquis #8. Current and ongoing history of smoking #9. History of mood disorder #10. Previous history of myocardial infarction #11. History of obstructive sleep apnea, unsure of compliance status with CPAP #12. Street of carotid artery stenosis #13. Gait dysfunction uses a walker Plan: Continue breathing treatments, continue oral anticoagulation, continue home dose Lasix, no complaints of chest pain or shortness of breath, patient's COPD is stable. He is undergoing cardiac evaluation, pulmonary status seems to be stable at this time I performed a history & physical examination of the patient and discussed their management with my nurse practitioner, Eduarda Garvin. I reviewed the nurse practitioner's note and agree with the documented findings and plan of care. Lung sounds are positive for diminished breath sounds The findings and the impression was discussed with the patient. I attest to the documentation by the nurse practitioner. Time with Patient: Greater than 30
--- NOTE | 2020-05-03 15:32 | ECHOF ---
Referral Reason: MEASUREMENTS -------- HEIGHT: 170.2 cm WEIGHT: 90.7 kg BP: IVSd: 0.9 cm (0.6 - 1.1) LVIDd: 4.8 cm (3.9 - 5.3) LVPWd: 1.2 cm (0.6 - 1.1) IVSs: 1.3 cm LVIDs: 3.4 cm LVPWs: 1.0 cm LAESV Index (A-L): 36.97 ml/m MV E Gonzalo: 1.38 m/s MV DecT: 145 ms MV A Gonzalo: 0.25 m/s MV E/A Ratio: 5.52 RAP: 5.00 mmHg RVSP: 9.39 mmHg FINDINGS -------- Paced rhythm. This was a technically difficult study with suboptimal views. The left ventricular size is normal. There is mild concentric left ventricular hypertrophy. Overa ll left ventricular systolic function is moderate-severely impaired with, an EF between 30 - 35 %. Left ventricular fillimg pressure cannot be estimated due to paced rhythm. Basal inferoseptal LV wa ll motion is hypokinetic. Basal anteroseptal LV wall motion is hypokinetic. Mid anterior LV wal l motion is hypokinetic. Mid inferior LV wall motion is hypokinetic. Mid inferoseptal LV wall m otion is hypokinetic. Mid anteroseptal LV wall motion is hypokinetic. Apical anterior LV wall m otion is hypokinetic. Apical lateral LV wall motion is normal. Apical inferior LV wall motion is hypokinetic. Apical septum LV wall motion is hypokinetic. The RV was not well visualized. LA is moderately dilated 34-39 ml/m2 The right atrium was not well visualized. 5.0mg of Lumason was utilized for enhancement of images The aortic valve was not well visualized. The mitral valve was not well visualized. The tricuspid valve was not well visualized. The pulmonic valve was not well visualized. There is no pericardial effusion. CONCLUSIONS -------- 1. Paced rhythm. 2. This was a technically difficult study with suboptimal views. 3. The left ventricular size is normal. 4. There is mild concentric left ventricular hypertrophy. 5. Overall left ventricular systolic function is moderate-severely impaired with, an EF between 30 - 35 %. 6. Left ventricular fillimg pressure cannot be estimated due to paced rhythm. 7. Basal inferoseptal LV wall motion is hypokinetic. 8. Basal anteroseptal LV wall motion is hypokinetic. 9. Mid anterior LV wall motion is hypokinetic. 10. Mid inferior LV wall motion is hypokinetic. 11. Mid inferoseptal LV wall motion is hypokinetic. 12. Mid anteroseptal LV wall motion is hypokinetic. 13. Apical anterior LV wall motion is hypokinetic. 14. Apical lateral LV wall motion is normal. 15. Apical inferior LV wall motion is hypokinetic. 16. Apical septum LV wall motion is hypokinetic. 17. LA is moderately dilated 34-39 ml/m2 18. 5.0mg of Lumason was utilized for enhancement of images 19. There is no pericardial effusion. [employer] MANAGER: Lauryn Renner RDCS
[2020-05-03] MEDS: FUROSEMIDE 20 MG TAB PO SCH (15:58)
[2020-05-03] MEDS: ATORVASTATIN 80 MG TAB PO SCH (20:09)
[2020-05-03] MEDS: hydrALAZINE HCL 25 MG TAB PO SCH (20:09)
[2020-05-03] MEDS: MORPHINE SULFATE 4 MG/ML SYRINGE IV PRN (20:49)
[2020-05-04] MEDS: MORPHINE SULFATE 4 MG/ML SYRINGE IV PRN ×2 (03:05→07:09)
[2020-05-04 03:48] LABS: Cholesterol 164 mg/dL (<200); HDL Cholesterol 31 mg/dL (40-60); LDL Cholesterol,Calculated 97 mg/dL (0-99); Triglycerides 180 mg/dL (<150)
[2020-05-04] MEDS: carvediloL 12.5 MG TAB PO SCH ×2 (07:08→17:10)
[2020-05-04] MEDS: IPRATROPIUM-ALBUTEROL 3 ML NEB INHALATION SCH ×4 (07:25→19:17)
[2020-05-04] MEDS: FUROSEMIDE 40 MG TAB PO SCH (08:13)
[2020-05-04] MEDS: hydrALAZINE HCL 25 MG TAB PO SCH ×2 (08:13→20:25)
[2020-05-04] MEDS: ASPIRIN 81 MG PO SCH (08:13)
[2020-05-04] MEDS: ISOSORBIDE MONONITRATE ER 60 MG TAB.ER.24H PO SCH (08:14)
[2020-05-04] MEDS: APIXABAN 2.5 MG TABLET PO SCH ×2 (08:14→20:24)
[2020-05-04] MEDS ORDERED: amLODIPine 2.5 MG TAB PO SCH (09:00)
[2020-05-04] MEDS ORDERED: ASPIRIN 325 MG TAB PO SCH (09:00)
[2020-05-04 11:11] LABS: African American GFR (CKD) 30 (>60 ml/min/1.73 sqM); Anion Gap 6 mmol/L; Blood Urea Nitrogen 48 mg/dL (9-20); Carbon Dioxide 21 mmol/L (22-30); Chloride 110 mmol/L (98-107); Glucose 188 mg/dL (74-99); Non-African American GFR(CKD) 26 (>60 ml/min/1.73 sqM); Potassium 4.9 mmol/L (3.5-5.1); Sodium 137 mmol/L (137-145)
--- NOTE | 2020-05-04 11:23 | P.PN ---
Subjective HISTORY OF PRESENTING ILLNESS This is a pleasant 89-year-old male past medical history significant for maximal atrial fibrillation, or any artery disease status post bypass grafting 2008 while living in [place], aortic stenosis, hypertension, dyslipidemia, COPD, sick sinus syndrome s/p permanent pacemaker implantation ([employer] [facility]) 2017 and peripheral vascular disease. He follows in the office with Dr. Allen. We have been asked to see in consultation for chest pain. He is seen and examined resting comfortably lying on the stretcher in the emergency department. He denies symptoms of chest pain, shortness of breath, dizziness or palpitations. According to the emergency room note the patient presented to the hospital with symptoms of chest pain. Apparently he felt an episode of discomfort in the left precordial region while he was sitting down watching television. He did notice some radiation down the left arm that felt mildly heavy. The symptoms were brief and didn't improve shortly thereafter. He denies any further episodes of chest discomfort since arriving at the hospital. Recent echocardiogram obtained September 2019 revealed preserved LV systolic function with ejection fraction 55-60%, moderate aortic stenosis with a mean gradient of 25 mmHg, mild MR and mild TR. 05/04/2020 Patient is seen and examined resting comfortably lying flat in bed in no acute distress. He denies symptoms of chest pain, shortness of breath, dizziness or palpitations. Echocardiogram obtained reveals impaired LV systolic function with ejection fraction 30-35% with multiple wall motion abnormalities noted, aortic valve was not well visualized. Blood pressure 158/70 heart rate 72 afebrile maintaining oxygen saturation on room air. PHYSICAL EXAMINATION CONSTITUTIONAL: No apparent distress. HEENT: Head is normocephalic. Pupils are equal, round. Sclerae anicteric. Mucous membranes of the mouth are moist. No JVD. No carotid bruit. CHEST EXAMINATION: Lungs are clear to auscultation. No chest wall tenderness is noted on palpation or with deep breathing. HEART EXAMINATION: Regular rate and rhythm. S1, S2 heard. Systolic ejection murmur at the base, no gallops or rub. EXTREMITIES: 2+ peripheral pulses, no lower extremity edema and no calf tenderness. ASSESSMENT Chest pain New onset systolic heart failure with wall motion abnormalities, likely ischemic Acute on chronic kidney disease Elevated troponin secondary to impaired renal function, no significant rise and fall pattern. Not suggestive of myocardial injury. History of coronary artery disease status post bypass grafting in 2008, exact details unavailable Aortic stenosis, moderate Sick sinus syndrome status post permanent pacemaker implantation Paroxysmal atrial fibrillation, maintained on Eliquis however the patient states his prescription recently ran out and he did not contact anybody to get it filled COPD Chronic nicotine dependence PLAN Discussed with son in law the results of his echocardiogram and the thoughts of moving forward with cardiac catheterization. Given his renal function at this point they would prefer medical therapy and see if things improve. His son in law did say that Miguel has not been taking his medications regularly as prescribed. We will continue his coreg as previously ordered. Initiate losartan 25 mg daily and repeat renal function in the morning. Further recommendations to follow based on clinical course. Nurse Practitioner note has been reviewed, I agree with a documented findings and plan of care. Patient was seen and examined. Objective - Vital Signs Vital signs: Vital Signs Temp 97.4 F L 05/04/20 07:00 Pulse 60 05/04/20 10:54 Resp 16 05/04/20 07:00 BP 158/70 05/04/20 07:00 Pulse Ox 97 05/04/20 07:12 Intake & Output 05/03/20 05/04/20 05/04/20 18:59 06:59 18:59 Intake Total 730 1600 Output Total 900 Balance 730 700 Weight 90.718 kg Intake: Intake, IV Titration 200 1600 Amount Sodium Chloride 0.9% 1, 200 1600 000 ml @ 100 mls/hr IV . Q10H STA Rx#:[id number] Oral 530 Output: Urine 900 Other: Voiding Method Urinal # Voids 1 600 # Bowel Movements 1 - Labs CBC & Chem 7: 05/03/20 04:10 05/03/20 04:10 Labs: Abnormal Lab Results - Last 24 Hours (Table) 05/03/20 Range/Units 04:10 Triglycerides 180 H (<150) mg/dL HDL Cholesterol 31 L (40-60) mg/dL
[2020-05-04] MEDS ORDERED: LOSARTAN 25 MG TAB PO SCH (11:30)
[2020-05-04] MEDS: MORPHINE SULFATE ER 15 MG TABLET PO SCH ×2 (12:07→20:24)
--- NOTE | 2020-05-04 12:30 | P.PN ---
Subjective Progress Note Date: 05/04/20 Principal diagnosis: Shortness of breath This is a 89-year-old male patient of Dr. Mueller with past medical history of COPD, chronic atrial fibrillation, chronic CHF, coronary artery disease, hypertension, previous history of myocardial infarction, chronic kidney disease stage III, chronic anemia, carotid stenosis, obstructive sleep apnea on CPAP therapy, previous bypass surgery and pacemaker insertion and chronic and ongoing history of smoking. Patient came into the emergency department on the 2015 2020 at 4:00 in the morning for evaluation of chest pain in the left substernal chest, that the patient described as tightness and heaviness, that was constant in nature, 4 out of 10 in severity, associated with nausea, and diaphoresis. Patient was given aspirin and nitroglycerin with improvement of his chest pain. No significant shortness of breath, he did have a mild cough. EKG in the emergency department showed paced rhythm. Chest x-ray showed mild left pleural effusion, no consolidation or mass. Troponins were 0.036, 0.035, and 0.032. CBC was within normal limits, no leukocytosis, INR was 0.9, sodium is 1:30, potassium is 4.5, chloride is 108, CO2 is 21, BUN is 46, creatinine 2.03, glucose was 118, his LFTs were within normal limits, CK was 38, lipase was 175, COVID 19 PCR was negative. At the time of our evaluation patient is resting comfortably in bed, he is currently on 3 L of oxygen a pulse ox of 97%, no complaints of shortness of breath or wheezing. His lower extremity Dopplers were negative for DVT. No cough, no hemoptysis, no chest pain at the moment. Patient is being evaluated by cardiology. He is on Eliquis for his history of atrial fibrillation, he is on oral Lasix, Coreg, hydralazine, Lipitor and aspirin. He is receiving breathing treatments. He is breathing comfortably. On 05/04/2020 patient seen in follow-up on medical floor, he is resting comfortably in bed, on room air, lung sounds are sounding better, diminished breath sounds at the bases, no wheezes, no rales. Room air pulse ox is 97%, hemodynamically stable, he denies any chest pain, no cough, or congestion, no fever or chills. Renal profile is relatively stable, he continues on his home dose of Lasix 40 mg in the morning and 20 mg in the afternoon, he is on breathing treatments, he is on Eliquis history of paroxysmal A. fib. Cardiology is following, echocardiogram showed impaired LV function with ejection fraction of 30-35%, with multiple wall motion abnormalities, and aortic valve could not be well visualized. Clinically patient does not look to be fluid overloaded, no lower extremity edema lung sounds are clear to auscultation. Patient is in a paced rhythm on the monitor. Objective - Vital Signs Vital signs: Vital Signs Temp 97.4 F L 05/04/20 07:00 Pulse 60 05/04/20 10:54 Resp 16 05/04/20 07:00 BP 158/70 05/04/20 07:00 Pulse Ox 97 05/04/20 07:12 Intake & Output 05/03/20 05/04/20 05/04/20 18:59 06:59 18:59 Intake Total 730 1600 Output Total 900 250 Balance 730 700 -250 Weight 90.718 kg Intake: Intake, IV Titration 200 1600 Amount Sodium Chloride 0.9% 1, 200 1600 000 ml @ 100 mls/hr IV . Q10H STA Rx#:[id number] Oral 530 Output: Urine 900 250 Other: Voiding Method Urinal # Voids 1 600 # Bowel Movements 1 - Exam GENERAL EXAM: Alert, very pleasant, but very hard of hearing, 89-year-old white male, resting comfortably in bed, room air pulse ox of 97%, comfortable in no apparent distress. HEAD: Normocephalic/atraumatic. EYES: Normal reaction of pupils, equal size. Conjunctiva pink, sclera white. NOSE: Clear with pink turbinates. THROAT: No erythema or exudates. NECK: No masses, no JVD, no thyroid enlargement, no adenopathy. CHEST: No chest wall deformity. Symmetrical expansion. LUNGS: Equal air entry with no crackles, wheeze, rhonchi or dullness. CVS: Regular rate and rhythm, normal S1 and S2, no gallops, no murmurs, no rubs ABDOMEN: Soft, nontender. No hepatosplenomegaly, normal bowel sounds, no guar ding or rigidity. EXTREMITIES: No clubbing, no edema, no cyanosis, 2+ pulses and upper and lower extremities. MUSCULOSKELETAL: Muscle strength and tone normal. SPINE: No scoliosis or deformity SKIN: No rashes CENTRAL NERVOUS SYSTEM: Alert and oriented -3. No focal deficits, tone is normal in all 4 extremities. PSYCHIATRIC: Alert and oriented -3. Appropriate affect. Intact judgment and insight. - Labs CBC & Chem 7: 05/03/20 04:10 05/04/20 09:58 Labs: Abnormal Lab Results - Last 24 Hours (Table) 05/03/20 05/04/20 Range/Units 04:10 09:58 Chloride 110 H (98-107) mmol/L Carbon Dioxide 21 L (22-30) mmol/L BUN 48 H (9-20) mg/dL Creatinine 2.19 H (0.66-1.25) mg/dL Glucose 188 H (74-99) mg/dL Calcium 8.0 L (8.4-10.2) mg/dL Triglycerides 180 H (<150) mg/dL HDL Cholesterol 31 L (40-60) mg/dL Assessment and Plan Plan: Assessment: #1. Chest pain, mild troponin leak, rule out ACS, cardiology is following #2. COPD, stable #3. Acute kidney injury #4. Chronic kidney disease stage III #5. History of CAD with history of bypass grafting in 2008 #6. History of sick sinus syndrome status post permanent pacemaker implantation #7. History of paroxysmal A. fib on Eliquis #8. Current and ongoing history of smoking #9. History of mood disorder #10. Previous history of myocardial infarction #11. History of obstructive sleep apnea, unsure of compliance status with CPAP #12. Street of carotid artery stenosis #13. Gait dysfunction uses a walker Plan: Continue current medical treatment, continue breathing treatments, clinically patient is stable, cardiology is following, patient has no specific complaints, his renal function is stable, he is on maintenance dose of home dose Lasix, clinically does not look fluid overloaded, his lung sounds are clear, vital signs have been stable, he could be considered for discharge home when cleared by cardiology I performed a history & physical examination of the patient and discussed their management with my nurse practitioner, Eduarda Garvin. I reviewed the nurse practitioner's note and agree with the documented findings and plan of care. Lung sounds are positive for diminished breath sounds The findings and the impression was discussed with the patient. I attest to the documentation by the nurse practitioner. Time with Patient: Less than 30
[2020-05-04] MEDS: FUROSEMIDE 20 MG TAB PO SCH (16:08)
--- NOTE | 2020-05-04 17:38 | P.PN ---
Subjective Progress Note Date: 05/04/20 (Delayed charting seen at 1050) Principal diagnosis: Chest pain Patient is an 89-year-old male for history of coronary artery disease status post CABG, permanent pacemaker, paroxysmal A. fib on Eliquis, hypertension, CK 80, dyslipidemia, and hypothyroidism who initially presented to the emergency department with complaints of chest pain that was similar to his prior myocardial infarction. In the ER he underwent extensive evaluation. Troponin was mildly elevated at 0.03 sets was not consistent with significant myocardial injury. EKG showed a ventricular paced rhythm. Chest x-ray showed mild pleural effusion on the left. This subsequently admitted for cardiology evaluation. He was noted to have a creatinine of 2.03 which appears chronic with a baseline creatinine of 2. Cardiology was consulted. Echocardiogram showed an ejection fraction of 30-35% with left ventricular hypokinesis. Lower extremity venous Doppler was negative for DVT. Patient seen and examined at bedside. He denies any chest pain, he continues to have some shortness of breath, no nausea, vomiting, dizziness. General: non toxic, no distress, appears at stated age Derm: warm, dry Head: atraumatic, normocephalic, symmetric, hard of hearing Eyes: EOMI, no lid lag, anicteric sclera Mouth: no lip lesion, mucus membranes moist Cardiovascular: S1-S2 with grade 3 systolic ejection murmur, positive posterior tibial pulse bilateral, Lungs: Decreased breath sounds bilateral, no rhonchi, no rales , no accessory muscle use Abdominal: soft, nontender to palpation, no guarding, no appreciable organomegaly Ext: no gross muscle atrophy, trace edema, no contractures Neuro: CN II-XI grossly intact, no focal neuro deficits Psych: Alert, oriented, appropriate affect Assessment: Newly discovered systolic cardiomyopathy with ejection fraction 30-35% and global hypokinesis, likely ischemic in the setting of chest pain, history of coronary artery disease status post CABG -Cardiology recommendations: Discussed with family and they prefer with medical management given his renal function, losartan initiated by cardiology with repeat CR and K+ in AM -Continue with Coreg, aspirin, Plavix, Imdur -Strict I's and O's, daily weight -Continue with Lasix Chronic kidney disease stage IV -Appears to be at baseline, baseline creatinine 2 Paroxysmal atrial fibrillation -Continue with Eliquis, Coreg -Monitor heart rate COPD without exacerbation -Pulmonary recommendations appreciated - continue home bronchodilator regiment Chronic pain -Resume home oral morphine Chronic: Moderate aortic stenosis Sick sinus syndrome status post permanent pacemaker Chronic nicotine dependence Objective sleep apnea Carotid artery disease DVT prophylaxis: Keri Discussed with: Patient, nursing Anticipated discharge: 2-[address]: Home with home health care A total of 35 minutes was spent on the care of this complex patient more than 50% of the time was spent in counseling and care coordination. Objective - Vital Signs Vital signs: Vital Signs Temp 97.9 F 05/04/20 15:00 Pulse 67 05/04/20 15:29 Resp 16 05/04/20 15:00 BP 132/51 05/04/20 15:00 Pulse Ox 96 05/04/20 15:00 Intake & Output 05/03/20 05/04/20 05/04/20 18:59 06:59 18:59 Intake Total 730 1600 480 Output Total 900 975 Balance 730 700 -495 Weight 90.718 kg Intake: Intake, IV Titration 200 1600 Amount Sodium Chloride 0.9% 1, 200 1600 000 ml @ 100 mls/hr IV . Q10H STA Rx#:[id number] Oral 530 480 Output: Urine 900 975 Other: Voiding Method Urinal # Voids 1 600 # Bowel Movements 1 - Labs CBC & Chem 7: 05/03/20 04:10 05/04/20 09:58 Labs: Abnormal Lab Results - Last 24 Hours (Table) 05/03/20 05/04/20 Range/Units 04:10 09:58 Chloride 110 H (98-107) mmol/L Carbon Dioxide 21 L (22-30) mmol/L BUN 48 H (9-20) mg/dL Creatinine 2.19 H (0.66-1.25) mg/dL Glucose 188 H (74-99) mg/dL Calcium 8.0 L (8.4-10.2) mg/dL Triglycerides 180 H (<150) mg/dL HDL Cholesterol 31 L (40-60) mg/dL
[2020-05-04] MEDS: MORPHINE SULFATE 2 MG/ML SYRINGE IV PRN ×2 (18:25→23:55)
[2020-05-04] MEDS: ATORVASTATIN 80 MG TAB PO SCH (20:24)
[2020-05-05 06:38] LABS: African American GFR (CKD) 30 (>60 ml/min/1.73 sqM); Anion Gap 8 mmol/L; Blood Urea Nitrogen 54 mg/dL (9-20); Calcium 8.1 mg/dL (8.4-10.2); Carbon Dioxide 19 mmol/L (22-30); Chloride 111 mmol/L (98-107); Glucose 116 mg/dL (74-99); Non-African American GFR(CKD) 26 (>60 ml/min/1.73 sqM); Potassium 4.4 mmol/L (3.5-5.1); Sodium 138 mmol/L (137-145)
[2020-05-05] MEDS: IPRATROPIUM-ALBUTEROL 3 ML NEB INHALATION SCH ×4 (07:28→21:04)
[2020-05-05] MEDS: MORPHINE SULFATE ER 15 MG TABLET PO SCH ×2 (07:41→20:13)
[2020-05-05] MEDS: carvediloL 12.5 MG TAB PO SCH ×2 (07:45→17:05)
--- NOTE | 2020-05-05 08:42 | P.PN ---
Subjective HISTORY OF PRESENTING ILLNESS This is a pleasant 89-year-old male past medical history significant for maximal atrial fibrillation, or any artery disease status post bypass grafting 2008 while living in [place], aortic stenosis, hypertension, dyslipidemia, COPD, sick sinus syndrome s/p permanent pacemaker implantation ([facility]) 2017 and peripheral vascular disease. He follows in the office with Dr. Allen. We have been asked to see in consultation for chest pain. He is seen and examined resting comfortably lying on the stretcher in the emergency department. He denies symptoms of chest pain, shortness of breath, dizziness or palpitations. According to the emergency room note the patient presented to the hospital with symptoms of chest pain. Apparently he felt an episode of discomfort in the left precordial region while he was sitting down watching television. He did notice some radiation down the left arm that felt mildly heavy. The symptoms were brief and didn't improve shortly thereafter. He denies any further episodes of chest discomfort since arriving at the hospital. Recent echocardiogram obtained September 2019 revealed preserved LV systolic function with ejection fraction 55-60%, moderate aortic stenosis with a mean gradient of 25 mmHg, mild MR and mild TR. 05/05/2020 Pt seen and examined sitting up in the room with son in law in the room. Discussed with the patient and his family regarding the diagnosis and the plan to treat him medically. Everyone is in agreement. Blood pressure well controlled on current medical regimen. Renal function stable on current regimen. PHYSICAL EXAMINATION CONSTITUTIONAL: No apparent distress. HEENT: Head is normocephalic. Pupils are equal, round. Sclerae anicteric. Mucous membranes of the mouth are moist. No JVD. No carotid bruit. CHEST EXAMINATION: Lungs are clear to auscultation. No chest wall tenderness is noted on palpation or with deep breathing. HEART EXAMINATION: Regular rate and rhythm. S1, S2 heard. Systolic ejection murmur at the base, no gallops or rub. EXTREMITIES: 2+ peripheral pulses, no lower extremity edema and no calf tenderness. ASSESSMENT Chest pain New onset systolic heart failure with wall motion abnormalities, likely ischemic Acute on chronic kidney disease Elevated troponin secondary to impaired renal function, no significant rise and fall pattern. Not suggestive of myocardial injury. History of coronary artery disease status post bypass grafting in 2008, exact details unavailable Aortic stenosis, moderate Sick sinus syndrome status post permanent pacemaker implantation Paroxysmal atrial fibrillation, maintained on Eliquis however the patient states his prescription recently ran out and he did not contact anybody to get it filled COPD Chronic nicotine dependence PLAN Increase coreg to 50 mg BID. Follow renal function in the morning. Expect can be discharged in 24 hours if he remains stable. Further recommendations to follow based on clinical course. Nurse Practitioner note has been reviewed, I agree with a documented findings and plan of care. Patient was seen and examined. Objective - Vital Signs Vital signs: Vital Signs Temp 98.1 F 05/05/20 01:00 Pulse 63 05/05/20 07:40 Resp 18 05/05/20 07:40 BP 135/58 05/05/20 01:00 Pulse Ox 96 05/05/20 07:28 Intake & Output 05/04/20 05/05/20 05/05/20 18:59 06:59 18:59 Intake Total 480 Output Total 975 1850 Balance -495 -1850 Intake: Oral 480 Output: Urine 975 1850 Other: Voiding Method Urinal - Labs CBC & Chem 7: 05/03/20 04:10 05/05/20 06:07 Labs: Abnormal Lab Results - Last 24 Hours (Table) 05/04/20 05/05/20 Range/Units 09:58 06:07 Chloride 110 H 111 H (98-107) mmol/L Carbon Dioxide 21 L 19 L (22-30) mmol/L BUN 48 H 54 H (9-20) mg/dL Creatinine 2.19 H 2.19 H (0.66-1.25) mg/dL Glucose 188 H 116 H (74-99) mg/dL Calcium 8.0 L 8.1 L (8.4-10.2) mg/dL
[2020-05-05] MEDS: FUROSEMIDE 40 MG TAB PO SCH (08:52)
[2020-05-05] MEDS: ASPIRIN 81 MG PO SCH (08:52)
[2020-05-05] MEDS: LOSARTAN 25 MG TAB PO SCH (08:52)
[2020-05-05] MEDS: APIXABAN 2.5 MG TABLET PO SCH ×2 (08:52→20:13)
--- NOTE | 2020-05-05 10:40 | P.PN ---
Subjective Progress Note Date: 05/05/20 Principal diagnosis: Chest pain Patient is an 89-year-old male for history of coronary artery disease status post CABG, permanent pacemaker, paroxysmal A. fib on Eliquis, hypertension, CK 80, dyslipidemia, and hypothyroidism who initially presented to the emergency department with complaints of chest pain that was similar to his prior myocardial infarction. In the ER he underwent extensive evaluation. Troponin was mildly elevated at 0.03 sets was not consistent with significant myocardial injury. EKG showed a ventricular paced rhythm. Chest x-ray showed mild pleural effusion on the left. This subsequently admitted for cardiology evaluation. He was noted to have a creatinine of 2.03 which appears chronic with a baseline creatinine of 2. Cardiology was consulted. Echocardiogram showed an ejection fraction of 30-35% with left ventricular hypokinesis. Lower extremity venous Doppler was negative for DVT. Cardiology spoke with family who elected non invasive management. He was taken off imdur due to moderate aortic stenosis. Patient seen and examined at bedside. He complains that his morphine pill didn't kick in. When I ask where his pain is at he gestures to his left chest wall, he states that he is short of breath, no lightheadedness, no dizziness, no nausea, no numbness or tingling into his arms/jaw, no palpitations. General: non toxic, no distress, appears at stated age Derm: warm, dry Head: atraumatic, normocephalic, symmetric, hard of hearing Eyes: EOMI, no lid lag, anicteric sclera Mouth: no lip lesion, mucus membranes moist Cardiovascular: S1-S2 with grade 3 systolic ejection murmur, positive posterior tibial pulse bilateral, Lungs: Decreased breath sounds bilateral, no rhonchi, no rales , no accessory muscle use Abdominal: soft, nontender to palpation, no guarding, no appreciable organomegaly Ext: no gross muscle atrophy, trace edema, no contractures Neuro: CN II-XI grossly intact, no focal neuro deficits Psych: Alert, oriented, appropriate affect Assessment/plan: Newly discovered systolic cardiomyopathy with ejection fraction 30-35% and global hypokinesis, likely ischemic in the setting of chest pain, history of coronary artery disease status post CABG -Cardiology recommendations: Losartan, increased coreg, -Continue with Coreg, aspirin, Plavix -Imdur discontinued due to moderate aortic stenosis -Strict I's and O's, daily weight -Continue with Lasix Chronic kidney disease stage IV -Appears to be at baseline, baseline creatinine 2 - repeat renal function in AM and monitor K+ closely Paroxysmal atrial fibrillation -Continue with EliquisVy -Monitor heart rate COPD without exacerbation -Pulmonary recommendations appreciated - continue home bronchodilator regiment Chronic pain - oral morphine, off IV morphine Chronic: Moderate aortic stenosis Sick sinus syndrome status post permanent pacemaker Chronic nicotine dependence Objective sleep apnea Carotid artery disease DVT prophylaxis: Eliquis Discussed with: Patient, nursing Anticipated discharge: in AM Anticipated discharge place: Home with home health care, palliative care A total of 35 minutes was spent on the care of this complex patient more than 50% of the time was spent in counseling and care coordination. Objective - Vital Signs Vital signs: Vital Signs Temp 97.7 F 05/05/20 07:00 Pulse 63 05/05/20 07:40 Resp 18 05/05/20 08:00 BP 143/74 05/05/20 07:00 Pulse Ox 96 05/05/20 08:00 Intake & Output 05/04/20 05/05/20 05/05/20 18:59 06:59 18:59 Intake Total 480 Output Total 975 1850 Balance -495 -1850 Intake: Oral 480 Output: Urine 975 1850 Other: Voiding Method Urinal - Labs CBC & Chem 7: 05/03/20 04:10 05/05/20 06:07 Labs: Abnormal Lab Results - Last 24 Hours (Table) 05/04/20 05/05/20 Range/Units 09:58 06:07 Chloride 110 H 111 H (98-107) mmol/L Carbon Dioxide 21 L 19 L (22-30) mmol/L BUN 48 H 54 H (9-20) mg/dL Creatinine 2.19 H 2.19 H (0.66-1.25) mg/dL Glucose 188 H 116 H (74-99) mg/dL Calcium 8.0 L 8.1 L (8.4-10.2) mg/dL
[2020-05-05] MEDS: ACETAMINOPHEN TAB 325 MG TAB PO PRN ×2 (10:55→17:06)
[2020-05-05] MEDS: FUROSEMIDE 20 MG TAB PO SCH (16:04)
[2020-05-05] MEDS: SODIUM BICARBONATE TAB 650 MG TAB PO SCH ×3 (16:04→20:15)
[2020-05-05] MEDS: ATORVASTATIN 80 MG TAB PO SCH (20:15)
[2020-05-06 07:50] VITALS: BP 145/76; RESP 18; TEMP 97
[2020-05-06] MEDS: IPRATROPIUM-ALBUTEROL 3 ML NEB INHALATION SCH ×2 (07:56→11:17)
[2020-05-06] MEDS: carvediloL 12.5 MG TAB PO SCH (08:16)
[2020-05-06] MEDS: SODIUM BICARBONATE TAB 650 MG TAB PO SCH (08:16)
[2020-05-06] MEDS: ASPIRIN 81 MG PO SCH (08:16)
[2020-05-06] MEDS: LOSARTAN 25 MG TAB PO SCH (08:16)
[2020-05-06] MEDS: APIXABAN 2.5 MG TABLET PO SCH (08:17)
[2020-05-06] MEDS: FUROSEMIDE 40 MG TAB PO SCH (08:17)
[2020-05-06] MEDS: MORPHINE SULFATE ER 15 MG TABLET PO SCH (08:17)
[2020-05-06 11:32] VITALS: PULSE 71
--- NOTE | 2020-05-06 13:47 | P.PN ---
Subjective HISTORY OF PRESENTING ILLNESS This is a pleasant 89-year-old male past medical history significant for maximal atrial fibrillation, or any artery disease status post bypass grafting 2008 while living in [place], aortic stenosis, hypertension, dyslipidemia, COPD, sick sinus syndrome s/p permanent pacemaker implantation ([employer] [facility]) 2017 and peripheral vascular disease. He follows in the office with Dr. Allen. We have been asked to see in consultation for chest pain. He is seen and examined resting comfortably lying on the stretcher in the emergency department. He denies symptoms of chest pain, shortness of breath, dizziness or palpitations. According to the emergency room note the patient presented to the hospital with symptoms of chest pain. Apparently he felt an episode of discomfort in the left precordial region while he was sitting down watching television. He did notice some radiation down the left arm that felt mildly heavy. The symptoms were brief and didn't improve shortly thereafter. He denies any further episodes of chest discomfort since arriving at the hospital. Recent echocardiogram obtained September 2019 revealed preserved LV systolic function with ejection fraction 55-60%, moderate aortic stenosis with a mean gradient of 25 mmHg, mild MR and mild TR. 05/05/2020 Pt seen and examined laying flat in bed in no acute distress. He denies chest pain, shortness of breath, dizziness or palpitations. Blood pressure 145/76 heart rate 63 afebrile and maintaining oxygen saturation on room air. AM labs not resulted. PHYSICAL EXAMINATION CONSTITUTIONAL: No apparent distress. HEENT: Head is normocephalic. Pupils are equal, round. Sclerae anicteric. Mucous membranes of the mouth are moist. No JVD. No carotid bruit. CHEST EXAMINATION: Lungs are clear to auscultation. No chest wall tenderness is noted on palpation or with deep breathing. HEART EXAMINATION: Regular rate and rhythm. S1, S2 heard. Systolic ejection murmur at the base, no gallops or rub. EXTREMITIES: 2+ peripheral pulses, no lower extremity edema and no calf tenderness. ASSESSMENT Chest pain New onset systolic heart failure with wall motion abnormalities, likely ischemic Acute on chronic kidney disease Elevated troponin secondary to impaired renal function, no significant rise and fall pattern. Not suggestive of myocardial injury. History of coronary artery disease status post bypass grafting in 2008, exact details unavailable Aortic stenosis, moderate Sick sinus syndrome status post permanent pacemaker implantation Paroxysmal atrial fibrillation, maintained on Eliquis however the patient states his prescription recently ran out and he did not contact anybody to get it filled COPD Chronic nicotine dependence PLAN Stable on current medical regimen. Follow up with Dr. Allen upon discharge. Nurse Practitioner note has been reviewed, I agree with a documented findings and plan of care. Patient was seen and examined. Objective - Vital Signs Vital signs: Vital Signs Temp 97.0 F L 05/06/20 07:00 Pulse 71 05/06/20 11:29 Resp 18 05/06/20 07:00 BP 145/76 05/06/20 07:00 Pulse Ox 98 05/06/20 07:00 Intake & Output 05/05/20 05/06/20 05/06/20 18:59 06:59 18:59 Intake Total 120 Output Total 1000 Balance -1000 120 Intake: Oral 120 Output: Urine 1000 Other: Voiding Method Toilet Toilet Toilet Urinal Urinal Urinal # Voids 4 2 - Labs CBC & Chem 7: 05/03/20 04:10 05/05/20 06:07
[2020-05-06 15:09] LABS: HCT 45.3 % (39.6-50.0); HGB 14.3 g/dL (13.0-17.0); MCH 29.6 pg (27.0-32.0); MCHC 31.6 g/dL (32.0-37.0); MCV 93.8 fL (80.0-97.0); Mean Platelet Volume 10.6 fL (9.5-12.2); Platelet Count 211 X 10*3/uL (140-440); RBC 4.83 X 10*6/uL (4.40-5.60); RDW 14.2 % (11.5-14.5)
[2020-05-06 15:26] LABS: African American GFR (CKD) 25.8 (60.0-200.0); Anion Gap 9.9 mmol/L (4.00-12.00); BUN/Creat Ratio 24.8 Ratio (12.00-20.00); Calcium 8.2 mg/dL (8.7-10.3); Carbon Dioxide 26.1 mmol/L (21.6-31.8); Non-African American GFR(CKD) 22.3 (60.0-200.0); Potassium 4.4 mmol/L (3.5-5.5)
--- NOTE | 2020-05-08 09:36 | DS ---
DISCHARGE SUMMARY DATE OF ADMISSION: 05/03/2020. DATE OF DISCHARGE: 05/06/2020. FINAL DIAGNOSES: 1. 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 2. Chronic kidney disease stage 4, likely from nephrosclerosis. 3. Paroxysmal atrial fibrillation. 4. Chronic obstructive pulmonary disease. 5. Chronic pain medications for chronic pain. 6. Moderate aortic stenosis. 7. Sick sinus syndrome with history of permanent pacemaker. 8. Chronic nicotine dependence. Patient is a cigarette smoker. 9. Obstructive sleep apnea. CONSULTATION: Dr. Luevano from Pulmonary; Dr. AMARILYS Mcclelland from Cardiology. HOSPITAL COURSE: This is an 89-year-old patient with known history of coronary artery disease with bypass, pacemaker, paroxysmal atrial fibrillation on Eliquis, hypertension, chronic kidney disease, hyperlipidemia, hypothyroid, presented with chest pain. At baseline, patient's creatinine is elevated above 2. The patient's troponin was 0.036. The patient was seen by Cardiology. The patient's troponins felt to be from impaired renal function. Not of acute coronary syndrome. The patient was discovered to have a new systolic heart failure. 2D echocardiogram showed EF of 30-35 percent. Multiple wall motion abnormalities are present. Venous Doppler bilateral negative for DVT. Patient does follow up with Dr. Macey Allen in the office. Medications adjusted. The patient is to follow up with Dr. Allen in the outpatient setting. The patient's prescription for Eliquis had recently ran out and had not contacted anybody to get it refilled. On examination, temperature 97, pulse 63, respiratory 18, blood pressure 145/76, pulse ox 98% on room air. Lungs fair entry. CARDIOVASCULAR: Heart sounds irregular. PSYCH: AO x3. INVESTIGATIONS: White count 11.3, hemoglobin 14.3, potassium 4.4, creatinine 2.5. ProBNP 9980. 2D echo as above. Venous Doppler negative for DVT. HOME GO MEDICATIONS: 1. Lipitor 80 mg q.h.s. 2. Nitrostat 0.4 sublingual q.5 p.r.n. 3. Aspirin 81 mg daily. 4. MS Contin 50 mg p.o. b.i.d. 5. Lasix 40 mg p.o. daily. 6. Eliquis 2.5 mg p.o. b.i.d. 7. Lasix 20 mg p.o. daily at 4:00 pm. 8. DuoNeb t.i.d. p.r.n. 9. Fish oil 1000 mg p.o. daily. 10.Zoloft 50 mg daily. 11.Tylenol 650 mg q.6h p.r.n. 12.Cozaar 25 mg p.o. daily. 13.Senokot S 1 tablet p.o. daily. 14.Sodium bicarb 325 mg p.o. t.i.d. 15.Coreg 50 mg p.o. b.i.d. Discontinued medications: Imdur 60, hydralazine, Colace, Plavix. Labs, BMP in 5 days. DISPOSITION: Home. FOLLOWUP: Dr. Luevano in 1 week, Dr. Mueller in 2 days, Dr. Macey Allen on May 27 at 1:30 p.m. Discussion and discharge planning more than 35 minutes. MMODL / IJN: [id number] /
== END 2020-05-06 13:13 | disposition home or self-care (01) | DRG 291 ==
LOC: EC 03:42 → 6NMEDSUR 04:37 → OBSVTOIN 05-05 14:14
PROVIDERS: ADMIT Hospitalist; ATTEND Hospitalist
DX: I13.0 Hypertensive heart and chronic kidney disease with heart failure and stage 1 through stage 4 chronic kidney disease, or unspecified chronic kidney disease (principal); I50.21 Acute systolic (congestive) heart failure; I48.20 Chronic atrial fibrillation, unspecified; N17.9 Acute kidney failure, unspecified; N18.4 Chronic kidney disease, stage 4 (severe); E03.9 Hypothyroidism, unspecified; E78.5 Hyperlipidemia, unspecified; F17.210 Nicotine dependence, cigarettes, uncomplicated; F32.9 Major depressive disorder, single episode, unspecified; G47.33 Obstructive sleep apnea (adult) (pediatric); G89.29 Other chronic pain; I25.5 Ischemic cardiomyopathy; I35.0 Nonrheumatic aortic (valve) stenosis; I48.0 Paroxysmal atrial fibrillation; I49.5 Sick sinus syndrome; I73.9 Peripheral vascular disease, unspecified; J44.9 Chronic obstructive pulmonary disease, unspecified; Z20.822 Contact with and (suspected) exposure to COVID-19; I65.29 Occlusion and stenosis of unspecified carotid artery; H91.90 Unspecified hearing loss, unspecified ear; I25.10 Atherosclerotic heart disease of native coronary artery without angina pectoris; I25.2 Old myocardial infarction; Z95.1 Presence of aortocoronary bypass graft; Z95.0 Presence of cardiac pacemaker; Z79.899 Other long term (current) drug therapy; Z79.890 Hormone replacement therapy; Z79.82 Long term (current) use of aspirin; Z79.02 Long term (current) use of antithrombotics/antiplatelets; Z79.01 Long term (current) use of anticoagulants; Z88.5 Allergy status to narcotic agent; Z88.0 Allergy status to penicillin; Z88.8 Allergy status to other drugs, medicaments and biological substances; Z90.49 Acquired absence of other specified parts of digestive tract; Z98.890 Other specified postprocedural states; Z81.8 Family history of other mental and behavioral disorders; Z98.42 Cataract extraction status, left eye; Z98.41 Cataract extraction status, right eye
CPT/HCPCS: 36415; 71046; 80048; 80053; 80061; 82550; 83690; 83735; 83880; 84484; 85025; 85027; 85610; 85730; 87635; 93005; 93306; 93970; 94640; 94760; 96361; 96374; 96375; 99291

== ENCOUNTER 2020-05-09 18:24 | Observation (INO) | payer MEDICARE, BC ==
[2020-05-09 19:19] LABS: Basophils % (A) 0 %; Eosinophils # (A) 0.1 k/uL (0-0.7); Eosinophils % (A) 0 %; HCT 39.6 % (39.0-53.0); HGB 13.4 gm/dL (13.0-17.5); Lymphocytes # (A) 1.1 k/uL (1.0-4.8); Lymphocytes % (A) 9 %; MCH 30.9 pg (25.0-35.0); MCHC 33.7 g/dL (31.0-37.0); MCV 91.6 fL (80.0-100.0); Mean Platelet Volume 7.7; Monocytes # (A) 0.6 k/uL (0-1.0); Monocytes % (A) 5 %; Neutrophils # (A) 10.7 k/uL (1.3-7.7); Neutrophils % (A) 85 %; Platelet Count 179 k/uL (150-450); RBC 4.32 m/uL (4.30-5.90); RDW 13.9 % (11.5-15.5); WBC 12.5 k/uL (3.8-10.6)
--- NOTE | 2020-05-09 19:19 | ED ---
General Adult HPI - General Chief complaint: Recheck/Abnormal Lab/Rx Stated complaint: Weakness Time Seen by Provider: 05/09/20 18:25 Source: patient, EMS, RN notes reviewed, old records reviewed Mode of arrival: EMS Limitations: no limitations - History of Present Illness Initial comments: 89-year-old male presents for evaluation after being seen by his home health care nurse who requested that the patient be seen. She has felt that the patient had muffled and distant heart sounds. Patient has multiple medical problems, he states he feels unwell but this is not abnormal. He denies central chest pain, denies fever. He states he has been using some oxygen which she only uses intermittently at home. He has a history of CHF. According to his son there was a medication mixup and the patient had not taken his medication over the weekend. He was recently discharged from the hospital Saturday morning. - Related Data Home Medications Medication Instructions Recorded Confirmed Atorvastatin [Lipitor] 80 mg PO HS 07/04/18 05/03/20 Aspirin EC [Ecotrin Low Dose] 81 mg PO DAILY 11/25/18 05/03/20 Morphine Sulfate ER [Ms Contin] 15 mg PO BID 11/25/18 05/03/20 Furosemide [Lasix] 20 mg PO DAILY@1600 05/03/20 05/03/20 Ipratropium-Albuterol Nebulize 3 ml INHALATION RT-TID PRN 05/03/20 05/03/20 [Duoneb 0.5 mg-3 mg/3 ml Soln] [place]-3 Fatty Acids/Fish Oil [Fish 1 cap PO DAILY 05/03/20 05/03/20 Oil 1,000 mg Softgel] Sertraline [Zoloft] 50 mg PO DAILY 05/03/20 05/03/20 Previous Rx's Medication Instructions Recorded Nitroglycerin Sl Tabs [Nitrostat] 0.4 mg SUBLINGUAL Q5M PRN #100 tab 07/07/18 Furosemide [Lasix] 40 mg PO DAILY #180 tab 10/02/19 Apixaban [Eliquis] 2.5 mg PO BID #180 tab 05/03/20 Acetaminophen Tab [Tylenol] 650 mg PO Q6HR PRN tab 05/06/20 Losartan [Cozaar] 25 mg PO DAILY #30 tab 05/06/20 Sennosides-Docusate Sodium 1 tab PO DAILY #30 tablet 05/06/20 [Senokot-S] Sodium Bicarbonate Tab 325 mg PO TID #90 tab 05/06/20 carvediloL [Coreg*] 50 mg PO BID-W/MEALS #60 tab 05/06/20 Allergies Allergy/AdvReac Type Severity Reaction Status Date / Time amoxicillin AdvReac Cough Verified 05/09/20 18:34 chlorpromazine AdvReac Unknown Verified 05/09/20 18:34 [From Thorazine] gemfibrozil AdvReac Unknown Verified 05/09/20 18:34 lisinopril AdvReac Cough Verified 05/09/20 18:34 metformin AdvReac Diarrhea Verified 05/09/20 18:34 methadone AdvReac Unknown Verified 05/09/20 18:34 Review of Systems ROS Statement: Those systems with pertinent positive or pertinent negative responses have been documented in the HPI. ROS Other: All systems not noted in ROS Statement are negative. Past Medical History Past Medical History: Atrial Fibrillation, Coronary Artery Disease (CAD), Chest Pain / Angina, Heart Failure, COPD, GERD/Reflux, Hearing Disorder / Deafness, Hyperlipidemia, Hypertension, Myocardial Infarction ([place]), Renal Disease, Sleep Apnea/CPAP/BIPAP, Thyroid Disorder, Vascular Disorder Additional Past Medical History / Comment(s): Paroxysmal afib, SSS with pacemaker, cardiomyopathy, tracheobronchitis, CKD stage III, chronic anemia, chr onic pain, L caratid 100% blockage/R caratid 75% blockage, hypothyroid, [place] bilaterally, constipation Last Myocardial Infarction Date:: 06/2018 History of Any Multi-Drug Resistant Organisms: None Reported Past Surgical History: Cholecystectomy, Coronary Bypass/CABG, Heart Catheterization, Pacemaker Additional Past Surgical History / Comment(s): Pacemaker in June 2018, 2008 CABG-pt believes was 5 vessel done down in [place], colonoscopy-normal, bilateral cataract removals. Past Anesthesia/Blood Transfusion Reactions: No Reported Reaction, Motion Sickness Type of Cardiac Device: Permanent Pacemaker Device Placement Date:: 06/2018 Past Psychological History: Depression Smoking Status: Current every day smoker Past Alcohol Use History: None Reported Past Drug Use History: None Reported - Past Family History Father Family Medical History: Dementia Additional Family Medical History / Comment(s): Pt does not recall any parent medical hx at this time. Mother Family Medical History: No Reported History Additional Family Medical History / Comment(s): Mother was healthy. General Exam Limitations: no limitations General appearance: alert, in no apparent distress Head exam: Present: atraumatic, normocephalic Eye exam: Present: normal appearance, PERRL ENT exam: Present: normal exam Neck exam: Present: normal inspection. Absent: tenderness, meningismus Respiratory exam: Present: rhonchi, decreased breath sounds. Absent: respiratory distress, wheezes, rales Cardiovascular Exam: Present: regular rate, normal rhythm GI/Abdominal exam: Present: soft. Absent: distended, tenderness Extremities exam: Present: normal inspection, normal capillary refill. Absent: pedal edema Neurological exam: Present: alert, oriented X3, CN II-XII intact. Absent: motor sensory deficit Psychiatric exam: Present: normal affect, normal mood Skin exam: Present: warm, dry, intact. Absent: cyanosis, diaphoretic Course Vital Signs 05/09/20 18:24 Temperature 97.5 F L Pulse Rate 62 Respiratory 18 Rate Blood Pressure 121/75 O2 Sat by Pulse 92 L Oximetry EKG Findings - EKG Comments: EKG Findings:: EKG: Paced rhythm, rate of 60, QRS duration 184, QTC 534. Medical Decision Making - Medical Decision Making 89-year-old male presenting for evaluation, mild dyspnea, off his medications. Patient currently lives alone. Chest x-ray showing interstitial edema, concern for possible infiltrate. He has a mild leukocytosis which is increased from previous. He has a creatinine which is baseline. Mild hypocalcemia which is replaced. He started on antibiotics although I suspect this is predominantly congestive heart failure. He is given Lasix in the emergency department. He will be admitted for diuresis, close monitoring. - Lab Data Result diagrams: 05/09/20 19:14 05/09/20 19:14 Lab Results 05/09/20 05/09/20 05/09/20 Range/Units 19:14 19:14 19:14 WBC 12.5 H (3.8-10.6) k/uL RBC 4.32 (4.30-5.90) m/uL Hgb 13.4 (13.0-17.5) gm/dL Hct 39.6 (39.0-53.0) % MCV 91.6 (80.0-100.0) fL MCH 30.9 (25.0-35.0) pg MCHC 33.7 (31.0-37.0) g/dL RDW 13.9 (11.5-15.5) % Plt Count 179 (150-450) k/uL MPV 7.7 Neutrophils % 85 % Lymphocytes % 9 % Monocytes % 5 % Eosinophils % 0 % Basophils % 0 % Neutrophils # 10.7 H (1.3-7.7) k/uL Lymphocytes # 1.1 (1.0-4.8) k/uL Monocytes # 0.6 (0-1.0) k/uL Eosinophils # 0.1 (0-0.7) k/uL Basophils # 0.0 (0-0.2) k/uL PT 10.5 (9.0-12.0) sec INR 1.0 (<1.2) APTT 23.7 (22.0-30.0) sec Sodium 137 (137-145) mmol/L Potassium 4.1 (3.5-5.1) mmol/L Chloride 100 (98-107) mmol/L Carbon Dioxide 25 (22-30) mmol/L Anion Gap 12 mmol/L BUN 82 H (9-20) mg/dL Creatinine 2.59 H (0.66-1.25) mg/dL Est GFR (CKD-EPI)AfAm 25 (>60 ml/min/1.73 sqM) Est GFR (CKD-EPI)NonAf 21 (>60 ml/min/1.73 sqM) Glucose 147 H (74-99) mg/dL Plasma Lactic Acid Miguel (0.7-2.0) mmol/L Calcium 7.7 L (8.4-10.2) mg/dL Magnesium 1.9 (1.6-2.3) mg/dL Total Bilirubin 1.5 H (0.2-1.3) mg/dL AST 22 (17-59) U/L ALT 19 (4-49) U/L Alkaline Phosphatase 95 (38-126) U/L Total Protein 5.8 L (6.3-8.2) g/dL Albumin 3.4 L (3.5-5.0) g/dL 05/09/20 Range/Units 19:14 WBC (3.8-10.6) k/uL RBC (4.30-5.90) m/uL Hgb (13.0-17.5) gm/dL Hct (39.0-53.0) % MCV (80.0-100.0) fL MCH (25.0-35.0) pg MCHC (31.0-37.0) g/dL RDW (11.5-15.5) % Plt Count (150-450) k/uL MPV Neutrophils % % Lymphocytes % % Monocytes % % Eosinophils % % Basophils % % Neutrophils # (1.3-7.7) k/uL Lymphocytes # (1.0-4.8) k/uL Monocytes # (0-1.0) k/uL Eosinophils # (0-0.7) k/uL Basophils # (0-0.2) k/uL PT (9.0-12.0) sec INR (<1.2) APTT (22.0-30.0) sec Sodium (137-145) mmol/L Potassium (3.5-5.1) mmol/L Chloride (98-107) mmol/L Carbon Dioxide (22-30) mmol/L Anion Gap mmol/L BUN (9-20) mg/dL Creatinine (0.66-1.25) mg/dL Est GFR (CKD-EPI)AfAm (>60 ml/min/1.73 sqM) Est GFR (CKD-EPI)NonAf (>60 ml/min/1.73 sqM) Glucose (74-99) mg/dL Plasma Lactic Acid Miguel 1.7 (0.7-2.0) mmol/L Calcium (8.4-10.2) mg/dL Magnesium (1.6-2.3) mg/dL Total Bilirubin (0.2-1.3) mg/dL AST (17-59) U/L ALT (4-49) U/L Alkaline Phosphatase (38-126) U/L Total Protein (6.3-8.2) g/dL Albumin (3.5-5.0) g/dL Disposition Clinical Impression: S/P cardiac pacemaker procedure, CKD (chronic kidney disease), CHF (congestive heart failure) Disposition: ADMITTED IP TO THIS [facility] Condition: Stable Is patient prescribed a controlled substance at d/c from ED?: No Referrals: Melecio Mueller MD [Primary Care Provider] - 1-2 days Decision to Admit Reason: Admit from EC Decision Date: 05/09/20 Decision Time: 20:29
[2020-05-09 19:28] LABS: Albumin 3.4 g/dL (3.5-5.0); Calcium 7.7 mg/dL (8.4-10.2); Magnesium 1.9 mg/dL (1.6-2.3); Potassium 4.1 mmol/L (3.5-5.1); Total Bilirubin 1.5 mg/dL (0.2-1.3); Total Protein 5.8 g/dL (6.3-8.2)
[2020-05-09] MEDS ORDERED: SODIUM CHLORIDE 0.9% 1,000 ML IV ONE (19:49)
[2020-05-09 19:51] LABS: Partial Thromboplastin Time 23.7 sec (22.0-30.0); Prothrombin Time 10.5 sec (9.0-12.0)
--- NOTE | 2020-05-09 20:14 | XR ---
EXAMINATION TYPE: XR chest 2V DATE OF EXAM: 05/09/2020 COMPARISON: 05/03/2020. HISTORY: Weakness. TECHNIQUE: Frontal and lateral views of the chest are obtained. FINDINGS: There is is mild perihilar and bibasilar hazy opacity. There is probable trace left pleura l effusion. No pneumothorax seen. Cardiomegaly and prior cardiothoracic postsurgical changes noted. The osseous structures are intact. IMPRESSION: Mild interstitial edema/atelectasis or aspiration changes with superimposed infiltrates not excluded.
[2020-05-09] MEDS ORDERED: FUROSEMIDE 10 MG/ML 4 ML VIAL IV STA (20:22)
[2020-05-09] MEDS ORDERED: CEFEPIME 2 GM in SODIUM CHLORIDE 0.9% 100 ML IVPB STA (20:23)
[2020-05-09] MEDS ORDERED: NALOXONE 0.4 MG/ML 1 ML VIAL IV PRN (20:24)
[2020-05-09] MEDS ORDERED: ACETAMINOPHEN TAB 325 MG TAB PO PRN (20:24)
[2020-05-09] MEDS ORDERED: APIXABAN 2.5 MG TABLET PO SCH (21:00)
[2020-05-09] MEDS ORDERED: CALCIUM GLUCONATE 1 GM in SODIUM CHLORIDE 0.9% 100 ML IVPB ONE (21:15)
[2020-05-09] MEDS: APIXABAN 2.5 MG TABLET PO SCH (21:16)
[2020-05-09] MEDS: ATORVASTATIN 80 MG TAB PO SCH (21:16)
[2020-05-10] MEDS: carvediloL 12.5 MG TAB PO SCH ×2 (07:00→18:48)
[2020-05-10] MEDS ORDERED: LOSARTAN 25 MG TAB PO SCH (09:00)
[2020-05-10] MEDS ORDERED: FUROSEMIDE 10 MG/ML 4 ML VIAL IV SCH (09:00)
[2020-05-10] MEDS: ASPIRIN 81 MG PO SCH (09:41)
[2020-05-10] MEDS: FUROSEMIDE 40 MG TAB PO SCH (09:41)
[2020-05-10] MEDS: APIXABAN 2.5 MG TABLET PO SCH ×2 (09:41→19:57)
[2020-05-10] MEDS ORDERED: NITROGLYCERIN SL TABS 0.4 MG TAB SUBLINGUAL PRN (10:47)
[2020-05-10] MEDS ORDERED: IPRATROPIUM-ALBUTEROL 3 ML NEB INHALATION PRN (10:47)
--- NOTE | 2020-05-10 12:01 | P.CRDCN ---
History of Present Illness History of present illness: HISTORY OF PRESENTING ILLNESS This is a pleasant 89-year-old male past medical history significant for maximal atrial fibrillation, or any artery disease status post bypass grafting 2008 while living in [place], aortic stenosis, hypertension, dyslipidemia, COPD, sick sinus syndrome s/p permanent pacemaker implantation ([facility]) 2017 and peripheral vascular disease. He follows in the office with Dr. Allen. We have been asked to see in consultation for shortness of breath. Richmond traylor was sent to the emergency room on advice of his home care nurse secondary to shortness of breath. The patient himself is seen and examined resting comfortably lying flat in bed in no acute distress. When asked why he came to the hospital he states I don't know. When asked if he is short of breath he says no earache he denies any symptoms of chest discomfort, dizziness or palpitations. He is a poor historian. He was just here last week and treated medically for new onset systolic heart failure. His medications were adjusted and he was discharged in a stable condition. Echocardiogram obtained at that time revealed impaired LV systolic function with ejection fraction 30-35% with segmental wall motion abnormalities. He did have a mild elevation of his troponin at that time thought to be secondary to chronic kidney disease. Cardiac catheterization was not performed due to his kidney disease and advanced age. DIAGNOSTICS EKG reveals ventricular paced. Telemetry tracings indicate ventricular paced. Chest xray reveals mild interstitial edema. Laboratory reviewed, WBC 12.5, hemoglobin 13.4, platelets 179, sodium 137, potassium 4.1, creatinine 2.59, magnesium 1.9 and NT proBNP 2870. Current cardiac medications include Coreg 50 mg twice a day, losartan 25 mg daily, Lasix 40 mg in the morning and 20 mg in the afternoon, atorvastatin 80 mg daily, aspirin 81 mg daily and Eliquis 2.5 mg twice a day. REVIEW OF SYSTEMS At the time of my exam: CONSTITUTIONAL: Denies fever or chills. CARDIOVASCULAR: Denies chest pain, shortness of breath, orthopnea, PND or palpitations. RESPIRATORY: Denies cough. GASTROINTESTINAL: Denies abdominal pain, diarrhea, constipation, nausea or vomiting. MUSCULOSKELETAL: Denies myalgias. NEUROLOGIC: Denies numbness, tingling, headacbe or weakness. ENDOCRINE: Denies fatigue, weight change, polydipsia or polyurina. GENITOURINARY: Denies burning, hematuria or urgency with micturation. HEMATOLOGIC: Denies history of anemia or bleeding. PHYSICAL EXAMINATION Blood pressure 120/58 heart rate 60 afebrile maintaining oxygen saturation on room air CONSTITUTIONAL: No apparent distress. HEENT: Head is normocephalic. Pupils are equal, round. Sclerae anicteric. Mucous membranes of the mouth are moist. No JVD. No carotid bruit. CHEST EXAMINATION: Lungs are clear to auscultation. No chest wall tenderness is noted on palpation or with deep breathing. HEART EXAMINATION: Regular rate and rhythm. S1, S2 heard. Systolic ejection murmur at the base, no gallops or rub. ABDOMEN: Soft, nontender. Positive bowel sounds. EXTREMITIES: 2+ peripheral pulses, no lower extremity edema and no calf tenderness. NEUROLOGIC EXAMINATION: Patient is awake, alert and oriented x3. ASSESSMENT Chronic systolic heart failure, clinically euvolemic Leukocytosis Chronic kidney disease History of coronary artery disease status post bypass grafting in 2008, exact details unavailable Aortic stenosis, moderate Sick sinus syndrome status post permanent pacemaker implantation Paroxysmal atrial fibrillation, maintained on Eliquis PLAN Clinically the patient is euvolemic. His BNP is elevated however coming down from previous admission. He is lying completely flat in bed and has no complaints of shortness of breath. Continue home dose of diuretics. Consider possible ECF placement secondary to inability to maintain his medication regimen. There is also family dynamics that should be addressed by social work. Thank you kindly for this consultation. Nurse Practitioner note has been reviewed, I agree with a documented findings and plan of care. Patient was seen and examined. Past Medical History Past Medical History: Atrial Fibrillation, Coronary Artery Disease (CAD), Chest Pain / Angina, Heart Failure, COPD, GERD/Reflux, Hearing Disorder / Deafness, Hyperlipidemia, Hypertension, Myocardial Infarction ([place]), Renal Disease, Sleep Apnea/CPAP/BIPAP, Thyroid Disorder, Vascular Disorder Additional Past Medical History / Comment(s): Paroxysmal afib, SSS with pacemaker, cardiomyopathy, tracheobronchitis, CKD stage III, chronic anemia, chronic pain, L caratid 100% blockage/R caratid 75% blockage, hypothyroid, [place] bilaterally, constipation Last Myocardial Infarction Date:: 06/2018 History of Any Multi-Drug Resistant Organisms: None Reported Past Surgical History: Cholecystectomy, Coronary Bypass/CABG, Heart Cathet erization, Pacemaker Additional Past Surgical History / Comment(s): Pacemaker in June 20182008 CABG-pt believes was 5 vessel done down in [place], colonoscopy-normal, bila teral cataract removals. Past Anesthesia/Blood Transfusion Reactions: No Reported Reaction, Motion Sickness Type of Cardiac Device: Permanent Pacemaker Device Placement Date:: 06/2018 Past Psychological History: Depression Additional Psychological History / Comment(s): Pt resides alone. He uses a walker to ambulate. His ex son in law lives across the street and is very hel pful. He has a nebulizer and a CPap machine which he has not been using. He states he has oxygen in the home but has not needed to use it. He drives some. He manages his own medications, but states he has been having difficulty and will be having his ex son in law help him with medications. He cooks some. Smoking Status: Current every day smoker Past Alcohol Use History: None Reported Additional Past Alcohol Use History / Comment(s): Pt states he started smoking as a teen and is a 10 cigarette/day smoker. Past Drug Use History: None Reported - Past Family History Father Family Medical History: Dementia Additional Family Medical History / Comment(s): Pt does not recall any parent medical hx at this time. Mother Family Medical History: No Reported History Additional Family Medical History / Comment(s): Mother was healthy. Medications and Allergies Home Medications Medication Instructions Recorded Confirmed Type Atorvastatin [Lipitor] 80 mg PO HS 07/04/18 05/09/20 History Nitroglycerin Sl Tabs [Nitrostat] 0.4 mg SUBLINGUAL Q5M PRN #100 tab 07/07/18 05/09/20 Rx Aspirin EC [Ecotrin Low Dose] 81 mg PO DAILY 11/25/18 05/09/20 History Morphine Sulfate ER [Ms Contin] 15 mg PO BID 11/25/18 05/09/20 History Furosemide [Lasix] 40 mg PO DAILY #180 tab 10/02/19 05/09/20 Rx Apixaban [Eliquis] 2.5 mg PO BID #180 tab 05/03/20 05/09/20 Rx Furosemide [Lasix] 20 mg PO DAILY@1600 05/03/20 05/09/20 History Ipratropium-Albuterol Nebulize 3 ml INHALATION RT-TID PRN 05/03/20 05/09/20 History [Duoneb 0.5 mg-3 mg/3 ml Soln] [place]-3 Fatty Acids/Fish Oil [Fish 1 cap PO DAILY 05/03/20 05/09/20 History Oil 1,000 mg Softgel] Sertraline [Zoloft] 50 mg PO DAILY 05/03/20 05/09/20 History Acetaminophen Tab [Tylenol] 650 mg PO Q6HR PRN tab 05/06/20 05/09/20 Rx Losartan [Cozaar] 25 mg PO DAILY #30 tab 05/06/20 05/09/20 Rx Sennosides-Docusate Sodium 1 tab PO DAILY #30 tablet 05/06/20 05/09/20 Rx [Senokot-S] Sodium Bicarbonate Tab 325 mg PO TID #90 tab 05/06/20 05/09/20 Rx carvediloL [Coreg*] 50 mg PO BID-W/MEALS #60 tab 05/06/20 05/09/20 Rx Allergies Allergy/AdvReac Type Severity Reaction Status Date / Time amoxicillin AdvReac Cough Verified 05/09/20 21:03 chlorpromazine AdvReac Unknown Verified 05/09/20 21:03 [From Thorazine] gemfibrozil AdvReac Unknown Verified 05/09/20 21:03 lisinopril AdvReac Cough Verified 05/09/20 21:03 metformin AdvReac Diarrhea Verified 05/09/20 21:03 methadone AdvReac Unknown Verified 05/09/20 21:03 Physical Exam Vitals: Vital Signs Temp Pulse Pulse Resp BP BP Pulse Ox 05/10/20 09:30 97.0 F L 60 16 120/58 91 L 05/10/20 04:00 61 16 127/58 97 05/10/20 02:00 61 16 05/10/20 00:00 97.3 F L 61 17 110/53 97 05/09/20 22:56 97.3 F L 61 19 110/53 97 05/09/20 22:25 98.0 F 58 L 16 117/62 98 05/09/20 20:43 60 16 110/56 98 05/09/20 18:24 97.5 F L 62 18 121/75 92 L Intake and Output 05/09/20 05/10/20 05/10/20 22:59 06:59 14:59 Output Total 425 Balance -425 Output: Urine 425 Other: Voiding Method Urinal Urinal # Voids 1 Weight 90.718 kg 90.7 kg Results 05/09/20 19:14 05/09/20 19:14 Cardiac Enzymes 05/09/20 Range/Units 19:14 AST 22 (17-59) U/L Coagulation 05/09/20 Range/Units 19:14 PT 10.5 (9.0-12.0) sec APTT 23.7 (22.0-30.0) sec CBC 05/09/20 Range/Units 19:14 WBC 12.5 H (3.8-10.6) k/uL RBC 4.32 (4.30-5.90) m/uL Hgb 13.4 (13.0-17.5) gm/dL Hct 39.6 (39.0-53.0) % Plt Count 179 (150-450) k/uL Comprehensive Metabolic Panel 05/09/20 Range/Units 19:14 Sodium 137 (137-145) mmol/L Potassium 4.1 (3.5-5.1) mmol/L Chloride 100 (98-107) mmol/L Carbon Dioxide 25 (22-30) mmol/L BUN 82 H (9-20) mg/dL Creatinine 2.59 H (0.66-1.25) mg/dL Glucose 147 H (74-99) mg/dL Calcium 7.7 L (8.4-10.2) mg/dL AST 22 (17-59) U/L ALT 19 (4-49) U/L Alkaline Phosphatase 95 (38-126) U/L Total Protein 5.8 L (6.3-8.2) g/dL Albumin 3.4 L (3.5-5.0) g/dL Current Medications Generic Name Dose Route Start Last Admin Trade Name Freq PRN Reason Stop Dose Admin Acetaminophen 650 mg 05/09/20 20:24 05/10/20 09:41 Acetaminophen Tab 325 Mg Tab PO 650 mg Q6HR PRN Administration Mild Pain or Fever > 100.5 Albuterol/Ipratropium 3 ml 05/10/20 10:47 Ipratropium-Albuterol 3 Ml Neb INHALATION RT-TID PRN Shortness Of Breath Apixaban 2.5 mg 05/09/20 21:00 05/10/20 09:41 Apixaban 2.5 Mg Tablet PO 2.5 mg BID [facility] Administration Aspirin 81 mg 05/10/20 09:00 05/10/20 09:41 Aspirin 81 Mg PO 81 mg DAILY [facility] Administration Atorvastatin Calcium 80 mg 05/09/20 21:00 05/09/20 21:16 Atorvastatin 80 Mg Tab PO 80 mg HS [facility] Administration Carvedilol 50 mg 05/10/20 07:30 05/10/20 07:00 Carvedilol 12.5 Mg Tab PO 50 mg BID-W/MEALS [facility] Administration Furosemide 40 mg 05/10/20 09:15 05/10/20 09:41 Furosemide 40 Mg Tab PO 40 mg DAILY [facility] Administration Furosemide 20 mg 05/11/20 16:00 Furosemide 10 Mg/Ml 2 Ml Vial IV DAILY@1600 [facility] Losartan Potassium 25 mg 05/10/20 09:00 05/10/20 09:41 Losartan 25 Mg Tab PO 25 mg DAILY [facility] Administration Morphine Sulfate 15 mg 05/10/20 11:00 Morphine Sulfate Er 15 Mg Tablet PO BID [facility] Protocol Naloxone HCl 0.2 mg 05/09/20 20:24 Naloxone 0.4 Mg/Ml 1 Ml Vial IV Q2M PRN Opioid Reversal Nitroglycerin 0.4 mg 05/10/20 10:47 Nitroglycerin Sl Tabs 0.4 Mg Tab SUBLINGUAL Q5M PRN Chest Pain Senna/Docusate Sodium 1 each 05/10/20 11:00 Sennosides-Docusate Sodium 1 Each Tab PO DAILY [facility] Sertraline HCl 50 mg 05/10/20 11:00 Sertraline 50 Mg Tab PO DAILY [facility] Sodium Bicarbonate 325 mg 05/10/20 11:00 Sodium Bicarbonate Tab 650 Mg Tab PO TID [facility] Intake and Output 05/09/20 05/10/20 05/10/20 22:59 06:59 14:59 Output Total 425 Balance -425 Output: Urine 425 Other: Voiding Method Urinal Urinal # Voids 1 Weight 90.718 kg 90.7 kg 05/09/20 19:14 05/09/20 19:14
[2020-05-10] MEDS: MORPHINE SULFATE ER 15 MG TABLET PO SCH (13:04)
[2020-05-10] MEDS: SERTRALINE 50 MG TAB PO SCH (13:05)
[2020-05-10] MEDS: SODIUM BICARBONATE TAB 650 MG TAB PO SCH ×3 (13:05→19:57)
[2020-05-10] MEDS: SENNOSIDES-DOCUSATE SODIUM 1 EACH TAB PO SCH (13:05)
--- NOTE | 2020-05-10 19:38 | P.HPIM ---
History of Present Illness H&P Date: 05/10/20 Chief Complaint: Short of breath History of presenting complaint: This is a pleasant 89-year-old patient who was just in the hospital from May 03 of May 06. Patient follows with visiting physicians Dr. Mueller. Patient's chronic stable medical conditions include coronary artery disease with bypass, pacemaker, paroxysmal atrial fibrillation on eliquis, hypertension, chronic kidney disease, hyperlipidemia, hypothyroid. Last admission patient's front have been CHF EF of 30-35%. Treated with IV Lasix. Patient was sent in by the home health nurse. Decided to bring the patient in. Apparently some shortness of breath. According to the son in the ER patient has not taken his medication on the weekend. Because of pharmacy. Timings. Patient is hard of hearing. Somewhat limited historian. 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 Uses a walker. Ps-wam-fq-law lives across the street and is helpful. CPAP machine patient has not been using. Has responsible close to 70 years about half a pack a day use or drink significant alcohol then about 20 years ago Family history: Reviewed, noncontributory to presentation Physical examination: VITAL SIGNS: 97.5, 62, 18, 121/75, 92% room air GENERAL: BMI 30.4, reclining in bed, awake EYES: Pupils equal. Conjunctiva normal. HEENT: External appearance of nose and ears normal, oral cavity grossly normal. Decreased hearing NECK: JVD possibly raised; masses not palpable. HEART: Heart sounds irregular, mild edema. LUNGS: Respiratory rate increased; decreased breath sounds. ABDOMEN: Soft, nontender, liver spleen not palpable, no masses palpable. PSYCH: Answering simple questionsl. MUSCULAR skeletal: Evidence of OA NEUROLOGICAL: Cranial nerves grossly intact; no facial asymmetry, power and sensation grossly intact. LYMPHATICS: No lymph nodes palpable in the axilla and neck INVESTIGATIONS, reviewed in the clinical context: White count 12.5 hemoglobin 13.4 platelets 179 potassium 4.1 bun 82 creatinine 2.59 Coronavirus [PCR]-not detected EKG tracing personally reviewed by me-AV dual paced rhythm Chest x-ray film personally reviewed by me-possible infiltrate possible venous prominence Previous labs: Bun 62 creatinine 2.5 on May 06 Assessment and plan: -Possible acute on chronic congestive heart failure exacerbation from systolic dysfunction EF 30-35% from underlying ischemic heart disease, possibly patient not taking his medications over the weekend. Patient is put on IV Lasix. 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 Follow electrolytes -Hyperlipidemia, on Lipitor -Very hard of hearing -Chronic gait dysfunction uses a walker , fall precautions -COPD in a current smoker, DuoNeb Patient is on IV Lasix. Follow by cardiology. We will follow another 24 hours. Blood pressure running on the lower side. Hold off Cozaar for now. 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 Past Anesthesia/Blood Transfusion Reactions: No Reported Reaction, Motion Sickness Type of Cardiac Device: Permanent Pacemaker Device Placement Date:: 06/2018 Past Psychological History: Depression Additional Psychological History / Comment(s): Pt resides alone. He uses a walker to ambulate. His ex son in law lives across the street and is very helpful. He has a nebulizer and a CPap machine which he has not been using. He states he has oxygen in the home but has not needed to use it. He drives some. He manages his own medications, but states he has been having difficulty and will be having his ex son in law help him with medications. He cooks some. Smoking Status: Current every day smoker Past Alcohol Use History: None Reported Additional Past Alcohol Use History / Comment(s): Pt states he started smoking as a teen and is a 10 cigarette/day smoker. Past Drug Use History: None Reported - Past Family History Father Family Medical History: Dementia Additional Family Medical History / Comment(s): Pt does not recall any parent medical hx at this time. Mother Family Medical History: No Reported History Additional Family Medical History / Comment(s): Mother was healthy. Medications and Allergies Home Medications Medication Instructions Recorded Confirmed Type Atorvastatin [Lipitor] 80 mg PO HS 07/04/18 05/09/20 History Nitroglycerin Sl Tabs [Nitrostat] 0.4 mg SUBLINGUAL Q5M PRN #100 tab 07/07/18 05/09/20 Rx Aspirin EC [Ecotrin Low Dose] 81 mg PO DAILY 11/25/18 05/09/20 History Morphine Sulfate ER [Ms Contin] 15 mg PO BID 11/25/18 05/09/20 History Furosemide [Lasix] 40 mg PO DAILY #180 tab 10/02/19 05/09/20 Rx Apixaban [Eliquis] 2.5 mg PO BID #180 tab 05/03/20 05/09/20 Rx Furosemide [Lasix] 20 mg PO DAILY@1600 05/03/20 05/09/20 History Ipratropium-Albuterol Nebulize 3 ml INHALATION RT-TID PRN 05/03/20 05/09/20 History [Duoneb 0.5 mg-3 mg/3 ml Soln] [place]-3 Fatty Acids/Fish Oil [Fish 1 cap PO DAILY 05/03/20 05/09/20 History Oil 1,000 mg Softgel] Sertraline [Zoloft] 50 mg PO DAILY 05/03/20 05/09/20 History Acetaminophen Tab [Tylenol] 650 mg PO Q6HR PRN tab 05/06/20 05/09/20 Rx Losartan [Cozaar] 25 mg PO DAILY #30 tab 05/06/20 05/09/20 Rx Sennosides-Docusate Sodium 1 tab PO DAILY #30 tablet 05/06/20 05/09/20 Rx [Senokot-S] Sodium Bicarbonate Tab 325 mg PO TID #90 tab 05/06/20 05/09/20 Rx carvediloL [Coreg*] 50 mg PO BID-W/MEALS #60 tab 05/06/20 05/09/20 Rx Allergies Allergy/AdvReac Type Severity Reaction Status Date / Time amoxicillin AdvReac Cough Verified 05/09/20 21:03 chlorpromazine AdvReac Unknown Verified 05/09/20 21:03 [From Thorazine] gemfibrozil AdvReac Unknown Verified 05/09/20 21:03 lisinopril AdvReac Cough Verified 05/09/20 21:03 metformin AdvReac Diarrhea Verified 05/09/20 21:03 methadone AdvReac Unknown Verified 05/09/20 21:03 Physical Exam Vitals: Vital Signs Temp Pulse Pulse Resp BP BP Pulse Ox 05/10/20 04:00 61 16 127/58 97 05/10/20 02:00 61 16 05/10/20 00:00 97.3 F L 61 17 110/53 97 05/09/20 22:56 97.3 F L 61 19 110/53 97 05/09/20 22:25 98.0 F 58 L 16 117/62 98 05/09/20 20:43 60 16 110/56 98 05/09/20 18:24 97.5 F L 62 18 121/75 92 L Intake and Output 05/09/20 05/10/20 05/10/20 22:59 06:59 14:59 Output Total 425 Balance -425 Output: Urine 425 Other: Voiding Method Urinal # Voids 1 Weight 90.718 kg 90.7 kg Results CBC & Chem 7: 05/09/20 19:14 05/09/20 19:14 Labs: Abnormal Lab Results - Last 24 Hours (Table) 05/09/20 05/09/20 Range/Units 19:14 19:14 WBC 12.5 H (3.8-10.6) k/uL Neutrophils # 10.7 H (1.3-7.7) k/uL BUN 82 H (9-20) mg/dL Creatinine 2.59 H (0.66-1.25) mg/dL Glucose 147 H (74-99) mg/dL Calcium 7.7 L (8.4-10.2) mg/dL Total Bilirubin 1.5 H (0.2-1.3) mg/dL Total Protein 5.8 L (6.3-8.2) g/dL Albumin 3.4 L (3.5-5.0) g/dL Thrombosis Risk Factor Assmnt - Choose All That Apply Any of the Below Risk Factors Present?: Yes Each Factor Represents 1 point: Abnormal pulmonary function (COPD), Obesity (BMI >25) Each Risk Factor Represents 3 Points: Age 75 years or older Thrombosis Risk Factor Assessment Total Risk Factor Score: 5 Thrombosis Risk Factor Assessment Level: High Risk
[2020-05-10] MEDS: ATORVASTATIN 80 MG TAB PO SCH (19:57)
[2020-05-11] MEDS: MORPHINE SULFATE ER 15 MG TABLET PO SCH ×2 (04:49→08:23)
[2020-05-11 07:48] LABS: Basophils % (A) 0 %; Eosinophils # (A) 0.1 k/uL (0-0.7); Eosinophils % (A) 1 %; HCT 38.8 % (39.0-53.0); Lymphocytes % (A) 23 %; MCH 30.8 pg (25.0-35.0); MCHC 33.5 g/dL (31.0-37.0); MCV 91.8 fL (80.0-100.0); Monocytes # (A) 0.6 k/uL (0-1.0); Monocytes % (A) 7 %; Neutrophils # (A) 5.8 k/uL (1.3-7.7); Neutrophils % (A) 67 %; Platelet Count 159 k/uL (150-450); RBC 4.22 m/uL (4.30-5.90); RDW 13.7 % (11.5-15.5); WBC 8.7 k/uL (3.8-10.6)
[2020-05-11 08:00] LABS: Calcium 7.5 mg/dL (8.4-10.2); Potassium 3.7 mmol/L (3.5-5.1)
[2020-05-11] MEDS: carvediloL 12.5 MG TAB PO SCH ×2 (08:20→17:22)
[2020-05-11] MEDS: SENNOSIDES-DOCUSATE SODIUM 1 EACH TAB PO SCH (08:23)
[2020-05-11] MEDS: ASPIRIN 81 MG PO SCH (08:24)
[2020-05-11] MEDS: SODIUM BICARBONATE TAB 650 MG TAB PO SCH (08:24)
[2020-05-11] MEDS: SERTRALINE 50 MG TAB PO SCH (08:25)
[2020-05-11] MEDS: FUROSEMIDE 40 MG TAB PO SCH (08:25)
[2020-05-11] MEDS: APIXABAN 2.5 MG TABLET PO SCH (08:25)
[2020-05-11 08:50] VITALS: RESP 20
--- NOTE | 2020-05-11 11:29 | P.PN ---
Subjective HISTORY OF PRESENTING ILLNESS This is a pleasant 89-year-old male past medical history significant for maximal atrial fibrillation, or any artery disease status post bypass grafting 2008 while living in [place], aortic stenosis, hypertension, dyslipidemia, COPD, sick sinus syndrome s/p permanent pacemaker implantation ([employer] [facility]) 2017 and peripheral vascular disease. He follows in the office with Dr. Allen. He is seen and examined resting comfortably lying flat in bed in no acute distress. He denies symptoms of chest pain, shortness of breath, dizziness or palpitations. Blood pressure 112/60 heart rate 58 afebrile maintaining oxygen saturation on nasal cannula. Laboratory data reviewed, WBC 8.7, hemoglobin 13, platelets 159, sodium 138, potassium 3.7, creatinine 2.59. PHYSICAL EXAMINATION CONSTITUTIONAL: No apparent distress. Hard of hearing. HEENT: Head is normocephalic. Pupils are equal, round. Sclerae anicteric. Mucous membranes of the mouth are moist. No JVD. No carotid bruit. CHEST EXAMINATION: Lungs are clear to auscultation. No chest wall tenderness is noted on palpation or with deep breathing. HEART EXAMINATION: Regular rate and rhythm. S1, S2 heard. Systolic ejection murmur at the base, no gallops or rub. EXTREMITIES: 2+ peripheral pulses, no lower extremity edema and no calf tenderness. ASSESSMENT Chronic systolic heart failure, clinically euvolemic Leukocytosis Chronic kidney disease History of coronary artery disease status post bypass grafting in 2008, exact details unavailable Aortic stenosis, moderate Sick sinus syndrome status post permanent pacemaker implantation Paroxysmal atrial fibrillation, maintained on Eliquis PLAN Stable from a cardiac perspective on current medical regimen. We will follow along as needed, please call with further questions or concerns. Nurse Practitioner note has been reviewed, I agree with a documented findings and plan of care. Patient was seen and examined. Objective - Vital Signs Vital signs: Vital Signs Temp 98.5 F 05/11/20 08:00 Pulse 58 L 05/11/20 08:00 Resp 20 05/11/20 08:00 BP 112/60 05/11/20 08:00 Pulse Ox 94 L 05/11/20 08:00 Intake & Output 05/10/20 05/11/20 05/11/20 18:59 06:59 18:59 Intake Total 800 640 125 Output Total 150 500 Balance 650 140 125 Weight 65.5 kg Intake: Oral 800 640 125 Output: Urine 150 500 Other: Voiding Method Urinal Urinal # Voids 1 - Labs CBC & Chem 7: 05/11/20 07:19 05/11/20 07:19 Labs: Abnormal Lab Results - Last 24 Hours (Table) 05/11/20 05/11/20 Range/Units 07:19 07:19 RBC 4.22 L (4.30-5.90) m/uL Hct 38.8 L (39.0-53.0) % BUN 82 H (9-20) mg/dL Creatinine 2.59 H (0.66-1.25) mg/dL Glucose 102 H (74-99) mg/dL Calcium 7.5 L (8.4-10.2) mg/dL Microbiology - Last 24 Hours (Table) 05/09/20 20:43 Blood Culture - Preliminary Blood No Growth after 24 hours
[2020-05-11 11:44] VITALS: PULSE 60
[2020-05-11] MEDS ORDERED: FUROSEMIDE 20 MG TAB PO SCH (16:00)
[2020-05-11] MEDS ORDERED: FUROSEMIDE 10 MG/ML 2 ML VIAL IV SCH (16:00)
[2020-05-11 16:12] VITALS: BP 133/68; TEMP 98.8
--- NOTE | 2020-05-11 22:49 | P.DS ---
Providers Date of admission: 05/09/20 20:24 Expected date of discharge: 05/11/20 Attending physician: Timothy Beaulieu Consults: 05/09/20 20:34 Consult Physician Routine Consulting Provider: Henry Allen Consult Reason/Comments: CHF Do you want consulting provider notified?: Yes Primary care physician: [facility] Course: Chief Complaint: Short of breath History of presenting complaint: This is a pleasant 89-year-old patient who was just in the hospital from May 03 of May 06. Patient follows with visiting physicians Dr. Shyla rosales. Patient's chronic stable medical conditions include coronary artery disease with bypass, pacemaker, paroxysmal atrial fibrillation on eliquis, hypertension, chronic kidney disease, hyperlipidemia, hypothyroid. Last admission patient's front have been CHF EF of 30-35%. Treated with IV Lasix. Patient was sent in by the home health nurse. Decided to bring the patient in. Apparently some shortness of breath. According to the son in the ER patient has not taken his medication on the weekend. Because of pharmacy. Timings. Patient is hard of hearing. Somewhat limited historian. Admitted with CHF exacerbation from having missed his dose of Lasix at home. Responded well to IV Lasix. Today-doing well. Tolerating a diet. Patient activity was good. Seen by physical therapy. I was informed patient not qualify for rehab. Doing well. Family was informed. Patient walked 50 feet with a standard walker. Consultation: Dr. 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 Uses a walker. Yd-wxz-[id number]-law lives across the street and is helpful. CPAP machine patient has not been using. Has responsible close to 70 years about half a pack a day use or drink significant alcohol then about 20 years ago Family history: Reviewed, noncontributory to presentation Physical examination: VITAL SIGNS: 98.6, 60, 20, 148/63, 95% room air GENERAL: Sitting up in bed, eating, comfortable EYES: Pupils equal. Conjunctiva normal. HEENT: Decreased hearing NECK: JVD possibly raised; masses not palpable. HEART: Heart sounds irregular, mild edema. LUNGS: Respiratory rate increased; decreased breath sounds. ABDOMEN: Soft, nontender, liver spleen not palpable, no masses palpable. PSYCH: Answering simple questionsl. MUSCULAR skeletal: Evidence of OA INVESTIGATIONS, reviewed in the clinical context: May 11: White count 8.7 hemoglobin 13 potassium 3.7 creatinine 2.59 White count 12.5 hemoglobin 13.4 platelets 179 potassium 4.1 bun 82 creatinine 2.59 Coronavirus [PCR]-not detected EKG tracing personally reviewed by me-AV dual paced rhythm Chest x-ray film personally reviewed by me-possible infiltrate possible venous prominence Previous labs: Bun 62 creatinine 2.5 on May 06 Assessment and plan: - acute on chronic congestive heart failure exacerbation from systolic d ysfunction EF 30-35% from underlying ischemic heart disease, possibly patient not taking his medications over the weekend. Responded well to IV Lasix. 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 Follow electrolytes -Hyperlipidemia, on Lipitor -Very hard of hearing -Chronic gait dysfunction uses a walker , fall precautions -COPD in a current smoker, DuoNeb Disposition: Home Prognosis: Guarded Patient Condition at Discharge: Stable Plan - Discharge Summary Discharge Rx Participant: No New Discharge Prescriptions: Continue Atorvastatin [Lipitor] 80 mg PO HS Nitroglycerin Sl Tabs [Nitrostat] 0.4 mg SUBLINGUAL Q5M PRN #100 tab PRN Reason: Chest Pain Morphine Sulfate ER [Ms Contin] 15 mg PO BID Aspirin EC [Ecotrin Low Dose] 81 mg PO DAILY Furosemide [Lasix] 40 mg PO DAILY #180 tab Ipratropium-Albuterol Nebulize [Duoneb 0.5 mg-3 mg/3 ml Soln] 3 ml INHALATION RT-TID PRN PRN Reason: Shortness Of Breath Furosemide [Lasix] 20 mg PO DAILY@1600 Sertraline [Zoloft] 50 mg PO DAILY Apixaban [Eliquis] 2.5 mg PO BID #180 tab carvediloL [Coreg*] 50 mg PO BID-W/MEALS #60 tab Sennosides-Docusate Sodium [Senokot-S] 1 tab PO DAILY #30 tablet Acetaminophen Tab [Tylenol] 650 mg PO Q6HR PRN tab PRN Reason: Fever And/ Or Pain Changed Sodium Bicarbonate Tab 325 mg PO DAILY #90 tab No Action Pine Top-3 Fatty Acids/Fish Oil [Fish Oil 1,000 mg Softgel] 1 cap PO DAILY Losartan [Cozaar] 25 mg PO DAILY #30 tab Discharge Medication List Atorvastatin [Lipitor] 80 mg PO HS 07/04/18 [History] Nitroglycerin Sl Tabs [Nitrostat] 0.4 mg SUBLINGUAL Q5M PRN #100 tab 07/07/18 [Rx] Aspirin EC [Ecotrin Low Dose] 81 mg PO DAILY 11/25/18 [History] Morphine Sulfate ER [Ms Contin] 15 mg PO BID 11/25/18 [History] Furosemide [Lasix] 40 mg PO DAILY #180 tab 10/02/19 [Rx] Apixaban [Eliquis] 2.5 mg PO BID #180 tab 05/03/20 [Rx] Furosemide [Lasix] 20 mg PO DAILY@1600 05/03/20 [History] Ipratropium-Albuterol Nebulize [Duoneb 0.5 mg-3 mg/3 ml Soln] 3 ml INHALATION RT-TID PRN 05/03/20 [History] Pine Top-3 Fatty Acids/Fish Oil [Fish Oil 1,000 mg Softgel] 1 cap PO DAILY 05/03/20 [History] Sertraline [Zoloft] 50 mg PO DAILY 05/03/20 [History] Acetaminophen Tab [Tylenol] 650 mg PO Q6HR PRN tab 05/06/20 [Rx] Losartan [Cozaar] 25 mg PO DAILY #30 tab 05/06/20 [Rx] Sennosides-Docusate Sodium [Senokot-S] 1 tab PO DAILY #30 tablet 05/06/20 [Rx] carvediloL [Coreg*] 50 mg PO BID-W/MEALS #60 tab 05/06/20 [Rx] Sodium Bicarbonate Tab 325 mg PO DAILY #90 tab 05/11/20 [Rx] Follow up Appointment(s)/Referral(s): [facility], [NON-STAFF] - Melecio Mueller MD [Primary Care Provider] - 1-2 days (office will call with time and date) Henry Allen MD [STAFF PHYSICIAN] - 05/27/20 1:30 pm Patient Instructions/Handouts: Heart Failure (DC) Activity/Diet/Wound Care/Special Instructions: bmp - 5 days Discharge/Stand Alone Forms: Who Do I Call?, Community Resources, Help In The Home
== END 2020-05-11 18:49 | disposition home health service (06) ==
LOC: EC 18:24 → 3SCARD 20:24
PROVIDERS: ADMIT Hospitalist; ATTEND Hospitalist
DX: I13.0 Hypertensive heart and chronic kidney disease with heart failure and stage 1 through stage 4 chronic kidney disease, or unspecified chronic kidney disease (principal); I50.23 Acute on chronic systolic (congestive) heart failure; I48.0 Paroxysmal atrial fibrillation; N18.30 Chronic kidney disease, stage 3 unspecified; K21.9 Gastro-esophageal reflux disease without esophagitis; J44.9 Chronic obstructive pulmonary disease, unspecified; I25.10 Atherosclerotic heart disease of native coronary artery without angina pectoris; I73.9 Peripheral vascular disease, unspecified; I35.0 Nonrheumatic aortic (valve) stenosis; I42.9 Cardiomyopathy, unspecified; E78.5 Hyperlipidemia, unspecified; E83.51 Hypocalcemia; E03.9 Hypothyroidism, unspecified; I25.2 Old myocardial infarction; I49.5 Sick sinus syndrome; F32.9 Major depressive disorder, single episode, unspecified; F17.210 Nicotine dependence, cigarettes, uncomplicated; H91.90 Unspecified hearing loss, unspecified ear; Z95.0 Presence of cardiac pacemaker; Z95.1 Presence of aortocoronary bypass graft; Z79.899 Other long term (current) drug therapy; Z79.01 Long term (current) use of anticoagulants; Z79.82 Long term (current) use of aspirin; Z20.822 Contact with and (suspected) exposure to COVID-19; D72.829 Elevated white blood cell count, unspecified
CPT/HCPCS: 96365; 96367; 96375; 99285; 36415; 93005; 97161; 97166; 83880; 80053; 80048; 83605; 83735; 85025 ×2; 85610; 85730; 87040; 87635; 71046; G0378 ×3; J1940; J0692; J0610

== ENCOUNTER 2021-02-17 16:25 | Inpatient (IN) | payer MEDICARE, BC ==
[2021-02-17] MEDS ORDERED: HYDROmorphone 0.5 MG/0.5 ML SYRINGE IVP STA (17:07)
[2021-02-17 17:54] LABS: Basophils % (A) 0 %; Eosinophils # (A) 0.2 k/uL (0-0.7); Eosinophils % (A) 2 %; HCT 40.2 % (39.0-53.0); HGB 13.4 gm/dL (13.0-17.5); Lymphocytes # (A) 1.3 k/uL (1.0-4.8); Lymphocytes % (A) 9 %; MCH 30.3 pg (25.0-35.0); MCHC 33.3 g/dL (31.0-37.0); Mean Platelet Volume 7.7; Monocytes # (A) 0.7 k/uL (0-1.0); Monocytes % (A) 5 %; Neutrophils # (A) 12.2 k/uL (1.3-7.7); Neutrophils % (A) 84 %; Platelet Count 168 k/uL (150-450); RBC 4.42 m/uL (4.30-5.90); RDW 14.2 % (11.5-15.5); WBC 14.4 k/uL (3.8-10.6)
[2021-02-17 18:19] LABS: Partial Thromboplastin Time 22.3 sec (22.0-30.0); Prothrombin Time 10.3 sec (9.0-12.0)
--- NOTE | 2021-02-17 18:55 | XR ---
EXAMINATION TYPE: XR Hip RT and AP Pelvis, XR femur RT DATE OF EXAM: 02/17/2021 CLINICAL HISTORY: pain TECHNIQUE: Single view the pelvis is submitted. 2 views of the right hip and AP and lateral views of the right femur are also submitted. FINDINGS: There is evidence of right sided intertrochanteric fracture. Mild displacement seen. No add itional fractures evident within the [id number]. IMPRESSION: 1. There is evidence of right sided intertrochanteric fracture.
--- NOTE | 2021-02-17 19:18 | CT ---
EXAMINATION TYPE: CT brain jose covarrubias DATE OF EXAM: 02/17/2021 COMPARISON: None HISTORY: fall CT DLP: 1375.5 mGycm Automated exposure control for dose reduction was used. There is cerebral cortical atrophy. There is no mass effect nor midline shift. There is no sign of in tracranial hemorrhage. There is some hypodensity in the left internal capsule that could be old lacun ar infarct. There is some enlargement of the ventricles. Calvarium is intact. Skull base is intact. T here is no evidence of a posterior fossa mass. Cervical vertebra have normal alignment. There is some degenerative disc space narrowing at C5-6 and C6-7. The posterior elements are intact. There is no subluxation. There is no compression fracture. T here is mild hypertrophic facet arthropathy in the mid cervical spine. IMPRESSION: Cerebral atrophy. 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 Possible o ld left side caudate nucleus infarct. No acute intracranial abnormality. Spondylotic changes in the lower cervical spine. No fracture.
[2021-02-17 20:22] LABS: Albumin 3.5 g/dL (3.5-5.0); Calcium 8.6 mg/dL (8.4-10.2); Potassium 4.7 mmol/L (3.5-5.1); Total Bilirubin 0.8 mg/dL (0.2-1.3); Total Protein 6.2 g/dL (6.3-8.2)
[2021-02-17] MEDS ORDERED: NALOXONE 0.4 MG/ML 1 ML VIAL IV PRN (20:45)
[2021-02-17] MEDS ORDERED: HYDROmorphone 0.5 MG/0.5 ML SYRINGE IVP PRN (20:45)
[2021-02-17] MEDS ORDERED: ACETAMINOPHEN TAB 325 MG TAB PO PRN (20:45)
[2021-02-17] MEDS ORDERED: ONDANSETRON 4 MG/2 ML VIAL IVP PRN (20:45)
--- NOTE | 2021-02-17 20:58 | ED ---
General Adult HPI - General Chief complaint: Fall Stated complaint: Fall Time Seen by Provider: 02/17/21 16:42 Source: patient, EMS, RN notes reviewed, old records reviewed Mode of arrival: EMS Limitations: no limitations - History of Present Illness Initial comments: 89-year-old male presenting status post ground-level fall. Patient fell onto his right hip. There is no head or neck trauma. His chief and only complaint is right hip and leg pain. Patient is on Eliquis, and states he took this medication last yesterday he did not take this medication today. No chest or abdominal pain. No preceding symptoms. This was mechanical fall. - Related Data Home Medications Medication Instructions Recorded Confirmed Morphine Sulfate ER [Ms Contin] 15 mg PO BID 11/25/18 02/17/21 Apixaban [Eliquis] 2.5 mg PO BID 02/17/21 02/17/21 Carvedilol [Coreg] 25 mg PO BID 02/17/21 02/17/21 Cholecalciferol (Vitamin D3) 125 mcg PO DAILY 02/17/21 02/17/21 [Vitamin D3 (125 MCG = 5,000 IU)] Fenofibrate 160 mg PO DAILY 02/17/21 02/17/21 Isosorbide Mononitrate ER [Imdur] 60 mg PO DAILY 02/17/21 02/17/21 Levothyroxine Sodium [Synthroid] 25 mcg PO DAILY 02/17/21 02/17/21 Previous Rx's Medication Instructions Recorded Nitroglycerin Sl Tabs [Nitrostat] 0.4 mg SUBLINGUAL Q5M PRN #100 tab 07/07/18 Allergies Allergy/AdvReac Type Severity Reaction Status Date / Time amoxicillin AdvReac Cough Verified 02/17/21 18:35 chlorpromazine AdvReac Unknown Verified 02/17/21 18:35 [From Thorazine] gemfibrozil AdvReac Unknown Verified 02/17/21 18:35 lisinopril AdvReac Cough Verified 02/17/21 18:35 metformin AdvReac Diarrhea Verified 02/17/21 18:35 methadone AdvReac Unknown Verified 02/17/21 18:35 Review of Systems ROS Statement: Those systems with pertinent positive or pertinent negative responses have been documented in the HPI. ROS Other: All systems not noted in ROS Statement are negative. Past Medical History Past Medical History: Atrial Fibrillation, Coronary Artery Disease (CAD), Chest Pain / Angina, Heart Failure, COPD, GERD/Reflux, Hearing Disorder / Deafness, Hyperlipidemia, Hypertension, Myocardial Infarction ([place]), Renal Disease, Sleep Apnea/CPAP/BIPAP, Thyroid Disorder, Vascular Disorder Additional Past Medical History / Comment(s): Paroxysmal afib, SSS with pacemaker, cardiomyopathy, tracheobronchitis, CKD stage III, chronic anemia, chronic pain, L caratid 100% blockage/R caratid 75% blockage, hypothyroid, SELDOVIA bilaterally, constipation Last Myocardial Infarction Date:: 06/2018 History of Any Multi-Drug Resistant Organisms: None Reported Past Surgical History: Cholecystectomy, Coronary Bypass/CABG, Heart Catheterization, Pacemaker Additional Past Surgical History / Comment(s): Pacemaker in June 20182008 CABG-pt believes was 5 vessel done down in [place], colonoscopy-normal, bilateral cataract removals. Past Anesthesia/Blood Transfusion Reactions: No Reported Reaction, Motion Sickness Type of Cardiac Device: Permanent Pacemaker Device Placement Date:: 06/2018 Past Psychological History: Depression Smoking Status: Current every day smoker Past Alcohol Use History: None Reported Past Drug Use History: None Reported - Past Family History Father Family Medical History: Dementia Additional Family Medical History / Comment(s): Pt does not recall any parent medical hx at this time. Mother Family Medical History: No Reported History Additional Family Medical History / Comment(s): Mother was healthy. General Exam Limitations: no limitations General appearance: alert, in no apparent distress Head exam: Present: atraumatic, normocephalic Eye exam: Present: normal appearance, PERRL ENT exam: Present: normal exam Neck exam: Present: normal inspection. Absent: tenderness, meningismus Respiratory exam: Present: normal lung sounds bilaterally. Absent: respiratory distress, wheezes Cardiovascular Exam: Present: regular rate, normal rhythm GI/Abdominal exam: Present: soft. Absent: distended, tenderness, guarding Extremities exam: Present: tenderness, normal capillary refill. Absent: full ROM (External rotation of the right lower extremity.), pedal edema Neurological exam: Present: alert, oriented X3, CN II-XII intact. Absent: motor sensory deficit Psychiatric exam: Present: normal affect, normal mood Skin exam: Present: warm, dry, intact. Absent: cyanosis, diaphoretic Course Vital Signs 02/17/21 16:30 Temperature 98.7 F Pulse Rate 78 Respiratory 20 Rate Blood Pressure 198/104 O2 Sat by Pulse 93 L Oximetry EKG Findings - EKG Comments: EKG Findings:: Ventricular paced rhythm rate of 79, QRS duration 172, QTC 427 Medical Decision Making - Medical Decision Making 89-year-old male presenting status post fall. No head trauma but due to his anticoagulation status I did perform CT of the brain which is negative for intracranial hemorrhage or mass effect. Cervical spine negative for fracture subluxation. X-ray of the right hip and pelvis demonstrates a impacted intertrochanteric fracture. I did discuss case with Dr. Vargas, who will admit. Patient will be kept nothing by mouth. I discussed case with Dr. Beaulieu for medical management and preoperative clearance. - Lab Data Result diagrams: 02/17/21 17:34 02/17/21 19:57 Lab Results 02/17/21 02/17/21 02/17/21 Range/Units 17:34 17:34 17:40 WBC 14.4 H (3.8-10.6) k/uL RBC 4.42 (4.30-5.90) m/uL Hgb 13.4 (13.0-17.5) gm/dL Hct 40.2 (39.0-53.0) % MCV 91.0 (80.0-100.0) fL MCH 30.3 (25.0-35.0) pg MCHC 33.3 (31.0-37.0) g/dL RDW 14.2 (11.5-15.5) % Plt Count 168 (150-450) k/uL MPV 7.7 Neutrophils % 84 % Lymphocytes % 9 % Monocytes % 5 % Eosinophils % 2 % Basophils % 0 % Neutrophils # 12.2 H (1.3-7.7) k/uL Lymphocytes # 1.3 (1.0-4.8) k/uL Monocytes # 0.7 (0-1.0) k/uL Eosinophils # 0.2 (0-0.7) k/uL Basophils # 0.0 (0-0.2) k/uL PT 10.3 (9.0-12.0) sec INR 1.0 (<1.2) APTT 22.3 (22.0-30.0) sec Sodium (137-145) mmol/L Potassium (3.5-5.1) mmol/L Chloride (98-107) mmol/L Carbon Dioxide (22-30) mmol/L Anion Gap mmol/L BUN (9-20) mg/dL Creatinine (0.66-1.25) mg/dL Est GFR (CKD-EPI)AfAm (>60 ml/min/1.73 sqM) Est GFR (CKD-EPI)NonAf (>60 ml/min/1.73 sqM) Glucose (74-99) mg/dL Calcium (8.4-10.2) mg/dL Total Bilirubin (0.2-1.3) mg/dL AST (17-59) U/L ALT (4-49) U/L Alkaline Phosphatase (38-126) U/L Total Protein (6.3-8.2) g/dL Albumin (3.5-5.0) g/dL Blood Type Blood Type Confirm B Negative Blood Type Recheck Bld Type Recheck Status Antibody Screen Spec Expiration Date 02/17/21 02/17/21 Range/Units 17:45 19:57 WBC (3.8-10.6) k/uL RBC (4.30-5.90) m/uL Hgb (13.0-17.5) gm/dL Hct (39.0-53.0) % MCV (80.0-100.0) fL MCH (25.0-35.0) pg MCHC (31.0-37.0) g/dL RDW (11.5-15.5) % Plt Count (150-450) k/uL MPV Neutrophils % % Lymphocytes % % Monocytes % % Eosinophils % % Basophils % % Neutrophils # (1.3-7.7) k/uL Lymphocytes # (1.0-4.8) k/uL Monocytes # (0-1.0) k/uL Eosinophils # (0-0.7) k/uL Basophils # (0-0.2) k/uL PT (9.0-12.0) sec INR (<1.2) APTT (22.0-30.0) sec Sodium 138 (137-145) mmol/L Potassium 4.7 (3.5-5.1) mmol/L Chloride 105 (98-107) mmol/L Carbon Dioxide 24 (22-30) mmol/L Anion Gap 9 mmol/L BUN 27 H (9-20) mg/dL Creatinine 1.77 H (0.66-1.25) mg/dL Est GFR (CKD-EPI)AfAm 39 (>60 ml/min/1.73 sqM) Est GFR (CKD-EPI)NonAf 34 (>60 ml/min/1.73 sqM) Glucose 142 H (74-99) mg/dL Calcium 8.6 (8.4-10.2) mg/dL Total Bilirubin 0.8 (0.2-1.3) mg/dL AST 26 (17-59) U/L ALT 14 (4-49) U/L Alkaline Phosphatase 136 H (38-126) U/L Total Protein 6.2 L (6.3-8.2) g/dL Albumin 3.5 (3.5-5.0) g/dL Blood Type B Negative Blood Type Confirm Blood Type Recheck No Previous Record Bld Type Recheck Status CABO Indicated Antibody Screen NEGATIVE Spec Expiration Date 02/20/20212344 Disposition Clinical Impression: Fall, Intertrochanteric fracture of right femur Disposition: ADMITTED IP TO THIS [facility] Condition: Stable Is patient prescribed a controlled substance at d/c from ED?: No Referrals: Melecio Mueller MD [Primary Care Provider] - 1-2 days Decision to Admit Reason: Admit from EC Decision Date: 02/17/21 Decision Time: 21:01
[2021-02-17] MEDS: SODIUM CHLORIDE 0.9% 1,000 ML IV SCH (22:11)
[2021-02-17] MEDS: HYDROmorphone 1 MG/ML 1 ML SYRINGE IVP PRN (22:13)
[2021-02-18] MEDS: HYDROmorphone 1 MG/ML 1 ML SYRINGE IVP PRN ×2 (09:02→13:03)
[2021-02-18] MEDS ORDERED: VANCOMYCIN IV PER PHARMACY 1 EACH MISC MISCELLANE SCH (10:45)
[2021-02-18] MEDS ORDERED: TRANEXAMIC ACID 1,000 MG in SODIUM CHLORIDE 0.9% 100 ML IVPB ONE ×3 (10:45→11:00)
--- NOTE | 2021-02-18 10:45 | P.HPOR ---
History of Present Illness H&P Date: 02/18/21 Chief Complaint: R hip pain 89 yo male presented to the ED after ffs at home where he lives alone. He stated pain in his right hip and inability to ambulate. He was brought to the ED via EMS. He states no numbness/tingling. States no other areas of pain. He has a hx of afib rate controlled, PVD and carotid stenosis. His son-in-law who lives across the street and is a patient relations representative spoke to me over the phone about his hx and we discussed all options for treatment. NO BHT or LOC with the fall that the patient states. No other injury at this time evident. Review of Systems 14 pt ROS completed and as stated in HPI or othewise negative. Constitutional: Reports as per HPI Past Medical History Past Medical History: Atrial Fibrillation, Coronary Artery Disease (CAD), Chest Pain / Angina, Heart Failure, COPD, GERD/Reflux, Hearing Disorder / Deafness, Hyperlipidemia, Hypertension, Myocardial Infarction ([place]), Renal Disease, Sleep Apnea/CPAP/BIPAP, Thyroid Disorder, Vascular Disorder Additional Past Medical History / Comment(s): Paroxysmal afib, SSS with pacemaker, cardiomyopathy, tracheobronchitis, CKD stage III, chronic anemia, chronic pain, L caratid 100% blockage/R caratid 75% blockage, hypothyroid, AKIACHAK bilaterally, constipation Last Myocardial Infarction Date:: 06/2018 History of Any Multi-Drug Resistant Organisms: None Reported Past Surgical History: Cholecystectomy, Coronary Bypass/CABG, Heart Catheterization, Pacemaker Additional Past Surgical History / Comment(s): Pacemaker in June 20182008 CABG-pt believes was 5 vessel done down in [place], colonoscopy-normal, bilateral cataract removals. Past Anesthesia/Blood Transfusion Reactions: No Reported Reaction, Motion Sickness Type of Cardiac Device: Permanent Pacemaker Device Placement Date:: 06/2018 Past Psychological History: Depression Smoking Status: Current every day smoker Past Alcohol Use History: None Reported Past Drug Use History: None Reported - Past Family History Father Family Medical History: Dementia Additional Family Medical History / Comment(s): Pt does not recall any parent medical hx at this time. Mother Family Medical History: No Reported History Additional Family Medical History / Comment(s): Mother was healthy. Medications and Allergies Home Medications Medication Instructions Recorded Confirmed Type Nitroglycerin Sl Tabs [Nitrostat] 0.4 mg SUBLINGUAL Q5M PRN #100 tab 07/07/18 02/17/21 Rx Morphine Sulfate ER [Ms Contin] 15 mg PO BID 11/25/18 02/17/21 History Apixaban [Eliquis] 2.5 mg PO BID 02/17/21 02/17/21 History Carvedilol [Coreg] 25 mg PO BID 02/17/21 02/17/21 History Cholecalciferol (Vitamin D3) 125 mcg PO DAILY 02/17/21 02/17/21 History [Vitamin D3 (125 MCG = 5,000 IU)] Fenofibrate 160 mg PO DAILY 02/17/21 02/17/21 History Isosorbide Mononitrate ER [Imdur] 60 mg PO DAILY 02/17/21 02/17/21 History Levothyroxine Sodium [Synthroid] 25 mcg PO DAILY 02/17/21 02/17/21 History Allergies Allergy/AdvReac Type Severity Reaction Status Date / Time amoxicillin AdvReac Cough Verified 02/17/21 18:35 chlorpromazine AdvReac Unknown Verified 02/17/21 18:35 [From Thorazine] gemfibrozil AdvReac Unknown Verified 02/17/21 18:35 lisinopril AdvReac Cough Verified 02/17/21 18:35 metformin AdvReac Diarrhea Verified 02/17/21 18:35 methadone AdvReac Unknown Verified 02/17/21 18:35 Physical Examination Osteopathic Statement: *. No significant issues noted on an osteopathic structural exam other than those noted in the History and Physical/Consult. AOX2-3, tired and just got some pain meds but able to answer questions appropriately. VSS Appears non septic Appears somewhat unkempt at this time Pain with palpation GT on the right No ttp of the b/l knees, ankles, wrists, elbows, shoulders Neg log roll L hip Pain with Log roll on the right Pain with hip motion on the right +DF/PF/EHL/FHL. SILT L2-S1 +dp/pt pulses Compartment soft compressive Some mottling of the RLE due to PVD appearance Results Rt 3 part IT fracture displaced, shortened, varus, slight comminution. Pelvis appears stable w/o fracture. - Labs Labs: Abnormal Lab Results - Last 24 Hours (Table) 02/17/21 02/17/21 Range/Units 17:34 19:57 WBC 14.4 H (3.8-10.6) k/uL Neutrophils # 12.2 H (1.3-7.7) k/uL BUN 27 H (9-20) mg/dL Creatinine 1.77 H (0.66-1.25) mg/dL Glucose 142 H (74-99) mg/dL Alkaline Phosphatase 136 H (38-126) U/L Total Protein 6.2 L (6.3-8.2) g/dL H & H 02/17/21 Range/Units 17:34 Hgb 13.4 (13.0-17.5) gm/dL Hct 40.2 (39.0-53.0) % Coagulation 02/17/21 Range/Units 17:34 INR 1.0 (<1.2) Result Diagrams: 02/17/21 17:34 02/17/21 19:57 Assessment and Plan Assessment: 89 yo male s/p ffs R IT fracture PVD Afib, controlled hx CAD Plan: NWB RLE Pain control Hold anticoags NPO Anesthesia has cleared for surgery Medical clearance pending Plan for OR today for IMN of Rt hip Discussed plan with pt and son-in-law. They are on board with surgical fixation of this Rt hip. Risks and benefits were discussed including risk of bleeding, infection damage to surrounding tissues, risk of anesthesia up to and including and they were willing to assume these risks and all the risk of surgery. We discussed non sugical options would not allow the patient walk again likely and they understand and want to proceed with IMN of the Rt hip.
[2021-02-18] MEDS ORDERED: VANCOMYCIN 1,250 MG in SODIUM CHLORIDE 0.9% 250 ML IVPB ONE (11:00)
[2021-02-18] MEDS ORDERED: NITROGLYCERIN SL TABS 0.4 MG TAB SUBLINGUAL PRN (11:59)
[2021-02-18] MEDS ORDERED: ENOXAPARIN 40 MG/0.4 ML SYRINGE SQ SCH (12:30)
--- NOTE | 2021-02-18 14:47 | P.CONS ---
History of Present Illness - Reason for Consult Consult date: 02/18/21 Medical management Requesting physician: Bhupendra Vargas - Chief Complaint Hip fracture - History of Present Illness History of presenting complaint: This is a pleasant 89-year-old patient , follows with visiting physicians Dr. Mueller. Patient's chronic stable medical conditions include coronary artery disease with bypass, pacemaker, paroxysmal atrial fibrillation on eliquis, hypertension, chronic kidney disease, hyperlipidemia, hypothyroid., CHF EF of 30-35%. Uses a walker Patient tripped over a grocery bag. Pain in the right hip. X-rays in the ER as confirmed a right-sided ID fracture. Patient does use a walker to get about. Baseline some shortness of breath. No chest pain. Patient's jd-zfg-kb-law is at the bedside. Appetite has been good. No trouble in the bowel movement. daughter Marielos who lives in [place] is the DPOA. Patient has pain at the fracture site. Significantly hard of hearing. 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 Uses a walker. Yh-jmc-wf-law lives across the street and is helpful. CPAP machine patient has not been using. Smoking over 70 years about half a pack a day, and used to drink significant alcohol about 20 years ago Family history: Reviewed, noncontributory to presentation Physical examination: VITAL SIGNS: 98.6, 60, 18, 175/71, 94% room air GENERAL: BMI 28.9 reclining in bed, awake EYES: Pupils equal. Conjunctiva normal. HEENT: External appearance of nose and ears normal, oral cavity grossly normal. Decreased hearing NECK: JVD not raised; masses not palpable. HEART: Heart sounds irregular, minimal edema. LUNGS: Respiratory rate increased; decreased breath sounds. ABDOMEN: Soft, nontender, liver spleen not palpable, no masses palpable. PSYCH: Answering simple questionsl. MUSCULAR skeletal: Evidence of OA, and multiple joints. Limited range of motion right hip. EXTREMITIES: Decreased peripheral pulses. Ischemic changes in the feet NEUROLOGICAL: Cranial nerves grossly intact; no facial asymmetry, power and sensation grossly intact. LYMPHATICS: No lymph nodes palpable in the axilla and neck INVESTIGATIONS, reviewed in the clinical context: White count 14.4 hemoglobin 13.4 platelets 168 sodium 138 potassium 4.7 BUN 27 creatinine 1.77 Previous labs: On April 2020 patient is BUN 82 creatinine 2.5 Chest x-ray film personally reviewed by me-cardiomegaly. Some cephalization. S ome chronic changes. CT brain and C-spine without contrast: Cerebral atrophy. 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 Possible or left-sided caudate nucleus infarct. Spondylitic changes. EKG tracing personally reviewed by me-ventricular paced rhythm Assessment and plan: -Right hip IT fracture secondary to fall. Perioperative cardiopulmonary risk assessment: Patient has known CAD with CHF. Patient is active smoker. Has limited exercise tolerance. At the baseline has shortness of breath from his smoking. No chest pain. Patient is at a moderate to high risk for any perioperative complications due to his comorbidities and limited exercise tolerance . He has no absolute contraindications to surgery. This was discussed with the patient and the lu-wpl-lc-law at the bedside. Patient is agreeable to proceed with surgery, given the risk. Additionally patient is on eliquis and ideally should hold off surgery for at least 48 hours in view of risk of bleeding. - chronic congestive heart failure from systolic dysfunction EF 30-35% from underlying ischemic heart disease, Keep a close monitoring patient's fluid status. -Pacemaker Telemetry -Paroxysmal atrial fibrillation chronically on eliquis, Hold eliquis -Essential hypertension, Coreg 25 mg twice a day. -Chronic kidney disease stage 3 from hypertensive nephrosclerosis. Follow electrolytes -Hyperlipidemia, -Very hard of hearing -Chronic gait dysfunction, baseline uses a walker , fall precautions -COPD in a current smoker, DuoNeb 4 times a day -Nicotine dependence, 1 cigarette smoker Nicotine patch 14 -Primary osteoarthritis multiple joints bilaterally Pain control when necessary -Mild cognitive impairment -DO NOT RESUSCITATE Advanced care planning: Code status was discussed with the patient and son-in-law [X] at the bedside. After going over patient's overall medical conditions, age and frailty. Patient wants to be a DO NOT RESUSCITATE. Other questions were answered. Patient's daughter Elle Bernard is DPOA. 15 minutes was spent for this. Resume home medications. 6 DuoNeb. Nicotine patch. Hold eliquis. Nurses informing the anesthesia/surgeon about the eliquis. Thank you Dr. Vargas Past Medical History Past Medical History: Atrial Fibrillation, Coronary Artery Disease (CAD), Chest Pain / Angina, Heart Failure, COPD, GERD/Reflux, Hearing Disorder / Deafness, Hyperlipidemia, Hypertension, Myocardial Infarction ([place]), Renal Disease, Sleep Apnea/CPAP/BIPAP, Thyroid Disorder, Vascular Disorder Additional Past Medical History / Comment(s): Paroxysmal afib, SSS with pacemaker, cardiomyopathy, tracheobronchitis, CKD stage III, chronic anemia, chronic pain, L caratid 100% blockage/R caratid 75% blockage, hypothyroid, [place] bilaterally, constipation Last Myocardial Infarction Date:: 06/2018 History of Any Multi-Drug Resistant Organisms: None Reported Past Surgical History: Cholecystectomy, Coronary Bypass/CABG, Heart Sharon terization, Pacemaker Additional Past Surgical History / Comment(s): Pacemaker in June [id number] CABG-pt believes was 5 vessel done down in [place], colonoscopy-normal, betsy ateral cataract removals. Past Anesthesia/Blood Transfusion Reactions: No Reported Reaction, Motion Sickness Type of Cardiac Device: Permanent Pacemaker Device Placement Date:: 06/2018 Past Psychological History: Depression Smoking Status: Current every day smoker Past Alcohol Use History: None Reported Past Drug Use History: None Reported - Past Family History Father Family Medical History: Dementia Additional Family Medical History / Comment(s): Pt does not recall any parent medical hx at this time. Mother Family Medical History: No Reported History Additional Family Medical History / Comment(s): Mother was healthy. Medications and Allergies Home Medications Medication Instructions Recorded Confirmed Type Nitroglycerin Sl Tabs [Nitrostat] 0.4 mg SUBLINGUAL Q5M PRN #100 tab 07/07/18 02/17/21 Rx Morphine Sulfate ER [Ms Contin] 15 mg PO BID 11/25/18 02/17/21 History Apixaban [Eliquis] 2.5 mg PO BID 02/17/21 02/17/21 History Carvedilol [Coreg] 25 mg PO BID 02/17/21 02/17/21 History Cholecalciferol (Vitamin D3) 125 mcg PO DAILY 02/17/21 02/17/21 History [Vitamin D3 (125 MCG = 5,000 IU)] Fenofibrate 160 mg PO DAILY 02/17/21 02/17/21 History Isosorbide Mononitrate ER [Imdur] 60 mg PO DAILY 02/17/21 02/17/21 History Levothyroxine Sodium [Synthroid] 25 mcg PO DAILY 02/17/21 02/17/21 History Allergies Allergy/AdvReac Type Severity Reaction Status Date / Time amoxicillin AdvReac Cough Verified 02/17/21 18:35 chlorpromazine AdvReac Unknown Verified 02/17/21 18:35 [From Thorazine] gemfibrozil AdvReac Unknown Verified 02/17/21 18:35 lisinopril AdvReac Cough Verified 02/17/21 18:35 metformin AdvReac Diarrhea Verified 02/17/21 18:35 methadone AdvReac Unknown Verified 02/17/21 18:35 Physical Exam Vitals: Vital Signs Temp Pulse Resp BP Pulse Ox 02/18/21 09:06 60 18 175/71 94 L 02/18/21 02:50 98.6 F 62 18 181/66 94 L 02/17/21 22:00 98.6 F 68 20 186/92 95 02/17/21 16:30 98.7 F 78 20 198/104 93 L Intake and Output 02/17/21 02/18/21 02/18/21 22:59 06:59 14:59 Output Total 400 Balance -400 Output: Urine 400 Other: Weight 86.183 kg Results CBC & Chem 7: 02/17/21 17:34 02/17/21 19:57 Labs: Abnormal Lab Results - Last 24 Hours (Table) 02/17/21 02/17/21 Range/Units 17:34 19:57 WBC 14.4 H (3.8-10.6) k/uL Neutrophils # 12.2 H (1.3-7.7) k/uL BUN 27 H (9-20) mg/dL Creatinine 1.77 H (0.66-1.25) mg/dL Glucose 142 H (74-99) mg/dL Alkaline Phosphatase 136 H (38-126) U/L Total Protein 6.2 L (6.3-8.2) g/dL
[2021-02-18] MEDS: SODIUM CHLORIDE 0.9% 1,000 ML IV SCH ×2 (15:04→16:19)
[2021-02-18] MEDS: carvediloL 12.5 MG TAB PO SCH ×2 (16:07→19:40)
[2021-02-18] MEDS: FENOFIBRATE 160 MG TAB PO SCH (16:07)
[2021-02-18] MEDS: LEVOTHYROXINE 25 MCG TAB PO SCH (16:08)
[2021-02-18] MEDS: MORPHINE SULFATE ER 15 MG TABLET PO SCH ×2 (16:08→21:38)
[2021-02-18] MEDS: IPRATROPIUM-ALBUTEROL 3 ML NEB INHALATION SCH ×3 (16:08→19:24)
[2021-02-18] MEDS: ISOSORBIDE MONONITRATE ER 60 MG TAB.ER.24H PO SCH (16:08)
[2021-02-18] MEDS ORDERED: LIDOCAINE 1% INJ 10MG/ML (20 ML MDV) ONE (17:02)
[2021-02-18] MEDS ORDERED: ePHEDrine 50 MG/ML 1 ML AMP ONE (17:02)
[2021-02-18] MEDS ORDERED: .fentaNYL (PF) 50 MCG/ML 2 ML AMP ONE (17:02)
[2021-02-18] MEDS ORDERED: SUCCINYLCHOLINE CHLORIDE 100 MG/5 ML SYR IV ONE (17:02)
[2021-02-18] MEDS ORDERED: ONDANSETRON 4 MG/2 ML VIAL ONE (17:02)
[2021-02-18] MEDS ORDERED: PROPOFOL 10 MG/ML 20 ML VIAL IV ONE (17:02)
[2021-02-18] MEDS ORDERED: DEXAMETHASONE SOD PHOSPHATE 10 MG/ML 1 ML VIAL ONE (17:02)
[2021-02-18] MEDS ORDERED: IV FLUID CONTINUATION 1,000 ML IV ONE (17:04)
[2021-02-18] MEDS ORDERED: SODIUM CHLORIDE 0.9% IV ONE ×2 (17:15)
[2021-02-18] MEDS ORDERED: VANCOMYCIN IV ONE ×2 (17:15)
[2021-02-18] MEDS ORDERED: NALOXONE 0.4 MG/ML 1 ML VIAL IV PRN (18:17)
--- NOTE | 2021-02-18 18:26 | P.PN ---
Progress Note - Text Progress Note Date: 02/18/21 Brief Post Op: Surgeon: Sam Assist: Richelle Pre op dx; right IT fracture Post op dx: Same Procedure: Rt hip IMN Anesthesia: GETA EBL: 50 mL Fluids: 400 UO: 50 Dispo: Stable to PACU Post op Plan: Weightbearing as tolerated Encourage ambulation IS 10x/hr Teds/SCDs Pain control PT OT daily Record Drain output . Patient seen and examined they are doing well. Their pain is under control at this time. They are moving all 4 extremities without any issues. Vital signs are stable.. They are currently recovering and will be transferred to the floor once deemed stable by the PACU team and anesthesiologist. No Other issues at this time they deny fever chills shortness of breath or chest pain. [Medical management pending] [Continue with intravenous fluids, pain medication, muscle relaxers, home medication] [Soft diet to start to advance as tolerated] Transfer to the floor when awake and stable per PACU staff and anesthesia We will evaluate the patient in the morning.
[2021-02-18] MEDS ORDERED: HYDROmorphone 0.5 MG/0.5 ML SYRINGE IVP ONE ×2 (18:44→18:51)
[2021-02-18 19:51] LABS: Basophils % (A) 0 %; Eosinophils % (A) 0 %; HCT 35.8 % (39.0-53.0); HGB 11.6 gm/dL (13.0-17.5); Lymphocytes # (A) 1.4 k/uL (1.0-4.8); Lymphocytes % (A) 11 %; MCH 30.8 pg (25.0-35.0); MCHC 32.5 g/dL (31.0-37.0); MCV 94.9 fL (80.0-100.0); Mean Platelet Volume 7.6; Monocytes # (A) 0.7 k/uL (0-1.0); Monocytes % (A) 5 %; Neutrophils # (A) 11.2 k/uL (1.3-7.7); Neutrophils % (A) 83 %; Platelet Count 172 k/uL (150-450); RBC 3.77 m/uL (4.30-5.90); RDW 14.6 % (11.5-15.5); WBC 13.5 k/uL (3.8-10.6)
[2021-02-18] MEDS: SENNOSIDES-DOCUSATE SODIUM 1 EACH TAB PO SCH (21:38)
[2021-02-18] MEDS: HYDROmorphone 0.5 MG/0.5 ML SYRINGE IVP PRN (21:39)
[2021-02-18] MEDS: NICOTINE 14MG/24HR PATCH TRANSDERM SCH (21:40)
[2021-02-19] MEDS: HYDROmorphone 0.5 MG/0.5 ML SYRINGE IVP PRN ×3 (00:51→15:10)
[2021-02-19] MEDS: HYDROcodone/APAP 5-325MG 1 EACH TAB PO PRN ×2 (03:49→13:41)
[2021-02-19] MEDS: SODIUM CHLORIDE 0.9% 1,000 ML IV SCH ×2 (04:19→06:01)
[2021-02-19] MEDS: LEVOTHYROXINE 25 MCG TAB PO SCH (05:59)
--- NOTE | 2021-02-19 07:10 | XR ---
Right hip. HISTORY: Open reduction internal fixation of a right hip fracture. COMPARISON: None TECHNIQUE: Multiple fluoroscopic intraoperative spot films of the right hip open reduction internal f ixation was performed. FINDINGS: Ultimate placement of an intramedullary alissa in the proximal right femur with transfemoral neck fixati on screws identified. There appears to be near anatomic alignment. There is no hip dislocation. IMPRESSION: Intraoperative right hip for open reduction internal fixation of a right hip fracture. There appears to be near anatomic alignment and no hip dislocation.
[2021-02-19] MEDS: IPRATROPIUM-ALBUTEROL 3 ML NEB INHALATION SCH ×4 (07:48→19:16)
[2021-02-19] MEDS: MORPHINE SULFATE ER 15 MG TABLET PO SCH ×2 (07:54→21:42)
[2021-02-19] MEDS: ENOXAPARIN 30 MG/0.3 ML SYRINGE SQ SCH (07:54)
[2021-02-19] MEDS: FENOFIBRATE 160 MG TAB PO SCH (07:55)
[2021-02-19] MEDS: ISOSORBIDE MONONITRATE ER 60 MG TAB.ER.24H PO SCH (07:55)
[2021-02-19] MEDS: NICOTINE 14MG/24HR PATCH TRANSDERM SCH (07:55)
[2021-02-19] MEDS: carvediloL 12.5 MG TAB PO SCH ×2 (07:55→16:57)
--- NOTE | 2021-02-19 10:40 | P.PN ---
Subjective Progress Note Date: 02/19/21 Principal diagnosis: Right hip intertrochanteric fracture Patient was seen at bedside this morning resting, placing up in semirecumbent position. Patient states he is having some right hip pain, however, is feeling better than before surgery. Patient says he has not gotten up yet since surgery he would like to try to today. Patient has not had bowel movement yet, however, he says he has been passing gas. Patient denies chest pain, fever, shortness of breath, nausea, vomiting, change in vision, loss of/bladder control. Objective - Vital Signs Vital signs: Vital Signs Temp 98.0 F 02/19/21 08:00 Pulse 65 02/19/21 08:00 Resp 17 02/19/21 08:00 BP 138/66 02/19/21 08:00 Pulse Ox 94 L 02/19/21 08:00 Intake & Output 02/18/21 02/19/21 02/19/21 18:59 06:59 18:59 Intake Total 100 100 Output Total 300 150 Balance -200 -50 Weight 86.183 kg Intake: IV 100 100 Output: Urine 250 150 Uretheral (Hall) 200 Estimated Blood Loss 50 Other: Voiding Method Indwelling Catheter - Exam Inspection: Silver optifoam dressing in place. Incision is clean, dry, intact. Marlene in good place/well aligned. Minimal ecchymosis present near incision. Negative for erythema, open fractures on right leg. Negative for fluctuance/purulence Sensation: Sensation is equal, symmetric, bilaterally intact throughout. Palpation: There is moderate tenderness to palpation over the incision. Nontender to palpation throughout rest exam Range of motion: Patient is able to flex and extend digits in right foot and plantar/dorsiflex right ankle. right hip/knee ROM limited due to pain. Patient has full range of motion in bilateral UE and LLE Motor: Leftt leg - 5/5 in resisted hip flexion/extension, knee flex ion/extension, plantar flexion/dorsiflexion the right ankle; 5/5 in resisted elbow flexion/extension, wrist flexion/extension, shoulder abduction, internal/external rotation of the bilateral UE. Right leg motor exam limited due to patient's pain. Gutter Installer strength 4/5 in bilateral UE Neurovascular: Refill under 3 seconds bilaterally in upper extremity digits. DP pulses intact, bilaterally, 2+. - Labs CBC & Chem 7: 12/04/21 19:20 02/17/21 19:57 Labs: Abnormal Lab Results - Last 24 Hours (Table) 02/18/21 Range/Units 19:20 WBC 13.5 H (3.8-10.6) k/uL RBC 3.77 L (4.30-5.90) m/uL Hgb 11.6 L (13.0-17.5) gm/dL Hct 35.8 L (39.0-53.0) % Neutrophils # 11.2 H (1.3-7.7) k/uL Assessment and Plan Assessment: 1. Right hip intertrochanteric fracture status post fall - Postoperative day 1 status post right hip intramedullary nail Plan: 1. Right hip intertrochanteric fracture status post fall - right hip intramedullary nail performed yesterday, 02/18/2021. Patient stable at bedside this morning 2. Appreciate medical management 3. Pain management - Tylenol; [place]; Dilaudid only if needed 4. DVT prophylaxis - Lovenox 5. GI prophylaxis - senna 6. PT/OT - weightbearing as tolerated with walker and assistance 7. Discharge planning - plan discharge to [facility] tomorrow, 02/20/2021 versus 02/21/2021 Time with Patient: Less than 30
--- NOTE | 2021-02-19 11:06 | FL ---
Fluoroscopy History: ORIF RIGHT HIP ORIF RIGHT HIP- DR SIMMONS. FL TIME 51 SEC, 9 IMAGES SAVED UNDER HIP
--- NOTE | 2021-02-19 13:25 | P.PN ---
Progress Note - Text Progress Note Date: 02/19/21 - Chief Complaint Hip fracture History of presenting complaint: This is a pleasant 89-year-old patient , follows with visiting physicians Dr. Mueller. Patient's chronic stable medical conditions include coronary artery disease with bypass, pacemaker, paroxysmal atrial fibrillation on eliquis, hypertension, chronic kidney disease, hyperlipidemia, hypothyroid., CHF EF of 30-35%. Uses a walker Patient tripped over a grocery bag. Pain in the right hip. X-rays in the ER as confirmed a right-sided ID fracture. Patient does use a walker to get about. Baseline some shortness of breath. No chest pain. Patient's ti-fun-ra-law is at the bedside. Appetite has been good. No trouble in the bowel movement. daughter Marielos who lives in [place] is the DPOA. Patient has pain at the fracture site. Significantly hard of hearing. February 19: Patient underwent IM nailing of the right hip. Laying in bed. Some pain. Did eat some breakfast. Review of systems: Was done for constitutional, cardiovascular, GI, pulmonary. relevant finding as above Active Medications Acetaminophen (Acetaminophen Tab 325 Mg Tab) 650 mg PO Q6HR PRN PRN Reason: Mild Pain or Fever > 100.5 Hydrocodone Bitart/Acetaminophen (Hydrocodone/Apap 5-325mg 1 Each Tab) 1 each PO Q6HR PRN PRN Reason: Pain Scale 1 to 5 Last Admin: 02/19/21 03:49 Dose: 1 each Documented by: Hydrocodone Bitart/Acetaminophen (Hydrocodone/Apap 7.5-325mg 1 Each Tab) 1 each PO Q6H PRN PRN Reason: Pain Scale 6 to 10 Albuterol/Ipratropium (Ipratropium-Albuterol 3 Ml Neb) 3 ml INHALATION RT-QID [facility] Last Admin: 02/19/21 12:09 Dose: Not Given Documented by: Carvedilol (Carvedilol 12.5 Mg Tab) 25 mg PO BID-W/MEALS [facility] Last Admin: 02/19/21 07:55 Dose: 25 mg Documented by: Enoxaparin Sodium (Enoxaparin 30 Mg/0.3 Ml Syringe) 30 mg SQ DAILY [facility] Last Admin: 02/19/21 07:54 Dose: 30 mg Documented by: Fenofibrate (Fenofibrate 160 Mg Tab) 160 mg PO DAILY [facility] Last Admin: 02/19/21 07:55 Dose: 160 mg Documented by: Hydromorphone HCl (Hydromorphone 0.5 Mg/0.5 Ml Syringe) 0.5 mg IVP Q3HR PRN PRN Reason: Pain Scale 7 to 10 Last Admin: 02/19/21 06:00 Dose: 0.5 mg Documented by: Sodium Chloride (Saline 0.9%) 1,000 mls @ 100 mls/hr IV .Q10H [facility] Last Admin: 02/19/21 06:01 Dose: 100 mls/hr Documented by: Isosorbide Mononitrate (Isosorbide Mononitrate Er 60 Mg Tab.Er.24h) 60 mg PO DAILY [facility] Last Admin: 02/19/21 07:55 Dose: 60 mg Documented by: Levothyroxine Sodium (Levothyroxine 25 Mcg Tab) 25 mcg PO DAILY@0630 [facility] Last Admin: 02/19/21 05:59 Dose: 25 mcg Documented by: Morphine Sulfate (Morphine Sulfate Er 15 Mg Tablet) 15 mg PO BID [facility]; Protocol Last Admin: 02/19/21 07:54 Dose: 15 mg Documented by: Naloxone HCl (Naloxone 0.4 Mg/Ml 1 Ml Vial) 0.2 mg IV Q2M PRN PRN Reason: Opioid Reversal Nicotine (Nicotine 14mg/24hr Patch) 1 patch TRANSDERM DAILY [facility] Last Admin: 02/19/21 07:55 Dose: 1 patch Documented by: Nitroglycerin (Nitroglycerin Sl Tabs 0.4 Mg Tab) 0.4 mg SUBLINGUAL Q5M PRN PRN Reason: Chest Pain Ondansetron HCl (Ondansetron 4 Mg/2 Ml Vial) 4 mg IVP Q8HR PRN PRN Reason: Nausea And Vomiting Senna/Docusate Sodium (Sennosides-Docusate Sodium 1 Each Tab) 2 each PO HS [facility] Last Admin: 02/18/21 21:38 Dose: 2 each Documented by: Past medical history to include: Coronary artery disease with bypass, pacemaker, paroxysmal atrial fibrillation, hypertension, chronic kidney disease, hyperlipidemia, hypothyroid, CHF EF 30- 35%, very hard of hearing, COPD, GERD, hyperlipidemia 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 Uses a walker. Uk-haq-kh-law lives across the street and is helpful. CPAP machine patient has not been using. Smoking over 70 years about half a pack a day, and used to drink significant alcohol about 20 years ago Family history: Reviewed, noncontributory to presentation Physical examination: VITAL SIGNS: 98, 65, 17, 1:30/66, 94% room air GENERAL: reclining in bed, awake EYES: Pupils equal. Conjunctiva normal. HEENT: External appearance of nose and ears normal, oral cavity grossly normal. Decreased hearing NECK: JVD not raised; masses not palpable. HEART: Heart sounds irregular, minimal edema. LUNGS: Respiratory rate increased; decreased breath sounds. ABDOMEN: Soft, nontender, liver spleen not palpable, no masses palpable. PSYCH: Answering simple questionsl. MUSCULAR skeletal: Evidence of OA, and multiple joints. Limited range of motion right hip. EXTREMITIES: Decreased peripheral pulses. Ischemic changes in the feet INVESTIGATIONS, reviewed in the clinical context: February 19: White count 13.5 hemoglobin 11.6 White count 14.4 hemoglobin 13.4 platelets 168 sodium 138 potassium 4.7 BUN 27 creatinine 1.77 Previous labs: On April 2020 patient is BUN 82 creatinine 2.5 Chest x-ray film personally reviewed by me-cardiomegaly. Some cephalization. Some chronic changes. CT brain and C-spine without contrast: Cerebral atrophy. 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 Possible or left-sided caudate nucleus infarct. Spondylitic changes. EKG tracing personally reviewed by me-ventricular paced rhythm Assessment and plan: -Right hip IT fracture secondary to fall. Followed by IM nailing on February 18 On subcu Lovenox for DVT prophylaxis - chronic congestive heart failure from systolic dysfunction EF 30-35% from underlying ischemic heart disease, Keep a close monitoring patient's fluid status. -Pacemaker Telemetry -Paroxysmal atrial fibrillation chronically on eliquis, Hold eliquis -Essential hypertension, Coreg 25 mg twice a day. -Acute postprocedure blood loss anemia, as expected from surgery Ferrous sulfate -Chronic kidney disease stage 3 from hypertensive nephrosclerosis. Follow electrolytes -Hyperlipidemia, -Very hard of hearing -Chronic gait dysfunction, baseline uses a walker , fall precautions -COPD in a current smoker, DuoNeb 4 times a day -Nicotine dependence, 1 cigarette smoker Nicotine patch 14 -Primary osteoarthritis multiple joints bilaterally Pain control when necessary -Mild cognitive impairment -DO NOT RESUSCITATE Continue current medication treatment plan. Discussed with the patient. DC IV fluids. Up in chair if okay with orthopedics.
[2021-02-19] MEDS: FERROUS SULFATE 325 MG TAB PO SCH (13:42)
[2021-02-19] MEDS: SENNOSIDES-DOCUSATE SODIUM 1 EACH TAB PO SCH (21:42)
[2021-02-20] MEDS: LEVOTHYROXINE 25 MCG TAB PO SCH (05:47)
[2021-02-20] MEDS: HYDROcodone/APAP 7.5-325MG 1 EACH TAB PO PRN (05:47)
--- NOTE | 2021-02-20 07:18 | P.OP ---
Date of Procedure: 02/18/21 Preoperative Diagnosis: 1. Rt IT fracture, 3 part, unstable 2. Afib, controlled 3. s/p ffs Postoperative Diagnosis: 1. Rt IT fracture, 3 part, unstable 2. Afib, controlled 3. s/p ffs Procedure(s) Performed: 1. Intramedullary nail fixation right hip Implants: [employer] 130 by 180 with 95 mm lag screw 90 mm compression screw Anesthesia: GETA Surgeon: Bhupendra Vargas [employer] Specialist #1: Blair Howe (Was present for entire case and necessary due to the complexity of the case) Estimated Blood Loss (ml): 50 IV fluids (ml): 400 Urine output (ml): 50 Pathology: none sent Condition: stable Disposition: PACU Indications for Procedure: This is an 89-year-old male who presented to the emergency department for fall from standing onto his right hip. Complete of right hip pain and was unable to ambulate. Patient lives at home alone and was down for an unknown amount time. His son-in-law lives next door who we believe found him call EMS and he was brought to emergency department. Patient found to have a right intertrochanteric hip fracture. I discussed with the patient as well as his son-in-law and daughter treatment options. They were amenable to surgical treatment as the patient would not walk if we can do this. They understood this. The patient has pain in his hip he has pain no rales is history of PVD as well as A. fib who is rate controlled right now. Other complaints of injury anywhere also at this time. Description of Procedure: The patient was seen and examined in the preoperative area. All preoperative protocols were followed. Informed consent was obtained risks and benefits of the procedure were discussed at length. Risks including bleeding infection damage to the surrounding tissue and risk of reoperation were discussed with the patient. Risk of anesthesia up to and including was a discussed with the patient. These are outlined in the risk reviewed. They were willing to accept these risks and all of the risks of surgery. The patient was given a weight- based dose of antibiotics in the form of 2 g Ancef IVPB. The patient was seen and evaluated by the anesthesia team who deemed them fit for surgery. The site was marked, the patient was willing to proceed with the procedure. The patient was transferred to the operative suite by the Department of anesthesia. There were then drifted off to sleep by the department of anesthesia and spinal with sedation anesthesia was used. Once adequate anesthesia had been obtained the patient was carefully transferred to the operative bed. All bony prominences were padded accordingly. SCDs were placed on the nonoperative lower extremities. Arms were well padded. Patient was placed on a Apple table and the peg was placed his feet were placed in Apple boots and secured to the table with well-padded. Arms were padded and placed across the body. He was secured to the talus extremity. We then placed the patient's right lower extremity in traction and internal rotation and adduction and confirmed in good position on fluoroscopy. Reduction of fracture. Preoperative briefing was done with the operative team and everyone was ready for the procedure to start. The patients right lower extremity was then prepped and draped in the normal sterile fashion. Timeout was then performed and all parties in agreement with the procedure to be performed. Skin incision was made to sailors proximal greater trochanter dissection taken down bluntly to the greater trochanter which was palpated. An awl was then used to access the femur under the ideal starting positions in AP and lateral fluoroscopy. Once in position ball-tipped guidewire was passed through an awl was removed. The opening reamer was then placed and reamed under AP fluorosc opy. We then passed sequentially 11/26/2012 shaft reamers to fit the nail. The nail was then passed the ball-tipped guidewire and packed into place and once in good position the ball-tipped guidewire was removed. We then placed the jig on the lateral aspect for the lag screw. This is skin incision was made on the lateral aspect in line with this taken down to the bone which was elevated of any soft tissue. Jig was then secured we then drilled a pin center center within the neck and head of the femur within 10 mm subchondral bone confirmed on AP and lateral fluoroscopy. We then measured and drilled for the compression screw in lag screw is were then selected and placed under fluoroscopic imaging. We then locked the nail proximally. Then turned our attention to the distal locking screw was placed in the static hole was done through the jig. Skin incision made and the trocar placed this was then drilled measured and placed under fluoroscopic imaging. We then confirmed good position under fluoroscopic AP and lateral. The outrigger was then removed and final imaging taken showing good placement of the nail as well as reduction of fracture. Wounds were then copiously irrigated with normal sterile saline. The fascia was then closed with 0 Vicryl subcu tissue closed 2-0 Vicryl and skin closed with skin acosta the wound edges approximated very well. The patient was then transferred back to their hospital bed. There were awakened by department of anesthesia having tolerated the procedure very well with no complications. The patient was then transported to the postoperative care unit in stable condition.
[2021-02-20] MEDS: IPRATROPIUM-ALBUTEROL 3 ML NEB INHALATION SCH ×4 (09:00→19:55)
[2021-02-20] MEDS: FERROUS SULFATE 325 MG TAB PO SCH (09:54)
[2021-02-20] MEDS: MORPHINE SULFATE ER 15 MG TABLET PO SCH ×2 (09:54→20:28)
[2021-02-20] MEDS: ENOXAPARIN 30 MG/0.3 ML SYRINGE SQ SCH (09:54)
[2021-02-20] MEDS: FENOFIBRATE 160 MG TAB PO SCH (09:54)
[2021-02-20] MEDS: carvediloL 12.5 MG TAB PO SCH ×2 (09:54→17:01)
[2021-02-20] MEDS: ISOSORBIDE MONONITRATE ER 60 MG TAB.ER.24H PO SCH (09:56)
[2021-02-20] MEDS: NICOTINE 14MG/24HR PATCH TRANSDERM SCH (09:56)
[2021-02-20 10:42] LABS: Basophils # (A) 0.02 X 10*3/uL (0.00-0.10); Basophils % (A) 0.2 %; Eosinophils # (A) 0.15 X 10*3/uL (0.04-0.35); Eosinophils % (A) 1.4 %; HCT 27.2 % (39.6-50.0); HGB 8.7 g/dL (13.0-17.0); Lymphocytes # (A) 1.52 X 10*3/uL (0.90-5.00); Lymphocytes % (A) 14.4 %; MCH 30.2 pg (27.0-32.0); MCV 94.4 fL (80.0-97.0); Mean Platelet Volume 10.4 fL (9.5-12.2); Monocytes # (A) 0.88 X 10*3/uL (0.20-1.00); Monocytes % (A) 8.3 %; Neutrophils # (A) 7.96 X 10*3/uL (1.80-7.70); Neutrophils % (A) 75.1 %; Platelet Count 127 X 10*3/uL (140-440); RBC 2.88 X 10*6/uL (4.40-5.60); RDW 14.4 % (11.5-14.5); WBC 10.59 X 10*3/uL (4.50-10.00)
--- NOTE | 2021-02-20 12:02 | P.PN ---
Progress Note - Text Progress Note Date: 02/20/21 - Chief Complaint Hip fracture History of presenting complaint: This is a pleasant 89-year-old patient , follows with visiting physicians Dr. Mueller. Patient's chronic stable medical conditions include coronary artery disease with bypass, pacemaker, paroxysmal atrial fibrillation on eliquis, hypertension, chronic kidney disease, hyperlipidemia, hypothyroid., CHF EF of 30-35%. Uses a walker Patient tripped over a grocery bag. Pain in the right hip. X-rays in the ER as confirmed a right-sided ID fracture. Patient does use a walker to get about. Baseline some shortness of breath. No chest pain. Patient's vv-yin-ak-law is at the bedside. Appetite has been good. No trouble in the bowel movement. daughter Marielos who lives in [place] is the DPOA. Patient has pain at the fracture site. Significantly hard of hearing. February 19: Patient underwent IM nailing of the right hip. Laying in bed. Some pain. Did eat some breakfast. February 20: Sitting up in a chair. Oral intake fair. Pain control. Family is looking at different rehab facilities. Review of systems: Was done for constitutional, cardiovascular, GI, pulmonary. relevant finding as above Active Medications Acetaminophen (Acetaminophen Tab 325 Mg Tab) 650 mg PO Q6HR PRN PRN Reason: Mild Pain or Fever > 100.5 Hydrocodone Bitart/Acetaminophen (Hydrocodone/Apap 5-325mg 1 Each Tab) 1 each PO Q6HR PRN PRN Reason: Pain Scale 1 to 5 Last Admin: 02/19/21 13:41 Dose: 1 each Documented by: Hydrocodone Bitart/Acetaminophen (Hydrocodone/Apap 7.5-325mg 1 Each Tab) 1 each PO Q6H PRN PRN Reason: Pain Scale 6 to 10 Last Admin: 02/20/21 05:47 Dose: 1 each Documented by: Albuterol/Ipratropium (Ipratropium-Albuterol 3 Ml Neb) 3 ml INHALATION RT-QID [facility] Last Admin: 02/20/21 09:00 Dose: 3 ml Documented by: Carvedilol (Carvedilol 12.5 Mg Tab) 25 mg PO BID-W/MEALS [facility] Last Admin: 02/20/21 09:54 Dose: 25 mg Documented by: Enoxaparin Sodium (Enoxaparin 30 Mg/0.3 Ml Syringe) 30 mg SQ DAILY [facility] Last Admin: 02/20/21 09:54 Dose: 30 mg Documented by: Fenofibrate (Fenofibrate 160 Mg Tab) 160 mg PO DAILY [facility] Last Admin: 02/20/21 09:54 Dose: 160 mg Documented by: Ferrous Sulfate (Ferrous Sulfate 325 Mg Tab) 325 mg PO W/LUNCH [facility] Last Admin: 02/20/21 09:54 Dose: 325 mg Documented by: Hydromorphone HCl (Hydromorphone 0.5 Mg/0.5 Ml Syringe) 0.5 mg IVP Q3HR PRN PRN Reason: Pain Scale 7 to 10 Last Admin: 02/19/21 15:10 Dose: 0.5 mg Documented by: Isosorbide Mononitrate (Isosorbide Mononitrate Er 60 Mg Tab.Er.24h) 60 mg PO DAILY [facility] Last Admin: 02/20/21 09:56 Dose: 60 mg Documented by: Levothyroxine Sodium (Levothyroxine 25 Mcg Tab) 25 mcg PO DAILY@0630 [facility] Last Admin: 02/20/21 05:47 Dose: 25 mcg Documented by: Morphine Sulfate (Morphine Sulfate Er 15 Mg Tablet) 15 mg PO BID [facility]; Protocol Last Admin: 02/20/21 09:54 Dose: 15 mg Documented by: Naloxone HCl (Naloxone 0.4 Mg/Ml 1 Ml Vial) 0.2 mg IV Q2M PRN PRN Reason: Opioid Reversal Nicotine (Nicotine 14mg/24hr Patch) 1 patch TRANSDERM DAILY [facility] Last Admin: 02/20/21 09:56 Dose: 1 patch Documented by: Nitroglycerin (Nitroglycerin Sl Tabs 0.4 Mg Tab) 0.4 mg SUBLINGUAL Q5M PRN PRN Reason: Chest Pain Ondansetron HCl (Ondansetron 4 Mg/2 Ml Vial) 4 mg IVP Q8HR PRN PRN Reason: Nausea And Vomiting Senna/Docusate Sodium (Sennosides-Docusate Sodium 1 Each Tab) 2 each PO HS [facility] Last Admin: 02/19/21 21:42 Dose: 2 each Documented by: Past medical history to include: Coronary artery disease with bypass, pacemaker, paroxysmal atrial fibrillation, hypertension, chronic kidney disease, hyperlipidemia, hypothyroid, CHF EF 30- 35%, very hard of hearing, COPD, GERD, hyperlipidemia 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 Uses a walker. Wf-aia-sm-law lives across the street and is helpful. CPAP machine patient has not been using. Smoking over 70 years about half a pack a day, and used to drink significant alcohol about 20 years ago Family history: Reviewed, noncontributory to presentation Physical examination: VITAL SIGNS: 97.6, 58, 16, 1 56 x 72, 93% on room air GENERAL: Sitting up in a chair awake EYES: Pupils equal. Conjunctiva normal. HEENT: External appearance of nose and ears normal, oral cavity grossly normal. Decreased hearing NECK: JVD not raised; masses not palpable. HEART: Heart sounds irregular, minimal edema. LUNGS: Respiratory rate increased; decreased breath sounds. ABDOMEN: Soft, nontender, liver spleen not palpable, no masses palpable. PSYCH: Answering questions appropriately MUSCULAR skeletal: Evidence of OA, and multiple joints. Limited range of motion right hip. EXTREMITIES: Decreased peripheral pulses. Ischemic changes in the feet INVESTIGATIONS, reviewed in the clinical context: February 20: White count 10.5 hemoglobin 8.7 platelets 127 TSH 2.9 February 19: White count 13.5 hemoglobin 11.6 White count 14.4 hemoglobin 13.4 platelets 168 sodium 138 potassium 4.7 BUN 27 creatinine 1.77 Previous labs: On April 2020 patient is BUN 82 creatinine 2.5 Chest x-ray film personally reviewed by me-cardiomegaly. Some cephalization. Some chronic changes. CT brain and C-spine without contrast: Cerebral atrophy. 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 Possible or left-sided caudate nucleus infarct. Spondylitic changes. EKG tracing personally reviewed by me-ventricular paced rhythm Assessment and plan: -Right hip IT fracture secondary to fall. Followed by IM nailing on February 18 On subcu Lovenox for DVT prophylaxis - chronic congestive heart failure from systolic dysfunction EF 30-35% from underlying ischemic heart disease, Keep a close monitoring patient's fluid status. -Pacemaker Telemetry -Paroxysmal atrial fibrillation chronically on eliquis, Hold eliquis -Essential hypertension, Coreg 25 mg twice a day. -Acute postprocedure blood loss anemia, as expected from surgery Ferrous sulfate. 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 Follow electrolytes -Hyperlipidemia, -Very hard of hearing -Chronic gait dysfunction, baseline uses a walker , fall precautions -COPD in a current smoker, DuoNeb 4 times a day -Nicotine dependence, 1 cigarette smoker Nicotine patch 14 -Primary osteoarthritis multiple joints bilaterally Pain control when necessary -Mild cognitive impairment -DO NOT RESUSCITATE Family is looking at inpatient rehab facilities. Keep a close eye and hemodynamics. Follow CBC.
--- NOTE | 2021-02-20 13:06 | XR ---
EXAMINATION TYPE: XR chest 1V portable DATE OF EXAM: 02/17/2021 COMPARISON: Chest x-ray 05/09/2020 HISTORY: Trauma, fall, pain, abnormal chest x-ray TECHNIQUE: Single frontal view of the chest is obtained. FINDINGS: Exam is submitted for interpretation 02/20/2021 Patient is post median sternotomy, there is a generator in the left pectoral region, leads in right a trium and ventricle. Patient is rotated. There is blunting of the left costophrenic angle which is th ought to be stable. Retrocardiac density may be related to hiatal hernia. There is no evident pneumot horax. Cardiac mediastinal silhouette shows no interval change accounting for differences in techniqu e. No evident fracture. Probable vascular shadow in the right paratracheal location. Bandlike area of increased attenuation the left midlung may reflect atelectatic change. The aorta is dense. IMPRESSION: Suspect chronic pleural reaction left lung base, postop changes, there may be atelectasi s, correlate, follow-up as indicated
--- NOTE | 2021-02-20 15:49 | P.PN ---
Subjective Progress Note Date: 02/20/21 Principal diagnosis: Right hip intertrochanteric fracture Patient was seen at bedside this morning resting sitting up in chair. Patient states he is having some right hip pain, however, is feeling better than yesterday. Patient says he got up to the chair from bed with assistance using walker this morning. Patient denies chest pain, fever, shortness of breath, nausea, vomiting, change in vision, loss of/bladder control. Objective - Vital Signs Vital signs: Vital Signs Temp 97.6 F 02/20/21 08:00 Pulse 68 02/20/21 09:09 Resp 16 02/20/21 08:00 BP 156/72 02/20/21 08:00 Pulse Ox 93 L 02/20/21 08:00 Intake & Output 02/19/21 02/20/21 02/20/21 18:59 06:59 18:59 Output Total 150 375 Balance -150 -375 Output: Urine 150 375 Other: Voiding Method Indwelling Catheter Indwelling Catheter Indwelling Catheter - Exam Inspection: Silver optifoam dressing in place. Incision is clean, dry, intact. [place] in good place/well aligned. Minimal ecchymosis present near incision. Negative for erythema, open fractures on right leg. Negative for fluctuance/purulence Sensation: Sensation is equal, symmetric, bilaterally intact throughout. Palpation: There is moderate tenderness to palpation over the incision. Nontender to palpation throughout rest exam Range of motion: Patient is able to flex and extend digits in right foot and plantar/dorsiflex right ankle. right hip/knee ROM limited due to pain. Patient has full range of motion in bilateral UE and LLE Motor: Leftt leg - 5/5 in resisted hip flexion/extension, knee f lexion/extension, plantar flexion/dorsiflexion the right ankle; 5/5 in resisted elbow flexion/extension, wrist flexion/extension, shoulder abduction, internal/external rotation of the bilateral UE. Right leg motor exam limited due to patient's pain. Manager [employer] strength 4/5 in bilateral UE Neurovascular: Refill under 3 seconds bilaterally in upper extremity digits. DP pulses intact, bilaterally, 2+. - Labs CBC & Chem 7: 02/20/21 04:32 02/17/21 19:57 Labs: Abnormal Lab Results - Last 24 Hours (Table) 02/20/21 Range/Units 04:32 WBC 10.59 H (4.50-10.00) X 10*3/uL RBC 2.88 L (4.40-5.60) X 10*6/uL Hgb 8.7 L (13.0-17.0) g/dL Hct 27.2 L (39.6-50.0) % Plt Count 127 L (140-440) X 10*3/uL Immature Gran # 0.06 H (0.00-0.04) X 10*3/uL Neutrophils # 7.96 H (1.80-7.70) X 10*3/uL Assessment and Plan Assessment: 1. Right hip intertrochanteric fracture status post fall - Postoperative day 2 status post right hip intramedullary nail Plan: 1. Right hip intertrochanteric fracture status post fall - right hip intramedullary nail performed 02/18/2021. Patient stable at bedside this morning 2. Appreciate medical management 3. Pain management - Tylenol; [place]; Dilaudid only if needed 4. DVT prophylaxis - Lovenox 5. GI prophylaxis - senna 6. PT/OT - weightbearing as tolerated with walker and assistance 7. Discharge planning - plan discharge to [facility] tomorrow 02/21/2021 Time with Patient: Less than 30
[2021-02-20] MEDS: SENNOSIDES-DOCUSATE SODIUM 1 EACH TAB PO SCH (20:32)
[2021-02-20] MEDS: HYDROmorphone 0.5 MG/0.5 ML SYRINGE IVP PRN (23:36)
[2021-02-21] MEDS: HYDROcodone/APAP 7.5-325MG 1 EACH TAB PO PRN (01:08)
[2021-02-21 05:15] LABS: African American GFR (CKD) 35 (>60 ml/min/1.73 sqM); Anion Gap 8 mmol/L; Blood Urea Nitrogen 42 mg/dL (9-20); Calcium 7.8 mg/dL (8.4-10.2); Carbon Dioxide 20 mmol/L (22-30); Chloride 109 mmol/L (98-107); Glucose 122 mg/dL (74-99); Non-African American GFR(CKD) 30 (>60 ml/min/1.73 sqM); Potassium 4.2 mmol/L (3.5-5.1); Sodium 137 mmol/L (137-145)
[2021-02-21] MEDS: LEVOTHYROXINE 25 MCG TAB PO SCH (05:46)
[2021-02-21 06:33] LABS: Basophils % (A) 0 %; Eosinophils # (A) 0.1 k/uL (0-0.7); Eosinophils % (A) 1 %; HCT 24.4 % (39.0-53.0); Lymphocytes # (A) 1.4 k/uL (1.0-4.8); Lymphocytes % (A) 16 %; MCH 30.3 pg (25.0-35.0); MCHC 32.8 g/dL (31.0-37.0); MCV 92.4 fL (80.0-100.0); Mean Platelet Volume 8.8; Monocytes # (A) 0.5 k/uL (0-1.0); Monocytes % (A) 6 %; Neutrophils % (A) 76 %; Platelet Count 145 k/uL (150-450); RBC 2.64 m/uL (4.30-5.90); RDW 14.3 % (11.5-15.5); WBC 9.1 k/uL (3.8-10.6)
[2021-02-21 07:47] VITALS: RESP 18
[2021-02-21] MEDS: FENOFIBRATE 160 MG TAB PO SCH (08:05)
[2021-02-21] MEDS: carvediloL 12.5 MG TAB PO SCH ×2 (08:05→16:46)
[2021-02-21] MEDS: ENOXAPARIN 30 MG/0.3 ML SYRINGE SQ SCH (08:05)
[2021-02-21] MEDS: ISOSORBIDE MONONITRATE ER 60 MG TAB.ER.24H PO SCH (08:06)
[2021-02-21] MEDS: MORPHINE SULFATE ER 15 MG TABLET PO SCH (08:06)
[2021-02-21] MEDS: NICOTINE 14MG/24HR PATCH TRANSDERM SCH (08:07)
[2021-02-21] MEDS: IPRATROPIUM-ALBUTEROL 3 ML NEB INHALATION SCH ×3 (08:57→15:56)
[2021-02-21] MEDS: FERROUS SULFATE 325 MG TAB PO SCH (12:30)
--- NOTE | 2021-02-21 12:47 | P.DS ---
Providers Date of admission: 02/17/21 20:45 Expected date of discharge: 02/21/21 Attending physician: Bhupendra Vargas DO Consults: 02/17/21 20:46 Consult Physician Routine Consulting Provider: Timothy Beaulieu Consult Reason/Comments: Preoperative clearance, right intertrochanteric hip fracture Do you want consulting provider notified?: Already Contacted Primary care physician: Maverick Chiang MD Hospital Course: Date of admission: 02/18/2021 Date of discharge: 02/21/2021 Admission diagnosis: Rt IT fracture, 3 part, unstable Discharge diagnosis: Same Attending physician: Dr. Vargas Surgical procedures: Right hip intramedullary nail fixation Brief history: Patient is a 89-year-old male with a history of right IT fracture status post fall. At this point patient has failed conservative treatment measures and has opted to proceed with a elective right hip intramedullary nail fixation. Hospital course: Details of patient's surgery can be found in operative report. Patient tolerated the procedure well and was subsequently transported to orthopedic floor. Patient's orthopeidc and medical care was provided daily. Patient had daily laboratory tests performed for evaluation of overall blood counts. Patient had daily physical therapy to include strengthening range of motion as well as education with walker ambulation. Patient was treated with L ovenox for their postoperative DVT prophylaxis during their inpatient stay. Patient was noted to have a relatively uneventful postoperative course. Patient reported satisfactory pain control with oral pain medications by postoperative day 3. Patient showed satisfactory progress with physical therapy. Patient moved steadily through the program and had no difficulty meeting the goals by postoperative day 3. Given patient's otherwise satisfactory course and having met physical therapy goals, plan is to discharge patient to rehab on postoperative day 3. Discharge condition/disposition: Patient will be discharged to [facility] in stable condition. Discharge medications: Instructions are given on resumption of patient's normal daily medications per primary care recommendation, in addition patient will be prescribed [place] 7.5 mg/325 mg; senna; continue Eliquis 2.5 mg BID for DVT ppx. Discharge instructions: 1. Wound care and infection precautions, keep incision dry and covered while showering, no lotions, creams, moisturizers. No soaking, tubs, pools, hottubs. Do not scrub over the incision. 2. Weight-bear as tolerated with walker / cane until follow-up. 3. Ice and elevate when necessary. Do not exceed 20 minutes per hour with ice pack. 4. Nursing care. 5. Physical therapy. 6. Pain meds and anticoagulants per prescription. 7. Pain medication has potential to cause constipation. Increase oral fluid and fiber intake. Contact primary care provider if you have not had a bowel movement within 48 hours after discharge 8. No anti-inflammatory medication until discussed at first post operative visit, this including Motrin, Aleve, Mobic, Diclofenac. 9. Follow up in office at [address] Bhupendra Vargas 10. Follow up with your primary care doctor 7-10 days after discharge. 11. Contact [facility] with any questions, . Keep incisions clean, dry, intact. Opted foam dressing may removed in 5 days. While showering, cover incisions with Saran wrap or plastic bag Medications: [place] 7.5mg/325 mg; senna; continue/resume Eliquis 2.5 mg BID for DVT ppx Assessment: Right hip IT fracture status post fall Procedures: Right hip intramedullary nail Patient Condition at Discharge: Good Plan - Discharge Summary Discharge Rx Participant: No New Discharge Prescriptions: New HYDROcodone/APAP 7.5-325MG [[place] 7.5] 1 each PO Q6HR PRN #28 tab PRN Reason: Pain Ipratropium-Albuterol Nebulize [Duoneb 0.5 mg-3 mg/3 ml Soln] 3 ml INHALATION RT-QID ml Nicotine 14Mg/24Hr Patch [Habitrol] 1 patch TRANSDERM DAILY patch Ferrous Sulfate [Iron (65 MG Elemental)] 325 mg PO W/LUNCH tab Sennosides/Docusate Sodium [Senna Plus 8.6-50 mg Softgel] 1 each PO DAILY #20 capsule Continue Nitroglycerin Sl Tabs [Nitrostat] 0.4 mg SUBLINGUAL Q5M PRN #100 tab PRN Reason: Chest Pain Apixaban [Eliquis] 2.5 mg PO BID Isosorbide Mononitrate ER [Imdur] 60 mg PO DAILY Fenofibrate 160 mg PO DAILY Levothyroxine Sodium [Synthroid] 25 mcg PO DAILY Carvedilol [Coreg] 25 mg PO BID Cholecalciferol (Vitamin D3) [Vitamin D3 (125 MCG = 5,000 IU)] 125 mcg PO DAILY Morphine Sulfate ER [Ms Contin] 15 mg PO BID #6 tab Discharge Medication List Nitroglycerin Sl Tabs [Nitrostat] 0.4 mg SUBLINGUAL Q5M PRN #100 tab 07/07/18 [Rx] Apixaban [Eliquis] 2.5 mg PO BID 02/17/21 [History] Carvedilol [Coreg] 25 mg PO BID 02/17/21 [History] Cholecalciferol (Vitamin D3) [Vitamin D3 (125 MCG = 5,000 IU)] 125 mcg PO DAILY 02/17/21 [History] Fenofibrate 160 mg PO DAILY 02/17/21 [History] Isosorbide Mononitrate ER [Imdur] 60 mg PO DAILY 02/17/21 [History] Levothyroxine Sodium [Synthroid] 25 mcg PO DAILY 02/17/21 [History] Ferrous Sulfate [Iron (65 MG Elemental)] 325 mg PO W/LUNCH tab 02/21/21 [Rx] HYDROcodone/APAP 7.5-325MG [[place] 7.5] 1 each PO Q6HR PRN #28 tab 02/21/21 [Rx] Ipratropium-Albuterol Nebulize [Duoneb 0.5 mg-3 mg/3 ml Soln] 3 ml INHALATION RT-QID ml 02/21/21 [Rx] Morphine Sulfate ER [Ms Contin] 15 mg PO BID #6 tab 02/21/21 [Rx] Nicotine 14Mg/24Hr Patch [Habitrol] 1 patch TRANSDERM DAILY patch 02/21/21 [Rx] Sennosides/Docusate Sodium [Senna Plus 8.6-50 mg Softgel] 1 each PO DAILY #20 capsule 02/21/21 [Rx] Follow up Appointment(s)/Referral(s): Melecio Mueller MD [REFERRING] - 1-2 days Bhupendra Vargas DO [Doctor of Osteopathic Medicine] - 2 Weeks Activity/Diet/Wound Care/Special Instructions: Discharge instructions: 1. Wound care and infection precautions, keep incision dry and covered while showering, no lotions, creams, moisturizers. No soaking, tubs, pools, hottubs. Do not scrub over the incision. 2. Weight-bear as tolerated with walker / cane until follow-up. 3. Ice and elevate when necessary. Do not exceed 20 minutes per hour with ice pack. 4. Nursing care. 5. Physical therapy. 6. Pain meds and anticoagulants per prescription. 7. Pain medication has potential to cause constipation. Increase oral fluid and fiber intake. Contact primary care provider if you have not had a bowel movement within 48 hours after discharge 8. No anti-inflammatory medication until discussed at first post operative visit, this including Motrin, Aleve, Mobic, Diclofenac. 9. Follow up in office at [address] Bhupendra Vargas 10. Follow up with your primary care doctor 7-10 days after discharge. 11. Contact [facility] with any questions, . Keep incisions clean, dry, intact. Opted foam dressing may removed in 5 days. While showering, cover incisions with Saran wrap or plastic bag Medications: [place] 7.5mg/325 mg; senna; continue/resume Eliquis 2.5 mg BID for DVT ppx Discharge Disposition: TRANSFER TO SNF/ECF
--- NOTE | 2021-02-21 13:04 | P.PN ---
Subjective Progress Note Date: 02/21/21 Principal diagnosis: Right hip intertrochanteric fracture Patient was seen at bedside this morning resting sitting up in chair. Patient states he is having some right hip pain, however, is feeling better than yesterday. Patient says he got up to the chair from bed with assistance using walker this morning. Patient denies chest pain, fever, shortness of breath, nausea, vomiting, change in vision, loss of/bladder control. Objective - Vital Signs Vital signs: Vital Signs Temp 97.8 F 02/21/21 07:46 Pulse 67 02/21/21 07:46 Resp 18 02/21/21 07:46 BP 146/56 02/21/21 07:46 Pulse Ox 96 02/21/21 07:46 Intake & Output 02/20/21 02/21/21 02/21/21 18:59 06:59 18:59 Intake Total 912 Output Total 200 75 350 Balance 712 -75 -350 Intake: Oral 912 Output: Urine 200 75 350 Uretheral (Hall) 200 350 Other: Voiding Method Indwelling Catheter - Exam Inspection: Silver optifoam dressing in place. Incision is clean, dry, intact. [place] in good place/well aligned. Minimal ecchymosis present near incision. Negative for erythema, open fractures on right leg. Negative for fluctuance/purulence Sensation: Sensation is equal, symmetric, bilaterally intact throughout. Palpation: There is moderate tenderness to palpation over the incision. Nontender to palpation throughout rest exam Range of motion: Patient is able to flex and extend digits in right foot and plantar/dorsiflex right ankle. right hip/knee ROM limited due to pain. Patient has full range of motion in bilateral UE and LLE Motor: Leftt leg - 5/5 in resisted hip flexion/extension, knee flexion/extension, plantar flexion/dorsiflexion the right ankle; 5/5 in resisted elbow flexion/extension, wrist flexion/extension, shoulder abduction, i nternal/external rotation of the bilateral UE. Right leg motor exam limited due to patient's pain. Exercise Equipment Specialist strength 4/5 in bilateral UE Neurovascular: Refill under 3 seconds bilaterally in upper extremity digits. DP pulses intact, bilaterally, 2+. - Labs CBC & Chem 7: 02/21/21 03:56 02/21/21 03:56 Labs: Abnormal Lab Results - Last 24 Hours (Table) 02/21/21 02/21/21 Range/Units 03:56 03:56 RBC 2.64 L (4.30-5.90) m/uL Hgb 8.0 L D (13.0-17.5) gm/dL Hct 24.4 L (39.0-53.0) % Plt Count 145 L (150-450) k/uL Chloride 109 H (98-107) mmol/L Carbon Dioxide 20 L (22-30) mmol/L BUN 42 H (9-20) mg/dL Creatinine 1.93 H (0.66-1.25) mg/dL Glucose 122 H (74-99) mg/dL Calcium 7.8 L (8.4-10.2) mg/dL Assessment and Plan Assessment: 1. Right hip intertrochanteric fracture status post fall - Postoperative day 3 status post right hip intramedullary nail Plan: 1. Right hip intertrochanteric fracture status post fall - right hip intramedullary nail performed 02/18/2021. Patient stable at bedside this morning 2. Appreciate medical management 3. Pain management - Tylenol; [place]; 4. DVT prophylaxis - Lovenox; resume Eliquis 2.5 mg BID once at rehab 5. GI prophylaxis - senna 6. PT/OT - weightbearing as tolerated with walker and assistance 7. Discharge planning - plan discharge to [facility] 02/21/2021 Time with Patient: Less than 30
[2021-02-21 14:38] VITALS: BP 108/43; TEMP 98.6
--- NOTE | 2021-02-21 15:09 | P.PN ---
Progress Note - Text Progress Note Date: 02/21/21 - Chief Complaint Hip fracture History of presenting complaint: This is a pleasant 89-year-old patient , follows with visiting physicians Dr. Mueller. Patient's chronic stable medical conditions include coronary artery disease with bypass, pacemaker, paroxysmal atrial fibrillation on eliquis, hypertension, chronic kidney disease, hyperlipidemia, hypothyroid., CHF EF of 30-35%. Uses a walker Patient tripped over a grocery bag. Pain in the right hip. X-rays in the ER as confirmed a right-sided ID fracture. Patient does use a walker to get about. Baseline some shortness of breath. No chest pain. Patient's dh-fby-mg-law is at the bedside. Appetite has been good. No trouble in the bowel movement. daughter Marielos who lives in [place] is the DPOA. Patient has pain at the fracture site. Significantly hard of hearing. February 19: Patient underwent IM nailing of the right hip. Laying in bed. Some pain. Did eat some breakfast. February 20: Sitting up in a chair. Oral intake fair. Pain control. Family is looking at different rehab facilities. February 21: Breathing stable. Oral intake fair. Pain control. Looking to go to rehab today. Discussed with the patient. Review of systems: Was done for constitutional, cardiovascular, GI, pulmonary. relevant finding as above Active Medications Acetaminophen (Acetaminophen Tab 325 Mg Tab) 650 mg PO Q6HR PRN PRN Reason: Mild Pain or Fever > 100.5 Hydrocodone Bitart/Acetaminophen (Hydrocodone/Apap 5-325mg 1 Each Tab) 1 each PO Q6HR PRN PRN Reason: Pain Scale 1 to 5 Last Admin: 02/19/21 13:41 Dose: 1 each Documented by: Hydrocodone Bitart/Acetaminophen (Hydrocodone/Apap 7.5-325mg 1 Each Tab) 1 each PO Q6H PRN PRN Reason: Pain Scale 6 to 10 Last Admin: 02/21/21 01:08 Dose: 1 each Documented by: Albuterol/Ipratropium (Ipratropium-Albuterol 3 Ml Neb) 3 ml INHALATION RT-QID [facility] Last Admin: 02/21/21 12:33 Dose: Not Given Documented by: Carvedilol (Carvedilol 12.5 Mg Tab) 25 mg PO BID-W/MEALS [facility] Last Admin: 02/21/21 08:05 Dose: 25 mg Documented by: Enoxaparin Sodium (Enoxaparin 30 Mg/0.3 Ml Syringe) 30 mg SQ DAILY [facility] Last Admin: 02/21/21 08:05 Dose: 30 mg Documented by: Fenofibrate (Fenofibrate 160 Mg Tab) 160 mg PO DAILY [facility] Last Admin: 02/21/21 08:05 Dose: 160 mg Documented by: Ferrous Sulfate (Ferrous Sulfate 325 Mg Tab) 325 mg PO W/LUNCH [facility] Last Admin: 02/21/21 12:30 Dose: 325 mg Documented by: Hydromorphone HCl (Hydromorphone 0.5 Mg/0.5 Ml Syringe) 0.5 mg IVP Q3HR PRN PRN Reason: Pain Scale 7 to 10 Last Admin: 02/20/21 23:36 Dose: 0.5 mg Documented by: Isosorbide Mononitrate (Isosorbide Mononitrate Er 60 Mg Tab.Er.24h) 60 mg PO DAILY [facility] Last Admin: 02/21/21 08:06 Dose: 60 mg Documented by: Levothyroxine Sodium (Levothyroxine 25 Mcg Tab) 25 mcg PO DAILY@0630 [facility] Last Admin: 02/21/21 05:46 Dose: 25 mcg Documented by: Morphine Sulfate (Morphine Sulfate Er 15 Mg Tablet) 15 mg PO BID [facility]; Protocol Last Admin: 02/21/21 08:06 Dose: 15 mg Documented by: Naloxone HCl (Naloxone 0.4 Mg/Ml 1 Ml Vial) 0.2 mg IV Q2M PRN PRN Reason: Opioid Reversal Nicotine (Nicotine 14mg/24hr Patch) 1 patch TRANSDERM DAILY [facility] Last Admin: 02/21/21 08:07 Dose: 1 patch Documented by: Nitroglycerin (Nitroglycerin Sl Tabs 0.4 Mg Tab) 0.4 mg SUBLINGUAL Q5M PRN PRN Reason: Chest Pain Ondansetron HCl (Ondansetron 4 Mg/2 Ml Vial) 4 mg IVP Q8HR PRN PRN Reason: Nausea And Vomiting Senna/Docusate Sodium (Sennosides-Docusate Sodium 1 Each Tab) 2 each PO HS [facility] Last Admin: 02/20/21 20:32 Dose: Not Given Documented by: Past medical history to include: Coronary artery disease with bypass, pacemaker, paroxysmal atrial fibrillation, hypertension, chronic kidney disease, hyperlipidemia, hypothyroid, CHF EF 30- 35%, very hard of hearing, COPD, GERD, hyperlipidemia 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 Uses a walker. Gd-cxn-ru-law lives across the street and is helpful. CPAP machine patient has not been using. Smoking over 70 years about half a pack a day, and used to drink significant alcohol about 20 years ago Family history: Reviewed, noncontributory to presentation Physical examination: VITAL SIGNS: 98.6, 59, 18, 108/43, 92% on room air GENERAL: Reclining chair awake EYES: Pupils equal. Conjunctiva normal. HEENT: External appearance of nose and ears normal, oral cavity grossly normal. Decreased hearing NECK: JVD not raised; masses not palpable. HEART: Heart sounds irregular, minimal edema. LUNGS: Respiratory rate increased; decreased breath sounds. ABDOMEN: Soft, nontender, liver spleen not palpable, no masses palpable. PSYCH: Answering questions appropriately MUSCULAR skeletal: Evidence of OA, and multiple joints. Limited range of motion right hip. EXTREMITIES: Decreased peripheral pulses. Ischemic changes in the feet INVESTIGATIONS, reviewed in the clinical context: February 21: White count 9.1 hemoglobin 8 potassium 4.2. 42 creatinine 1.93 February 20: White count 10.5 hemoglobin 8.7 platelets 127 TSH 2.9 February 19: White count 13.5 hemoglobin 11.6 White count 14.4 hemoglobin 13.4 platelets 168 sodium 138 potassium 4.7 BUN 27 creatinine 1.77 Previous labs: On April 2020 patient is BUN 82 creatinine 2.5 Chest x-ray film personally reviewed by me-cardiomegaly. Some cephalization. Some chronic changes. CT brain and C-spine without contrast: Cerebral atrophy. 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 Possible or left-sided caudate nucleus infarct. Spondylitic changes. EKG tracing personally reviewed by me-ventricular paced rhythm Assessment and plan: -Right hip IT fracture secondary to fall. Followed by IM nailing on February 18 On subcu Lovenox for DVT prophylaxis - chronic congestive heart failure from systolic dysfunction EF 30-35% from underlying ischemic heart disease, Keep a close monitoring patient's fluid status. -Pacemaker Telemetry -Paroxysmal atrial fibrillation chronically on eliquis, Eliquis to be resumed upon discharge -Essential hypertension, Coreg 25 mg twice a day. -Acute postprocedure blood loss anemia, as expected from surgery Ferrous sulfate. 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 Follow electrolytes -Hyperlipidemia, TriCor 160 mg a day -Hypothyroid Synthroid 25 g a day -Very hard of hearing -Chronic gait dysfunction, baseline uses a walker , fall precautions -COPD in a current smoker, DuoNeb 4 times a day -Nicotine dependence, 1 cigarette smoker Nicotine patch 14 -Primary osteoarthritis multiple joints bilaterally Pain control when necessary -Mild cognitive impairment -DO NOT RESUSCITATE Eliquis to be resumed. Hopefully going to the ECF today. Ferrous sulfate. Discussed with the patient. Follow with PCP upon discharge.
[2021-02-21 15:57] VITALS: PULSE 65
== END 2021-02-21 17:00 | DRG 481 ==
LOC: EC 16:25 → 4SSUR 20:45
PROVIDERS: ADMIT Orthopaedic Surgery; ATTEND Orthopaedic Surgery
PROC: 0QH636Z Insertion of Intramedullary Internal Fixation Device into Right Upper Femur, Percutaneous Approach (ICD-10-PCS; principal; 2021-02-18 14:00)
DX: S72.141A Displaced intertrochanteric fracture of right femur, initial encounter for closed fracture (principal); I13.0 Hypertensive heart and chronic kidney disease with heart failure and stage 1 through stage 4 chronic kidney disease, or unspecified chronic kidney disease; F17.210 Nicotine dependence, cigarettes, uncomplicated; D50.0 Iron deficiency anemia secondary to blood loss (chronic); E03.9 Hypothyroidism, unspecified; E78.5 Hyperlipidemia, unspecified; G31.84 Mild cognitive impairment of uncertain or unknown etiology; F32.A Depression, unspecified; Z20.822 Contact with and (suspected) exposure to COVID-19; I25.10 Atherosclerotic heart disease of native coronary artery without angina pectoris; Z66 Do not resuscitate; Z79.01 Long term (current) use of anticoagulants; Z79.890 Hormone replacement therapy; Z79.899 Other long term (current) drug therapy; Z95.1 Presence of aortocoronary bypass graft; W18.30XA Fall on same level, unspecified, initial encounter; N18.30 Chronic kidney disease, stage 3 unspecified; M19.91 Primary osteoarthritis, unspecified site; M15.9 Polyosteoarthritis, unspecified; J44.9 Chronic obstructive pulmonary disease, unspecified; I73.9 Peripheral vascular disease, unspecified; I25.2 Old myocardial infarction; I48.0 Paroxysmal atrial fibrillation
CPT/HCPCS: 36415; 70450; 71045; 72125; 73502; 80048; 80053; 84443; 85025; 85610; 85730; 86850; 86900; 86901; 87635; 93005; 94640; 94760; 96374; 99285

== ENCOUNTER → 2021-03-13 | Outpatient (CLI) | payer MEDICARE, BC ==
--- NOTE | 2021-03-13 14:01 | XR ---
EXAMINATION TYPE: XR Hip Complete RT DATE OF EXAM: 03/13/2021 CLINICAL HISTORY: Left hip pain and osteoarthritis. TECHNIQUE: Single AP portable view of right hip is obtained immediately postoperatively. COMPARISON: None. FINDINGS: Metallic hardware from right hip arthroplasty is seen and appears satisfactory in alignment and position. There is evidence of recent surgery with subcutaneous gas noted laterally. IMPRESSION: Metallic hardware from right hip arthroplasty is satisfactory in position.
== END | disposition home or self-care (01) ==
LOC: RADXRMAIN 13:27
PROVIDERS: ATTEND Orthopaedic Surgery
DX: Z47.1 Aftercare following joint replacement surgery (principal); Z96.641 Presence of right artificial hip joint
CPT/HCPCS: 73502

== ENCOUNTER 2021-04-21 16:32 | Inpatient (IN) | payer MEDICARE, BC ==
[2021-04-21] MEDS ORDERED: LORazepam 2 MG/ML INJ IV STA (16:54)
[2021-04-21] MEDS ORDERED: DEXAMETHASONE SOD PHOSPHATE 10 MG/ML 1 ML VIAL IVP STA (16:58)
--- NOTE | 2021-04-21 17:05 | ED ---
General Adult HPI - General Chief complaint: Shortness of Breath Stated complaint: [place] Time Seen by Provider: 04/21/21 16:40 Source: patient, EMS, RN notes reviewed, old records reviewed Mode of arrival: EMS Limitations: no limitations - History of Present Illness Initial comments: This is an 89-year-old male who presents emergency Department from a long-term. Patient was diagnosed with COVID today and was given monoclonal antibodies. Patient's oxygenation was dropping into the 70s so they put the patient on CPAP and sent to the emergency department. Patient is now on BiPAP and oxygen 100% however he is still little tachypneic but he also appears somewhat anxious. Patient denies chest pain or fever. Patient denies abdominal pain patient denies any headache patient denies lightheadedness or dizziness. - Related Data Home Medications Medication Instructions Recorded Confirmed Apixaban [Eliquis] 2.5 mg PO BID 02/17/21 02/17/21 Carvedilol [Coreg] 25 mg PO BID 02/17/21 02/17/21 Cholecalciferol (Vitamin D3) 125 mcg PO DAILY 02/17/21 02/17/21 [Vitamin D3 (125 MCG = 5,000 IU)] Fenofibrate 160 mg PO DAILY 02/17/21 02/17/21 Isosorbide Mononitrate ER [Imdur] 60 mg PO DAILY 02/17/21 02/17/21 Levothyroxine Sodium [Synthroid] 25 mcg PO DAILY 02/17/21 02/17/21 Previous Rx's Medication Instructions Recorded Nitroglycerin Sl Tabs [Nitrostat] 0.4 mg SUBLINGUAL Q5M PRN #100 tab 07/07/18 Ferrous Sulfate [Iron (65 MG 325 mg PO W/LUNCH tab 02/21/21 Elemental)] HYDROcodone/APAP 7.5-325MG [[place] 1 each PO Q6HR PRN #28 tab 02/21/21 7.5] Ipratropium-Albuterol Nebulize 3 ml INHALATION RT-QID ml 02/21/21 [Duoneb 0.5 mg-3 mg/3 ml Soln] Morphine Sulfate ER [Ms Contin] 15 mg PO BID #6 tab 02/21/21 Nicotine 14Mg/24Hr Patch [Habitrol] 1 patch TRANSDERM DAILY patch 02/21/21 Sennosides/Docusate Sodium [Senna 1 each PO DAILY #20 capsule 02/21/21 Plus 8.6-50 mg Softgel] Allergies Allergy/AdvReac Type Severity Reaction Status Date / Time amoxicillin AdvReac Cough Verified 04/21/21 18:04 chlorpromazine AdvReac Unknown Verified 04/21/21 18:04 [From Thorazine] gemfibrozil AdvReac Unknown Verified 04/21/21 18:04 lisinopril AdvReac Cough Verified 04/21/21 18:04 metformin AdvReac Diarrhea Verified 04/21/21 18:04 methadone AdvReac Unknown Verified 04/21/21 18:04 Review of Systems ROS Statement: Those systems with pertinent positive or pertinent negative responses have been documented in the HPI. ROS Other: All systems not noted in ROS Statement are negative. Past Medical History Past Medical History: Atrial Fibrillation, Coronary Artery Disease (CAD), Chest Pain / Angina, Heart Failure, COPD, GERD/Reflux, Hearing Disorder / Deafness, Hyperlipidemia, Hypertension, Myocardial Infarction (ID), Renal Disease, Sleep Apnea/CPAP/BIPAP, Thyroid Disorder, Vascular Disorder Additional Past Medical History / Comment(s): Paroxysmal afib, SSS with p acemaker, cardiomyopathy, tracheobronchitis, CKD stage III, chronic anemia, chronic pain, L caratid 100% blockage/R caratid 75% blockage, hypothyroid, [place] bilaterally, constipation Last Myocardial Infarction Date:: 06/2018 History of Any Multi-Drug Resistant Organisms: None Reported Past Surgical History: Cholecystectomy, Coronary Bypass/CABG, Heart Catheterization, Pacemaker Additional Past Surgical History / Comment(s): Pacemaker in June [id number] CABG-pt believes was 5 vessel done down in [place], colonoscopy-normal, bilateral cataract removals. Past Anesthesia/Blood Transfusion Reactions: No Reported Reaction, Motion Sickness Type of Cardiac Device: Permanent Pacemaker Device Placement Date:: 06/2018 Past Psychological History: Depression Smoking Status: Current every day smoker Past Alcohol Use History: None Reported Past Drug Use History: None Reported - Past Family History Father Family Medical History: Dementia Additional Family Medical History / Comment(s): Pt does not recall any parent medical hx at this time. Mother Family Medical History: No Reported History Additional Family Medical History / Comment(s): Mother was healthy. General Exam - General Exam Comments Initial Comments: GENERAL: Patient is well-developed and well-nourished. Patient is nontoxic and well- hydrated and is in mild distress. ENT: Neck is soft and supple. No significant lymphadenopathy is noted. Oropharynx is clear. Moist mucous membranes. Neck has full range of motion without eliciting any pain. EYES: The sclera were anicteric and conjunctiva were pink and moist. Extraocular movements were intact and pupils were equal round and reactive to light. Eyelids were unremarkable. PULMONARY: Patient is tachypneic and is on BiPAP currently. Patient has some crackles bilaterally. CARDIOVASCULAR: There is a regular rate and rhythm without any murmurs gallops or rubs. ABDOMEN: Soft and nontender with normal bowel sounds. SKIN: Skin is clear with no lesions or rashes and otherwise unremarkable. NEUROLOGIC: Patient is alert and oriented x3. Cranial nerves II through XII are grossly intact. Motor and sensory are also intact. Normal speech, volume and content. Symmetrical smile. MUSCULOSKELETAL: Normal extremities with adequate strength and full range of motion. LYMPHATICS: No significant lymphadenopathy is noted PSYCHIATRIC: Mild anxiety Limitations: no limitations Course Vital Signs 04/21/21 04/21/21 04/21/21 16:35 16:39 16:51 Temperature 98.3 F Pulse Rate 76 Respiratory 33 H 38 H Rate Blood Pressure 131/89 O2 Sat by Pulse 100 Oximetry Medical Decision Making - Medical Decision Making EKG shows a paced rhythm at 75 bpm QRS 174 QT interval 440 QTC is 491. Chest x-ray shows signs of pulmonary edema. I started the patient on Lasix 40 mg IV. Patient also got Decadron for the treatment of COVID. I will back in and reevaluated the patient he was oxygen 100% on BiPAP. I spoke with Dr. Hilario she wanted the patient admitted admitted the patient wrote admitting orders. - Lab Data Result diagrams: 04/21/21 17:02 04/21/21 17:02 Lab Results 04/21/21 04/21/21 04/21/21 Range/Units 17:02 17:02 17:02 WBC 10.4 (3.8-10.6) k/uL RBC 3.77 L (4.30-5.90) m/uL Hgb 11.8 L (13.0-17.5) gm/dL Hct 38.3 L (39.0-53.0) % MCV 101.4 H (80.0-100.0) fL MCH 31.3 (25.0-35.0) pg MCHC 30.8 L (31.0-37.0) g/dL RDW 15.2 (11.5-15.5) % Plt Count 128 L (150-450) k/uL MPV 9.0 Neutrophils % 56 % Lymphocytes % 39 % Monocytes % 3 % Eosinophils % 1 % Basophils % 0 % Neutrophils # 5.8 (1.3-7.7) k/uL Lymphocytes # 4.0 (1.0-4.8) k/uL Monocytes # 0.3 (0-1.0) k/uL Eosinophils # 0.1 (0-0.7) k/uL Basophils # 0.0 (0-0.2) k/uL Hypochromasia Moderate Macrocytosis Slight PT 13.0 H (9.0-12.0) sec INR 1.2 H (<1.2) APTT 27.8 (22.0-30.0) sec Sodium 137 (137-145) mmol/L Potassium 4.9 (3.5-5.1) mmol/L Chloride 107 (98-107) mmol/L Carbon Dioxide 18 L (22-30) mmol/L Anion Gap 12 mmol/L BUN 70 H (9-20) mg/dL Creatinine 2.59 H (0.66-1.25) mg/dL Est GFR (CKD-EPI)AfAm 25 (>60 ml/min/1.73 sqM) Est GFR (CKD-EPI)NonAf 21 (>60 ml/min/1.73 sqM) Glucose 138 H (74-99) mg/dL Plasma Lactic Acid Miguel (0.7-2.0) mmol/L Calcium 7.6 L (8.4-10.2) mg/dL Magnesium 1.9 (1.6-2.3) mg/dL Total Bilirubin 0.9 (0.2-1.3) mg/dL AST 89 H (17-59) U/L ALT 23 (4-49) U/L Alkaline Phosphatase 67 (38-126) U/L Troponin I (0.000-0.034) ng/mL NT-Pro-B Natriuret Pep pg/mL Total Protein 5.9 L (6.3-8.2) g/dL Albumin 2.9 L (3.5-5.0) g/dL 04/21/21 04/21/21 04/21/21 Range/Units 17:02 17:02 17:02 WBC (3.8-10.6) k/uL RBC (4.30-5.90) m/uL Hgb (13.0-17.5) gm/dL Hct (39.0-53.0) % MCV (80.0-100.0) fL MCH (25.0-35.0) pg MCHC (31.0-37.0) g/dL RDW (11.5-15.5) % Plt Count (150-450) k/uL MPV Neutrophils % % Lymphocytes % % Monocytes % % Eosinophils % % Basophils % % Neutrophils # (1.3-7.7) k/uL Lymphocytes # (1.0-4.8) k/uL Monocytes # (0-1.0) k/uL Eosinophils # (0-0.7) k/uL Basophils # (0-0.2) k/uL Hypochromasia Macrocytosis PT (9.0-12.0) sec INR (<1.2) APTT (22.0-30.0) sec Sodium (137-145) mmol/L Potassium (3.5-5.1) mmol/L Chloride (98-107) mmol/L Carbon Dioxide (22-30) mmol/L Anion Gap mmol/L BUN (9-20) mg/dL Creatinine (0.66-1.25) mg/dL Est GFR (CKD-EPI)AfAm (>60 ml/min/1.73 sqM) Est GFR (CKD-EPI)NonAf (>60 ml/min/1.73 sqM) Glucose (74-99) mg/dL Plasma Lactic Acid Miguel 1.6 (0.7-2.0) mmol/L Calcium (8.4-10.2) mg/dL Magnesium (1.6-2.3) mg/dL Total Bilirubin (0.2-1.3) mg/dL AST (17-59) U/L ALT (4-49) U/L Alkaline Phosphatase (38-126) U/L Troponin I 0.049 H* (0.000-0.034) ng/mL NT-Pro-B Natriuret Pep 16824 pg/mL Total Protein (6.3-8.2) g/dL Albumin (3.5-5.0) g/dL Disposition Clinical Impression: Acute pulmonary edema, COVID-19 Disposition: ADMITTED IP TO THIS HOSP Referrals: Julio Martinez MD [Primary Care Provider] - 1-2 days Time of Disposition: 18:18
[2021-04-21 17:10] LABS: Basophils % (A) 0 %; Eosinophils # (A) 0.1 k/uL (0-0.7); Eosinophils % (A) 1 %; HCT 38.3 % (39.0-53.0); HGB 11.8 gm/dL (13.0-17.5); Hypochromasia Moderate; Lymphocytes % (A) 39 %; MCH 31.3 pg (25.0-35.0); MCHC 30.8 g/dL (31.0-37.0); MCV 101.4 fL (80.0-100.0); Macrocytosis Slight; Monocytes # (A) 0.3 k/uL (0-1.0); Monocytes % (A) 3 %; Neutrophils # (A) 5.8 k/uL (1.3-7.7); Neutrophils % (A) 56 %; Platelet Count 128 k/uL (150-450); RBC 3.77 m/uL (4.30-5.90); RDW 15.2 % (11.5-15.5); WBC 10.4 k/uL (3.8-10.6)
[2021-04-21 17:22] LABS: Albumin 2.9 g/dL (3.5-5.0); Calcium 7.6 mg/dL (8.4-10.2); Magnesium 1.9 mg/dL (1.6-2.3); Potassium 4.9 mmol/L (3.5-5.1); Total Bilirubin 0.9 mg/dL (0.2-1.3); Total Protein 5.9 g/dL (6.3-8.2)
[2021-04-21 17:26] LABS: INR 1.2 (<1.2); Partial Thromboplastin Time 27.8 sec (22.0-30.0)
--- NOTE | 2021-04-21 17:32 | XR ---
EXAMINATION TYPE: XR chest 1V portable DATE OF EXAM: 04/21/2021 COMPARISON: 02/17/2021 HISTORY: Short of breath TECHNIQUE: Single view FINDINGS: There is coarse interstitial density in the mid and lower lung [place]. There is mild pulmon sandra congestion. There is slight blunting of the costophrenic angles. There is left axillary pacemaker . IMPRESSION: Mild heart failure with patchy basilar atelectasis. Chest appears worse than last exam. [place] pleural effusions are increased.
[2021-04-21] MEDS ORDERED: FUROSEMIDE 10 MG/ML 4 ML VIAL IV STA (18:11)
[2021-04-22] MEDS ORDERED: FUROSEMIDE 10 MG/ML 4 ML VIAL IV SCH (04:00)
[2021-04-22] MEDS ORDERED: MAGNESIUM HYDROXIDE 2,400 MG/10 ML CUP PO PRN (08:32)
[2021-04-22] MEDS ORDERED: HYDROcodone/APAP 7.5-325MG 1 EACH TAB PO PRN (08:32)
[2021-04-22] MEDS ORDERED: bisacodyL 10 MG SUPP RECTAL PRN (08:32)
[2021-04-22] MEDS: dexAMETHasone 2 MG TAB PO SCH (08:54)
[2021-04-22] MEDS: MENTHOL-ZINC OXIDE OINT 113 GM TUBE TOPICAL SCH ×2 (09:00→20:37)
[2021-04-22 09:17] VITALS: BMI 26.3
--- NOTE | 2021-04-22 10:25 | P.CRDCN ---
History of Present Illness Consult date: 04/22/21 History of present illness: The patient is an 89-year-old male with history of chronic persistent atrial fibrillation, permanent pacemaker implantation, status post CABG in 2008 history of aortic valve disease, hypertension, hyperlipidemia and dementia who presented from the alf with symptoms of progressive dyspnea according to the notes. The patient is alert oriented is not sure why he is in the hospital. According to the ER note he had COVID-19 and received monoclonal antibodies, was more dyspneic and was brought into the hospital. He had elevation of his NT proBNP. The history is very limited from the patient. He has no dyspnea or chest discomfort according to him, no dizziness or palpitations. He is followed by Dr. Allen, his last echocardiogram in April 2020 revealed an ejection fraction of 30-35%. He had segmental wall motion abnormality. The study was limited. He has a history of diabetes, hypertension and hyperlipidemia. Review of system could not be obtained the patient is confused. The patient is an 89-year-old male alert confused, laying supine no apparent distress. Blood pressure in the 140/60 with a heart rate in the 60s, paced Head: Normocephalic. Eyes: Sclerae nonicteric. Neck: Good carotid upstroke, no bruit, no jugular venous distention. Lungs: Clear to auscultation no wheezes or rales. Heart: Regular rate and rhythm, paced, S1-S2, no S3, no rub. Systolic ejection murmur at the base Abdomen: Soft nontender, positive bowel sounds no organomegaly. Extremities: 2+ edema, intact distal pulses. Lab: EKG reveals atrial fibrillation with 100% pacing. Chest x-ray revealed mild heart failure, BUN and creatinine 70 and 2.59, potassium 4.9, troponin 0.049, NT proBNP 56,200 Impression: 1. Progressive dyspnea with an element of CHF in a patient with known history of cardiomyopathy 2. [ Recent COVID-19 infection] 3. [ Status post CABG, no evidence to suggest acute ischemia] 4. [ Chronic persistent atrial fibrillation] 5. [ Chronic kidney disease] 6. Advanced dementia 7. Diabetes mellitus Plan: 1. [ Continue IV diuresis] 2. [ Follow renal functions] 3. [ No indication for aggressive cardiac workup] 4. [ Depending on his progress further recommendations will be made] 5. [ Thank you for this consult we will follow with you.] Past Medical History Past Medical History: Atrial Fibrillation, Coronary Artery Disease (CAD), Chest Pain / Angina, Heart Failure, COPD, GERD/Reflux, Hearing Disorder / Deafness, Hyperlipidemia, Hypertension, Myocardial Infarction (CT), Renal Disease, Sleep Apnea/CPAP/BIPAP, Thyroid Disorder, Vascular Disorder Additional Past Medical History / Comment(s): Paroxysmal afib, SSS with pacemaker, cardiomyopathy, tracheobronchitis, CKD stage III, chronic anemia, chronic pain, L caratid 100% blockage/R caratid 75% blockage, hypothyroid, [place] bilaterally, constipation Last Myocardial Infarction Date:: 06/2018 History of Any Multi-Drug Resistant Organisms: None Reported Past Surgical History: Cholecystectomy, Coronary Bypass/CABG, Heart Catheterization, Pacemaker Additional Past Surgical History / Comment(s): Pacemaker in June 20182008 CABG-pt believes was 5 vessel done down in [place], colonoscopy-normal, bilateral cataract removals. Past Anesthesia/Blood Transfusion Reactions: No Reported Reaction Type of Cardiac Device: Permanent Pacemaker Device Placement Date:: 06/2018 Past Psychological History: Depression Smoking Status: Former smoker Past Alcohol Use History: None Reported Past Drug Use History: None Reported - Past Family History Father Family Medical History: Dementia Additional Family Medical History / Comment(s): Pt does not recall any parent medical hx at this time. Mother Family Medical History: No Reported History Additional Family Medical History / Comment(s): Mother was healthy. Medications and Allergies Home Medications Medication Instructions Recorded Confirmed Type Apixaban [Eliquis] 2.5 mg PO BID@0800,1700 02/17/21 04/21/21 History Carvedilol [Coreg] 25 mg PO BID@0800,1700 02/17/21 04/21/21 History Cholecalciferol (Vitamin D3) 125 mcg PO DAILY@1700 02/17/21 04/21/21 History [Vitamin D3 (125 MCG = 5,000 IU)] Fenofibrate 160 mg PO DAILY@0800 02/17/21 04/21/21 History Isosorbide Mononitrate ER [Imdur] 60 mg PO DAILY@0800 02/17/21 04/21/21 History Levothyroxine Sodium [Synthroid] 25 mcg PO DAILY@0800 02/17/21 04/21/21 History Ipratropium-Albuterol Nebulize 3 ml INHALATION RT-QID ml 02/21/21 04/21/21 Rx [Duoneb 0.5 mg-3 mg/3 ml Soln] Ascorbic Acid [Vitamin C] 1,000 mg PO DAILY@1700 04/21/21 04/21/21 History Cholecalciferol [Vitamin D3 (25 50 mcg PO DAILY@1700 04/21/21 04/21/21 History Mcg = 1000 Iu)] Dexamethasone [Decadron] 4 mg PO BID@0800,1700 04/21/21 04/21/21 History Ensure Enlive 120 ml PO TID@0800,1200,1700 04/21/21 04/21/21 History Ferrous Sulfate [Iron (65 MG 325 mg PO DAILY@1200 04/21/21 04/21/21 History Elemental)] Furosemide [Lasix] 40 mg PO MOWEFR@0800 04/21/21 04/21/21 History HYDROcodone/APAP 7.5-325MG [[place] 1 tab PO Q6H PRN 04/21/21 04/21/21 History 7.5] INSULIN ASPART (NovoLOG) [NovoLOG See Protocol SQ ACHS 04/21/21 04/21/21 History (formulary)] Magnesium Hydroxide [Milk of 7,200 mg PO Q48H PRN 04/21/21 04/21/21 History Magnesia Concentrate] Menthol-Zinc Oxide Oint 1 applic TOPICAL BID 04/21/21 04/21/21 History [Calmoseptine Oint] Morphine Sulfate ER [Ms Contin] 15 mg PO BID@0600,1800 04/21/21 04/21/21 History Na Phos,M-B/Na Phos,Di-Ba [Fleet 133 ml RECTAL DAILY PRN 04/21/21 04/21/21 History Adult] Nicotine 14Mg/24Hr Patch [Habitrol] 1 patch TRANSDERM DAILY@0804/21/2107/07 History Nitroglycerin Sl Tabs [Nitrostat] 0.4 mg SL Q5M PRN 04/21/21 04/21/21 History Potassium Chloride [Klor-Con 10 ER] 10 meq PO DAILY@1700 04/21/21 04/21/21 History Sennosides/Docusate Sodium [Senna 1 tab PO DAILY@0800 04/21/21 04/21/21 History Plus 8.6-50 mg Tablet] Sotrovimab 500mg 500 mg IV ONCE 04/21/21 04/21/21 History Zinc Sulfate [Orazinc] 220 mg PO DAILY@1700 04/21/21 04/21/21 History bisacodyL [Dulcolax] 10 mg RECTAL DAILY PRN 04/21/21 04/21/21 History guaiFENesin [Mucinex] 600 mg PO BID@0800,2100 04/21/21 04/21/21 History Allergies Allergy/AdvReac Type Severity Reaction Status Date / Time amoxicillin AdvReac Cough Verified 04/21/21 18:04 chlorpromazine AdvReac Unknown Verified 04/21/21 18:04 [From Thorazine] gemfibrozil AdvReac Unknown Verified 04/21/21 18:04 lisinopril AdvReac Cough Verified 04/21/21 18:04 metformin AdvReac Diarrhea Verified 04/21/21 18:04 methadone AdvReac Unknown Verified 04/21/21 18:04 Physical Exam Vitals: Vital Signs Temp Pulse Pulse Resp BP BP Pulse Ox 04/22/21 08:30 97.6 F 60 17 150/69 97 04/22/21 08:27 99 04/22/21 03:34 97.4 F L 60 14 146/66 100 04/22/21 01:16 75 04/22/21 00:00 75 18 119/59 100 04/21/21 22:31 98.3 F 62 19 151/65 100 04/21/21 22:30 62 04/21/21 21:30 98.2 F 67 22 135/57 100 04/21/21 21:00 62 24 118/51 100 04/21/21 20:30 60 23 112/54 100 04/21/21 20:00 61 23 108/50 100 04/21/21 19:47 61 23 100 04/21/21 19:30 62 23 101/45 100 04/21/21 19:00 62 24 123/57 100 04/21/21 18:30 67 21 129/69 100 04/21/21 18:00 71 24 133/86 100 04/21/21 17:30 75 26 H 133/90 100 04/21/21 17:00 67 27 H 131/89 100 04/21/21 16:51 38 H 100 04/21/21 16:50 74 33 H 04/21/21 16:39 76 33 H 131/89 04/21/21 16:35 98.3 F Intake and Output 04/21/21 04/22/21 04/22/21 22:59 06:59 14:59 Output Total 350 1050 Balance -350 -1050 Output: Urine 350 1050 Uretheral (Hall) 350 Other: Voiding Method Indwelling Catheter Indwelling Catheter Weight 85.729 kg 78.5 kg 78.5 kg Results 04/21/21 17:02 04/21/21 17:02 Cardiac Enzymes 04/21/21 04/21/21 Range/Units 17:02 17:02 AST 89 H (17-59) U/L Troponin I 0.049 H* (0.000-0.034) ng/mL Coagulation 04/21/21 Range/Units 17:02 PT 13.0 H (9.0-12.0) sec APTT 27.8 (22.0-30.0) sec CBC 04/21/21 Range/Units 17:02 WBC 10.4 (3.8-10.6) k/uL RBC 3.77 L (4.30-5.90) m/uL Hgb 11.8 L (13.0-17.5) gm/dL Hct 38.3 L (39.0-53.0) % Plt Count 128 L (150-450) k/uL Comprehensive Metabolic Panel 04/21/21 Range/Units 17:02 Sodium 137 (137-145) mmol/L Potassium 4.9 (3.5-5.1) mmol/L Chloride 107 (98-107) mmol/L Carbon Dioxide 18 L (22-30) mmol/L BUN 70 H (9-20) mg/dL Creatinine 2.59 H (0.66-1.25) mg/dL Glucose 138 H (74-99) mg/dL Calcium 7.6 L (8.4-10.2) mg/dL AST 89 H (17-59) U/L ALT 23 (4-49) U/L Alkaline Phosphatase 67 (38-126) U/L Total Protein 5.9 L (6.3-8.2) g/dL Albumin 2.9 L (3.5-5.0) g/dL Current Medications Generic Name Dose Route Start Last Admin Trade Name Freq PRN Reason Stop Dose Admin Hydrocodone Bitart/Acetaminophen 1 each 04/22/21 08:32 Hydrocodone/Apap 7.5-325mg 1 Each Tab PO Q6H PRN Pain Albuterol Sulfate 2 puff 04/22/21 12:00 Albuterol Hfa Inhaler INHALATION RT-QID [facility] Apixaban 2.5 mg 04/22/21 17:00 Apixaban 2.5 Mg Tablet PO BID@0800,1700 [facility] Protocol Ascorbic Acid 1,000 mg 04/22/21 17:00 Ascorbic Acid 500 Mg Tab PO DAILY@1700 [facility] Bisacodyl 10 mg 04/22/21 08:32 Bisacodyl 10 Mg Supp RECTAL DAILY PRN Constipation Calamine/Phenol 1 applic 04/22/21 09:00 04/22/21 09:00 Menthol-Zinc Oxide Oint 113 Gm Tube TOPICAL Not Given BID [facility] Protocol Carvedilol 25 mg 04/22/21 17:00 Carvedilol 12.5 Mg Tab PO BID@0800,1700 [facility] Cholecalciferol 50 mcg 04/22/21 17:00 Cholecalciferol 25 Mcg (1000 Iu) Tablet PO DAILY@1700 [facility] Cholecalciferol 125 mcg 04/22/21 17:00 Cholecalciferol 125 Mcg (5000 Iu) Tablet PO DAILY@1700 [facility] Dexamethasone 6 mg 04/22/21 09:00 04/22/21 08:54 Dexamethasone 2 Mg Tab PO 6 mg DAILY [facility] Administration Fenofibrate 160 mg 04/23/21 08:00 Fenofibrate 160 Mg Tab PO DAILY@0800 [facility] Ferrous Sulfate 325 mg 04/22/21 12:00 Ferrous Sulfate 325 Mg Tab PO DAILY@1200 [facility] Furosemide 40 mg 04/22/21 04:00 04/22/21 03:25 Furosemide 10 Mg/Ml 4 Ml Vial IV 40 mg Q8H [facility] Administration Guaifenesin 600 mg 04/22/21 21:00 Guaifenesin 600 Mg Tablet.Er PO BID@0800,2100 [facility] Insulin Aspart 0 unit 04/22/21 12:30 Insulin Aspart (Novolog) 100 Unit/Ml Vial SQ ACHS [facility] Protocol Isosorbide Mononitrate 60 mg 04/23/21 08:00 Isosorbide Mononitrate Er 60 Mg Tab.Er.24h PO DAILY@0800 [facility] Levothyroxine Sodium 25 mcg 04/23/21 08:00 Levothyroxine 25 Mcg Tab PO DAILY@0800 [facility] Magnesium Hydroxide 2,400 mg 04/22/21 08:32 Magnesium Hydroxide 2,400 Mg/10 Ml Cup PO Q48H PRN Constipation Morphine Sulfate 15 mg 04/22/21 18:00 Morphine Sulfate Er 15 Mg Tablet PO BID@0600,1800 [facility] Protocol Nicotine 1 patch 04/23/21 08:00 Nicotine 14mg/24hr Patch TRANSDERM DAILY@0800 [facility] Potassium Chloride 10 meq 04/22/21 17:00 Potassium Chloride Er 10 Meq Tab.Er.Prt PO DAILY@1700 [facility] Senna/Docusate Sodium 1 each 04/23/21 08:00 Sennosides-Docusate Sodium 1 Each Tab PO DAILY@0800 [facility] Tiotropium Felch 2 puff 04/23/21 08:00 Tiotropium 2.5 Mcg Inhaler INHALATION RT-DAILY [facility] Zinc Sulfate 220 mg 04/22/21 17:00 Zinc Sulfate 220 Mg Cap PO DAILY@1700 [facility] Intake and Output 04/21/21 04/22/21 04/22/21 22:59 06:59 14:59 Output Total 350 1050 Balance -350 -1050 Output: Urine 350 1050 Uretheral (Hall) 350 Other: Voiding Method Indwelling Catheter Indwelling Catheter Weight 85.729 kg 78.5 kg 78.5 kg Patient Weight 04/23/21 06:59 Weight 78.5 kg 04/21/21 17:02 04/21/21 17:02
[2021-04-22 11:40] LABS: Glucose,Whole Blood 220 mg/dL (75-99)
[2021-04-22] MEDS: hydrALAZINE HCL 25 MG TAB PO SCH ×2 (12:07→20:37)
[2021-04-22] MEDS: FERROUS SULFATE 325 MG TAB PO SCH (12:07)
[2021-04-22] MEDS: INSULIN ASPART (NovoLOG) 100 UNIT/ML VIAL SQ SCH ×3 (12:08→20:37)
--- NOTE | 2021-04-22 13:36 | P.CNPUL ---
History of Present Illness Consult date: 04/22/21 Reason for consult: dyspnea History of present illness: 89-year-old patient with known history of congestion heart failure along with coronary artery disease and previous bypass surgery, came into the ED because of some increased shortness of breath. The patient has tested positive for COVID 19 at the long-term and the patient was receiving monoclonal infusion and during the same time the patient was found also to be hypoxic and his pulse ox up on the 70s. He was placed on CPAP, moved to the emergency department and he was replaced. BiPAP. Currently is on oxygen at 2 L per minute nasal cannula. Note that his chest x-ray in the MRSA department showed thyromegaly and increased pulmonary vascular markings consistent with CHF although possibility of a COVID 19 related pneumonia cannot be completely excluded. The patient's white cell count of 10.4 with a hemoglobin of 11.8, normal correlation profile. He has a BUN of 70 with a creatinine of 2.59. ProBNP level is 56,200. BUN is at 70 with a creatinine of 2.5. Sodium is at 137. Glucose is at 220. LFTs are normal. Patient was given Lasix and the patient diuresed significantly and the patient is currently on 40 mg of IV Lasix every 12 hours. He is also on Decadron 6 mg by mouth on a daily basis. The patient has chronic A. fib fibrillation and has been maintained on Eliquis on outpatient basis dose of 2.5 mg twice a day. Current cardiac rhythm is paced. The patient is hemodynamically stable and resting comfortably in bed. Review of Systems Patient has dementia and a very poor historian. Nevertheless is resting comfortably in bed. A full review of systems cannot be obtained. Past Medical History Past Medical History: Atrial Fibrillation, Coronary Artery Disease (CAD), Chest Pain / Angina, Heart Failure, COPD, GERD/Reflux, Hearing Disorder / Deafness, Hyperlipidemia, Hypertension, Myocardial Infarction (DE), Renal Disease, Sleep Apnea/CPAP/BIPAP, Thyroid Disorder, Vascular Disorder Additional Past Medical History / Comment(s): Paroxysmal afib, SSS with pac emaker, cardiomyopathy, tracheobronchitis, CKD stage III, chronic anemia, chronic pain, L caratid 100% blockage/R caratid 75% blockage, hypothyroid, [place] bilaterally, constipation Last Myocardial Infarction Date:: 06/2018 History of Any Multi-Drug Resistant Organisms: None Reported Past Surgical History: Cholecystectomy, Coronary Bypass/CABG, Heart Catheterization, Pacemaker Additional Past Surgical History / Comment(s): Pacemaker in June 20182008 CABG-pt believes was 5 vessel done down in [place], colonoscopy-normal, bilateral cataract removals. Past Anesthesia/Blood Transfusion Reactions: No Reported Reaction Type of Cardiac Device: Permanent Pacemaker Device Placement Date:: 06/2018 Past Psychological History: Depression Smoking Status: Former smoker Past Alcohol Use History: None Reported Past Drug Use History: None Reported - Past Family History Father Family Medical History: Dementia Additional Family Medical History / Comment(s): Pt does not recall any parent medical hx at this time. Mother Family Medical History: No Reported History Additional Family Medical History / Comment(s): Mother was healthy. Medications and Allergies Home Medications Medication Instructions Recorded Confirmed Type Apixaban [Eliquis] 2.5 mg PO BID@0800,1700 02/17/21 04/21/21 History Carvedilol [Coreg] 25 mg PO BID@0800,1700 02/17/21 04/21/21 History Cholecalciferol (Vitamin D3) 125 mcg PO DAILY@1700 02/17/21 04/21/21 History [Vitamin D3 (125 MCG = 5,000 IU)] Fenofibrate 160 mg PO DAILY@0800 02/17/21 04/21/21 History Isosorbide Mononitrate ER [Imdur] 60 mg PO DAILY@0800 02/17/21 04/21/21 History Levothyroxine Sodium [Synthroid] 25 mcg PO DAILY@0800 02/17/21 04/21/21 History Ipratropium-Albuterol Nebulize 3 ml INHALATION RT-QID ml 02/21/21 04/21/21 Rx [Duoneb 0.5 mg-3 mg/3 ml Soln] Ascorbic Acid [Vitamin C] 1,000 mg PO DAILY@169904/21/21 04/21/21 History Cholecalciferol [Vitamin D3 (25 50 mcg PO DAILY@169904/21/21 04/21/21 History Mcg = 1000 Iu)] Dexamethasone [Decadron] 4 mg PO BID@0800,1700 04/21/21 04/21/21 History Ensure Enlive 120 ml PO TID@0800,1200,1700 04/21/21 04/21/21 History Ferrous Sulfate [Iron (65 MG 325 mg PO DAILY@1200 04/21/21 04/21/21 History Elemental)] Furosemide [Lasix] 40 mg PO MOWEFR@0800 04/21/21 04/21/21 History HYDROcodone/APAP 7.5-325MG [[place] 1 tab PO Q6H PRN 04/21/21 04/21/21 History 7.5] INSULIN ASPART (NovoLOG) [NovoLOG See Protocol SQ ACHS 04/21/21 04/21/21 History (formulary)] Magnesium Hydroxide [Milk of 7,200 mg PO Q48H PRN 04/21/21 04/21/21 History Magnesia Concentrate] Menthol-Zinc Oxide Oint 1 applic TOPICAL BID 04/21/21 04/21/21 History [Calmoseptine Oint] Morphine Sulfate ER [Ms Contin] 15 mg PO BID@0600,1800 04/21/21 04/21/21 History Na Phos,M-B/Na Phos,Di-Ba [Fleet 133 ml RECTAL DAILY PRN 04/21/21 04/21/21 History Adult] Nicotine 14Mg/24Hr Patch [Habitrol] 1 patch TRANSDERM DAILY@0800 04/21/21 04/21/21 History Nitroglycerin Sl Tabs [Nitrostat] 0.4 mg SL Q5M PRN 04/21/21 04/21/21 History Potassium Chloride [Klor-Con 10 ER] 10 meq PO DAILY@1700 04/21/21 04/21/21 History Sennosides/Docusate Sodium [Senna 1 tab PO DAILY@0800 04/21/21 04/21/21 History Plus 8.6-50 mg Tablet] Sotrovimab 500mg 500 mg IV ONCE 04/21/21 04/21/21 History Zinc Sulfate [Orazinc] 220 mg PO DAILY@1700 04/21/21 04/21/21 History bisacodyL [Dulcolax] 10 mg RECTAL DAILY PRN 04/21/21 04/21/21 History guaiFENesin [Mucinex] 600 mg PO BID@0800,2100 04/21/21 04/21/21 History Allergies Allergy/AdvReac Type Severity Reaction Status Date / Time amoxicillin AdvReac Cough Verified 04/21/21 18:04 chlorpromazine AdvReac Unknown Verified 04/21/21 18:04 [From Thorazine] gemfibrozil AdvReac Unknown Verified 04/21/21 18:04 lisinopril AdvReac Cough Verified 04/21/21 18:04 metformin AdvReac Diarrhea Verified 04/21/21 18:04 methadone AdvReac Unknown Verified 04/21/21 18:04 Physical Exam Vitals: Vital Signs Temp Pulse Pulse Resp BP BP Pulse Ox 04/22/21 12:00 98 F 60 17 144/75 97 04/22/21 08:30 97.6 F 60 17 150/69 97 04/22/21 08:27 99 04/22/21 03:34 97.4 F L 60 14 146/66 100 04/22/21 01:16 75 04/22/21 00:00 75 18 119/59 100 04/21/21 22:31 98.3 F 62 19 151/65 100 04/21/21 22:30 62 04/21/21 21:30 98.2 F 67 22 135/57 100 04/21/21 21:00 62 24 118/51 100 04/21/21 20:30 60 23 112/54 100 04/21/21 20:00 61 23 108/50 100 04/21/21 19:47 61 23 100 04/21/21 19:30 62 23 101/45 100 04/21/21 19:00 62 24 123/57 100 04/21/21 18:30 67 21 129/69 100 04/21/21 18:00 71 24 133/86 100 04/21/21 17:30 75 26 H 133/90 100 04/21/21 17:00 67 27 H 131/89 100 04/21/21 16:51 38 H 100 04/21/21 16:50 74 33 H 04/21/21 16:39 76 33 H 131/89 04/21/21 16:35 98.3 F Intake and Output 04/21/21 04/22/21 04/22/21 22:59 06:59 14:59 Intake Total 360 Output Total 350 1050 Balance -350 -1050 360 Intake: Oral 360 Output: Urine 350 1050 Uretheral (Hall) 350 Other: Voiding Method Indwelling Catheter Indwelling Catheter Weight 85.729 kg 78.5 kg 78.5 kg Resting comfortably in bed currently on 2 L of oxygen nasal cannula Head exam was generally normal. There was no scleral icterus or corneal arcus. Mucous membranes were moist. Neck was supple and without jugular venous distension, thyromegaly, or carotid bruits. Carotids were easily palpable bilaterally. There was no adenopathy. Lungs sounds are diminished and the patient has limited secondary lung bases bilaterally Cardiac exam revealed the PMI to be normally situated and sized. The rhythm was regular and no extrasystoles were noted during several minutes of auscultation. The first and second heart sounds were normal and physiologic splitting of the second heart sound was noted. There were no murmurs, rubs, clicks, or gallops. Abdominal exam revealed normal bowel sounds. The abdomen was soft, non-tender, and without masses, organomegaly, or appreciable enlargement of the abdominal aorta. Examination of the extremities revealed easily palpable radial, femoral and pedal pulses. There was no cyanosis, clubbing or edema. Neurologic the patient is somnolent. Morbid all 4 extremities. Unable to provide reasonable or adequate history at this point in time. Has underlying dementia. He is also hard of hearing. Results - Laboratory Findings CBC and BMP: 04/21/21 17:02 04/21/21 17:02 PT/INR, D-dimer PT 13.0 sec (9.0-12.0) H 04/21/21 17:02 INR 1.2 (<1.2) H 04/21/21 17:02 Abnormal lab findings: Abnormal Labs 04/21/21 04/21/21 04/21/21 17:02 17:02 17:02 RBC 3.77 L Hgb 11.8 L Hct 38.3 L MCV 101.4 H MCHC 30.8 L Plt Count 128 L PT 13.0 H INR 1.2 H Carbon Dioxide 18 L BUN 70 H Creatinine 2.59 H Glucose 138 H POC Glucose (mg/dL) Calcium 7.6 L AST 89 H Troponin I Total Protein 5.9 L Albumin 2.9 L 04/21/21 04/22/21 17:02 11:39 RBC Hgb Hct MCV MCHC Plt Count PT INR Carbon Dioxide BUN Creatinine Glucose POC Glucose (mg/dL) 220 H Calcium AST Troponin I 0.049 H* Total Protein Albumin - Diagnostic Findings Chest x-ray: image reviewed Assessment and Plan Plan: 1 acute hypoxic respiratory failure, probably combination of: COVID 19 related pneumonia and CHF. The patient responded nicely to diuretics. The patient is currently on 2 L about 2 by nasal cannula. Chest x-ray showing thyromegaly with increased interstitial markings bilaterally 2 CHF with chronic systolic heart failure with moderate to severe impairment of the LV with an ejection fraction of 30-35% and segmental wall motion abnormalities 3 coronary artery disease 4 history of atrial fibrillation maintained on long-term articulation with Eliquis 5 history of sick sinus syndrome and the patient has a permanent pacemaker in place 6 chronic stay she kidney disease 7 left carotid artery disease with complete blockage 100% and 75% blockage on the right 8 hypothyroidism 9 hypertension 10 hyperlipidemia 11 impaired hearing 12 impaired performance and functional status due to above-mentioned comorbidities 13 dementia Plan Titrate FiO2 to maintain a saturation above 90% currently on 2 L Continue Decadron Continue IV Lasix Monitor renal function Cardiology consultation Continue anticoagulation with Eliquis Aspiration precautions
[2021-04-22] MEDS: ALBUTEROL HFA INHALER INHALATION SCH ×3 (13:43→19:42)
--- NOTE | 2021-04-22 15:14 | P.HPIM ---
History of Present Illness H&P Date: 04/22/21 Chief Complaint: Hypoxia 89 years old male patient of Dr. Mueller who was recently admitted in the hospital for right intertrochanteric fracture on 02/18 and was discharged to [facility] with past medical history of coronary artery disease with bypass, pacemaker, proximal atrial fibrillation on Eliquis, hypertension, chronic kidney disease stage III, hyperlipidemia, hypothyroidism, congestive heart failure with EF 30-35% was brought in to the ER from [facility] as patient became short of breath and hypoxic. Patient was diagnosed with COVID on 04/20 and received monoclonal antibodies on 04/21 that since patient became hypoxic and was brought into the hospital.. Patient was noted to be confused and requiring 100% FiO2 on BiPAP to maintain his saturation above 90%. On assessment today, patient is off BiPAP and is currently on 2 L of oxygen mentating well. He denies any chest pain or shortness of breath. Vitals are reviewed patient is afebrile pulse 60 respiratory rate 17 pressure 140/75. His labs were reviewed and compared from February/2021 hemoglobin is 11.8 which is improved from 8 in the previous admission. Platelet is low at 128. Bicarb 18 BUN 70 creatinine 2.59, patient's baseline creatinine is 1.9, troponins mildly elevated 0.049 proBNP 56,000 TSH 2.9. Patient initiated on Lasix 40 IV twice a day continue Decadron with the vitamin supplement. Pulmonary consulted no plan for aggressive care. chest x-ray obtained on 04/21 suggest mild heart failure with patchy bilateral basilar rate 80 atelectasis with small pleural effusions. EKG suggestive of electronic ventricular pacemaker ROS Constitutional: Denies chills, Denies fever, Denies lethargy, Denies malaise, Denies poor appetite, Denies weakness, Denies weight loss Eyes: denies decreased vision, denies diplopia, denies discharge, denies pain Ears: deny: decreased hearing Ears, nose, mouth and throat: Denies dental pain, Denies headache, Denies nasal discharge, Denies nose pain Cardiovascular: Denies chest pain, Denies decreased exercise tolerance, Denies edema, Denies high blood pressure, Denies irregular heart beat, Denies palpitations, Denies paroxysmal nocturnal dyspnea, Denies rapid heart beat, endorses shortness of breath Respiratory: Endorses congestion, Denies cough, Denies cough with sputum, endorses dyspnea, Denies home oxygen, Denies wheezing Gastrointestinal: Denies abdominal pain, Denies change in bowel habits, Denies coffee ground emesis, Denies early satiety, Denies excessive gas, Denies heartburn, Denies hematemesis, Denies hematochezia, Denies loss of appetite, Denies nausea, Denies vomiting Genitourinary: Denies dysuria, Denies flank pain, Denies kidney stones, Denies menorrhagia, Denies urgency, Denies urinary frequency Musculoskeletal: Denies gait dysfunction, Denies limitation of motion, Denies morning stiffness, Denies muscle cramps Integumentary: Denies rash, Denies wounds, Denies brittle nails, Denies change in hair/nails, Denies darkening of skin Neurological: Denies balance difficulties, Denies change in speech, Denies double vision, Denies gait dysfunction, Denies loss of vision, Denies motor disturbance, Denies numbness, Denies paralysis, Denies paresthesias, Denies seizures Psychiatric: Denies anxiety, Denies depression Endocrine: Denies excessive sweating, Denies excessive thirst, Denies high blood sugars, Denies palpitations Hematologic/Lymphatic: Denies easy bruising, Denies lymphadenopathy Social history Patient's smoked for 70 years half a pack a day. Quit drinking used to drink 20 years ago. Uses a walker. Family history Reviewed no significant family history Physical exam - Constitutional General appearance: cooperative, no acute distress, thin - EENT Eyes: anicteric sclerae, PERRLA, normal appearance ENT: hearing grossly normal - Neck Neck: no lymphadenopathy, normal ROM, no other, no rigidity, no stridor, no thyromegaly - Respiratory Respiratory: Likely due to decreased air entry with crackles at the bases - Cardiovascular Rhythm: Irregularly irregular Heart sounds: normal: S1, S2 Abnormal Heart Sounds: Systolic ejection murmur, no diastolic murmur, no rub, no S3 Gallop, no S4 Gallop, no click, no other - Gastrointestinal General gastrointestinal: normal bowel sounds, soft nontender - Integumentary Integumentary: no rash - Neurologic Neurologic: CNII-XII intact - Musculoskeletal Musculoskeletal: Decreased range of motion of the right hip, minimal pain on movement of the hip - Psychiatric Psychiatric: A&O x's 2, appropriate affect Assessment and plan #1 acute hypoxic respiratory failure secondary to CHF exacerbation and COVID related pneumonia. Continue Lasix at 40 IV twice a day. Oxygenating at 97% on 2 L inflammation markers ordered. Continue Decadron 6 mg by mouth daily. Echo in April 2020 with EF of 30-35% with segmental wall motion abnormality. #2 acute systolic congestive heart failure continue IV diuresis INR monitoring daily weights. Watch for hemodynamic instability #3 recent COVID infection status post monoclonal antibodies with hypoxia. Continue Decadron, vitamin C, D and zinc. Inflammation markers ordered #4 chronic persistent atrial fibrillation continue Coreg to 25 twice a day. El iquis 2.5 twice a day #5 chronic kidney disease stage III avoid nephrotoxic agents monitor CMP we will adjust Lasix dose is on the results 6 recent right intertrochanteric fracture s/p im nail 03/07. PTOT consult #7 type 2 diabetes continue insulin sliding scale #8 acute troponin elevation cardiology consulted troponins every 32 ordered 9 hypertension continue hydralazine 25 mg by mouth twice a day continue Coreg 25 twice a day #10COPD, not in exacerbation continue albuterol inhaler, continue tiotropium #11 CODE STATUS full code #12 DVT prophylaxis on elquis #13 advanced dementia, oriented 2 history questions appropriately. No confusion on examination #14 disposition patient need at least 1-2 inpatient hospitalizations for stabilization Past Medical History Past Medical History: Atrial Fibrillation, Coronary Artery Disease (CAD), Chest Pain / Angina, Heart Failure, COPD, GERD/Reflux, Hearing Disorder / Deafness, Hyperlipidemia, Hypertension, Myocardial Infarction (PR), Renal Disease, Sleep Apnea/CPAP/BIPAP, Thyroid Disorder, Vascular Disorder Additional Past Medical History / Comment(s): Paroxysmal afib, SSS with pacemaker, cardiomyopathy, tracheobronchitis, CKD stage III, chronic anemia, chronic pain, L caratid 100% blockage/R caratid 75% blockage, hypothyroid, KLUTI KAAH bilaterally, constipation Last Myocardial Infarction Date:: 06/2018 History of Any Multi-Drug Resistant Organisms: None Reported Past Surgical History: Cholecystectomy, Coronary Bypass/CABG, Heart Catheterization, Pacemaker Additional Past Surgical History / Comment(s): Pacemaker in June 20182008 CABG-pt believes was 5 vessel done down in [place], colonoscopy-normal, bilateral cataract removals. Past Anesthesia/Blood Transfusion Reactions: No Reported Reaction Type of Cardiac Device: Permanent Pacemaker Device Placement Date:: 06/2018 Past Psychological History: Depression Smoking Status: Former smoker Past Alcohol Use History: None Reported Past Drug Use History: None Reported - Past Family History Father Family Medical History: Dementia Additional Family Medical History / Comment(s): Pt does not recall any parent medical hx at this time. Mother Family Medical History: No Reported History Additional Family Medical History / Comment(s): Mother was healthy. Medications and Allergies Home Medications Medication Instructions Recorded Confirmed Type Apixaban [Eliquis] 2.5 mg PO BID@0800,1700 02/17/21 04/21/21 History Carvedilol [Coreg] 25 mg PO BID@0800,1700 02/17/21 04/21/21 History Cholecalciferol (Vitamin D3) 125 mcg PO DAILY@169902/17/21 04/21/21 History [Vitamin D3 (125 MCG = 5,000 IU)] Fenofibrate 160 mg PO DAILY@0800 02/17/21 04/21/21 History Isosorbide Mononitrate ER [Imdur] 60 mg PO DAILY@0800 02/17/21 04/21/21 History Levothyroxine Sodium [Synthroid] 25 mcg PO DAILY@0800 02/17/21 04/21/21 History Ipratropium-Albuterol Nebulize 3 ml INHALATION RT-QID ml 02/21/21 04/21/21 Rx [Duoneb 0.5 mg-3 mg/3 ml Soln] Ascorbic Acid [Vitamin C] 1,000 mg PO DAILY@169904/21/21 04/21/21 History Cholecalciferol [Vitamin D3 (25 50 mcg PO DAILY@169904/21/21 04/21/21 History Mcg = 1000 Iu)] Dexamethasone [Decadron] 4 mg PO BID@0800,1700 04/21/21 04/21/21 History Ensure Enlive 120 ml PO TID@0800,1200,169904/21/21 04/21/21 History Ferrous Sulfate [Iron (65 MG 325 mg PO DAILY@1200 04/21/21 04/21/21 History Elemental)] Furosemide [Lasix] 40 mg PO MOWEFR@0800 04/21/21 04/21/21 History HYDROcodone/APAP 7.5-325MG [[place] 1 tab PO Q6H PRN 04/21/21 04/21/21 History 7.5] INSULIN ASPART (NovoLOG) [NovoLOG See Protocol SQ ACHS 04/21/21 04/21/21 History (formulary)] Magnesium Hydroxide [Milk of 7,200 mg PO Q48H PRN 04/21/21 04/21/21 History Magnesia Concentrate] Menthol-Zinc Oxide Oint 1 applic TOPICAL BID 04/21/21 04/21/21 History [Calmoseptine Oint] Morphine Sulfate ER [Ms Contin] 15 mg PO BID@0600,1800 04/21/21 04/21/21 History Na Phos,M-B/Na Phos,Di-Ba [Fleet 133 ml RECTAL DAILY PRN 04/21/21 04/21/21 History Adult] Nicotine 14Mg/24Hr Patch [Habitrol] 1 patch TRANSDERM DAILY@0800 04/21/21 04/21/21 History Nitroglycerin Sl Tabs [Nitrostat] 0.4 mg SL Q5M PRN 04/21/21 04/21/21 History Potassium Chloride [Klor-Con 10 ER] 10 meq PO DAILY@1700 04/21/21 04/21/21 History Sennosides/Docusate Sodium [Senna 1 tab PO DAILY@0800 04/21/21 04/21/21 History Plus 8.6-50 mg Tablet] Sotrovimab 500mg 500 mg IV ONCE 04/21/21 04/21/21 History Zinc Sulfate [Orazinc] 220 mg PO DAILY@1700 04/21/21 04/21/21 History bisacodyL [Dulcolax] 10 mg RECTAL DAILY PRN 04/21/21 04/21/21 History guaiFENesin [Mucinex] 600 mg PO BID@0800,2100 04/21/21 04/21/21 History Allergies Allergy/AdvReac Type Severity Reaction Status Date / Time amoxicillin AdvReac Cough Verified 04/21/21 18:04 chlorpromazine AdvReac Unknown Verified 04/21/21 18:04 [From Thorazine] gemfibrozil AdvReac Unknown Verified 04/21/21 18:04 lisinopril AdvReac Cough Verified 04/21/21 18:04 metformin AdvReac Diarrhea Verified 04/21/21 18:04 methadone AdvReac Unknown Verified 04/21/21 18:04 Physical Exam Vitals: Vital Signs Temp Pulse Pulse Resp BP BP Pulse Ox 04/22/21 12:00 98 F 60 17 144/75 97 04/22/21 08:30 97.6 F 60 17 150/69 97 04/22/21 08:27 99 04/22/21 03:34 97.4 F L 60 14 146/66 100 04/22/21 01:16 75 04/22/21 00:00 75 18 119/59 100 04/21/21 22:31 98.3 F 62 19 151/65 100 04/21/21 22:30 62 04/21/21 21:30 98.2 F 67 22 135/57 100 04/21/21 21:00 62 24 118/51 100 04/21/21 20:30 60 23 112/54 100 04/21/21 20:00 61 23 108/50 100 04/21/21 19:47 61 23 100 04/21/21 19:30 62 23 101/45 100 04/21/21 19:00 62 24 123/57 100 04/21/21 18:30 67 21 129/69 100 04/21/21 18:00 71 24 133/86 100 04/21/21 17:30 75 26 H 133/90 100 04/21/21 17:00 67 27 H 131/89 100 04/21/21 16:51 38 H 100 04/21/21 16:50 74 33 H 04/21/21 16:39 76 33 H 131/89 04/21/21 16:35 98.3 F Intake and Output 04/21/21 04/22/21 04/22/21 22:59 06:59 14:59 Intake Total 360 Output Total 350 1050 Balance -350 -1050 360 Intake: Oral 360 Output: Urine 350 1050 Uretheral (Hall) 350 Other: Voiding Method Indwelling Catheter Indwelling Catheter Weight 85.729 kg 78.5 kg 78.5 kg Results CBC & Chem 7: 04/21/21 17:02 04/21/21 17:02 Labs: Abnormal Lab Results - Last 24 Hours (Table) 04/21/21 04/21/21 04/21/21 Range/Units 17:02 17:02 17:02 RBC 3.77 L (4.30-5.90) m/uL Hgb 11.8 L (13.0-17.5) gm/dL Hct 38.3 L (39.0-53.0) % MCV 101.4 H (80.0-100.0) fL MCHC 30.8 L (31.0-37.0) g/dL Plt Count 128 L (150-450) k/uL PT 13.0 H (9.0-12.0) sec INR 1.2 H (<1.2) Carbon Dioxide 18 L (22-30) mmol/L BUN 70 H (9-20) mg/dL Creatinine 2.59 H (0.66-1.25) mg/dL Glucose 138 H (74-99) mg/dL POC Glucose (mg/dL) (75-99) mg/dL Calcium 7.6 L (8.4-10.2) mg/dL AST 89 H (17-59) U/L Troponin I (0.000-0.034) ng/mL Total Protein 5.9 L (6.3-8.2) g/dL Albumin 2.9 L (3.5-5.0) g/dL 04/21/21 04/22/21 Range/Units 17:02 11:39 RBC (4.30-5.90) m/uL Hgb (13.0-17.5) gm/dL Hct (39.0-53.0) % MCV (80.0-100.0) fL MCHC (31.0-37.0) g/dL Plt Count (150-450) k/uL PT (9.0-12.0) sec INR (<1.2) Carbon Dioxide (22-30) mmol/L BUN (9-20) mg/dL Creatinine (0.66-1.25) mg/dL Glucose (74-99) mg/dL POC Glucose (mg/dL) 220 H (75-99) mg/dL Calcium (8.4-10.2) mg/dL AST (17-59) U/L Troponin I 0.049 H* (0.000-0.034) ng/mL Total Protein (6.3-8.2) g/dL Albumin (3.5-5.0) g/dL Thrombosis Risk Factor Assmnt - Choose All That Apply Any of the Below Risk Factors Present?: Yes Each Factor Represents 1 point: Abnormal pulmonary function (COPD) Other Risk Factors: Yes Each Risk Factor Represents 3 Points: Age 75 years or older Other congenital or acquired thrombophilia - If yes, enter type in comment: Yes Each Risk Factor Represents 5 Points: Hip, pelvis, or leg fracture (< 1 month) Thrombosis Risk Factor Assessment Total Risk Factor Score: 9 Thrombosis Risk Factor Assessment Level: High Risk
[2021-04-22 17:09] LABS: Glucose,Whole Blood 225 mg/dL (75-99)
[2021-04-22] MEDS: ASCORBIC ACID 500 MG TAB PO SCH (17:19)
[2021-04-22] MEDS: carvediloL 12.5 MG TAB PO SCH (17:20)
[2021-04-22] MEDS: CHOLECALCIFEROL 25 MCG (1000 IU) TABLET PO SCH (17:20)
[2021-04-22] MEDS: ZINC SULFATE 220 MG CAP PO SCH (17:20)
[2021-04-22] MEDS: CHOLECALCIFEROL 125 MCG (5000 IU) TABLET PO SCH (17:20)
[2021-04-22] MEDS: APIXABAN 2.5 MG TABLET PO SCH (17:20)
[2021-04-22] MEDS: MORPHINE SULFATE ER 15 MG TABLET PO SCH (17:20)
[2021-04-22] MEDS: POTASSIUM CHLORIDE ER 10 MEQ TAB.ER.PRT PO SCH (17:20)
[2021-04-22] MEDS: FUROSEMIDE 10 MG/ML 4 ML VIAL IV SCH (17:59)
[2021-04-22 18:22] LABS: C Reactive Protein 7.5 mg/dL (<1.0)
[2021-04-22] MEDS: guaiFENesin 600 MG TABLET.ER PO SCH (20:37)
[2021-04-22 20:42] LABS: Glucose,Whole Blood 153 mg/dL (75-99)
[2021-04-23] MEDS: INSULIN ASPART (NovoLOG) 100 UNIT/ML VIAL SQ SCH ×4 (06:22→20:53)
[2021-04-23] MEDS: MORPHINE SULFATE ER 15 MG TABLET PO SCH ×2 (06:22→17:35)
[2021-04-23 06:42] LABS: Glucose,Whole Blood 161 mg/dL (75-99)
[2021-04-23] MEDS: dexAMETHasone 2 MG TAB PO SCH (07:28)
[2021-04-23] MEDS: NICOTINE 14MG/24HR PATCH TRANSDERM SCH (07:28)
[2021-04-23] MEDS: carvediloL 12.5 MG TAB PO SCH ×2 (07:28→17:34)
[2021-04-23] MEDS: hydrALAZINE HCL 25 MG TAB PO SCH ×2 (07:29→20:54)
[2021-04-23] MEDS: ISOSORBIDE MONONITRATE ER 60 MG TAB.ER.24H PO SCH (07:29)
[2021-04-23] MEDS: MENTHOL-ZINC OXIDE OINT 113 GM TUBE TOPICAL SCH ×2 (07:29→20:54)
[2021-04-23] MEDS: LEVOTHYROXINE 25 MCG TAB PO SCH (07:29)
[2021-04-23] MEDS: SENNOSIDES-DOCUSATE SODIUM 1 EACH TAB PO SCH (07:29)
[2021-04-23] MEDS: FUROSEMIDE 10 MG/ML 4 ML VIAL IV SCH ×2 (07:29→20:54)
[2021-04-23] MEDS: guaiFENesin 600 MG TABLET.ER PO SCH ×2 (07:29→20:54)
[2021-04-23] MEDS: APIXABAN 2.5 MG TABLET PO SCH ×2 (07:29→17:34)
[2021-04-23] MEDS ORDERED: FENOFIBRATE 160 MG TAB PO SCH (08:00)
[2021-04-23 08:37] LABS: Calcium 7.6 mg/dL (8.4-10.2); Potassium 4.2 mmol/L (3.5-5.1)
[2021-04-23] MEDS: ALBUTEROL HFA INHALER INHALATION SCH ×4 (11:00→19:10)
[2021-04-23] MEDS: TIOTROPIUM 2.5 MCG INHALER INHALATION SCH (11:01)
--- NOTE | 2021-04-23 11:15 | P.PN ---
Subjective Progress Note Date: 04/23/21 PROGRESS NOTE The patient is an 89-year-old male with a history of chronic persistent atrial ablation, permanent pacemaker implantation, status post CABG and aortic valve disease, dementia presented with progressive dyspnea. He's feeling better at this time, he has significant dementia but seems to be stable with no chest discomfort, dizziness or palpitations. He has no evidence of tachyarrhythmia. He continues to be on IV diuretics in addition to anticoagulation PHYSICAL EXAMINATION: Blood pressure 117/56 heart rate 78 LUNGS: [Clear to auscultation] HEART:irregular rate and rhythm, S1, S2. No S3. systolic murmur at the base] ABDOMEN: [Soft, nontender, no organomegaly] EXTREMETIES: [No significant edema] LAB: NT proBNP 67,800, BUN 85, creatinine 2.59 IMPRESSION: 1. CHF with known ischemic cardiomyopathy, the patient had the recent COVID-19 infection 2. Status post CABG 3. Chronic persistent atrial ablation, anticoagulated 4. Chronic kidney disease PLAN: Continue IV diuretics in view of the persistent elevation of the NT proBNP, follow renal functions closely. Depending on his progress further recommendations will be made. The prognosis remains guarded. Objective - Vital Signs Vital signs: Vital Signs Temp 97.6 F 04/23/21 08:00 Pulse 78 04/23/21 08:00 Resp 17 04/23/21 08:00 BP 117/56 04/23/21 08:00 Pulse Ox 96 04/23/21 08:00 Intake & Output 04/22/21 04/23/21 04/23/21 18:59 06:59 18:59 Intake Total 360 240 Output Total 900 1300 Balance -540 -1060 Weight 78.5 kg Intake: Oral 360 240 Output: Urine 900 1300 Other: Voiding Method Indwelling Catheter Indwelling Catheter Indwelling Catheter - Labs CBC & Chem 7: 04/21/21 17:02 04/23/21 07:51 Labs: Abnormal Lab Results - Last 24 Hours (Table) 04/22/21 04/22/21 04/22/21 Range/Units 11:39 16:55 16:55 Chloride (98-107) mmol/L Carbon Dioxide (22-30) mmol/L BUN (9-20) mg/dL Creatinine (0.66-1.25) mg/dL Glucose (74-99) mg/dL POC Glucose (mg/dL) 220 H (75-99) mg/dL Calcium (8.4-10.2) mg/dL Troponin I 0.048 H* (0.000-0.034) ng/mL C-Reactive Protein 7.5 H (<1.0) mg/dL Procalcitonin (0.02-0.09) ng/mL 04/22/21 04/22/21 04/22/21 Range/Units 16:55 17:07 20:28 Chloride (98-107) mmol/L Carbon Dioxide (22-30) mmol/L BUN (9-20) mg/dL Creatinine (0.66-1.25) mg/dL Glucose (74-99) mg/dL POC Glucose (mg/dL) 225 H 153 H (75-99) mg/dL Calcium (8.4-10.2) mg/dL Troponin I (0.000-0.034) ng/mL C-Reactive Protein (<1.0) mg/dL Procalcitonin 1.58 H (0.02-0.09) ng/mL 04/22/21 04/23/21 04/23/21 Range/Units 20:48 06:18 07:51 Chloride 108 H (98-107) mmol/L Carbon Dioxide 21 L (22-30) mmol/L BUN 85 H (9-20) mg/dL Creatinine 2.59 H (0.66-1.25) mg/dL Glucose 146 H (74-99) mg/dL POC Glucose (mg/dL) 161 H (75-99) mg/dL Calcium 7.6 L (8.4-10.2) mg/dL Troponin I 0.050 H* (0.000-0.034) ng/mL C-Reactive Protein (<1.0) mg/dL Procalcitonin (0.02-0.09) ng/mL
[2021-04-23 11:42] LABS: Glucose,Whole Blood 135 mg/dL (75-99)
[2021-04-23] MEDS: FERROUS SULFATE 325 MG TAB PO SCH (11:58)
--- NOTE | 2021-04-23 14:30 | P.PN ---
Subjective Progress Note Date: 04/23/21 89-year-old patient with known history of congestion heart failure along with c oronary artery disease and previous bypass surgery, came into the ED because of some increased shortness of breath. The patient has tested positive for COVID 19 [facility] the shelter and the patient was receiving monoclonal infusion and during the same time the patient was found also to be hypoxic and his pulse ox up on the 70s. He was placed on CPAP, moved to the emergency department and he was replaced. BiPAP. Currently is on oxygen at 2 L per minute nasal cannula. Note that his chest x-ray in the MRSA department showed thyromegaly and increased pulmonary vascular markings consistent with CHF although possibility of a COVID 19 related pneumonia cannot be completely excluded. The patient's white cell count of 10.4 with a hemoglobin of 11.8, normal correlation profile. He has a BUN of 70 with a creatinine of 2.59. ProBNP level is 56,200. BUN is at 70 with a creatinine of 2.5. Sodium is at 137. Glucose is at 220. LFTs are normal. Patient was given Lasix and the patient diuresed significantly and the patient is currently on 40 mg of IV Lasix every 12 hours. He is also on D ecadron 6 mg by mouth on a daily basis. The patient has chronic A. fib fibrillation and has been maintained on Eliquis on outpatient basis dose of 2.5 mg twice a day. Current cardiac rhythm is paced. The patient is hemodynamically stable and resting comfortably in bed. 04/23/2021, patient is resting comfortably in bed and is able also to move on the recliner. He is on room air oxygen. No 70 shortness of breath. The patient received IV diuretics and the patient has been negative fluid balance. ProBNP level is still elevated. At the same time, the patient is anticoagulated regarding history of atrial fibrillation. No new complaints. Function remains stable with a creatinine of 2.59 and a BUN of 85. Glucose is 137. ProBNP level was 67,800. The patient is currently on Lasix 40 mg IV every 12 hours. The patient is also Decadron 6 mg by mouth on a daily basis. The patient on long- term articulation with Eliquis 2.5 mg by mouth twice a day. Objective - Vital Signs Vital signs: Vital Signs Temp 97.9 F 04/23/21 12:00 Pulse 68 02/06/22 12:00 Resp 16 04/23/21 12:00 BP 115/54 04/23/21 12:00 Pulse Ox 95 04/23/21 12:00 Intake & Output 04/22/21 04/23/21 04/23/21 18:59 06:59 18:59 Intake Total 360 240 Output Total 900 1300 950 Balance -540 -1060 -950 Weight 78.5 kg Intake: Oral 360 240 Output: Urine 900 1300 950 Other: Voiding Method Indwelling Catheter Indwelling Catheter Indwelling Catheter # Bowel Movements 1 - Exam Resting comfortably in bed currently on room air oxygen Head exam was generally normal. There was no scleral icterus or corneal arcus. Mucous membranes were moist. Neck was supple and without jugular venous distension, thyromegaly, or carotid bruits. Carotids were easily palpable bilaterally. There was no adenopathy. Lungs sounds are diminished and the patient has limited secondary lung bases bilaterally Cardiac exam revealed the PMI to be normally situated and sized. The rhythm was regular and no extrasystoles were noted during several minutes of auscultation. The first and second heart sounds were normal and physiologic splitting of the second heart sound was noted. There were no murmurs, rubs, clicks, or gallops. Abdominal exam revealed normal bowel sounds. The abdomen was soft, non-tender, and without masses, organomegaly, or appreciable enlargement of the abdominal aorta. Examination of the extremities revealed easily palpable radial, femoral and pedal pulses. There was no cyanosis, clubbing or edema. Neurologic the patient is somnolent. Morbid all 4 extremities. Unable to provide reasonable or adequate history at this point in time. Has underlying d ementia. He is also hard of hearing. - Labs CBC & Chem 7: 04/21/21 17:02 04/23/21 07:51 Labs: Abnormal Lab Results - Last 24 Hours (Table) 04/22/21 04/22/21 04/22/21 Range/Units 16:55 16:55 16:55 Chloride (98-107) mmol/L Carbon Dioxide (22-30) mmol/L BUN (9-20) mg/dL Creatinine (0.66-1.25) mg/dL Glucose (74-99) mg/dL POC Glucose (mg/dL) (75-99) mg/dL Calcium (8.4-10.2) mg/dL Troponin I 0.048 H* (0.000-0.034) ng/mL C-Reactive Protein 7.5 H (<1.0) mg/dL Procalcitonin 1.58 H (0.02-0.09) ng/mL 04/22/21 04/22/21 04/22/21 Range/Units 17:07 20:28 20:48 Chloride (98-107) mmol/L Carbon Dioxide (22-30) mmol/L BUN (9-20) mg/dL Creatinine (0.66-1.25) mg/dL Glucose (74-99) mg/dL POC Glucose (mg/dL) 225 H 153 H (75-99) mg/dL Calcium (8.4-10.2) mg/dL Troponin I 0.050 H* (0.000-0.034) ng/mL C-Reactive Protein (<1.0) mg/dL Procalcitonin (0.02-0.09) ng/mL 04/23/21 04/23/21 04/23/21 Range/Units 06:18 07:51 11:40 Chloride 108 H (98-107) mmol/L Carbon Dioxide 21 L (22-30) mmol/L BUN 85 H (9-20) mg/dL Creatinine 2.59 H (0.66-1.25) mg/dL Glucose 146 H (74-99) mg/dL POC Glucose (mg/dL) 161 H 135 H (75-99) mg/dL Calcium 7.6 L (8.4-10.2) mg/dL Troponin I (0.000-0.034) ng/mL C-Reactive Protein (<1.0) mg/dL Procalcitonin (0.02-0.09) ng/mL Assessment and Plan Plan: 1 acute hypoxic respiratory failure, probably combination of COVID 19 related pneumonia and CHF. The patient responded nicely to diuretics. The patient is currently on room air oxygen. Clinically improved and patient has been adequat gerson diuresed over the past 24 hours with excellent urine output. 2 CHF with chronic systolic heart failure with moderate to severe impairment of the LV with an ejection fraction of 30-35% and segmental wall motion abnormalities 3 coronary artery disease 4 history of atrial fibrillation maintained on long-term articulation with Eliquis 5 history of sick sinus syndrome and the patient has a permanent pacemaker in place 6 chronic stay she kidney disease 7 left carotid artery disease with complete blockage 100% and 75% blockage on the right 8 hypothyroidism 9 hypertension 10 hyperlipidemia 11 impaired hearing 12 impaired performance and functional status due to above-mentioned comorbi dities 13 dementia Plan Titrate FiO2 to maintain a saturation above 90% currently on room air oxygen Continue Decadron Continue IV Lasix for another 24 hours Repeat chest x-ray in the morning Monitor renal function Cardiology consultation is appreciated Continue anticoagulation with Eliquis Aspiration precautions
[2021-04-23 16:36] LABS: Glucose,Whole Blood 144 mg/dL (75-99)
--- NOTE | 2021-04-23 17:19 | P.PN ---
Progress Note - Text Progress Note Date: 04/23/21 History of presenting complaint: This is a pleasant 89-year-old patient , follows with visiting physicians Dr. Muellre. Patient's chronic stable medical conditions include coronary artery disease with bypass, pacemaker, paroxysmal atrial fibrillation on eliquis, hypertension, chronic kidney disease, hyperlipidemia, hypothyroid., CHF EF of 30-35%. Uses a walker . Patient was recently admitted to the hospital for right ID fractured on February 18 and discharged to [facility]. Patient on Apr ruary 3 diagnosed with COVID received monoclonal antibodies. Patient said that has become hypoxic and brought to the hospital. Was confused requiring 100% FiO2 and BiPAP. Admitted with acute hypoxic respiratory failure secondary to CHF, colon related pneumonia, acute CHF exacerbation. Put on IV Lasix. Oxygen supplementation. Dexamethasone. April 23: Sitting up in a chair. Breathing much better. Off oxygen. Eating about 50%. Some swelling of the lower extremity. Active Medications Hydrocodone Bitart/Acetaminophen (Hydrocodone/Apap 7.5-325mg 1 Each Tab) 1 each PO Q6H PRN PRN Reason: Pain Albuterol Sulfate (Albuterol Hfa Inhaler) 2 puff INHALATION RT-QID [facility] Last Admin: 04/23/21 15:35 Dose: 2 puff Documented by: Apixaban (Apixaban 2.5 Mg Tablet) 2.5 mg PO BID@0800,1700 [facility]; Protocol Last Admin: 04/23/21 07:29 Dose: 2.5 mg Documented by: Ascorbic Acid (Ascorbic Acid 500 Mg Tab) 1,000 mg PO DAILY@1700 [facility] Last Admin: 04/22/21 17:19 Dose: 1,000 mg Documented by: Bisacodyl (Bisacodyl 10 Mg Supp) 10 mg RECTAL DAILY PRN PRN Reason: Constipation Calamine/Phenol (Menthol-Zinc Oxide Oint 113 Gm Tube) 1 applic TOPICAL BID [facility]; Protocol Last Admin: 04/23/21 07:29 Dose: 1 applic Documented by: Carvedilol (Carvedilol 12.5 Mg Tab) 25 mg PO BID@0800,1700 [facility] Last Admin: 04/23/21 07:28 Dose: 25 mg Documented by: Cholecalciferol (Cholecalciferol 25 Mcg (1000 Iu) Tablet) 50 mcg PO DAILY@1700 [facility] Last Admin: 04/22/21 17:20 Dose: 50 mcg Documented by: Cholecalciferol (Cholecalciferol 125 Mcg (5000 Iu) Tablet) 125 mcg PO WANDER Y@1700 [facility] Last Admin: 04/22/21 17:20 Dose: 125 mcg Documented by: Dexamethasone (Dexamethasone 2 Mg Tab) 6 mg PO DAILY [facility] Last Admin: 04/23/21 07:28 Dose: 6 mg Documented by: Ferrous Sulfate (Ferrous Sulfate 325 Mg Tab) 325 mg PO DAILY@1200 [facility] Last Admin: 04/23/21 11:58 Dose: 325 mg Documented by: Furosemide (Furosemide 10 Mg/Ml 4 Ml Vial) 40 mg IV Q12HR [facility] Last Admin: 04/23/21 07:29 Dose: 40 mg Documented by: Guaifenesin (Guaifenesin 600 Mg Tablet.Er) 600 mg PO BID@0800,2100 [facility] Last Admin: 04/23/21 07:29 Dose: 600 mg Documented by: Hydralazine HCl (Hydralazine Hcl 25 Mg Tab) 25 mg PO BID [facility] Last Admin: 04/23/21 07:29 Dose: 25 mg Documented by: Insulin Aspart (Insulin Aspart (Novolog) 100 Unit/Ml Vial) 0 unit SQ [facility]; Protocol Last Admin: 04/23/21 11:58 Dose: 1 unit Documented by: Isosorbide Mononitrate (Isosorbide Mononitrate Er 60 Mg Tab.Er.24h) 60 mg PO DAILY@0800 [facility] Last Admin: 04/23/21 07:29 Dose: 60 mg Documented by: Levothyroxine Sodium (Levothyroxine 25 Mcg Tab) 25 mcg PO DAILY@0800 [facility] Last Admin: 04/23/21 07:29 Dose: 25 mcg Documented by: Magnesium Hydroxide (Magnesium Hydroxide 2,400 Mg/10 Ml Cup) 2,400 mg PO Q48H P RN PRN Reason: Constipation Morphine Sulfate (Morphine Sulfate Er 15 Mg Tablet) 15 mg PO BID@0600,1800 [facility]; Protocol Last Admin: 04/23/21 06:22 Dose: 15 mg Documented by: Nicotine (Nicotine 14mg/24hr Patch) 1 patch TRANSDERM DAILY@0800 [facility] Last Admin: 04/23/21 07:28 Dose: 1 patch Documented by: Potassium Chloride (Potassium Chloride Er 10 Meq Tab.Er.Prt) 10 meq PO DAILY@1700 [facility] Last Admin: 04/22/21 17:20 Dose: 10 meq Documented by: Senna/Docusate Sodium (Sennosides-Docusate Sodium 1 Each Tab) 1 each PO DAILY@0800 [facility] Last Admin: 04/23/21 07:29 Dose: 1 each Documented by: Tiotropium [place] (Tiotropium 2.5 Mcg Inhaler) 2 puff INHALATION RT-DAILY [facility] Last Admin: 04/23/21 11:01 Dose: 2 puff Documented by: Zinc Sulfate (Zinc Sulfate 220 Mg Cap) 220 mg PO DAILY@1700 [facility] Last Admin: 04/22/21 17:20 Dose: 220 mg Documented by: Past medical history to include: Coronary artery disease with bypass, pacemaker, paroxysmal atrial fibrillation, hypertension, chronic kidney disease, hyperlipidemia, hypothyroid, CHF EF 30- 35%, very hard of hearing, COPD, GERD, hyperlipidemia 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 Social history: At [facility]. Uses a walker. [id number]-uo-law lives across the street and is helpful. CPAP machine patient has not been using. Smoking over 70 years about half a pack a day, and used to drink significant alcohol about 20 years ago Physical examination: VITAL SIGNS: 97.9, 68, 16, 150/54, 95% room air GENERAL: Up in a recliner, awake, not short of breath EYES: Pupils equal. Conjunctiva normal. HEENT: External appearance of nose and ears normal, oral cavity grossly normal. Decreased hearing NECK: JVD possibly raised; masses not palpable. HEART: Heart sounds irregular, some edema. LUNGS: Respiratory rate normal; decreased breath sounds, some crackles right base. ABDOMEN: Soft, nontender, liver spleen not palpable, no masses palpable. PSYCH: Answering simple questions MUSCULAR skeletal: Evidence of OA, and multiple joints. EXTREMITIES: Decreased peripheral pulses. Ischemic changes in the feet INVESTIGATIONS, reviewed in the clinical context: Sodium 138 potassium 4.2 BUN 85 creatinine 2.59 Troponin I 0.050 Assessment and plan: -Acute hypoxic respiratory failure combination of COVID-19 pneumonia and CHF: Better Now on room air -COVID 19 pneumonitis On dexamethasone. Received monoclonal antibodies. -Right hip IT fracture-Followed by IM nailing on February 18/2021 PT OT -Acute on chronic congestive heart failure from systolic dysfunction EF 30-35% from underlying ischemic heart disease: Slow to respond, On IV Lasix 40 mg every 12. Repeat chest x-ray -Pacemaker Telemetry -Paroxysmal atrial fibrillation chronically on eliquis, : Rate controlled Eliquis . On Coreg -Essential hypertension, Coreg 25 mg twice a day. -Anemia of chronic disease Ferrous sulfate. 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 Follow electrolytes -Hyperlipidemia, TriCor 160 mg a day -Hypothyroid Synthroid 25 g a day -Very hard of hearing -Chronic gait dysfunction, baseline uses a walker , fall precautions. PT OT -COPD in a current smoker, Spiriva. Ventolin. -Nicotine dependence, current cigarette smoker Nicotine patch 14 -Primary osteoarthritis multiple joints bilaterally Pain control when necessary -Metabolic acidosis due to chronic kidney disease At sodium bicarbonate -Mild cognitive impairment -DO NOT RESUSCITATE Continue with eliquis, dexamethasone, IV Lasix, Spiriva. Repeat chest x-rays in the morning. Add sodium bicarbonate
[2021-04-23] MEDS: ASCORBIC ACID 500 MG TAB PO SCH (17:34)
[2021-04-23] MEDS: ZINC SULFATE 220 MG CAP PO SCH (17:34)
[2021-04-23] MEDS: CHOLECALCIFEROL 25 MCG (1000 IU) TABLET PO SCH (17:34)
[2021-04-23] MEDS: POTASSIUM CHLORIDE ER 10 MEQ TAB.ER.PRT PO SCH (17:34)
[2021-04-23] MEDS: CHOLECALCIFEROL 125 MCG (5000 IU) TABLET PO SCH (17:34)
[2021-04-23 21:19] LABS: Glucose,Whole Blood 170 mg/dL (75-99)
[2021-04-24] MEDS: INSULIN ASPART (NovoLOG) 100 UNIT/ML VIAL SQ SCH ×4 (06:09→20:39)
[2021-04-24] MEDS: MORPHINE SULFATE ER 15 MG TABLET PO SCH ×2 (06:18→17:23)
[2021-04-24 06:20] LABS: Glucose,Whole Blood 122 mg/dL (75-99)
[2021-04-24 07:06] LABS: Potassium 4.2 mmol/L (3.5-5.1)
--- NOTE | 2021-04-24 08:06 | XR ---
EXAMINATION TYPE: XR chest 1V DATE OF EXAM: 04/24/2021 HISTORY: Shortness of breath. COMPARISON: 04/21/2021 TECHNIQUE: Single view of the chest is submitted. FINDINGS: Demonstrated are scattered senescent parenchymal change. Right perihilar and basilar infiltrates persist unchanged. The heart is stable. Hilar and mediastinal structures are within normal limits. Degenerative changes are seen of the dorsal spine. IMPRESSION: 1. Right perihilar and basilar infiltrates persist unchanged.
[2021-04-24] MEDS: ALBUTEROL HFA INHALER INHALATION SCH ×4 (09:06→21:22)
[2021-04-24] MEDS: TIOTROPIUM 2.5 MCG INHALER INHALATION SCH (09:06)
[2021-04-24] MEDS: LEVOTHYROXINE 25 MCG TAB PO SCH (09:11)
[2021-04-24] MEDS: hydrALAZINE HCL 25 MG TAB PO SCH ×2 (09:11→20:39)
[2021-04-24] MEDS: NICOTINE 14MG/24HR PATCH TRANSDERM SCH (09:11)
[2021-04-24] MEDS: guaiFENesin 600 MG TABLET.ER PO SCH ×2 (09:11→20:39)
[2021-04-24] MEDS: APIXABAN 2.5 MG TABLET PO SCH ×2 (09:11→17:23)
[2021-04-24] MEDS: dexAMETHasone 2 MG TAB PO SCH (09:11)
[2021-04-24] MEDS: MENTHOL-ZINC OXIDE OINT 113 GM TUBE TOPICAL SCH ×2 (09:11→20:40)
[2021-04-24] MEDS: FERROUS SULFATE 325 MG TAB PO SCH (09:11)
[2021-04-24] MEDS: SENNOSIDES-DOCUSATE SODIUM 1 EACH TAB PO SCH (09:11)
[2021-04-24] MEDS: ISOSORBIDE MONONITRATE ER 60 MG TAB.ER.24H PO SCH (09:12)
[2021-04-24] MEDS: FUROSEMIDE 10 MG/ML 4 ML VIAL IV SCH ×2 (09:12→20:39)
[2021-04-24] MEDS: carvediloL 12.5 MG TAB PO SCH ×2 (09:12→17:23)
--- NOTE | 2021-04-24 14:12 | P.PN ---
Subjective Progress Note Date: 04/24/21 HPI 89-year-old male patient of Dr. Mueller who was recently admitted in the hospital for right intertrochanteric fracture on 02/18 and was discharged to [facility] senior living with past medical history of coronary artery disease with bypass, pacemaker, proximal atrial fibrillation on Eliquis, hypertension, chronic kidney disease stage III, hyperlipidemia, hypothyroidism, congestive heart failure with EF 30-35% was brought in to the ER from [facility] as patient became short of breath and hypoxic. Patient was diagnosed with COVID on 04/20 and received monoclonal antibodies on 04/21 that since patient became hypoxic and was brought into the hospital.. Patient was noted to be confused and requiring 100% FiO2 on BiPAP to maintain his saturation above 90%. On assessment today, patient is off BiPAP and is currently on 2 L of oxygen mentating well. He denies any chest pain or shortness of breath. Vitals are reviewed patient is afebrile pulse 60 respiratory rate 17 pressure 140/75. His labs were reviewed and compared from February/2021 hemoglobin is 11.8 which is improved from 8 in the previous admission. Platelet is low at 128. Bicarb 18 BUN 70 creatinine 2.59, patient's baseline creatinine is 1.9, troponins mildly elevated 0.049 proBNP 56,000 TSH 2.9. Patient initiated on Lasix 40 IV twice a day continue Decadron with the vitamin supplement. Pulmonary consulted no plan for aggressive care. chest x-ray obtained on 04/21 suggest mild heart failure with patchy bilateral basilar rate 80 atelectasis with small pleural effusions. EKG suggestive of electronic ventricular pacemaker 04/24: Yesterday, patient care transferred to Dr. Beaulieu, however, patient is a long-term resident at [facility] under the care of Dr. Martinez and transition back to our care today. Patient remains in isolation for Covid 19 which was diagnosed at [facility]. Patient states his breathing is about the same. He does have a noted cough with congestion. Pulse ox is 95-98% on room air. His been afebrile, heart rate 91, blood pressure 126/79. D-dimer 1.25. Electrolytes wi thin normal limits. BUN 94 and creatinine 2.55. Patient has been seen by cardiology and pulmonary medicine with recommendations for IV Lasix and a repeat chest x-ray. Patient is continued on eliquis. He is on aspiration precautions. Repeat chest x-ray reveals right perihilar and basilar infiltrates persist unchanged. ROS Constitutional: Denies chills, Denies fever, Denies lethargy, Denies malaise, Denies poor appetite, Denies weakness, Denies weight loss Eyes: denies decreased vision, denies diplopia, denies discharge, denies pain Ears: deny: decreased hearing Ears, nose, mouth and throat: Denies dental pain, Denies headache, Denies nasal discharge, Denies nose pain Cardiovascular: Denies chest pain, Denies decreased exercise tolerance, Denies edema, Denies high blood pressure, Denies irregular heart beat, Denies palpitations, Denies paroxysmal nocturnal dyspnea, Denies rapid heart beat, endorses shortness of breath Respiratory: Endorses congestion, reports cough, Denies cough with sputum, endorses dyspnea, Denies home oxygen, Denies wheezing Gastrointestinal: Denies abdominal pain, Denies change in bowel habits, Denies coffee ground emesis, Denies early satiety, Denies excessive gas, Denies heartburn, Denies hematemesis, Denies hematochezia, Denies loss of appetite, Denies nausea, Denies vomiting Genitourinary: Denies dysuria, Denies flank pain, Denies kidney stones, Denies menorrhagia, Denies urgency, Denies urinary frequency Musculoskeletal: Denies gait dysfunction, Denies limitation of motion, Denies morning stiffness, Denies muscle cramps Integumentary: Denies rash, Denies wounds, Denies brittle nails, Denies change in hair/nails, Denies darkening of skin Neurological: Denies balance difficulties, Denies change in speech, Denies double vision, Denies gait dysfunction, Denies loss of vision, Denies motor disturbance, Denies numbness, Denies paralysis, Denies paresthesias, Denies seizures Psychiatric: Denies anxiety, Denies depression Endocrine: Denies excessive sweating, Denies excessive thirst, Denies high blood sugars, Denies palpitations Hematologic/Lymphatic: Denies easy bruising, Denies lymphadenopathy Physical exam - Constitutional General appearance: cooperative, no acute distress, thin - EENT Eyes: anicteric sclerae, PERRLA, normal appearance ENT: hearing grossly normal - Neck Neck: no lymphadenopathy, normal ROM, no other, no rigidity, no stridor, no thyromegaly - Respiratory Respiratory: Likely due to decreased air entry with crackles at the bases - Cardiovascular Rhythm: Irregularly irregular Heart sounds: normal: S1, S2 Abnormal Heart Sounds: Systolic ejection murmur, no diastolic murmur, no rub, no S3 Gallop, no S4 Gallop, no click, no other - Gastrointestinal General gastrointestinal: normal bowel sounds, soft nontender - Integumentary Integumentary: no rash - Neurologic Neurologic: CNII-XII intact - Musculoskeletal Musculoskeletal: Decreased range of motion of the right hip, minimal pain on movement of the hip - Psychiatric Psychiatric: A&O x's 2, appropriate affect Assessment and plan #1 acute hypoxic respiratory failure secondary to acute systolic heart failure and COVID related pneumonia. Continue Lasix at 40 IV twice a day. Oxygenating at 97% on 2 L inflammation markers ordered. Continue Decadron 6 mg by mouth daily. Echo in April 2020 with EF of 30-35% with segmental wall motion abnormality. #2 acute systolic heart failure continue IV diuresis INR monitoring daily weights. Watch for hemodynamic instability #3 recent COVID infection status post monoclonal antibodies with hypoxia. Continue Decadron, vitamin C, D and zinc. Inflammation markers ordered #4 chronic persistent atrial fibrillation continue Coreg to 25 twice a day. Eliquis 2.5 twice a day #5 chronic kidney disease stage III avoid nephrotoxic agents monitor CMP we will adjust Lasix dose is on the results 6 recent right intertrochanteric fracture s/p im nail 03/07. PTOT consult #7 type 2 diabetes continue insulin sliding scale 8 acute troponin elevation cardiology consulted troponins every 32 ordered 9 hypertension continue hydralazine 25 mg by mouth twice a day continue Coreg 25 twice a day 10COPD, not in exacerbation continue albuterol inhaler, continue tiotropium 11 CODE STATUS full code 12 DVT prophylaxis on elquis 13 advanced dementia, oriented 2 history questions appropriately. No confusion on examination DISCHARGE PLAN Return to [facility] under the care of Dr. Martinez the next 24-48 hours Impression and plan of care have been directed as dictated by the signing physician. Jessica Tay nurse practitioner acting as scribe for signing physician. Objective - Vital Signs Vital signs: Vital Signs Temp 97.5 F L 04/23/21 20:55 Pulse 91 04/24/21 04:00 Resp 17 04/24/21 04:00 BP 126/79 04/24/21 04:00 Pulse Ox 98 04/24/21 09:07 Intake & Output 04/23/21 04/24/21 04/24/21 18:59 06:59 18:59 Output Total 950 1300 Balance -950 -1300 Output: Urine 950 1300 Other: Voiding Method Indwelling Catheter Indwelling Catheter # Bowel Movements 1 - Labs CBC & Chem 7: 04/21/21 17:02 04/24/21 06:06 Labs: Abnormal Lab Results - Last 24 Hours (Table) 04/23/21 04/23/21 04/23/21 Range/Units 11:40 16:34 20:48 D-Dimer (<0.60) mg/L FEU BUN (9-20) mg/dL Creatinine (0.66-1.25) mg/dL Glucose (74-99) mg/dL POC Glucose (mg/dL) 135 H 144 H 170 H (75-99) mg/dL Calcium (8.4-10.2) mg/dL 04/24/21 04/24/21 04/24/21 Range/Units 06:06 06:06 06:06 D-Dimer 1.25 H (<0.60) mg/L FEU BUN 94 H (9-20) mg/dL Creatinine 2.55 H (0.66-1.25) mg/dL Glucose 124 H (74-99) mg/dL POC Glucose (mg/dL) 122 H (75-99) mg/dL Calcium 8.0 L (8.4-10.2) mg/dL
[2021-04-24 17:03] LABS: Glucose,Whole Blood 169 mg/dL (75-99)
--- NOTE | 2021-04-24 17:18 | P.PN ---
Subjective Progress Note Date: 04/24/21 Principal diagnosis: Acute hypoxic respiratory failure secondary to COVID-19 pneumonia and CHF. 89-year-old patient with known history of congestion heart failure along with coronary artery disease and previous bypass surgery, came into the ED because of some increased shortness of breath. The patient has tested positive for COVID 19 at the snf and the patient was receiving monoclonal infusion and during the same time the patient was found also to be hypoxic and his pulse ox up on the 70s. He was placed on CPAP, moved to the emergency department and he was replaced. BiPAP. Currently is on oxygen at 2 L per minute nasal cannula. Note that his chest x-ray in the MRSA department showed thyromegaly and increased pulmonary vascular markings consistent with CHF although possibility of a COVID 19 related pneumonia cannot be completely excluded. The patient's white cell count of 10.4 with a hemoglobin of 11.8, normal correlation profile. He has a BUN of 70 with a creatinine of 2.59. ProBNP level is 56,200. BUN is at 70 with a creatinine of 2.5. Sodium is at 137. Glucose is at 220. LFTs are normal. Patient was given Lasix and the patient diuresed significantly and the patient is currently on 40 mg of IV Lasix every 12 hours. He is also on Decad eduardo 6 mg by mouth on a daily basis. The patient has chronic A. fib fibrillation and has been maintained on Eliquis on outpatient basis dose of 2.5 mg twice a day. Current cardiac rhythm is paced. The patient is hemodynamically stable and resting comfortably in bed. 04/23/2021, patient is resting comfortably in bed and is able also to move on the recliner. He is on room air oxygen. No 70 shortness of breath. The patient received IV diuretics and the patient has been negative fluid balance. ProBNP level is still elevated. At the same time, the patient is anticoagulated regarding history of atrial fibrillation. No new complaints. Function remains stable with a creatinine of 2.59 and a BUN of 85. Glucose is 137. ProBNP level was 67,800. The patient is currently on Lasix 40 mg IV every 12 hours. The patient is also Decadron 6 mg by mouth on a daily basis. The patient on long-t erm articulation with Eliquis 2.5 mg by mouth twice a day. Reevaluated today on 04/24/2021, patient remains on the fourth floor, he is on room air, does not seem to be in any distress. Patient responded well to diuretics, his BNP level on initial admission was over 67,000. Patient remains on Lasix for his CHF, remains on Decadron for his COVID-19 pneumonia and he is still on Eliquis. Patient is comfortable, and asymptomatic. Objective - Vital Signs Vital signs: Vital Signs Temp 97.6 F 04/24/21 08:00 Pulse 69 04/24/21 08:00 Resp 16 04/24/21 08:00 BP 124/68 04/24/21 08:00 Pulse Ox 98 04/24/21 09:07 Intake & Output 04/23/21 04/24/21 04/24/21 18:59 06:59 18:59 Intake Total 240 Output Total 950 1300 Balance -950 -1300 240 Weight 78.5 kg Intake: Oral 240 Output: Urine 950 1300 Other: Voiding Method Indwelling Catheter Indwelling Catheter Indwelling Catheter # Bowel Movements 1 - Exam Physical Exam: Revealed an 89-year-old white male on room air, in no distress. Head: Atraumatic, normocephalic. HEENT:[Neck is supple.] [No neck masses.] [No thyromegaly.] [No JVD.] Chest: [Symmetrical chest expansion crackles at the bases. Cardiac Exam: Irregular irregular rhythm. [Normal S1 and S2, no S3 gallop, 2/6 systolic murmur thought the precordium. Abdomen: [Soft, nontender, no megaly, no rebound, no guarding, normal bowel sounds.] Extremities: [No clubbing, no edema, no cyanosis.] Neurological Exam: [No focal neurologic deficit.] Alert oriented 2. Psychiatric: Normal mood affect and slightly confused mental status. - Labs CBC & Chem 7: 04/21/21 17:02 04/24/21 06:06 Labs: Abnormal Lab Results - Last 24 Hours (Table) 04/23/21 04/24/21 04/24/21 Range/Units 20:48 06:06 06:06 D-Dimer 1.25 H (<0.60) mg/L FEU BUN 94 H (9-20) mg/dL Creatinine 2.55 H (0.66-1.25) mg/dL Glucose 124 H (74-99) mg/dL POC Glucose (mg/dL) 170 H (75-99) mg/dL Calcium 8.0 L (8.4-10.2) mg/dL 04/24/21 04/24/21 Range/Units 06:06 17:01 D-Dimer (<0.60) mg/L FEU BUN (9-20) mg/dL Creatinine (0.66-1.25) mg/dL Glucose (74-99) mg/dL POC Glucose (mg/dL) 122 H 169 H (75-99) mg/dL Calcium (8.4-10.2) mg/dL Assessment and Plan Assessment: Impression: Acute hypoxic respiratory failure secondary to acute systolic heart failure and COVID-19 pneumonia Acute systolic heart failure Chronic persistent atrial fibrillation Chronic kidney disease stage III Recent right hip fracture Type 2 diabetes History of underlying COPD presently inactive Benign essential hypertension Recommendation: Continue COVID-19 cocktail. Continue diuretics Continue Eliquis Consider discharge planning or placement in the next 24 hours. We'll sign off and see the patient on when necessary basis. Time with Patient: Less than 30
[2021-04-24] MEDS: POTASSIUM CHLORIDE ER 10 MEQ TAB.ER.PRT PO SCH (17:23)
[2021-04-24] MEDS: CHOLECALCIFEROL 25 MCG (1000 IU) TABLET PO SCH (17:23)
[2021-04-24] MEDS: ASCORBIC ACID 500 MG TAB PO SCH (17:23)
[2021-04-24] MEDS: ZINC SULFATE 220 MG CAP PO SCH (17:23)
[2021-04-24] MEDS: CHOLECALCIFEROL 125 MCG (5000 IU) TABLET PO SCH (17:24)
[2021-04-24 20:23] LABS: Glucose,Whole Blood 145 mg/dL (75-99)
[2021-04-25] MEDS: MORPHINE SULFATE ER 15 MG TABLET PO SCH (05:06)
[2021-04-25 07:23] LABS: Glucose,Whole Blood 106 mg/dL (75-99)
[2021-04-25] MEDS: INSULIN ASPART (NovoLOG) 100 UNIT/ML VIAL SQ SCH (07:25)
[2021-04-25] MEDS: NICOTINE 14MG/24HR PATCH TRANSDERM SCH (08:20)
[2021-04-25] MEDS: LEVOTHYROXINE 25 MCG TAB PO SCH (08:20)
[2021-04-25] MEDS: APIXABAN 2.5 MG TABLET PO SCH (08:21)
[2021-04-25] MEDS: hydrALAZINE HCL 25 MG TAB PO SCH (08:21)
[2021-04-25] MEDS: ISOSORBIDE MONONITRATE ER 60 MG TAB.ER.24H PO SCH (08:21)
[2021-04-25] MEDS: dexAMETHasone 2 MG TAB PO SCH (08:21)
[2021-04-25] MEDS: carvediloL 12.5 MG TAB PO SCH (08:21)
[2021-04-25] MEDS: SENNOSIDES-DOCUSATE SODIUM 1 EACH TAB PO SCH (08:21)
[2021-04-25] MEDS: guaiFENesin 600 MG TABLET.ER PO SCH (08:21)
[2021-04-25] MEDS: FERROUS SULFATE 325 MG TAB PO SCH (08:21)
[2021-04-25] MEDS: FUROSEMIDE 10 MG/ML 4 ML VIAL IV SCH (08:22)
[2021-04-25] MEDS: MENTHOL-ZINC OXIDE OINT 113 GM TUBE TOPICAL SCH (08:22)
--- NOTE | 2021-04-25 08:22 | P.DS ---
Providers Date of admission: 04/21/21 18:18 Expected date of discharge: 04/25/21 Attending physician: Julio Martinez Consults: 04/21/21 18:18 Consult Physician Routine Consulting Provider: [facility] Consult Reason/Comments: Acute pulmonary edema Do you want consulting provider notified?: Yes 04/21/21 18:19 Consult Physician Routine Consulting Provider: Olinda Swanson Consult Reason/Comments: COVID-19 Do you want consulting provider notified?: Yes Primary care physician: Julio Martinez [facility] Course: HPI 89-year-old male patient of Dr. Mueller who was recently admitted in the hospital for right intertrochanteric fracture on 02/18 and was discharged to [facility] with past medical history of coronary artery disease with bypass, pacemaker, proximal atrial fibrillation on Eliquis, hypertension, chronic kidney disease stage III, hyperlipidemia, hypothyroidism, congestive heart failure with EF 30-35% was brought in to the ER from [facility] as patient became short of breath and hypoxic. Patient was diagnosed with COVID on 04/20 and received monoclonal antibodies on 04/21 that since patient became hypoxic and wa s brought into the hospital.. Patient was noted to be confused and requiring 100% FiO2 on BiPAP to maintain his saturation above 90%. On assessment today, patient is off BiPAP and is currently on 2 L of oxygen mentating well. He denies any chest pain or shortness of breath. Vitals are reviewed patient is afebrile pulse 60 respiratory rate 17 pressure 140/75. His labs were reviewed and compared from February/2021 hemoglobin is 11.8 which is improved from 8 in the previous admission. Platelet is low at 128. Bicarb 18 BUN 70 creatinine 2.59, patient's baseline creatinine is 1.9, troponins mildly elevated 0.049 proBNP 56,000 TSH 2.9. Patient initiated on Lasix 40 IV twice a day continue Decadron with the vitamin supplement. Pulmonary consulted no plan for aggressive care. chest x-ray obtained on 04/21 suggest mild heart failure with patchy bilateral basilar rate 80 atelectasis with small pleural effusions. EKG suggestive of electronic ventricular pacemaker 04/24: Yesterday, patient care transferred to Dr. Beaulieu, however, patient is a long-term resident at [facility] under the care of Dr. Martinez and transition back to our care today. Patient remains in isolation for Covid 19 which was diagnosed at [facility]. Patient states his breathing is about the same. He does have a noted cough with congestion. Pulse ox is 95-98% on room air. His been afebrile, heart rate 91, blood pressure 126/79. D-dimer 1.25. Electrolytes within normal limits. BUN 94 and creatinine 2.55. Patient has been seen by cardiology and pulmonary medicine with recommendations for IV Lasix and a repeat chest x-ray. Patient is continued on eliquis. He is on aspiration precautions. Repeat chest x-ray reveals right perihilar and basilar infiltrates persist unchanged. 04/25: The patient denies any new complaints today. Nursing denies any issues overnight. Patient has been afebrile, heart rate 61, blood pressure 128/80, pulse ox 94% on room air. Patient is currently on IV Lasix which will be transitioned to oral and Aldactone will be added. He has Hall catheter in place which we will plan to discharge him back to [facility] with Hall in place and this can be addressed at the [place] [facility]. Patient will be discharged today in stable condition. DISCHARGE DIAGNOSES #1 acute hypoxic respiratory failure secondary to acute systolic heart failure and COVID related pneumonia. #2 acute systolic heart failure #3 recent COVID infection status post monoclonal antibodies with hypoxia. #4 chronic persistent atrial fibrillation #5 chronic kidney disease stage III 6 recent right intertrochanteric fracture s/p im nail 03/07. 7 type 2 diabetes mellitus type 2 8 acute troponin elevation cardiology consulted troponins every 32 ordered 9 hypertension continue hydralazine 25 mg by mouth twice a day continue Coreg 25 twice a day 10COPD, not in exacerbation continue albuterol inhaler, continue tiotropium 11 advanced dementia, oriented 2 history questions appropriately. No confusion on examination DISCHARGE PLAN Return to [facility] under the care of Dr. Martinez Greater than 35 minutes was utilized and coordinating patient's discharge. Impression and plan of care have been directed as dictated by the signing physician. Jessica Tay nurse practitioner acting as scribe for signing physician. Patient Condition at Discharge: Good Plan - Discharge Summary Discharge Rx Participant: No New Discharge Prescriptions: New Spironolactone [Aldactone] 25 mg PO DAILY #30 tablet hydrALAZINE HCL [Apresoline] 25 mg PO BID tab Continue Apixaban [Eliquis] 2.5 mg PO BID@0800,1700 Isosorbide Mononitrate ER [Imdur] 60 mg PO DAILY@0800 Ipratropium-Albuterol Nebulize [Duoneb 0.5 mg-3 mg/3 ml Soln] 3 ml INHALATION RT-QID ml Magnesium Hydroxide [Milk of Magnesia Concentrate] 7,200 mg PO Q48H PRN PRN Reason: Constipation INSULIN ASPART (NovoLOG) [NovoLOG (formulary)] See Protocol SQ ACHS Nicotine 14Mg/24Hr Patch [Habitrol] 1 patch TRANSDERM DAILY@0800 Ascorbic Acid [Vitamin C] 1,000 mg PO DAILY@1700 Fenofibrate 160 mg PO DAILY@0800 Levothyroxine Sodium [Synthroid] 25 mcg PO DAILY@0800 Carvedilol [Coreg] 25 mg PO BID@0800,1700 Cholecalciferol (Vitamin D3) [Vitamin D3 (125 MCG = 5,000 IU)] 125 mcg PO DAILY@1700 Menthol-Zinc Oxide Oint [Calmoseptine Oint] 1 applic TOPICAL BID Nitroglycerin Sl Tabs [Nitrostat] 0.4 mg SL Q5M PRN PRN Reason: Chest Pain bisacodyL [Dulcolax] 10 mg RECTAL DAILY PRN PRN Reason: Constipation Na Phos,M-B/Na Phos,Di-Ba [Fleet Adult] 133 ml RECTAL DAILY PRN PRN Reason: Constipation Ensure Enlive 120 ml PO TID@0800,1200,1700 guaiFENesin [Mucinex] 600 mg PO BID@0800,2100 Zinc Sulfate [Orazinc] 220 mg PO DAILY@1700 Sennosides/Docusate Sodium [Senna Plus 8.6-50 mg Tablet] 1 tab PO DAILY@0800 Ferrous Sulfate [Iron (65 MG Elemental)] 325 mg PO DAILY@1200 Cholecalciferol [Vitamin D3 (25 Mcg = 1000 Iu)] 50 mcg PO DAILY@1700 Sotrovimab 500mg 500 mg IV ONCE Changed Dexamethasone [Decadron] 4 mg PO DAILY #5 Furosemide [Lasix] 40 mg PO BID #0 Morphine Sulfate ER [Ms Contin] 15 mg PO BID@0600,1800 #6 tab HYDROcodone/APAP 7.5-325MG [[place] 7.5-325] 1 tab PO Q6H PRN #12 tab PRN Reason: Pain Discontinued Potassium Chloride [Klor-Con 10 ER] 10 meq PO DAILY@1700 Discharge Medication List Apixaban [Eliquis] 2.5 mg PO BID@0800,1700 02/17/21 [History] Carvedilol [Coreg] 25 mg PO BID@0800,1700 02/17/21 [History] Cholecalciferol (Vitamin D3) [Vitamin D3 (125 MCG = 5,000 IU)] 125 mcg PO DAILY@17002/17/21 [History] Fenofibrate 160 mg PO DAILY@0802/17/21 [History] Isosorbide Mononitrate ER [Imdur] 60 mg PO DAILY@0800 02/17/21 [History] Levothyroxine Sodium [Synthroid] 25 mcg PO DAILY@0802/17/21 [History] Ipratropium-Albuterol Nebulize [Duoneb 0.5 mg-3 mg/3 ml Soln] 3 ml INHALATION RT-QID ml 02/21/21 [Rx] Ascorbic Acid [Vitamin C] 1,000 mg PO DAILY@17004/21/21 [History] Cholecalciferol [Vitamin D3 (25 Mcg = 1000 Iu)] 50 mcg PO DAILY@17004/21/21 [History] Ensure Enlive 120 ml PO TID@0800,1200,1700 04/21/21 [History] Ferrous Sulfate [Iron (65 MG Elemental)] 325 mg PO DAILY@1200 04/21/21 [History] INSULIN ASPART (NovoLOG) [NovoLOG (formulary)] See Protocol SQ ACHS 04/21/21 [History] Magnesium Hydroxide [Milk of Magnesia Concentrate] 7,200 mg PO Q48H PRN 04/21/21 [History] Menthol-Zinc Oxide Oint [Calmoseptine Oint] 1 applic TOPICAL BID 04/21/21 [History] Na Phos,M-B/Na Phos,Di-Ba [Fleet Adult] 133 ml RECTAL DAILY PRN 04/21/21 [History] Nicotine 14Mg/24Hr Patch [Habitrol] 1 patch TRANSDERM DAILY@0800 04/21/21 [History] Nitroglycerin Sl Tabs [Nitrostat] 0.4 mg SL Q5M PRN 04/21/21 [History] Sennosides/Docusate Sodium [Senna Plus 8.6-50 mg Tablet] 1 tab PO DAILY@0800 04/21/21 [History] Sotrovimab 500mg 500 mg IV ONCE 04/21/21 [History] Zinc Sulfate [Orazinc] 220 mg PO DAILY@1700 04/21/21 [History] bisacodyL [Dulcolax] 10 mg RECTAL DAILY PRN 04/21/21 [History] guaiFENesin [Mucinex] 600 mg PO BID@0800,2100 04/21/21 [History] Dexamethasone [Decadron] 4 mg PO DAILY #5 04/25/21 [Rx] Furosemide [Lasix] 40 mg PO BID #0 04/25/21 [Rx] HYDROcodone/APAP 7.5-325MG [[place] 7.5-325] 1 tab PO Q6H PRN #12 tab 04/25/21 [Rx] Morphine Sulfate ER [Ms Contin] 15 mg PO BID@0600,1800 #6 tab 04/25/21 [Rx] Spironolactone [Aldactone] 25 mg PO DAILY #30 tablet 04/25/21 [Rx] hydrALAZINE HCL [Apresoline] 25 mg PO BID tab 04/25/21 [Rx] Follow up Appointment(s)/Referral(s): Henry Allen MD [STAFF PHYSICIAN] - 1 Week Julio Martinez MD [Primary Care Provider] - 1 Week Discharge Disposition: TRANSFER TO SNF/ECF
[2021-04-25] MEDS: ALBUTEROL HFA INHALER INHALATION SCH ×2 (08:32→12:01)
[2021-04-25] MEDS: TIOTROPIUM 2.5 MCG INHALER INHALATION SCH (08:32)
[2021-04-25 10:45] VITALS: BP 130/64; PULSE 68; RESP 14; TEMP 97.8
--- NOTE | 2021-04-25 10:54 | P.PN ---
Subjective Progress Note Date: 04/24/21 HISTORY OF PRESENT ILLNESS: The patient is an 89-year-old male with history of chronic persistent atrial fibrillation, permanent pacemaker implantation, status post CABG in 2008 history of aortic valve disease, hypertension, hyperlipidemia and dementia who presented from the [facility] with symptoms of progressive dyspnea according to the notes. The patient is alert oriented is not sure why he is in the hospital. According to the ER note he had COVID-19 and received monoclonal antibodies, was more dyspneic and was brought into the hospital. He had elevation of his NT pr oBNP. The history is very limited from the patient. He has no dyspnea or chest discomfort according to him, no dizziness or palpitations. He is followed by Dr. Allen, his last echocardiogram in April 2020 revealed an ejection fraction of 30-35%. He had segmental wall motion abnormality. The study was limited. He has a history of diabetes, hypertension and hyperlipidemia. 04/23/2021 The patient is an 89-year-old male with a history of chronic persistent atrial ablation, permanent pacemaker implantation, status post CABG and aortic valve disease, dementia presented with progressive dyspnea. He's feeling better at this time, he has significant dementia but seems to be stable with no chest discomfort, dizziness or palpitations. He has no evidence of tachyarrhythmia. He continues to be on IV diuretics in addition to anticoagulation 04/25/2021 Patient examined at the bedside. Patient appears to be resting comfortably. No chest pain or pressure. No shortness of breath. Patient is on room air with oxygen saturations greater than 92%. He remains on IV lasix. Vital signs stable. PHYSICAL EXAM: VITAL SIGNS: Reviewed. GENERAL: Well-developed in no acute distress. NECK: Supple. No JVD or thyromegaly LUNGS: Respirations even and unlabored. Lungs diminished to auscultation bilaterally. HEART: Irregular rate and rhythm. S1 and S2 heard. Systolic murmur noted. EXTREMITIES: Normal range of motion. No clubbing or cyanosis. Peripheral pulses intact. No lower extremity edema ASSESSMENT: Acute on chronic congestive heart failure with reduced ejection fraction, EF 30- 35% Recent Covid infection Coronary artery disease with previous CABG Permanent atrial fibrillation, anticoagulated with Eliquis Chronic kidney disease Hypertension Hyperlipidemia Dementia History of PPM implantation PLAN: Continue current cardiac medication Discontinue IV lasix Resume oral lasix Patient stable from a cardiac standpoint We will sign off. Please reconsult if needed. Nurse practitioner note has been reviewed by physician. Signing provider agrees with the documented findings, assessment, and plan of care. Objective - Vital Signs Vital signs: Vital Signs Temp 97.6 F 04/24/21 08:00 Pulse 69 04/24/21 08:00 Resp 16 04/24/21 08:00 BP 124/68 04/24/21 08:00 Pulse Ox 98 04/24/21 09:07 Intake & Output 04/23/21 04/24/21 04/24/21 18:59 06:59 18:59 Intake Total 240 Output Total 950 1300 Balance -950 -1300 240 Intake: Oral 240 Output: Urine 950 1300 Other: Voiding Method Indwelling Catheter Indwelling Catheter Indwelling Catheter # Bowel Movements 1 - Labs CBC & Chem 7: 04/21/21 17:02 04/24/21 06:06 Labs: Abnormal Lab Results - Last 24 Hours (Table) 04/23/21 04/23/21 04/24/21 Range/Units 16:34 20:48 06:06 D-Dimer 1.25 H (<0.60) mg/L FEU BUN (9-20) mg/dL Creatinine (0.66-1.25) mg/dL Glucose (74-99) mg/dL POC Glucose (mg/dL) 144 H 170 H (75-99) mg/dL Calcium (8.4-10.2) mg/dL 04/24/21 04/24/21 Range/Units 06:06 06:06 D-Dimer (<0.60) mg/L FEU BUN 94 H (9-20) mg/dL Creatinine 2.55 H (0.66-1.25) mg/dL Glucose 124 H (74-99) mg/dL POC Glucose (mg/dL) 122 H (75-99) mg/dL Calcium 8.0 L (8.4-10.2) mg/dL
[2021-04-25 11:40] LABS: Glucose,Whole Blood 167 mg/dL (75-99)
[2021-04-25] MEDS ORDERED: FUROSEMIDE 40 MG TAB PO SCH (16:00)
== END 2021-04-25 12:25 | DRG 177 ==
LOC: EC 16:32 → 3SCARD 18:18 → 4SSUR 04-24 11:33
PROVIDERS: ADMIT Internal Medicine Geriatric Medicine; ATTEND Internal Medicine Geriatric Medicine
PROC: 5A09457 Assistance with Respiratory Ventilation, 24-96 Consecutive Hours, Continuous Positive Airway Pressure (ICD-10-PCS; principal; 2021-04-21)
PROC: XW033H6 Introduction of Other New Technology Monoclonal Antibody into Peripheral Vein, Percutaneous Approach, New Technology Group 6 (ICD-10-PCS; 2021-04-21)
PROC: 3E0F7SF Introduction of Other Gas into Respiratory Tract, Via Natural or Artificial Opening (ICD-10-PCS; 2021-04-21)
DX: U07.1 COVID-19 (principal); I50.23 Acute on chronic systolic (congestive) heart failure; J12.82 Pneumonia due to coronavirus disease 2019; J96.01 Acute respiratory failure with hypoxia; E87.2 Acidosis; I13.0 Hypertensive heart and chronic kidney disease with heart failure and stage 1 through stage 4 chronic kidney disease, or unspecified chronic kidney disease; I48.21 Permanent atrial fibrillation; J44.0 Chronic obstructive pulmonary disease with (acute) lower respiratory infection; D63.8 Anemia in other chronic diseases classified elsewhere; E03.9 Hypothyroidism, unspecified; Z79.899 Other long term (current) drug therapy; Z79.890 Hormone replacement therapy; E11.22 Type 2 diabetes mellitus with diabetic chronic kidney disease; E78.5 Hyperlipidemia, unspecified; F03.90 Unspecified dementia, unspecified severity, without behavioral disturbance, psychotic disturbance, mood disturbance, and anxiety; F17.210 Nicotine dependence, cigarettes, uncomplicated; Z88.8 Allergy status to other drugs, medicaments and biological substances; F32.A Depression, unspecified; H91.90 Unspecified hearing loss, unspecified ear; I25.10 Atherosclerotic heart disease of native coronary artery without angina pectoris; I25.2 Old myocardial infarction; I25.5 Ischemic cardiomyopathy; G31.84 Mild cognitive impairment of uncertain or unknown etiology; I35.9 Nonrheumatic aortic valve disorder, unspecified; R79.89 Other specified abnormal findings of blood chemistry; K21.9 Gastro-esophageal reflux disease without esophagitis; K59.00 Constipation, unspecified; M15.9 Polyosteoarthritis, unspecified; N18.30 Chronic kidney disease, stage 3 unspecified; Z66 Do not resuscitate; Z79.01 Long term (current) use of anticoagulants; Z79.4 Long term (current) use of insulin; Z95.1 Presence of aortocoronary bypass graft; I49.5 Sick sinus syndrome; I65.23 Occlusion and stenosis of bilateral carotid arteries; G89.29 Other chronic pain; Z90.49 Acquired absence of other specified parts of digestive tract; Z98.42 Cataract extraction status, left eye; Z98.41 Cataract extraction status, right eye; Z88.1 Allergy status to other antibiotic agents
CPT/HCPCS: 36415; 71045; 80048; 80053; 82728; 83605; 83615; 83735; 83880; 84145; 84484; 85025; 85027; 85379; 85610; 85730; 86140; 93005; 94640; 94660; 94760; 96374; 96375; 99285